=== PATIENT | male | born 1930 | race American Indian/Alaskan Native ===

== ENCOUNTER 2017-03-18 14:52 | Inpatient (IN) | payer MEDICARE ==
[2017-03-18 14:53] VITALS: BMI 23.6
--- NOTE | 2017-03-18 16:05 | ED PDOC ---
Arrival/HPI - General Chief Complaint: Lower Extremity Problem/Injury Time Seen by Provider: 03/18/17 16:05 Historian: Patient - History of Present Illness Narrative History of Present Illness (Text): 03/18/17 16:05 This 86 yo male with a pmh DM, HTN, presents to this ED c/o right foot infection , swelling, and pain x 3 days. Patient admits right foot redness started x 7 days ago, but it has progressively worsen. Patient denies sob, cp, abdominal pain, urinary symptoms, SANTILLAN, or dizziness. Time/Duration: Other (see hpi) Context: Home Past Medical History - Provider Review Nursing Documentation Reviewed: Yes - Tetanus Immunization Tetanus Immunization: Unknown - Cardiac Hx Cardiac Disorders: Yes Hx Hypertension: Yes - Pulmonary Hx Respiratory Disorders: No - Neurological Hx Neurological Disorder: No - HEENT Hx HEENT Disorder: No - Renal Hx Renal Disorder: No - Endocrine/Metabolic Hx Endocrine Disorders: Yes Hx Diabetes Mellitus Type 2: Yes - Hematological/Oncological Hx Blood Disorders: No - Integumentary Hx Dermatological Disorder: Yes - Musculoskeletal/Rheumatological Hx Musculoskeletal Disorders: No - Gastrointestinal Hx Gastrointestinal Disorders: No - Genitourinary/Gynecological Hx Genitourinary Disorders: No - Psychiatric Hx Psychophysiologic Disorder: No Hx Substance Use: No - Anesthesia Hx Anesthesia: No - Suicidal Assessment Feels Threatened In Home Enviroment: No Family/Social History - Physician Review Nursing Documentation Reviewed: Yes Family/Social History: Other (noncontributory) Smoking Status: Former Smoker Hx Alcohol Use: No Hx Substance Use: No Allergies/Home Meds Allergies/Adverse Reactions: Allergies No Known Allergies Allergy (Verified 03/18/17 15:31) Home Medications: Home Meds Medication Instructions Recorded Confirmed cloNIDine [clonidine HCl] 0.1 mg PO TID 12/11/15 03/18/17 Review of Systems - Review of Systems Constitutional: Normal. absent: Fatigue, Weight Change, Fevers Eyes: Normal ENT: Normal Respiratory: Normal Cardiovascular: Normal Gastrointestinal: Normal. absent: Abdominal Pain, Nausea, Vomiting Genitourinary Male: Normal. absent: Dysuria, Frequency, Hematuria Musculoskeletal: Normal Skin: Cellulitis (right foot) Neurological: Normal Endocrine: Normal Hemo/Lymphatic: Normal Psychiatric: Normal Physical Exam Vital Signs Temp Pulse Resp BP Pulse Ox 03/18/17 15:32 99.0 F 70 18 176/65 H 100 Temperature: Afebrile Blood Pressure: Normal Pulse: Regular Respiratory Rate: Normal Appearance: Positive for: Well-Appearing, Non-Toxic, Comfortable Pain Distress: None Mental Status: Positive for: Alert and Oriented X 3 - Systems Exam Head: Present: Atraumatic, Normocephalic Pupils: Present: PERRL Extroacular Muscles: Present: EOMI Conjunctiva: Present: Normal Mouth: Present: Moist Mucous Membranes Neck: Present: Normal Range of Motion Respiratory/Chest: Present: Clear to Auscultation, Good Air Exchange. No: Respiratory Distress, Accessory Muscle Use Cardiovascular: Present: Regular Rate and Rhythm, Normal S1, S2. No: Murmurs Abdomen: Present: Normal Bowel Sounds. No: Tenderness, Distention, Peritoneal Signs Back: Present: Normal Inspection. No: CVA Tenderness Upper Extremity: Present: Normal Inspection, Normal ROM, NORMAL PULSES, Neurovascularly Intact, Capillary Refill < 2s. No: Cyanosis, Edema Lower Extremity: Present: NORMAL PULSES, Normal ROM, Tenderness, Swelling, Erythema, Neurovascularly Intact, Capillary Refill < 2 s, Other ((+) right foot is swollen, erythematous, no abscess). No: Edema, CALF TENDERNESS Neurological: Present: GCS=15, CN II-XII Intact, Speech Normal, Motor Func Grossly Intact, Normal Sensory Function, Normal Cerebellar Funct Skin: Present: Warm, Dry, Normal Color. No: Rashes Psychiatric: Present: Alert, Oriented x 3, Normal Insight, Normal Concentration Medical Decision Making ED Course and Treatment: 03/18/17 17:[address] Grabiel Sun regarding patient right foot cellulitis. He agrees with plan for admission. 03/18/17 19:27 Patient agrees with plan for admission Re-evaluation Time: 18:27 Reassessment Condition: Re-examined, Improving,but remains with symptoms - Lab Interpretations Lab Results: 03/18/17 18:00 03/18/17 18:00 Lab Results 03/18/17 18:00: pO2 36, VBG pH 7.40, VBG pCO2 50.0, VBG HCO3 31.0 H, VBG Total CO2 32.5 H, VBG O2 Sat (Calc) 74.1 H, VBG Base Excess 5.0 H, VBG Potassium 3.2 L , Sodium 142.0, Chloride 108.0 H, Glucose 132 H, Lactate 0.9, FiO2 21.0, Venous Blood Potassium 3.2 L 03/18/17 18:00: Sodium 141, Chloride 102, Potassium 3.2 L, Carbon Dioxide 28, Anion Gap 15, BUN 21, Creatinine 2.4 H, Est GFR ( Amer) 31, Est GFR (Non- Af Amer) 26, Random Glucose 123 H, Calcium 9.3, Total Bilirubin 0.3, AST 39, ALT 28, Alkaline Phosphatase 85, Total Protein 7.5, Albumin 3.7, Globulin 3.8, Albumin/Globulin Ratio 1.0 L 03/18/17 18:00: PT 15.6 H, INR 1.36 H, APTT 33.6 03/18/17 18:00: WBC 9.1, RBC 3.20 L, Hgb 9.8 L, Hct 30.6 L, MCV 95.6, MCH 30.6, MCHC 32.0, RDW 12.9, Plt Count 270, MPV 10.4, Gran % 75.3 H, Lymph % (Auto) 13.7 L, [facility] % (Auto) 7.5 H, Eos % (Auto) 3.4, Baso % (Auto) 0.1, Gran # 6.83 H , Lymph # 1.2, [facility] # 0.7 H, Eos # 0.3, Baso # 0.01, ESR Pending I have reviewed the lab results: Yes Interpretation: Abnormal lab values (hypokalemia, anemia) - RAD Interpretation Narrative RAD Interpretations (Text): 03/18/17 19:21 Venous Doppler lower extremity: no DVT as per ultrasound Radiology Orders: 03/18/17 16:06 DUPLEX LOWER EXTRM VEIN RIGHT [US] Stat 03/18/17 16:07 FOOT RIGHT 3 VIEWS ROUTINE [RAD] Stat TIBIA FIBULA LEFT [RAD] Stat - Medication Orders Current Medication Orders: Amlodipine Besylate (Norvasc) 10 mg PO DAILY [facility] Carvedilol (Coreg) 6.25 mg PO BID [facility] Clonidine HCl (Catapres) 0.1 mg PO TID [facility] Piperacillin Sod/Tazobactam Sod (Zosyn 2.25 Gm In 0.9% 100 Ml) 2.25 gm in 100 mls @ 100 mls/hr IVPB Q8H [facility] PRN Reason: Protocol Stop: 03/19/17 03:14 Insulin Human Regular (Humulin R High) 0 units SC ACHS [facility] PRN Reason: Protocol Ketorolac Tromethamine (Toradol) 30 mg IVP Q6 [facility] Metformin HCl (Glucophage) 500 mg PO BID [facility] Silver Sulfadiazine (Silvadene 1% 25 Gm) 0 gm TP BID [facility] Valsartan (Diovan) 320 mg PO DAILY [facility] Discontinued Medications Sodium Chloride (Sodium Chloride 0.9%) 500 mls @ 999 mls/hr IV .Q31M STA Stop: 03/18/17 16:38 Last Admin: 03/18/17 17:41 Dose: 999 mls/hr eMAR Start Stop Document 03/18/17 17:41 OCS (Rec: 03/18/17 17:42 OCS [id number]) Intravenous Solution Start Date 03/18/17 Start Time 17:41 End Date 03/18/17 End time 18:11 Total Infusion Time 30 Potassium Chloride (K-Dur 20 Meq Er Tab) 40 meq PO STAT STA Stop: 03/18/17 19:22 Disposition/Present on Arrival - Present on Arrival Any Indicators Present on Arrival: No History of DVT/PE: No History of Uncontrolled Diabetes: No Urinary Catheter: No History of Decub. Ulcer: No History Surgical Site Infection Following: None - Disposition Have Diagnosis and Disposition been Completed?: Yes Diagnosis: Cellulitis in diabetic foot, Hypokalemia, Anemia Disposition: HOSPITALIZED Disposition Time: 18:30 Patient Plan: Admission Patient Problems: Current Active Problems Problem Status Onset Cellulitis in diabetic foot Acute Condition: STABLE
[2017-03-18] MEDS ORDERED: Sodium Chloride 0.9% 500 ML IV STA (16:08)
[2017-03-18] MEDS ORDERED: Piperacillin/Tazobact 2.25gm 2.25 GM/100 ML BAG IVPB SCH (18:15)
[2017-03-18 18:43] LABS: VENOUS BLOOD GAS PO2 36 mm/Hg (30-55)
[2017-03-18 18:50] LABS: BASO # 0.01 K/mm3 (0.0-2.0); BASO % 0.1 % (0.0-3.0); EOS # 0.3 (0.0-0.7); EOS % 3.4 % (1.5-5.0); GRAN # 6.83 (1.4-6.5); GRAN % 75.3 % (50.0-68.0); HEMOGLOBIN 9.8 g/dL (14.0-18.0); LYMPH # 1.2 (1.2-3.4); LYMPH % 13.7 % (22.0-35.0); MEAN CELL VOLUME 95.6 fl (80.0-105.0); MEAN CORPUSCULAR HEMOGLOBIN 30.6 pg (25.0-35.0); MEAN PLATELET VOLUME 10.4 fl (7.0-11.0); MONO # 0.7 (0.1-0.6); MONO % 7.5 % (1.0-6.0); RBC 3.2 10^6/uL (3.5-6.1); RED CELL DISTRIBUTION WIDTH 12.9 % (11.5-14.5); WHITE BLOOD COUNT 9.1 10^3/ul (4.5-11.0)
[2017-03-18 18:54] LABS: ALBUMIN 3.7 g/dL (3.0-4.8); CALCIUM 9.3 mg/dL (8.4-10.5); INR 1.36 (0.93-1.08); PARTIAL THROMBOPLASTIN TIME 33.6 Seconds (25.1-36.5); PROTHROMBIN TIME 15.6 SECONDS (9.4-12.5)
[2017-03-18] MEDS ORDERED: Potassium Chloride 20 mEq ER Tab PO STA (19:21)
[2017-03-18] MEDS: Silver Sulfadiazine 1% Cream (25 gm) TP SCH (19:49)
[2017-03-18] MEDS: Insulin Reg-HIGH-Coverage SC SCH (23:52)
[2017-03-19] MEDS ORDERED: Oxycodone/Acetaminophen 5/325 mg Tab PO STA (02:27)
--- NOTE | 2017-03-19 02:31 | HP ---
HISTORY OF PRESENT ILLNESS: He is an 86-year-old man who tells me for 3 weeks now, he has been dealing with right instep and ankle ulcer, it is red and inflamed, very large, it happened 3 weeks ago out of the blue. He has been putting some [id number] on it for 3 weeks and now it is painful, it is red, it is inflamed, it is burning and it is not getting any better, it is actually getting much worse. PAST MEDICAL HISTORY: Diabetes, hypertension. PAST SURGICAL HISTORY: None. FAMILY HISTORY: There is hypertension and diabetes in the family. MEDICATIONS: He takes multiple medications, metformin, clonidine, amlodipine, and Diovan. ALLERGIES: HE HAS NO KNOWN DRUG ALLERGIES. SOCIAL HISTORY: Does not drink, does not smoke or do drugs. REVIEW OF SYSTEMS: He is having low-grade temp at 99 or above. He has no acute vision loss. No hearing loss. No acute fatigue. No chest pain or shortness of breath. Little bit swelling of the feet. He is not dizzy. The right foot is red and inflamed with big large ulcers 8 x 3 inches and 4 x 4 inches on the right foot and ankle. No nauseousness. No cough. No problems urinating. He does have some arthritis. He has pain on the right foot. He has skin excoriation almost like 2 big ulcers on the right foot which are red and inflamed with skin excoriation. He is little bit weak, not dizzy nor anxious, not depressed. No anemia or bleeding. PHYSICAL EXAMINATION: VITAL SIGNS: He has 99 plus temp, 77 pulse, 18 respiratory rate, 176/65 blood pressure, 100% O2 sat on room air. HEENT: Head is atraumatic, normocephalic. Extraocular muscles are intact. Throat is moist. NECK: Supple. No JVD. HEART: Regular rate. LUNGS: Decreased breath sounds but clear to auscultation. ABDOMEN: Soft, nontender. Positive bowel sounds. EXTREMITIES: His right foot is hot, it is red, it is swollen, 2 large blisters, but looks like they are popping out. There are ulcers, looks cellulitic. It is more than 10 to 15 inches x 4 inches wide. It goes in like beginning of the big toe all across the instep, all across almost to the bottom of the foot and up into the ankle. NEUROLOGIC: He is alert and oriented x3. Cranial nerves II through XII grossly intact, appropriate affect. Memory is fair. LYMPHATICS: Thyroid midline. No palpable lymphadenopathy appreciated. LABORATORY DATA: He has no labs back yet. IMPRESSION AND PLAN: He is ready to be admitted for this. I put him on Zosyn, Norvasc, insulin coverage, Glucophage, , Coreg and Catapres. He has got a consult with Podiatry, Infectious Disease. It is clearly pretty severe cellulitis with 2 large blister ulcers that might need more than Silvadene cream, I am going to put on it. See what the Podiatry says. Also, he will need surgical intervention. We will keep this clean and dry as we can and will see how he progresses. The nurses will call me with the labs and he is here for cellulitis, ulcers of the right foot. He has got diabetes, ulcer and hypertension. Grabiel Sun DO MTDJimena
[2017-03-19 07:15] LABS: HEMOGLOBIN 10.2 g/dL (14.0-18.0); MEAN CELL VOLUME 96.1 fl (80.0-105.0); MEAN CORPUSCULAR HEMOGLOBIN 30.5 pg (25.0-35.0); MEAN CORPUSCULAR HGB CONC 31.8 g/dl (31.0-37.0); MEAN PLATELET VOLUME 10.1 fl (7.0-11.0); RBC 3.34 10^6/uL (3.5-6.1); RED CELL DISTRIBUTION WIDTH 12.9 % (11.5-14.5); WHITE BLOOD COUNT 6.1 10^3/ul (4.5-11.0)
[2017-03-19 07:25] LABS: ALBUMIN 3.5 g/dL (3.0-4.8); CALCIUM 9.2 mg/dL (8.4-10.5)
--- NOTE | 2017-03-19 09:58 | PN ---
DATE: SUBJECTIVE: I saw him resting comfortably in bed. He has been asking the same questions over and over again to the nurse as part of his dementia. He is on Catapres, ceftaroline, Coreg, Diovan, Glucophage, insulin, Norvasc, Silvadene and Toradol. PHYSICAL EXAMINATION: VITAL SIGNS: 99.6 temperature, 86 pulse, 170/85 blood pressure, 18 respiratory rate, 92% O2 sat on room air. HEENT: His head is atraumatic, normocephalic. HEART: Regular rate. LUNGS: Clear to auscultation. ABDOMEN: Soft. EXTREMITIES: His right foot has had a very large ulcer, reddened area underneath it, tenderness. He just started the antibiotics. He had this for many weeks. See what Podiatry, Infectious Disease have to say. LABORATORY DATA: He has a 6.1 white count, 10.2 hemoglobin, 32.1 hematocrit with 254 platelets. He has a 142 sodium, potassium 3.5, little bit better. I will give him some potassium. BUN 18, creatinine 2.1 getting better, GFR is up to 30, last blood sugar is 111, calcium is 9.2, total bilirubin is 0.4, AST is 34, ALT is 30, alkaline phosphatase is 73. Total protein is 7.1. His chest x-ray is pending, a tib-fib x-ray pending, foot x-ray pending and an ultrasound pending. PLAN: We will continue with aggressive treatment and care. Await for Podiatry. We will check his labs tomorrow, get him out of bed to chair, get physical therapy involved. He is here for diabetic right foot ulcer with cellulitis, pretty severe. Grabiel Sun DO
--- NOTE | 2017-03-19 09:58 | RAD ---
HISTORY: admission COMPARISON: 04/06/2014. FINDINGS: LUNGS: The lungs are well inflated and clear. PLEURA: No significant pleural effusion identified, no pneumothorax apparent. CARDIOVASCULAR: There is mild cardiomegaly. OSSEOUS STRUCTURES: No significant abnormalities. VISUALIZED UPPER ABDOMEN: Normal. OTHER FINDINGS: None. IMPRESSION: No active pulmonary disease.
[2017-03-19] MEDS: Insulin Reg-HIGH-Coverage SC SCH ×4 (10:24→22:12)
[2017-03-19] MEDS: Silver Sulfadiazine 1% Cream (25 gm) TP SCH ×2 (10:24→17:19)
--- NOTE | 2017-03-19 11:30 | RAD ---
PROCEDURE: Right Foot Radiographs. HISTORY: Swollen right foot and pain. COMPARISON: None. FINDINGS: BONES: Go No fracture. Small plantar calcaneal spur. JOINTS: Normal. SOFT TISSUES: Normal. OTHER FINDINGS: None. IMPRESSION: No acute findings related to/accounting for the clinical presentation. Concordant results with the preliminary interpretation rendered by the emergency department physician procedure.
--- NOTE | 2017-03-19 11:58 | RAD ---
PROCEDURE: Radiographs of the left tibia and fibula. HISTORY: Swelling right lower extremity COMPARISON: None available. TECHNIQUE: Frontal and lateral views obtained. FINDINGS: BONES: No fracture or destructive lesion. JOINT SPACES: Unremarkable. OTHER FINDINGS: There appears to be calf edema. IMPRESSION: Unremarkable radiographs of the left tibia and fibula. Soft tissue swelling without acute articular or osseous abnormality.
--- NOTE | 2017-03-19 13:01 | CON ---
DATE: HISTORY OF PRESENT ILLNESS: An 86-year-old male seen at bedside for consultation, evaluation and management of a recent superficial wound on his dorsal right foot and anterior ankle. The patient denies any recent trauma to the area and states that approximately 3 weeks ago, he started to have pain in his right foot and over the course of the following weeks, he noticed the foot becoming red hot and swollen and painful with subsequent skin breakdown approximately 1 week ago. He went to see an outside manufacturing planner, who recommended he be admitted to the hospital. The patient denies any history of gout and states he does not recall stepping on anything that caused pain in his foot to suggest foreign-body intrusion. PAST MEDICAL HISTORY: Significant for longstanding insulin-dependent diabetes and essential hypertension. SOCIAL HISTORY: The patient is , was a former heavy smoker, no longer smokes. Does not drink alcohol and denies illicit drug use. ALLERGIES: THE PATIENT HAS NO KNOWN DRUG ALLERGIES. PAST SURGICAL HISTORY: The patient states he has not had any surgery in the past. PHYSICAL EXAMINATION: VITAL SIGNS: Reveal a temperature of 98.5, pulse rate of 72, blood pressure of 178/75, respiratory rate of 20. EXTREMITIES: Weakly palpable pedal pulses noted bilaterally. Protective sensation is decreased bilaterally using 5.07 gm monofilament wire testing. Capillary filling time is delayed. The right foot presents with superficial unstageable ulceration on the dorsal aspect of the foot that extends to the anterior ankle. There is noted to be one small necrotic patch that measures approximately 0.2 x 0.1 x 0.1 cm at the lateral dorsal aspect of the foot. The wound does not probe to tendon or bone. There is no purulence to suggest underlying abscess formation. There is noted to be mild edema and erythema of the right foot; however, the patient states it is much better since he was admitted to the hospital with IV antibiotics. There is no pain upon palpation of the gastrosoleus complex and there is discomfort upon palpation of the superficial wound with no pain. There are no clinical signs of portal of entry noted on the plantar aspect of the foot to suggest foreign body intrusion. LABORATORY DATA: Laboratory findings reveal a white count of 6.1, hemoglobin of 10.2, hematocrit of 32.1, platelet count of 254. There is no microbiology report. X-rays of the foot and tib-fib are pending; however, old wet read by myself of the right foot reveals no radiographic evidence of cortical destruction to suggest osteomyelitis, no cortical erosion or punched out lesions to suggest long-term gout. There are no metallic foreign bodies noted. Venous ultrasound is pending; however, there was no pain upon palpation of the gastrosoleus complex and there was no noted unilateral lower extremity edema to suggest DVT at this point. However, conformation will be confirmed with venous Doppler results. ASSESSMENT: Unstageable superficial ulceration to the right dorsal foot and anterior ankle with resolving cellulitis. PLAN: The patient's foot was examined. Culture was taken and sent for sensitivities. Recommend infectious disease consult to evaluate culture and sensitivity results. Recommend vascular consult to evaluate arterial Dopplers which will be ordered today. We will await arterial and venous Doppler results. The patient's wound will be cleansed with normal sterile saline, we will apply Bactroban and a dry sterile dressing in the meantime. We will order MRI which is more specific. The patient will be seen in followup daily while in-house. René Saleh DPM
[2017-03-19] MEDS: Simethicone 80 mg Chewtab PO PRN (15:05)
--- NOTE | 2017-03-19 15:56 | MRI ---
PROCEDURE: MRI of the right foot without contrast HISTORY: right foot ulcer, evaluate for osteomyelitis COMPARISON: Comparison is made with the previous x-ray of the right dated 03/18/2017 TECHNIQUE: Axial coronal and sagittal MRI images of the right foot were obtained without contrast administration. FINDINGS: This study is suboptimal due to patient's motion and lack of IV contrast administration. There is no evidence of bone marrow edema or cortical erosion to suggest acute/ active osteomyelitis. There is heterogeneous abnormal hyperintense T2 and STIR and hyperintense T1 signal noted at the distal portion of the 1st metatarsal shaft. The differential consideration include foci of bone infarction, old infectious or inflammatory process or old healing fracture. No evidence of adjacent cortical destruction or adjacent fluid collection to. Moderate arthritic degenerative changes noted at the right foot associated with small subcortical cystic formation. There is moderate diffuse soft tissue edema in the right foot without evidence of discrete fluid collection. Heterogeneous increased signal noted also in the muscles of the right foot suggestive of myositis. IMPRESSION: No MRI evidence of acute or active osteomyelitis. Small foci of hyperintense T2 and STIR signal and hypointense T1 signal noted at the distal portion of the 1st metatarsal bone likely represent old process such as old bone infarction or old infection or inflammatory process. Moderate soft tissue edema.
--- NOTE | 2017-03-19 17:14 | CP.PCM.CON ---
History of Present Illness - History of Present Illness History of Present Illness: 86 year old male with PMH of DM, HTN came in to [facility] complaining of worsening right foot and heel pain for the past 3 days, which started about 2-3 weeks ago. He does not recall if he had any trauma to the foot. He denies animal bites or contacts, does not soak his feet in water, no walking barefoot on soil. He denies fever or chills, no nausea or vomiting, no chest pain, no SOB, no headache or dizziness, no abdominal pain, no diarrhea, no dysuria. Infectious Diseases consult is requested to further evaluate and manage. Review of Systems - Review of Systems All systems: reviewed and no additional remarkable complaints except (as per hPI ) Past Patient History - Tetanus Immunizations Tetanus Immunization: Unknown - Past Social History Smoking Status: Former Smoker - CARDIAC Hx Cardiac Disorders: Yes Hx Hypertension: Yes - PULMONARY Hx Respiratory Disorders: No - NEUROLOGICAL Hx Neurological Disorder: No - HEENT Hx HEENT Problems: No - RENAL Hx Chronic Kidney Disease: No - ENDOCRINE/METABOLIC Hx Endocrine Disorders: Yes Hx Diabetes Mellitus Type 2: Yes - HEMATOLOGICAL/ONCOLOGICAL Hx Blood Disorders: No - INTEGUMENTARY Hx Dermatological Problems: Yes - MUSCULOSKELETAL/RHEUMATOLOGICAL Hx Falls: No - GASTROINTESTINAL Hx Gastrointestinal Disorders: No - GENITOURINARY/GYNECOLOGICAL Hx Genitourinary Disorders: No - PSYCHIATRIC Hx Psychophysiologic Disorder: No - SURGICAL HISTORY Hx Surgeries: No - ANESTHESIA Hx Anesthesia: No Meds Allergies/Adverse Reactions: Allergies Allergy/AdvReac Type Severity Reaction Status Date / Time No Known Allergies Allergy Verified 03/18/17 15:31 - Medications Medications: Current Medications Amlodipine Besylate (Norvasc) 10 mg PO DAILY [facility] Carvedilol (Coreg) 6.25 mg PO BID [facility] Clonidine HCl (Catapres) 0.1 mg PO TID [facility] Ceftaroline Fosamil 300 mg/ (Sodium Chloride) 100 mls @ 100 mls/hr IVPB Q12 [facility] PRN Reason: Protocol Stop: 03/27/17 22:01 Last Admin: 03/18/17 23:49 Dose: 100 mls/hr Insulin Human Regular (Humulin R High) 0 units SC ACHS [facility] PRN Reason: Protocol Last Admin: 03/18/17 23:52 Dose: Not Given Ketorolac Tromethamine (Toradol) 30 mg IVP Q6 [facility] Last Admin: 03/18/17 23:52 Dose: 30 mg Metformin HCl (Glucophage) 500 mg PO BID [facility] Silver Sulfadiazine (Silvadene 1% 25 Gm) 0 gm TP BID [facility] Last Admin: 03/18/17 19:49 Dose: 25 gm Valsartan (Diovan) 320 mg PO DAILY [facility] Physical Exam - Constitutional Appears: Non-toxic, No Acute Distress - Head Exam Head Exam: NORMAL INSPECTION - ENT Exam ENT Exam: Mucous Membranes Moist - Neck Exam Neck exam: Negative for: Meningismus - Respiratory Exam Respiratory Exam: Decreased Breath Sounds - Cardiovascular Exam Cardiovascular Exam: +S1, +S2 - GI/Abdominal Exam GI & Abdominal Exam: Soft. absent: Tenderness - Extremities Exam Additional comments: right foot with dressings in place Results - Vital Signs Recent Vital Signs: Last Vital Signs Temp 99.6 F 03/19/17 00:51 Pulse 86 03/19/17 00:51 Resp 18 03/19/17 00:51 BP 170/85 H 03/19/17 00:51 Pulse Ox 100 03/18/17 19:30 - Labs Result Diagrams: 03/19/17 06:00 03/19/17 06:00 Labs: Laboratory Results - last 24 hr 03/18/17 03/18/17 22:01 23:45 POC Glucose (mg/dL) 176 H 150 H Assessment & Plan - Assessment and Plan (Free Text) Plan: Assessment right ankle, foot infected ulcer with skin and skin structure infection, R/O osteomyelitis DM HTN Plan Follow up blood and wound cx; patient has been started on Teflaro follow up MRI results and evaluation of Podiatry will monitor clinically
--- NOTE | 2017-03-19 17:33 | US ---
PROCEDURE: Lower extremity PARVEEN exam HISTORY: Peripheral vascular disease with pain and claudication. Diabetes. Previous smoking. PHYSICIAN(S): Bill Awad MD. FINDINGS: The resting ABIs are inaccurate due to calcification The brachial systolic pressures are symmetric. The right high thigh PVR waveform is mildly blunted. The left high thigh PVR waveform is moderately blunted. Distant with aortoiliac disease. The calf PVR waveforms do not augment. This is consistent with bilateral SFA disease. The ankle and metatarsal waveforms are severely blunted. This is consistent with bilateral tibial occlusive disease. IMPRESSION: 1. Multilevel occlusive disease as described above. 2. The distal waveforms are severely blunted. 3. If clinically indicated, further evaluation with CTA runoff, MRA runoff, or conventional arteriogram can be considered
--- NOTE | 2017-03-19 18:47 | US ---
PROCEDURE: Right lower extremity venous US HISTORY: Leg pain and swelling. Evaluate for DVT. PHYSICIAN(S): Bill Awad M.D. TECHNIQUE: Duplex sonography and color-flow Doppler with graded compression were used to evaluate the deep venous system of the right lower extremity. FINDINGS: The visualized deep venous system of the right lower extremity is sonographically normal and compressible. Normal waveforms and augmentation are seen. There is no sonographic evidence for deep venous thrombosis in the visualized segments of the right lower extremity. IMPRESSION: 1. No sonographic evidence for deep venous thrombosis in the visualized segments of the right lower extremity.
[2017-03-19] MEDS: Sodium Chloride 0.45% 1,000 ML IV SCH (21:24)
--- NOTE | 2017-03-20 06:21 | CON ---
DATE: 03/19/2017 CHIEF COMPLAINT/HISTORY OF PRESENT ILLNESS: This is an 86-year-old gentleman with a history of hypertension and previous smoking, admitted with a superficial ulceration, which is fairly extensive on the dorsum of the right foot and ankle. It has been present for approximately 3 weeks. The patient is not a good historian. His PARVEEN/PVR exam demonstrates multilevel disease. On the right, there is SFA and tibial disease. There is also suggestion of aortoiliac disease. The patient's creatinine is approximately 2. The patient will be hydrated and an MRA runoff performed. If proximal disease is present, it may be addressed in a limited fashion. At the current time, the wound is superficial and may heal with conservative measures. We will follow with podiatry. Bill Awad MD MTDJimena
[2017-03-20] MEDS: Insulin Reg-HIGH-Coverage SC SCH ×4 (08:10→22:39)
[2017-03-20 08:23] LABS: HEMOGLOBIN 10.9 g/dL (14.0-18.0); MEAN CELL VOLUME 95.5 fl (80.0-105.0); MEAN CORPUSCULAR HEMOGLOBIN 32.5 pg (25.0-35.0); MEAN CORPUSCULAR HGB CONC 34.1 g/dl (31.0-37.0); MEAN PLATELET VOLUME 10.4 fl (7.0-11.0); RBC 3.35 10^6/uL (3.5-6.1); RED CELL DISTRIBUTION WIDTH 12.8 % (11.5-14.5); WHITE BLOOD COUNT 6.5 10^3/ul (4.5-11.0)
[2017-03-20 08:30] LABS: ALBUMIN 3.6 g/dL (3.0-4.8); CALCIUM 9.6 mg/dL (8.4-10.5)
[2017-03-20] MEDS: Silver Sulfadiazine 1% Cream (25 gm) TP SCH ×2 (09:35→17:43)
--- NOTE | 2017-03-20 13:07 | CP.PCM.PN ---
<Maribell Dickey - Last Filed: 03/20/17 13:02> Subjective - Date & Time of Evaluation Date of Evaluation: 03/20/17 Time of Evaluation: 08:40 - Subjective Subjective: 86 year old male seen at bedside concerning right leg ulceration. Pt has no overnight complaints, and is well rested. Pt denies any overnight f/c/cp/sob/n/ v. Objective - Vital Signs/Intake and Output Vital Signs (last 24 hours): Temp Pulse Resp BP Pulse Ox 98.4 F 68 20 148/59 L 97 03/20/17 08:27 03/20/17 10:01 03/20/17 08:27 03/20/17 10:01 03/20/17 08:27 Intake and Output: 03/20/17 03/20/17 06:59 18:59 Intake Total 760 0 Output Total 250 500 Balance 510 -500 - Medications Medications: Current Medications Amlodipine Besylate (Norvasc) 10 mg PO DAILY [facility] Last Admin: 03/19/17 10:23 Dose: 10 mg Carvedilol (Coreg) 6.25 mg PO BID [facility] Last Admin: 03/19/17 17:18 Dose: 6.25 mg Clonidine HCl (Catapres) 0.1 mg PO TID [facility] Last Admin: 03/19/17 17:17 Dose: 0.1 mg Ceftaroline Fosamil 300 mg/ (Sodium Chloride) 100 mls @ 100 mls/hr IVPB Q12 [facility] PRN Reason: Protocol Stop: 03/27/17 22:01 Last Admin: 03/20/17 09:35 Dose: 100 mls/hr Sodium Chloride (Sodium Chloride 0.45%) 1,000 mls @ 60 mls/hr IV .[id number] [facility] Stop: 03/23/17 06:00 Last Admin: 03/19/17 21:24 Dose: 60 mls/hr Insulin Human Regular (Humulin R High) 0 units SC ACHS [facility] PRN Reason: Protocol Last Admin: 03/20/17 11:32 Dose: Not Given Ketorolac Tromethamine (Toradol) 30 mg IVP Q8H PRN PRN Reason: Pain, moderate (4-7) Metformin HCl (Glucophage) 500 mg PO BID [facility] Last Admin: 03/20/17 09:36 Dose: Not Given Mupirocin (Bactroban Ointment) 0 gm TOP BID [facility] Last Admin: 03/20/17 09:36 Dose: 1 applic Silver Sulfadiazine (Silvadene 1% 25 Gm) 0 gm TP BID [facility] Last Admin: 03/20/17 09:35 Dose: 1 gm Simethicone (Mylicon Chew Tab) 80 mg PO HS PRN PRN Reason: GI distress Last Admin: 03/19/17 15:05 Dose: 80 mg Valsartan (Diovan) 320 mg PO DAILY [facility] Last Admin: 03/19/17 10:23 Dose: 320 mg - Labs Labs: 03/20/17 06:55 03/20/17 06:55 PT 15.6 SECONDS (9.4-12.5) H 03/18/17 18:00 INR 1.36 (0.93-1.08) H 03/18/17 18:00 APTT 33.6 Seconds (25.1-36.5) 03/18/17 18:00 - Constitutional Appears: Well, Non-toxic, No Acute Distress - Extremities Exam Additional comments: Right lower extremity focused. DERM: Superfical ulceration with granular epithelializing noted to anterior ankle and dorsum of foot. No active drainage noted. Mild erythema. No mal-odor noted. No inter-digital macerations noted. NEURO: Protective sensation grossly intact. VASC: DP and PT pulses graded 1/4. Temperature runs warm to cool proximal to distal. Absent pedal hair growth bilaterally. - Neurological Exam Neurological Exam: Alert, Awake, Oriented x3 - Psychiatric Exam Psychiatric exam: Normal Affect, Normal Mood Assessment and Plan - Assessment and Plan (Free Text) Assessment: Right foot superficial ulceration to right foot with cellulits, likely secondary to PVD Plan: Pt seen and evaluated with attending, Dr. Gleason, who endorsed the following plan. Chart, labs, and vitals reviewed. WBC=6.1K, absent leukocytosis. Pt is afebrile Right foot wound cultures- pending, preliminary results: G(+) cocci, G(-) Rods Arterial studies reviewed: Noted multi-level occlusive disease of the SFA and tibial arteries bilaterally. Recommended CTA of arterial flow study. MRI results negative for OM and abscess. Continue IV abx per ID. Local wound care performed to ulceretive site, cleansed with sterile saline dressed with Bactroban, xeroform, DSD. Vascular evaluation reviewed and recommendations appreciated. Podiatry will continue to follow patient while inhouse. <René Saleh - Last Filed: 03/23/17 11:57> Objective - Vital Signs/Intake and Output Vital Signs (last 24 hours): Temp Pulse Resp BP Pulse Ox 97.3 F L 64 96 H 143/58 L 64 L 03/22/17 16:03 03/22/17 18:16 03/22/17 16:03 03/22/17 18:16 03/22/17 16:03 - Labs Labs: 03/22/17 06:00 03/22/17 06:00 PT 15.6 SECONDS (9.4-12.5) H 03/18/17 18:00 INR 1.36 (0.93-1.08) H 03/18/17 18:00 APTT 33.6 Seconds (25.1-36.5) 03/18/17 18:00 Attending/Attestation - Attestation I have personally seen and examined this patient.: Yes I have fully participated in the care of the patient.: Yes I have reviewed all pertinent clinical information, including history, physical exam and plan: Yes
--- NOTE | 2017-03-20 16:19 | PN ---
DATE: SUBJECTIVE: Blas was resting comfortably in bed. He is done eating his breakfast, not that hungry this morning. I encouraged him to eat some breakfast. He is alert. His right foot is all bandaged up. He has a right foot ulcer and cellulitis. He has diabetes, dementia, and acute kidney injury. MEDICATIONS: He is on IV fluids, Bactroban cream, Catapres, Coreg, Diovan, Glucophage, insulin, Mylicon, Norvasc, Silvadene cream, and Teflaro. PHYSICAL EXAMINATION: VITAL SIGNS: He has a 98.4 temperature, 68 pulse, 148/59 blood pressure, 20 respiratory rate, 97% O2 sat on 2L nasal cannula. HEENT: Atraumatic, normocephalic. HEART: Regular rate. LUNGS: Clear to auscultation. ABDOMEN: Soft. EXTREMITIES: No edema. Right leg is bandaged. LABORATORY DATA: He has a 141 sodium, potassium 3.8, BUN is 40, creatinine 1.8 better, GFR is 36, sugar is 194, calcium is 9.6, total bili is 0.6, AST is 31, ALT is 27, alk phos 81, total protein 7.2. He has a 1.36 INR. He has got white count of 6.5, hemoglobin 10.9, hematocrit 32, platelets 249. No growth in blood culture and wound culture is pending. There are consults with Dr. Bill Awad for vascular evaluation of the circulation. He has got Infectious Disease, Podiatry, and the lower extremity MRI, which did not show any ostia. He was on IV antibiotics. Will continue treatment as per ID and Podiatry. Awaiting for physical therapy to let me know if he needs to start TCU, and also we will continue to improve his right foot ulcer, cellulitis, diabetes, dementia, AKA. Grabiel Sun DO
[2017-03-20] MEDS: Sodium Chloride 0.45% 1,000 ML IV SCH (20:35)
[2017-03-20] MEDS: Simethicone 80 mg Chewtab PO PRN (20:35)
--- NOTE | 2017-03-21 02:32 | PN ---
DATE: 03/20/2017 SUBJECTIVE: The patient is in bed, in no acute distress, nontoxic. PHYSICAL EXAMINATION: VITAL SIGNS: Temperature is 97, blood pressure is 160/70, respiratory rate is 16. HEENT: Unremarkable. NECK: Supple. LUNGS: Decreased breath sounds. HEART: Normal S1 and S2. ABDOMEN: Soft. LABORATORY DATA: Reveals a white count of 6.5, hemoglobin of 10, platelets of 249, BUN of 14, and creatinine of 1.8. Microbiology is noted. Blood cultures are negative. Foot culture gram positive cocci and gram-negative roman and review of orders reveal that the patient has . ASSESSMENT AND PLAN: This is an 86-year-old male who was seen earlier this morning in room 367, bed 1 with right ankle and foot infection with gram-negative roman, gram-positive cocci, skin and soft tissue infection want to rule out osteomyelitis, diabetic, hypertensive on Teflaro. We will check on the identification sensitivity. The patient did have an MRI of the lower extremity, which shows no evidence of active osteomyelitis. Christiano Uribe MD
[2017-03-21] MEDS: Sodium Chloride 0.45% 1,000 ML IV SCH (05:50)
[2017-03-21 08:11] LABS: HEMOGLOBIN 9.1 g/dL (14.0-18.0); MEAN CELL VOLUME 92.2 fl (80.0-105.0); MEAN CORPUSCULAR HEMOGLOBIN 30.8 pg (25.0-35.0); MEAN CORPUSCULAR HGB CONC 33.5 g/dl (31.0-37.0); MEAN PLATELET VOLUME 9.9 fl (7.0-11.0); RBC 2.95 10^6/uL (3.5-6.1); RED CELL DISTRIBUTION WIDTH 12.6 % (11.5-14.5); WHITE BLOOD COUNT 6.5 10^3/ul (4.5-11.0)
[2017-03-21] MEDS: Insulin Reg-HIGH-Coverage SC SCH ×4 (09:32→23:02)
[2017-03-21] MEDS: Silver Sulfadiazine 1% Cream (25 gm) TP SCH (09:36)
[2017-03-21] MEDS ORDERED: Bismuth Subsalicylate 262 mg/15 ml Sus (240 ml) PO PRN (12:13)
--- NOTE | 2017-03-21 13:08 | PN ---
DATE: SUBJECTIVE: I saw him resting comfortably in bed. His right foot is bandaged. Podiatry he is on IV antibiotics. He is comfortable, mildly confused. PHYSICAL EXAMINATION: VITAL SIGNS: He has 98.9 temperature, 70 pulse, 159/62 blood pressure, 18 respiratory rate, and 97% O2 sat on room air. HEENT: Head is atraumatic and normocephalic. HEART: Regular rate. LUNGS: Decreased breath sounds, but clear. ABDOMEN: Soft, nontender, positive bowel sounds. EXTREMITIES: Have no edema. The right foot is bandaged because he had a large ulcer, diabetic ulcer. MEDICATIONS: He is currently on Bactroban cream, Catapres, ceftaroline, IV Coreg, Diovan, Glucophage, insulin, Mylicon, Norvasc, Silvadene, IV fluids, and Toradol. LABORATORY DATA: He has 6.5 white count, 9.1 hemoglobin, and 27.2 hematocrit with 244 platelets. He has 139 sodium, potassium is 3.8, BUN is 15, creatinine is 2.1, GFR is down to 30, sugar is 96, calcium is 9, total bilirubin is 0.5, AST is 27, ALT is 23, and alkaline phosphatase is 63. Total protein is 6.2. I am calling Renal to get their opinion as supposed to stay him down. Get him out of bed to chair. Ask physical therapy to get him walking. Continue with IV antibiotics. He has got right foot large cellulitis and ulcer. Grabiel Sun DO MTDD
--- NOTE | 2017-03-21 14:05 | CP.PCM.CON ---
History of Present Illness - History of Present Illness History of Present Illness: Initial Nephrology Consultation: Assessment: Stable Acute Kidney Injury (N17.9) likely hemodynamic due to BP changes, HTN and likely impaired renal autoregulation of blood flow Diabetic chronic Kidney Disease (E11.22) Hypertensive Chronic Kidney Disease (I12.9) Chronic Kidney Disease (N18.3) Stage 3 with ? mg proteinuria (R80.9) likely due to DM/HTN Anemia (D64.9), Hypokalemia, HTN (I12.9) Rt leg ulcer Plan No acute need for renal replacement therapy at this time. Hypertension control with meds as ordered. Patient on ARB will continue with same. check renin/carito in AM. added prn hydralazine Monitor Input/Output, daily weights and renal function with basic metabolic panel d/c metformin due to elevated creatinine. started on januvia 25 mg instead Check urine analysis, spot protein/creatinine and albumin/creatinine ratio, renal/bladder sonogram. Check for 25-OH vitamin D, iPTH, phosphorus level, iron studies, serum protein electrophoresis with immunofixation, kappa/lambda ratio Dose meds/antibiotics for reduced GFR. Avoid fleets enema/magnesium based laxatives. Avoid nephrotoxins/NSAIDs/ iodinated contrast (unless needed emergently) Glycemic control Further work up/management as per primary team Thanks for allowing me to participate in care of your patient. Will follow patient with you. Please call if any Qs Dr Víctor Echols Office: [phone] Chief Complaint;Rt leg wound HPI: Pt is a 86 M with hx of diabetes Mellitus ( many years), hypertension ( many years), CKD stage 3 (baseline cr 1.9 in 2015) presented with complaints of Rt leg wound with cellulitis and renal consult for elevated creatinine and HTN management. pt not aware about kidney disease in past. besides Rt leg wound , feels in usual health Denies OTC/herbal meds or NSAIDs No recent iodinated contrast exposure. No obvious episodes of low BP but had highs in 180-190s initially ROS: Cardiovascular: No chest pain. Pulmonary: No shortness of breath Gastrointestinal: denies abdominal pain No nausea. No vomiting. Genitourinary: No pain while urinating. Denies blood in urine. All other negative except Rt leg wound Physical Examination: General Appearance: Comfortable, in no acute respiratory distress, co-operative . Vitals reviewed and noted as below Head; Atraumatic, normocephalic ENT: no ulcers no thrush. Tongue is midline. Oropharynx: no rash or ulcers. EYES: Pupils are equal, round and reactive to light accommodation. Eye muscles and extraocular movement intact. Sclera is anicteric. Neck; supple no lymphadenopathy, no thyromegaly or bruit Lungs: Normal respiratory rate/effort. Breath sounds bilateral equal and clear Heart: Normal rate. s1s2 normal. No rub or gallop. Extremities: no edema. No varicose veins. Rt leg in dressing Neurological: Patient is alert, awake and oriented to person, place and time. No focal deficit. Strength bilateral appropriate and equal Skin: Warm and dry. Normal turgor. No rash. Palpitation: Normal elasticity for age Abdomen: Abdomen is soft. Bowel sounds +. There is no abdominal tenderness, no guarding/rigidity no organomegaly Psych: normal insight and normal affect/mood MSK: no joint tenderness or swelling. Digits and nails normal, no deformity : kidney or bladder not palpable Labs/imaging reviewed. Past medical history, past surgical history, family history, social history, allergy reviewed and noted as below Family hx: no hx of CKD. Rest non-contributory SARAH neg in 2014 Past Patient History - Tetanus Immunizations Tetanus Immunization: Unknown - Past Social History Smoking Status: Former Smoker - CARDIAC Hx Cardiac Disorders: Yes Hx Hypertension: Yes - PULMONARY Hx Respiratory Disorders: No - NEUROLOGICAL Hx Neurological Disorder: No - HEENT Hx HEENT Problems: No - RENAL Hx Chronic Kidney Disease: No - ENDOCRINE/METABOLIC Hx Endocrine Disorders: Yes Hx Diabetes Mellitus Type 2: Yes - HEMATOLOGICAL/ONCOLOGICAL Hx Blood Disorders: No - INTEGUMENTARY Hx Dermatological Problems: Yes - MUSCULOSKELETAL/RHEUMATOLOGICAL Hx Falls: No - GASTROINTESTINAL Hx Gastrointestinal Disorders: No - GENITOURINARY/GYNECOLOGICAL Hx Genitourinary Disorders: No - PSYCHIATRIC Hx Psychophysiologic Disorder: No - SURGICAL HISTORY Hx Surgeries: No - ANESTHESIA Hx Anesthesia: No Meds Allergies/Adverse Reactions: Allergies Allergy/AdvReac Type Severity Reaction Status Date / Time No Known Allergies Allergy Verified 03/18/17 15:31 - Medications Medications: Current Medications Amlodipine Besylate (Norvasc) 10 mg PO DAILY [facility] Last Admin: 03/21/17 09:35 Dose: 10 mg Bismuth Subsalicylate (Pepto-Bismol) 524 mg PO Q6 PRN PRN Reason: Diarrhea Last Admin: 03/21/17 12:58 Dose: 524 mg Carvedilol (Coreg) 6.25 mg PO BID [facility] Last Admin: 03/21/17 09:35 Dose: 6.25 mg Clonidine HCl (Catapres) 0.1 mg PO TID [facility] Last Admin: 03/21/17 13:53 Dose: 0.1 mg Ceftaroline Fosamil 300 mg/ (Sodium Chloride) 100 mls @ 100 mls/hr IVPB Q12 [facility] PRN Reason: Protocol Stop: 03/27/17 22:01 Last Admin: 03/21/17 09:41 Dose: 100 mls/hr Sodium Chloride (Sodium Chloride 0.45%) 1,000 mls @ 60 mls/hr IV .[id number] [facility] Stop: 03/23/17 06:00 Last Admin: 03/21/17 05:50 Dose: Not Given Insulin Human Regular (Humulin R High) 0 units SC ACHS [facility] PRN Reason: Protocol Last Admin: 03/21/17 11:59 Dose: Not Given Mupirocin (Bactroban Ointment) 0 gm TOP BID [facility] Last Admin: 03/21/17 09:32 Dose: 1 applic Silver Sulfadiazine (Silvadene 1% 25 Gm) 0 gm TP BID [facility] Last Admin: 03/21/17 09:36 Dose: 1 gm Simethicone (Mylicon Chew Tab) 80 mg PO [facility] PRN PRN Reason: GI distress Last Admin: 03/20/17 20:35 Dose: 80 mg Sitagliptin Phosphate (Januvia) 25 mg PO DAILY [facility] Valsartan (Diovan) 320 mg PO DAILY [facility] Last Admin: 03/21/17 09:35 Dose: 320 mg Results - Vital Signs Recent Vital Signs: Last Vital Signs Temp 98.9 F 03/21/17 08:03 Pulse 62 03/21/17 13:53 Resp 18 03/21/17 08:03 BP 141/60 03/21/17 13:53 Pulse Ox 97 03/21/17 08:03 - Labs Result Diagrams: 03/21/17 07:30 03/21/17 07:30 Labs: Laboratory Results - last 24 hr 03/20/17 03/20/17 03/21/17 16:22 21:21 07:30 WBC 6.5 RBC 2.95 L Hgb 9.1 L Hct 27.2 L MCV 92.2 D MCH 30.8 MCHC 33.5 RDW 12.6 Plt Count 244 MPV 9.9 Sodium Potassium Chloride Carbon Dioxide Anion Gap BUN Creatinine Est GFR ( Amer) Est GFR (Non-Af Amer) POC Glucose (mg/dL) 267 H 82 Random Glucose Calcium Total Bilirubin AST ALT Alkaline Phosphatase Total Protein Albumin Globulin Albumin/Globulin Ratio 03/21/17 03/21/17 03/21/17 07:30 07:38 11:35 WBC RBC Hgb Hct MCV MCH MCHC RDW Plt Count MPV Sodium 139 Potassium 3.8 Chloride 107 Carbon Dioxide 22 Anion Gap 13 BUN 15 Creatinine 2.1 H Est GFR ( Amer) 36 Est GFR (Non-Af Amer) 30 POC Glucose (mg/dL) 96 129 H Random Glucose 96 Calcium 9.0 Total Bilirubin 0.5 AST 27 ALT 23 Alkaline Phosphatase 63 Total Protein 6.2 Albumin 3.0 Globulin 3.1 Albumin/Globulin Ratio 1.0 L
[2017-03-21 14:09] LABS: IRON 45 ug/dL (45-180)
[2017-03-21 14:19] LABS: % IRON SATURATION 22 % (20-55); TOTAL IRON BINDING CAPACITY 208 ug/dL (261-462)
--- NOTE | 2017-03-21 14:39 | PN ---
DATE: 03/21/2017 SUBJECTIVE: The patient is in bed, in no acute distress. PHYSICAL EXAMINATION: VITAL SIGNS: Temperature is 98, blood pressure is 150/60, and respiratory rate of 18. HEENT: Unremarkable. NECK: Supple. LUNGS: Decreased breath sounds. HEART: Normal S1 and S2. ABDOMEN: Soft and nontender. LABORATORY DATA: Reveals white count of 6.5 and hemoglobin of 9. Chemistry reveals BUN of 15 and creatinine of 2.1. Microbiology reveals Enterobacter cloacae from the right foot culture and Enterococcus avium. Enterobacter cloacae is relatively sensitive, it is sensitive to Bactrim and ertapenem and sensitive to Cipro, cefepime, and meropenem, resistant of cefazolin. Enterococcus avium is resistant to , and it is sensitive to vancomycin, resistant to penicillin. Review of orders reveals the patient to be on ceftaroline. The patient has an MRA pending. ASSESSMENT AND PLAN: An 86-year-old male who is seen earlier today in [facility], bed 1 with Enterobacter cloacae and Enterococcus right ankle and foot soft tissue and soft tissue skin and soft tissue infection on Teflaro with negative osteo on MRI. The patient states vascular workup in progress. We will follow closely with you. Christiano Uribe MD
[2017-03-21 16:07] LABS: TOTAL PROTEIN,RANDOM URINE 255 mg/L
--- NOTE | 2017-03-21 18:06 | CP.PCM.PN ---
Subjective - Date & Time of Evaluation Date of Evaluation: 03/21/17 Time of Evaluation: 12:50 - Subjective Subjective: Podiatry Consult Note- Dr. Renteria 86 year old male seen at bedside concerning right leg ulceration. Pt reports continue ascending right leg pain, graded 5/10, moderately controlled by pain medications. Pt has no overnight complaints, and is well rested. Pt denies any overnight f/c/cp/sob/n/v. Objective - Vital Signs/Intake and Output Vital Signs (last 24 hours): Temp Pulse Resp BP Pulse Ox 98.9 F 62 18 141/60 97 03/21/17 08:03 03/21/17 13:53 03/21/17 08:03 03/21/17 13:53 03/21/17 08:03 - Medications Medications: Current Medications Amlodipine Besylate (Norvasc) 10 mg PO DAILY [facility] Last Admin: 03/21/17 09:35 Dose: 10 mg Bismuth Subsalicylate (Pepto-Bismol) 524 mg PO Q6 PRN PRN Reason: Diarrhea Last Admin: 03/21/17 12:58 Dose: 524 mg Carvedilol (Coreg) 6.25 mg PO BID [facility] Last Admin: 03/21/17 09:35 Dose: 6.25 mg Clonidine HCl (Catapres) 0.1 mg PO TID [facility] Last Admin: 03/21/17 13:53 Dose: 0.1 mg Hydralazine HCl (Apresoline) 25 mg PO Q6 PRN PRN Reason: Other Ceftaroline Fosamil 300 mg/ (Sodium Chloride) 100 mls @ 100 mls/hr IVPB Q12 [facility] PRN Reason: Protocol Stop: 03/27/17 22:01 Last Admin: 03/21/17 09:41 Dose: 100 mls/hr Sodium Chloride (Sodium Chloride 0.45%) 1,000 mls @ 60 mls/hr IV .[id number] [facility] Stop: 03/23/17 06:00 Last Admin: 03/21/17 05:50 Dose: Not Given Insulin Human Regular (Humulin R High) 0 units SC ACHS [facility] PRN Reason: Protocol Last Admin: 03/21/17 17:38 Dose: Not Given Mupirocin (Bactroban Ointment) 0 gm TOP BID [facility] Last Admin: 03/21/17 09:32 Dose: 1 applic Simethicone (Mylicon Chew Tab) 80 mg PO HS PRN PRN Reason: GI distress Last Admin: 03/20/17 20:35 Dose: 80 mg Sitagliptin Phosphate (Januvia) 25 mg PO DAILY [facility] Valsartan (Diovan) 320 mg PO DAILY [facility] Last Admin: 03/21/17 09:35 Dose: 320 mg - Labs Labs: 03/21/17 07:30 03/21/17 07:30 PT 15.6 SECONDS (9.4-12.5) H 03/18/17 18:00 INR 1.36 (0.93-1.08) H 03/18/17 18:00 APTT 33.6 Seconds (25.1-36.5) 03/18/17 18:00 - Constitutional Appears: Well, Non-toxic, No Acute Distress - Extremities Exam Additional comments: Right lower extremity focused. DERM: Superficial ulceration with epithelializing base noted to anterior ankle and dorsum of foot. No active drainage noted. Resolving erythema. No mal-odor noted. No inter-digital macerations noted. NEURO: Protective sensation grossly intact. VASC: DP and PT pulses graded 1/4. Temperature runs warm to cool proximal to distal. Absent pedal hair growth bilaterally. - Neurological Exam Neurological Exam: Alert, Awake, Oriented x3 - Psychiatric Exam Psychiatric exam: Normal Affect, Normal Mood Assessment and Plan - Assessment and Plan (Free Text) Assessment: Right foot superficial ulceration to right foot with cellulits, likely secondary to PVD Plan: Pt seen and evaluated. Discussed with attending, Dr. Renteria, who endorsed the following plan. Chart, labs, and vitals reviewed. WBC=6.5K, absent leukocytosis. Pt is afebrile Right foot wound cultures- Enterobacter cloacae ; Enterococcus avium Arterial studies reviewed: Noted multi-level occlusive disease of the SFA and tibial arteries bilaterally. per Vascular specialist- MRA imaging ordered MRI results negative for OM and abscess. Continue IV abx per ID. Local wound care performed to ulcerative site, cleansed with sterile saline dressed with Bactroban, xeroform, DSD. Podiatry will continue to follow patient while inhouse.
[2017-03-21 19:37] LABS: URINE BILIRUBIN NEGATIVE (NEGATIVE); URINE BLOOD NEGATIVE (NEGATIVE); URINE GLUCOSE (UA) NEGATIVE (NEGATIVE); URINE LEUKOCYTE ESTERASE NEGATIVE Leu/uL (NEGATIVE); URINE NITRATE NEGATIVE (NEGATIVE); URINE PROTEIN 100 mg/dL (<30 mg/dL); URINE UROBILINOGEN 0.2 E.U./dL (<1 E.U./dL)
[2017-03-21 19:39] LABS: URINE APPEARANCE CLEAR (CLEAR); URINE COLOR YELLOW (YELLOW)
[2017-03-21 20:39] LABS: URINE RBC 0 - 2 /hpf (0-2); URINE WBC 0 - 2 /hpf (0-6)
[2017-03-21 20:40] LABS: URINE BACTERIA MOD (NEG)
[2017-03-22 06:28] LABS: HEMOGLOBIN 9.2 g/dL (14.0-18.0); MEAN CELL VOLUME 89.5 fl (80.0-105.0); MEAN CORPUSCULAR HEMOGLOBIN 29.2 pg (25.0-35.0); MEAN CORPUSCULAR HGB CONC 32.6 g/dl (31.0-37.0); MEAN PLATELET VOLUME 9.9 fl (7.0-11.0); RBC 3.15 10^6/uL (3.5-6.1); RED CELL DISTRIBUTION WIDTH 12.5 % (11.5-14.5); WHITE BLOOD COUNT 7.2 10^3/ul (4.5-11.0)
[2017-03-22 07:38] LABS: CALCIUM 8.9 mg/dL (8.4-10.5)
[2017-03-22] MEDS: Insulin Reg-HIGH-Coverage SC SCH ×3 (09:25→17:01)
--- NOTE | 2017-03-22 09:55 | PN ---
DATE: SUBJECTIVE: I saw Mr. Odonnell resting in bed, slept fairly well. His right foot is covered in bandages. He tells me he is not eating that well. Did not get up to walk yet. MEDICATIONS: He is on Apresoline, Bactroban cream, Catapres, ceftaroline, Coreg, Diovan, insulin, Januvia, Mylicon, Norvasc, Pepto-Bismol, and IV fluids. PHYSICAL EXAMINATION: GENERAL: He is alert, mildly confused. VITAL SIGNS: He has a 98 temperature, 65 pulse, 138/64 blood pressure, 19 respiratory rate, 98% O2 sat. HEENT: Head is atraumatic, normocephalic. HEART: Regular rate. LUNGS: Decreased breath sounds, but clear. ABDOMEN: Soft. EXTREMITIES: No edema. The right foot is bandaged because of the ulcer. LABORATORY DATA: He has a 7.2 white count, 9.2 hemoglobin, 28.2 hematocrit with 251 platelets. Sodium 137, potassium 4.2, BUN 15, creatinine 1.9. GFR is 34, sugar is 117, calcium is 8.9, phosphorus is 2.9, AST is 39, ALT is 28, and alkaline phosphatase is 62. Total protein is 6.2. ASSESSMENT AND PLAN: We will continue with aggressive treatment and care as per Renal, Infectious Disease, Podiatry. IV antibiotics for right foot ulcer. Diabetes, dementia, and acute kidney injury. We will continue with Grabiel Sun DO MTDJimena
[2017-03-22] MEDS ORDERED: Gadodiamide 287 MG/ML VIAL (20ML) IV ONE (10:27)
--- NOTE | 2017-03-22 13:58 | CARD ---
APPROVED REPORT EKG Measurement Heart [id number] CO [id number] [id number] <Conclusion> Normal sinus rhythm Left anterior fascicular block Minimal voltage criteria for LVH, may be normal variant T wave abnormality, consider lateral ischemia Abnormal ECG
--- NOTE | 2017-03-22 14:33 | CP.PCM.PN ---
Subjective - Date & Time of Evaluation Date of Evaluation: 03/22/17 Time of Evaluation: 14:31 - Subjective Subjective: 86 y/o male seen at bedside this afternoon with attending Dr. Renteria for right foot cellulitis with superficial ulceration. Pt resting comfortably in bed at time of visit. Dressing clean dry and intact to R foot with antibiotics infusing well. Pt admits to having pain in the top of his right foot that comes and goes, worsened with touch. Denies F/C/N/V/CP/SOB at this time Objective - Vital Signs/Intake and Output Vital Signs (last 24 hours): Temp Pulse Resp BP Pulse Ox 98 F 65 20 161/71 H 97 03/22/17 08:45 03/22/17 08:45 03/22/17 08:45 03/22/17 12:04 03/22/17 08:45 Intake and Output: 03/22/17 03/22/17 06:59 18:59 Intake Total 1740 480 Output Total 1075 475 Balance 665 5 - Medications Medications: Current Medications Amlodipine Besylate (Norvasc) 10 mg PO DAILY [facility] Last Admin: 03/22/17 09:25 Dose: 10 mg Bismuth Subsalicylate (Pepto-Bismol) 524 mg PO Q6 PRN PRN Reason: Diarrhea Last Admin: 03/21/17 12:58 Dose: 524 mg Carvedilol (Coreg) 12.5 mg PO BID [facility] Clonidine HCl (Catapres) 0.1 mg PO TID [facility] Last Admin: 03/22/17 09:25 Dose: 0.1 mg Ferrous Gluconate (Fergon) 324 mg PO TID [facility] Hydralazine HCl (Apresoline) 25 mg PO Q6 PRN PRN Reason: Other Last Admin: 03/22/17 06:50 Dose: 25 mg Ceftaroline Fosamil 300 mg/ (Sodium Chloride) 100 mls @ 100 mls/hr IVPB Q12 [facility] PRN Reason: Protocol Stop: 03/27/17 22:01 Last Admin: 03/22/17 09:32 Dose: 100 mls/hr Sodium Chloride (Sodium Chloride 0.45%) 1,000 mls @ 60 mls/hr IV .[id number] [facility] Stop: 03/23/17 06:00 Last Admin: 03/21/17 05:50 Dose: Not Given Insulin Human Regular (Humulin R High) 0 units SC ACHS [facility] PRN Reason: Protocol Last Admin: 03/22/17 11:56 Dose: Not Given Mupirocin (Bactroban Ointment) 0 gm TOP BID [facility] Last Admin: 03/22/17 09:25 Dose: 1 applic Simethicone (Mylicon Chew Tab) 80 mg PO HS PRN PRN Reason: GI distress Last Admin: 03/20/17 20:35 Dose: 80 mg Sitagliptin Phosphate (Januvia) 25 mg PO DAILY [facility] Last Admin: 03/22/17 09:25 Dose: 25 mg Tramadol HCl (Ultram) 50 mg PO Q8 PRN PRN Reason: Pain, moderate (4-7) Valsartan (Diovan) 320 mg PO DAILY [facility] Last Admin: 03/22/17 09:25 Dose: 320 mg Vitamin B Complex/Vit C/Folic Acid (Nephro-J Luis) 1 tab PO 0800 [facility] - Labs Labs: 03/22/17 06:00 03/22/17 06:00 PT 15.6 SECONDS (9.4-12.5) H 03/18/17 18:00 INR 1.36 (0.93-1.08) H 03/18/17 18:00 APTT 33.6 Seconds (25.1-36.5) 03/18/17 18:00 - Constitutional Appears: Well, Non-toxic - Extremities Exam Additional comments: Right lower extremity focused examination: DERM: Superficial ulceration with epithelializing base noted to anterior ankle and dorsum of foot. No active drainage noted. Mild cellulitic skin changes are noted extending to mid level of leg. No malodor noted. No inter-digital macerations noted. NEURO: Protective sensation grossly intact. VASC: DP and PT pulses graded 1/4. Temperature runs warm to cool proximal to distal. Absent pedal hair growth - Neurological Exam Neurological Exam: Alert, Awake - Psychiatric Exam Psychiatric exam: Normal Affect, Normal Mood Assessment and Plan - Assessment and Plan (Free Text) Assessment: Right foot superficial ulceration to right foot with cellulits, likely secondary to PVD Plan: Pt seen and evaluated with attending, Dr. Renteria Chart, labs, and vitals reviewed - afebrile, WBC 7.2 Right foot wound cultures- Enterobacter cloacae; Enterococcus avium Arterial studies reviewed: Noted multi-level occlusive disease of the SFA and tibial arteries B/L MRA imaging ordered, awaiting read MRI results negative for OM and abscess Continue IV abx per ID. Local wound care performed to ulcerative site, cleansed with sterile saline dressed with Bactroban, Optifoam, DSD Podiatry will continue to follow patient while in house
[2017-03-22] MEDS ORDERED: Ergocalciferol 50,000 Intl Units Cap PO SCH (15:30)
--- NOTE | 2017-03-22 15:30 | CP.PCM.PN ---
Subjective - Date & Time of Evaluation Date of Evaluation: 03/22/17 Time of Evaluation: 15:28 - Subjective Subjective: Follow up Nephrology Consultation: Assessment: Stable Acute Kidney Injury (N17.9) likely hemodynamic due to BP changes, HTN and likely impaired renal autoregulation of blood flow Diabetic chronic Kidney Disease (E11.22) Hypertensive Chronic Kidney Disease (I12.9) Chronic Kidney Disease (N18.3) Stage 3 with 1 gm albuminuria (R80.9) likely due to DM/HTN Anemia (D64.9), Hypokalemia, HTN (I12.9) Rt leg ulcer vit d def Plan No acute need for renal replacement therapy at this time. Hypertension control with meds as ordered. Patient on ARB will continue with same. checking renin/craito. added prn hydralazine. increased coreg Monitor Input/Output, daily weights and renal function with basic metabolic panel d/c metformin due to elevated creatinine. started on januvia 25 mg instead added MVI, iron and weekly vit D Check urine analysis, spot protein/creatinine and albumin/creatinine ratio, renal/bladder sonogram. Check for iPTH, phosphorus level, iron studies, serum protein electrophoresis with immunofixation, kappa/lambda ratio Dose meds/antibiotics for reduced GFR. Avoid fleets enema/magnesium based laxatives. Avoid nephrotoxins/NSAIDs/ iodinated contrast (unless needed emergently) Glycemic control Further work up/management as per primary team Thanks for allowing me to participate in care of your patient. Will follow patient with you. Please call if any Qs Dr Víctor Echols Office: [phone] Chief Complaint;Rt leg wound HPI: Pt is a 86 M with hx of diabetes Mellitus ( many years), hypertension ( many years), CKD stage 3 (baseline cr 1.9 in 2015) presented with complaints of Rt leg wound with cellulitis and renal consult for elevated creatinine and HTN management. pt not aware about kidney disease in past. besides Rt leg wound , feels in usual health Denies OTC/herbal meds or NSAIDs No recent iodinated contrast exposure. No obvious episodes of low BP but had highs in 180-190s initially ROS: Cardiovascular: No chest pain. Pulmonary: No shortness of breath Gastrointestinal: denies abdominal pain No nausea. No vomiting. Genitourinary: No pain while urinating. Denies blood in urine. All other negative except Rt leg wound Physical Examination: General Appearance: Comfortable, in no acute respiratory distress, co-operative . Vitals reviewed and noted as below Head; Atraumatic, normocephalic ENT: no ulcers no thrush. Tongue is midline. Oropharynx: no rash or ulcers. EYES: Pupils are equal, round and reactive to light accommodation. Eye muscles and extraocular movement intact. Sclera is anicteric. Neck; supple no lymphadenopathy, no thyromegaly or bruit Lungs: Normal respiratory rate/effort. Breath sounds bilateral equal and clear Heart: Normal rate. s1s2 normal. No rub or gallop. Extremities: no edema. No varicose veins. Rt leg in dressing Neurological: Patient is alert, awake and oriented to person, place and time. No focal deficit. Strength bilateral appropriate and equal Skin: Warm and dry. Normal turgor. No rash. Palpitation: Normal elasticity for age Abdomen: Abdomen is soft. Bowel sounds +. There is no abdominal tenderness, no guarding/rigidity no organomegaly Psych: normal insight and normal affect/mood MSK: no joint tenderness or swelling. Digits and nails normal, no deformity : kidney or bladder not palpable Labs/imaging reviewed. Past medical history, past surgical history, family history, social history, allergy reviewed and noted as below Family hx: no hx of CKD. Rest non-contributory SARAH neg in 2014 Objective - Vital Signs/Intake and Output Vital Signs (last 24 hours): Temp Pulse Resp BP Pulse Ox 98 F 65 20 161/71 H 97 03/22/17 08:45 03/22/17 08:45 03/22/17 08:45 03/22/17 12:04 03/22/17 08:45 Intake and Output: 03/22/17 03/22/17 06:59 18:59 Intake Total 1740 480 Output Total 1075 475 Balance 665 5 - Medications Medications: Current Medications Amlodipine Besylate (Norvasc) 10 mg PO DAILY [facility] Last Admin: 03/22/17 09:25 Dose: 10 mg Bismuth Subsalicylate (Pepto-Bismol) 524 mg PO Q6 PRN PRN Reason: Diarrhea Last Admin: 03/21/17 12:58 Dose: 524 mg Carvedilol (Coreg) 12.5 mg PO BID [facility] Clonidine HCl (Catapres) 0.1 mg PO TID [facility] Last Admin: 03/22/17 09:25 Dose: 0.1 mg Ergocalciferol (Drisdol 50,000 Intl Units Cap) 1 cap PO Q7D [facility] Ferrous Gluconate (Fergon) 324 mg PO TID [facility] Hydralazine HCl (Apresoline) 25 mg PO Q6 PRN PRN Reason: Other Last Admin: 03/22/17 06:50 Dose: 25 mg Ceftaroline Fosamil 300 mg/ (Sodium Chloride) 100 mls @ 100 mls/hr IVPB Q12 [facility] PRN Reason: Protocol Stop: 03/27/17 22:01 Last Admin: 03/22/17 09:32 Dose: 100 mls/hr Sodium Chloride (Sodium Chloride 0.45%) 1,000 mls @ 60 mls/hr IV .[id number] [facility] Stop: 03/23/17 06:00 Last Admin: 03/21/17 05:50 Dose: Not Given Insulin Human Regular (Humulin R High) 0 units SC ACHS [facility] PRN Reason: Protocol Last Admin: 03/22/17 11:56 Dose: Not Given Mupirocin (Bactroban Ointment) 0 gm TOP BID [facility] Last Admin: 03/22/17 09:25 Dose: 1 applic Simethicone (Mylicon Chew Tab) 80 mg PO P[facility]S PRN PRN Reason: GI distress Last Admin: 03/20/17 20:35 Dose: 80 mg Sitagliptin Phosphate (Januvia) 25 mg PO DAILY [facility] Last Admin: 03/22/17 09:25 Dose: 25 mg Tramadol HCl (Ultram) 50 mg PO Q8 PRN PRN Reason: Pain, moderate (4-7) Last Admin: 03/22/17 14:44 Dose: 50 mg Valsartan (Diovan) 320 mg PO DAILY [facility] Last Admin: 03/22/17 09:25 Dose: 320 mg Vitamin B Complex/Vit C/Folic Acid (Nephro-J Luis) 1 tab PO 0800 [facility] - Labs Labs: 03/22/17 06:00 03/22/17 06:00 PT 15.6 SECONDS (9.4-12.5) H 03/18/17 18:00 INR 1.36 (0.93-1.08) H 03/18/17 18:00 APTT 33.6 Seconds (25.1-36.5) 03/18/17 18:00
--- NOTE | 2017-03-22 16:31 | MRI ---
PROCEDURE: MRA of the lower extremities with and without contrast HISTORY: PVD. rt ankle ulcer COMPARISON: TECHNIQUE: MR angiography of the aorta and lower extremities was performed with and without IV contrast. 20 cc of Omniscan was injected. The study is limited by motion artifact. FINDINGS: The aorta is tortuous but patent. The iliac arteries are patent. There is a mild stenosis in the left external iliac. Multiple short segment stenoses can be seen in the superficial femoral artery is right greater than left. There is diminished flow below the knees. On the left side the peroneal and posterior tibial extend to the ankle. The anterior tibial is occluded. There is a great deal of motion on this portion of the exam. The right-sided vessels are segmentally visualized. There is does not appear to be continuous flow from the popliteal artery to the ankle. The study is limited by patient motion IMPRESSION: Limited study due to patient motion. Diminished flow below the knees. Multiple short segment stenoses in the superficial femoral arteries right greater than left
[2017-03-22 17:52] VITALS: BP 143/58; RESP 96; TEMP 97.3; O2SAT 64
--- NOTE | 2017-03-22 17:58 | US ---
PROCEDURE: Ultrasound of the Kidneys HISTORY: [facility] COMPARISON: None available. TECHNIQUE: Sonogram of the kidneys. FINDINGS: RIGHT KIDNEY: Measures: 4.2 x 8.6 cm. Normal in size, contour and echogenicity. No stone, solid mass lesion or hydronephrosis visualized. LEFT KIDNEY: Measures: 4.9 x 9.5 cm. Normal in size, contour and echogenicity. No stone, solid mass lesion or hydronephrosis visualized. OTHER FINDINGS: None. IMPRESSION: Unremarkable renal sonogram.
--- NOTE | 2017-03-22 18:10 | US ---
PROCEDURE: Ultrasound urinary bladder HISTORY: [facility] COMPARISON: None TECHNIQUE: Standard protocol for this study/examination. FINDINGS: Urinary bladder assessment: Prevoid volume: 26.5 ml Postvoid residual: 3.4 ml Intrinsic, mural, perivesical abnormalities: None Ureteral jets: Documented bilaterallyCalculated prostate Valium 19.0 mL. Calculated P PSA 2.28 IMPRESSION: No significant or acute findings to account for/ related to the clinical presentation.
[2017-03-22 18:20] VITALS: PULSE 64
--- NOTE | 2017-03-22 18:24 | CP.PCM.PN ---
Subjective - Date & Time of Evaluation Date of Evaluation: 03/22/17 Time of Evaluation: 11:00 - Subjective Subjective: Comfortable, no fevers, not in distress. Objective - Vital Signs/Intake and Output Vital Signs (last 24 hours): Temp Pulse Resp BP Pulse Ox 98 F 65 20 165/66 H 97 03/22/17 08:45 03/22/17 08:45 03/22/17 08:45 03/22/17 09:25 03/22/17 08:45 Intake and Output: 03/22/17 03/22/17 06:59 18:59 Intake Total 1740 120 Output Total 1075 325 Balance 665 -205 - Medications Medications: Current Medications Amlodipine Besylate (Norvasc) 10 mg PO DAILY [facility] Last Admin: 03/22/17 09:25 Dose: 10 mg Bismuth Subsalicylate (Pepto-Bismol) 524 mg PO Q6 PRN PRN Reason: Diarrhea Last Admin: 03/21/17 12:58 Dose: 524 mg Carvedilol (Coreg) 6.25 mg PO BID [facility] Last Admin: 03/22/17 09:25 Dose: 6.25 mg Clonidine HCl (Catapres) 0.1 mg PO TID [facility] Last Admin: 03/22/17 09:25 Dose: 0.1 mg Hydralazine HCl (Apresoline) 25 mg PO Q6 PRN PRN Reason: Other Last Admin: 03/22/17 06:50 Dose: 25 mg Ceftaroline Fosamil 300 mg/ (Sodium Chloride) 100 mls @ 100 mls/hr IVPB Q12 [facility] PRN Reason: Protocol Stop: 03/27/17 22:01 Last Admin: 03/22/17 09:32 Dose: 100 mls/hr Sodium Chloride (Sodium Chloride 0.45%) 1,000 mls @ 60 mls/hr IV .[id number] [facility] Stop: 03/23/17 06:00 Last Admin: 03/21/17 05:50 Dose: Not Given Insulin Human Regular (Humulin R High) 0 units SC ACHS [facility] PRN Reason: Protocol Last Admin: 03/22/17 09:25 Dose: Not Given Mupirocin (Bactroban Ointment) 0 gm TOP BID [facility] Last Admin: 03/22/17 09:25 Dose: 1 applic Simethicone (Mylicon Chew Tab) 80 mg PO [facility] PRN PRN Reason: GI distress Last Admin: 03/20/17 20:35 Dose: 80 mg Sitagliptin Phosphate (Januvia) 25 mg PO DAILY [facility] Last Admin: 03/22/17 09:25 Dose: 25 mg Valsartan (Diovan) 320 mg PO DAILY [facility] Last Admin: 03/22/17 09:25 Dose: 320 mg - Labs Labs: 03/22/17 06:00 03/22/17 06:00 PT 15.6 SECONDS (9.4-12.5) H 03/18/17 18:00 INR 1.36 (0.93-1.08) H 03/18/17 18:00 APTT 33.6 Seconds (25.1-36.5) 03/18/17 18:00 - Constitutional Appears: Non-toxic - Head Exam Head Exam: NORMAL INSPECTION - Respiratory Exam Respiratory Exam: Decreased Breath Sounds - Cardiovascular Exam Cardiovascular Exam: +S1, +S2 - GI/Abdominal Exam GI & Abdominal Exam: Soft. absent: Tenderness Assessment and Plan - Assessment and Plan (Free Text) Plan: Assessment right ankle, foot infected ulcer with skin and skin structure infection, growing Enterobacter and Enterococcus with no osteomyelitis on MRI DM HTN Plan will switch Teflaro to Zosyn and will monitor clinically
[2017-03-23] MEDS ORDERED: Piperacillin/Tazobact 2.25gm 2.25 GM/100 ML BAG IVPB SCH
[2017-03-23] MEDS ORDERED: Multivitamin Vitamin B Complex (Nephro-Vite) Tab PO SCH (08:00)
[2017-03-23 11:47] LABS: ALBUMIN (PEP) 2.9 g/dL (3.8-4.8); ALPHA-1-GLOBULIN (PEP) 0.4 g/dL (0.2-0.3)
== END 2017-03-22 20:06 | DRG 638 ==
LOC: ED 14:52 → ERH 18:27 → 3RNO 20:13
PROVIDERS: ADMIT Family Medicine; ATTEND Family Medicine
DX: E11.621 Type 2 diabetes mellitus with foot ulcer (principal); L03.115 Cellulitis of right lower limb; L97.519 Non-pressure chronic ulcer of other part of right foot with unspecified severity; L97.319 Non-pressure chronic ulcer of right ankle with unspecified severity; N17.9 Acute kidney failure, unspecified; E11.22 Type 2 diabetes mellitus with diabetic chronic kidney disease; E11.51 Type 2 diabetes mellitus with diabetic peripheral angiopathy without gangrene; D64.9 Anemia, unspecified; E55.9 Vitamin D deficiency, unspecified; E87.6 Hypokalemia; F03.90 Unspecified dementia, unspecified severity, without behavioral disturbance, psychotic disturbance, mood disturbance, and anxiety; I12.9 Hypertensive chronic kidney disease with stage 1 through stage 4 chronic kidney disease, or unspecified chronic kidney disease; N18.3 Chronic kidney disease, stage 3 (moderate); Z79.4 Long term (current) use of insulin; Z82.49 Family history of ischemic heart disease and other diseases of the circulatory system; Z83.3 Family history of diabetes mellitus; Z87.891 Personal history of nicotine dependence; R40.2412 Glasgow coma scale score 13-15, at arrival to emergency department; B95.2 Enterococcus as the cause of diseases classified elsewhere; B96.89 Other specified bacterial agents as the cause of diseases classified elsewhere

== ENCOUNTER 2017-03-22 20:06 | Inpatient (IN) | payer OTHER, MEDICARE ==
[2017-03-22 20:45] VITALS: BMI 22.1
[2017-03-22] MEDS ORDERED: Simethicone 80 mg Chewtab PO PRN (20:47)
[2017-03-22] MEDS ORDERED: Sodium Chloride 0.45% 1,000 ML IV SCH (21:00)
[2017-03-22] MEDS: Insulin Reg-HIGH-Coverage SC SCH (22:00)
[2017-03-23] MEDS ORDERED: Pneumococcal 23-Valent Vaccine IM ONE (00:40)
[2017-03-23] MEDS ORDERED: Influenza Vaccine 60 mcg/0.5 mL SYR (4YR UP) IM ONE (00:40)
[2017-03-23] MEDS: Piperacillin/Tazobact 2.25gm 2.25 GM/100 ML BAG IVPB SCH ×5 (01:35→23:16)
[2017-03-23] MEDS: Insulin Reg-HIGH-Coverage SC SCH ×4 (06:40→23:36)
[2017-03-23 08:29] LABS: BASO # 0.02 K/mm3 (0.0-2.0); BASO % 0.2 % (0.0-3.0); EOS # 0.4 (0.0-0.7); EOS % 3.9 % (1.5-5.0); GRAN # 6.99 (1.4-6.5); GRAN % 77.6 % (50.0-68.0); HEMOGLOBIN 9.3 g/dL (14.0-18.0); LYMPH # 1.1 (1.2-3.4); MEAN CORPUSCULAR HEMOGLOBIN 30.1 pg (25.0-35.0); MEAN CORPUSCULAR HGB CONC 33.5 g/dl (31.0-37.0); MEAN PLATELET VOLUME 9.9 fl (7.0-11.0); MONO # 0.6 (0.1-0.6); MONO % 6.3 % (1.0-6.0); RBC 3.09 10^6/uL (3.5-6.1); RED CELL DISTRIBUTION WIDTH 12.4 % (11.5-14.5)
[2017-03-23 08:32] LABS: CALCIUM 8.8 mg/dL (8.4-10.5)
[2017-03-23] MEDS: Bismuth Subsalicylate 262 mg/15 ml Sus (240 ml) PO PRN (09:35)
[2017-03-23] MEDS: Multivitamin Vitamin B Complex (Nephro-Vite) Tab PO SCH (09:36)
[2017-03-23] MEDS: Morphine 5 MG/ML SYRINGE IVP PRN (10:37)
--- NOTE | 2017-03-23 14:41 | HP ---
HISTORY OF PRESENT ILLNESS: Blas was admitted to the hospital with an ulcer to his right foot with cellulitis. He is a diabetic. He has dementia and acute kidney injury. He has been in the hospital side, now he is transferred to TCU to finish up the IV antibiotics and get more physical therapy. He is an 86-year-old man with persistent right foot ulcer. PAST MEDICAL HISTORY: He also has past medical history of diabetes, hypertension, pain, and dementia. FAMILY HISTORY: He has hypertension and diabetes in the family. PAST SURGICAL HISTORY: He has no surgeries in the past. MEDICATIONS: He takes metformin, clonidine, amlodipine, Apresoline, Bactroban cream, Catapres, Coreg, Diovan, Drisdol, Brovana, insulin, Januvia, Mylicon, Nephro-J Luis, Norvasc, Pepto-Bismol, IV fluids, and Ultram. He is on Zosyn. ALLERGIES: HE HAS NO KNOWN DRUG ALLERGIES. SOCIAL HISTORY: He is alert, mildly confused. No drinking. No drugs. No alcohol. No smoking. REVIEW OF SYSTEMS: No acute vision loss or hearing loss. No acute tiredness. No chest pain. No shortness of breath. No palpitation. No cough. The right foot is bandaged with an ulcer and is red. He is not dizzy. No nauseousness. No problems urinating. Occasional arthritis pain with some pain on the foot. He has got skin excoriation. A bit weak, but getting stronger, not dizzy, not anxious, not depressed. No apparent bleeding or urinary problems. PHYSICAL EXAMINATION: VITAL SIGNS: He has 98.2 temperature, 63 pulse, 146/72 blood pressure, 20 respiratory rate, and 97% O2 sat. HEENT: His head is atraumatic, normocephalic. Extraocular muscles are intact. Throat is moist. NECK: Supple. HEART: Regular rate. LUNGS: Decreased breath sounds, but clear to auscultation. ABDOMEN: Soft and nontender. Positive bowel sounds. No guarding. No rebound. No CVA tenderness. EXTREMITIES: His right foot is bandaged. He did have an ulcer there that is red and inflamed. No apparent edema. NEUROLOGIC: Alert and oriented, little bit confused, have to organize him. Cranial nerves II through XII grossly intact. Pleasant. Memory is fair. LYMPHATICS: Thyroid midline. No palpable lymphadenopathy appreciated. LABORATORY DATA: He had blood test done. He has 137 sodium, potassium 4, BUN 15, creatinine 1.9, GFR is 34, sugar is 104, and calcium is 8.8. White count is 9, hemoglobin is 9.3, hematocrit is 27.8, and platelets are 244. PLAN: He is going to have consults with Podiatry, Infectious Disease, Renal, and Interventional Radiology for possible hopeful placement of stents if needed in the arteries of lower extremity to help it heal. We will continue with aggressive treatment and care. We will check his labs tomorrow. Physical therapy, get him out of bed to chair. Grabiel Sun DO MTDD
--- NOTE | 2017-03-23 16:12 | CP.PCM.CON ---
<ValdezSusi - Last Filed: 03/23/17 16:13> History of Present Illness - History of Present Illness History of Present Illness: 86 y/o male seen at bedside with attending Dr. Saleh regarding right foot dorsal superficial ulceration with cellulitis. Pt resting comfortably at time of visit. States his pain has decreased to the right foot but still mild and increases with touch. Dressing has remained clean dry and intact. Denies F/C/N/V /CP/SOB Review of Systems - Review of Systems All systems: reviewed and no additional remarkable complaints except (per HPI) Past Patient History - Tetanus Immunizations Tetanus Immunization: Unknown - Past Social History Smoking Status: Former Smoker - CARDIAC Hx Cardiac Disorders: Yes Hx Hypertension: Yes - PULMONARY Hx Respiratory Disorders: No - NEUROLOGICAL Hx Neurological Disorder: No - HEENT Hx HEENT Problems: No - RENAL Hx Chronic Kidney Disease: No - ENDOCRINE/METABOLIC Hx Diabetes Mellitus Type 2: Yes - HEMATOLOGICAL/ONCOLOGICAL Hx Blood Disorders: No - INTEGUMENTARY Hx Dermatological Problems: Yes - MUSCULOSKELETAL/RHEUMATOLOGICAL Hx Falls: Yes - GASTROINTESTINAL Hx Gastrointestinal Disorders: No - GENITOURINARY/GYNECOLOGICAL Hx Genitourinary Disorders: No Hx Reproductive Disorders: No - PSYCHIATRIC Hx Psychophysiologic Disorder: No - SURGICAL HISTORY Hx Surgeries: No - ANESTHESIA Hx Anesthesia: No Meds Allergies/Adverse Reactions: Allergies Allergy/AdvReac Type Severity Reaction Status Date / Time No Known Allergies Allergy Verified 03/22/17 20:45 - Medications Medications: Current Medications Amlodipine Besylate (Norvasc) 10 mg PO DAILY [facility] PRN Reason: Protocol Last Admin: 03/23/17 09:37 Dose: 10 mg Bismuth Subsalicylate (Pepto-Bismol) 524 mg PO Q6H PRN; Protocol PRN Reason: Diarrhea Last Admin: 03/23/17 09:35 Dose: 524 mg Carvedilol (Coreg) 12.5 mg PO BID [facility] PRN Reason: Protocol Last Admin: 03/23/17 09:38 Dose: 12.5 mg Clonidine HCl (Catapres) 0.1 mg PO TID [facility] PRN Reason: Protocol Last Admin: 03/23/17 14:14 Dose: 0.1 mg Ergocalciferol (Drisdol 50,000 Intl Units Cap) 1 cap PO MON@1530 [facility] PRN Reason: Protocol Ferrous Gluconate (Fergon) 324 mg PO TID [facility] PRN Reason: Protocol Last Admin: 03/23/17 14:14 Dose: 324 mg Hydralazine HCl (Apresoline) 25 mg PO Q6 PRN; Protocol PRN Reason: Other Piperacillin Sod/Tazobactam Sod (Zosyn 2.25 Gm In 0.9% 100 Ml) 2.25 gm in 100 mls @ 100 mls/hr IVPB Q6 [facility] PRN Reason: Protocol Stop: 03/30/17 00:01 Last Admin: 03/23/17 12:24 Dose: 100 mls/hr Insulin Human Regular (Humulin R High) 0 units SC ACHS [facility] PRN Reason: Protocol Last Admin: 03/23/17 11:42 Dose: Not Given Morphine Sulfate (Morphine) 1 mg IVP Q4H PRN PRN Reason: Pain, moderate (4-7) Last Admin: 03/23/17 10:37 Dose: 1 mg Mupirocin (Bactroban Ointment) 0 gm TOP BID [facility] PRN Reason: Protocol Last Admin: 03/23/17 10:23 Dose: 1 appl Simethicone (Mylicon Chew Tab) 80 mg PO PCHS PRN; Protocol PRN Reason: GI distress Sitagliptin Phosphate (Januvia) 25 mg PO DAILY [facility] PRN Reason: Protocol Last Admin: 03/23/17 09:37 Dose: 25 mg Tramadol HCl (Ultram) 50 mg PO Q8 PRN; Protocol PRN Reason: Pain, Mild (1-3) Valsartan (Diovan) 320 mg PO DAILY [facility] PRN Reason: Protocol Last Admin: 03/23/17 09:37 Dose: 320 mg Vitamin B Complex/Vit C/Folic Acid (Nephro-J Luis) 1 tab PO 0800 [facility] PRN Reason: Protocol Last Admin: 03/23/17 09:36 Dose: 1 tab Physical Exam - Constitutional Appears: Well, Non-toxic, No Acute Distress - Extremities Exam Additional comments: Right lower extremity focused examination: DERM: Superficial ulceration with epithelializing base noted to anterior ankle and dorsum of foot. No active drainage noted. Mild cellulitic skin changes are noted extending to mid level of leg. No malodor noted. No inter-digital macerations noted. NEURO: Protective sensation grossly intact. VASC: DP and PT pulses graded 1/4. Temperature runs warm to cool proximal to distal. Absent pedal hair growth Results - Vital Signs Recent Vital Signs: Last Vital Signs Temp 98.8 F 03/23/17 11:17 Pulse 67 03/23/17 14:14 Resp 18 03/23/17 11:17 BP 148/71 03/23/17 14:14 Pulse Ox 95 03/23/17 11:17 - Labs Result Diagrams: 03/23/17 08:00 03/23/17 08:00 Labs: Laboratory Results - last 24 hr 03/23/17 03/23/17 03/23/17 08:00 08:00 11:36 WBC 9.0 D RBC 3.09 L Hgb 9.3 L Hct 27.8 L MCV 90.0 MCH 30.1 MCHC 33.5 RDW 12.4 Plt Count 244 MPV 9.9 Gran % 77.6 H Lymph % (Auto) 12.0 L [place] % (Auto) 6.3 H Eos % (Auto) 3.9 Baso % (Auto) 0.2 Gran # 6.99 H Lymph # 1.1 L [place] # 0.6 Eos # 0.4 Baso # 0.02 Sodium 137 Potassium 4.0 Chloride 106 Carbon Dioxide 21 Anion Gap 14 BUN 15 Creatinine 1.9 H Est GFR ( Amer) 41 Est GFR (Non-Af Amer) 34 POC Glucose (mg/dL) 101 Random Glucose 104 Calcium 8.8 Assessment & Plan - Assessment and Plan (Free Text) Assessment: 86 y/o male with right foot superficial ulceration with cellulitis, likely secondary to PVD Plan: Pt seen and evaluated with attending Dr. Saleh Chart, labs, and vitals reviewed - afebrile, WBC 9.0 Right foot wound cultures- Enterobacter cloacae; Enterococcus avium Arterial studies reviewed: Noted multi-level occlusive disease of the SFA and tibial arteries B/L MRA of LLE reveals diminished flow below knees, multiple short segment stenoses in SFA, R>L MRI results negative for OM and abscess Continue IV abx per ID Local wound care performed to ulcerative site, cleansed with sterile saline dressed with Optifoam, DSD Podiatry will continue to follow patient while in house Pt stable for discharge from podiatry standpoint Pt to follow up in the wound care center with Dr. Renteria/Therese upon discharge <René Saleh - Last Filed: 03/23/17 16:54> Meds - Medications Medications: Current Medications Amlodipine Besylate (Norvasc) 10 mg PO DAILY [facility] PRN Reason: Protocol Last Admin: 03/23/17 09:37 Dose: 10 mg Bismuth Subsalicylate (Pepto-Bismol) 524 mg PO Q6H PRN; Protocol PRN Reason: Diarrhea Last Admin: 03/23/17 09:35 Dose: 524 mg Carvedilol (Coreg) 12.5 mg PO BID [facility] PRN Reason: Protocol Last Admin: 03/23/17 09:38 Dose: 12.5 mg Clonidine HCl (Catapres) 0.1 mg PO TID [facility] PRN Reason: Protocol Last Admin: 03/23/17 14:14 Dose: 0.1 mg Ergocalciferol (Drisdol 50,000 Intl Units Cap) 1 cap PO MON@1530 [facility] PRN Reason: Protocol Ferrous Gluconate (Fergon) 324 mg PO TID [facility] PRN Reason: Protocol Last Admin: 03/23/17 14:14 Dose: 324 mg Hydralazine HCl (Apresoline) 25 mg PO Q6 PRN; Protocol PRN Reason: Other Piperacillin Sod/Tazobactam Sod (Zosyn 2.25 Gm In 0.9% 100 Ml) 2.25 gm in 100 mls @ 100 mls/hr IVPB Q6 [facility] PRN Reason: Protocol Stop: 03/30/17 00:01 Last Admin: 03/23/17 12:24 Dose: 100 mls/hr Insulin Human Regular (Humulin R High) 0 units SC ACHS [facility] PRN Reason: Protocol Last Admin: 03/23/17 11:42 Dose: Not Given Morphine Sulfate (Morphine) 1 mg IVP Q4H PRN PRN Reason: Pain, moderate (4-7) Last Admin: 03/23/17 10:37 Dose: 1 mg Mupirocin (Bactroban Ointment) 0 gm TOP BID [facility] PRN Reason: Protocol Last Admin: 03/23/17 10:23 Dose: 1 appl Simethicone (Mylicon Chew Tab) 80 mg PO PCHS PRN; Protocol PRN Reason: GI distress Sitagliptin Phosphate (Januvia) 25 mg PO DAILY [facility] PRN Reason: Protocol Last Admin: 03/23/17 09:37 Dose: 25 mg Tramadol HCl (Ultram) 50 mg PO Q8 PRN; Protocol PRN Reason: Pain, Mild (1-3) Valsartan (Diovan) 320 mg PO DAILY [facility] PRN Reason: Protocol Last Admin: 03/23/17 09:37 Dose: 320 mg Vitamin B Complex/Vit C/Folic Acid (Nephro-J Luis) 1 tab PO 0800 [facility] PRN Reason: Protocol Last Admin: 03/23/17 09:36 Dose: 1 tab Results - Vital Signs Recent Vital Signs: Last Vital Signs Temp 97.4 F L 03/23/17 16:31 Pulse 65 03/23/17 16:31 Resp 18 03/23/17 16:31 BP 149/73 03/23/17 16:31 Pulse Ox 95 03/23/17 16:31 - Labs Result Diagrams: 03/23/17 08:00 03/23/17 08:00 Labs: Laboratory Results - last 24 hr 03/23/17 03/23/17 03/23/17 08:00 08:00 11:36 WBC 9.0 D RBC 3.09 L Hgb 9.3 L Hct 27.8 L MCV 90.0 MCH 30.1 MCHC 33.5 RDW 12.4 Plt Count 244 MPV 9.9 Gran % 77.6 H Lymph % (Auto) 12.0 L [place] % (Auto) 6.3 H Eos % (Auto) 3.9 Baso % (Auto) 0.2 Gran # 6.99 H Lymph # 1.1 L [place] # 0.6 Eos # 0.4 Baso # 0.02 Sodium 137 Potassium 4.0 Chloride 106 Carbon Dioxide 21 Anion Gap 14 BUN 15 Creatinine 1.9 H Est GFR ( Amer) 41 Est GFR (Non-Af Amer) 34 POC Glucose (mg/dL) 101 Random Glucose 104 Calcium 8.8 Attending/Attestation - Attestation I have personally seen and examined this patient.: Yes I have fully participated in the care of the patient.: Yes I have reviewed all pertinent clinical information: Yes
--- NOTE | 2017-03-23 16:57 | CP.PCM.CON ---
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 Plan No acute need for renal replacement therapy at this time. Hypertension control with meds as ordered. Patient on ARB will continue with same. pending renin/carito. added prn hydralazine. Monitor Input/Output, daily weights and renal function with basic metabolic panel agree to d/c metformin due to elevated creatinine. continue with januvia 25 mg continue with MVI, iron and weekly vit D d/c IVF as renal function at baseline now pending serum protein electrophoresis with immunofixation, kappa/lambda ratio Dose meds/antibiotics for reduced GFR. Avoid fleets enema/magnesium based laxatives. Avoid nephrotoxins/NSAIDs/ iodinated contrast (unless needed emergently) Glycemic control Further work up/management as per primary team Thanks for allowing me to participate in care of your patient. Will follow patient with you. Please call if any Qs Dr Víctor Echols Office: [phone] Chief Complaint;Rt leg wound HPI: Pt is a 86 M with hx of diabetes Mellitus ( many years), hypertension ( many years), CKD stage 3 (baseline cr 1.9 in 2015) initially presented with complaints of Rt leg wound with cellulitis and renal consult for elevated creatinine and HTN management. pt not aware about kidney disease in past. besides Rt leg wound, feels in usual health Denies OTC/herbal meds or NSAIDs No recent iodinated contrast exposure. No obvious episodes of low BP ROS: Cardiovascular: No chest pain. Pulmonary: No shortness of breath Gastrointestinal: denies abdominal pain No nausea. No vomiting. Genitourinary: No pain while urinating. Denies blood in urine. All other negative except Rt leg wound Physical Examination: General Appearance: Comfortable, in no acute respiratory distress, co-operative . Vitals reviewed and noted as below Head; Atraumatic, normocephalic ENT: no ulcers no thrush. Tongue is midline. Oropharynx: no rash or ulcers. EYES: Pupils are equal, round and reactive to light accommodation. Eye muscles and extraocular movement intact. Sclera is anicteric. Neck; supple no lymphadenopathy, no thyromegaly or bruit Lungs: Normal respiratory rate/effort. Breath sounds bilateral equal and clear Heart: Normal rate. s1s2 normal. No rub or gallop. Extremities: no edema. No varicose veins. Rt leg in dressing Neurological: Patient is alert, awake and oriented to person, place and time. No focal deficit. Strength bilateral appropriate and equal Skin: Warm and dry. Normal turgor. No rash. Palpitation: Normal elasticity for age Abdomen: Abdomen is soft. Bowel sounds +. There is no abdominal tenderness, no guarding/rigidity no organomegaly Psych: normal insight and normal affect/mood MSK: no joint tenderness or swelling. Digits and nails normal, no deformity : kidney or bladder not palpable Labs/imaging reviewed. Past medical history, past surgical history, family history, social history, allergy reviewed and noted as below Family hx: no hx of CKD. Rest non-contributory SARAH neg in 2014 Past Patient History - Tetanus Immunizations Tetanus Immunization: Unknown - Past Social History Smoking Status: Former Smoker - CARDIAC Hx Cardiac Disorders: Yes Hx Hypertension: Yes - PULMONARY Hx Respiratory Disorders: No - NEUROLOGICAL Hx Neurological Disorder: No - HEENT Hx HEENT Problems: No - RENAL Hx Chronic Kidney Disease: No - ENDOCRINE/METABOLIC Hx Diabetes Mellitus Type 2: Yes - HEMATOLOGICAL/ONCOLOGICAL Hx Blood Disorders: No - INTEGUMENTARY Hx Dermatological Problems: Yes - MUSCULOSKELETAL/RHEUMATOLOGICAL Hx Falls: Yes - GASTROINTESTINAL Hx Gastrointestinal Disorders: No - GENITOURINARY/GYNECOLOGICAL Hx Genitourinary Disorders: No Hx Reproductive Disorders: No - PSYCHIATRIC Hx Psychophysiologic Disorder: No - SURGICAL HISTORY Hx Surgeries: No - ANESTHESIA Hx Anesthesia: No Meds Allergies/Adverse Reactions: Allergies Allergy/AdvReac Type Severity Reaction Status Date / Time No Known Allergies Allergy Verified 03/22/17 20:45 - Medications Medications: Current Medications Amlodipine Besylate (Norvasc) 10 mg PO DAILY [facility] PRN Reason: Protocol Last Admin: 03/23/17 09:37 Dose: 10 mg Bismuth Subsalicylate (Pepto-Bismol) 524 mg PO Q6H PRN; Protocol PRN Reason: Diarrhea Last Admin: 03/23/17 09:35 Dose: 524 mg Carvedilol (Coreg) 12.5 mg PO BID [facility] PRN Reason: Protocol Last Admin: 03/23/17 09:38 Dose: 12.5 mg Clonidine HCl (Catapres) 0.1 mg PO TID [facility] PRN Reason: Protocol Last Admin: 03/23/17 14:14 Dose: 0.1 mg Ergocalciferol (Drisdol 50,000 Intl Units Cap) 1 cap PO MON@1530 [facility] PRN Reason: Protocol Ferrous Gluconate (Fergon) 324 mg PO TID [facility] PRN Reason: Protocol Last Admin: 03/23/17 14:14 Dose: 324 mg Hydralazine HCl (Apresoline) 25 mg PO Q6 PRN; Protocol PRN Reason: Other Piperacillin Sod/Tazobactam Sod (Zosyn 2.25 Gm In 0.9% 100 Ml) 2.25 gm in 100 mls @ 100 mls/hr IVPB Q6 [facility] PRN Reason: Protocol Stop: 03/30/17 00:01 Last Admin: 03/23/17 12:24 Dose: 100 mls/hr Insulin Human Regular (Humulin R High) 0 units SC ACHS [facility] PRN Reason: Protocol Last Admin: 03/23/17 11:42 Dose: Not Given Morphine Sulfate (Morphine) 1 mg IVP Q4H PRN PRN Reason: Pain, moderate (4-7) Last Admin: 03/23/17 10:37 Dose: 1 mg Mupirocin (Bactroban Ointment) 0 gm TOP BID [facility] PRN Reason: Protocol Last Admin: 03/23/17 10:23 Dose: 1 appl Simethicone (Mylicon Chew Tab) 80 mg PO PCHS PRN; Protocol PRN Reason: GI distress Sitagliptin Phosphate (Januvia) 25 mg PO DAILY [facility] PRN Reason: Protocol Last Admin: 03/23/17 09:37 Dose: 25 mg Tramadol HCl (Ultram) 50 mg PO Q8 PRN; Protocol PRN Reason: Pain, Mild (1-3) Valsartan (Diovan) 320 mg PO DAILY [facility] PRN Reason: Protocol Last Admin: 03/23/17 09:37 Dose: 320 mg Vitamin B Complex/Vit C/Folic Acid (Nephro-J Luis) 1 tab PO 0800 [facility] PRN Reason: Protocol Last Admin: 03/23/17 09:36 Dose: 1 tab Results - Vital Signs Recent Vital Signs: Last Vital Signs Temp 97.4 F L 03/23/17 16:31 Pulse 65 03/23/17 16:31 Resp 18 03/23/17 16:31 BP 149/73 03/23/17 16:31 Pulse Ox 95 03/23/17 16:31 - Labs Result Diagrams: 03/23/17 08:00 03/23/17 08:00 Labs: Laboratory Results - last 24 hr 03/23/17 03/23/17 03/23/17 08:00 08:00 11:36 WBC 9.0 D RBC 3.09 L Hgb 9.3 L Hct 27.8 L MCV 90.0 MCH 30.1 MCHC 33.5 RDW 12.4 Plt Count 244 MPV 9.9 Gran % 77.6 H Lymph % (Auto) 12.0 L [place] % (Auto) 6.3 H Eos % (Auto) 3.9 Baso % (Auto) 0.2 Gran # 6.99 H Lymph # 1.1 L [place] # 0.6 Eos # 0.4 Baso # 0.02 Sodium 137 Potassium 4.0 Chloride 106 Carbon Dioxide 21 Anion Gap 14 BUN 15 Creatinine 1.9 H Est GFR ( Amer) 41 Est GFR (Non-Af Amer) 34 POC Glucose (mg/dL) 101 Random Glucose 104 Calcium 8.8
--- NOTE | 2017-03-24 03:48 | CON ---
DATE: 03/23/2017 CHIEF COMPLAINT: Weakness times several days. HISTORY OF PRESENT ILLNESS: This is an 86-year-old male with diabetes mellitus, hypertension who was admitted to the acute care with a right ankle foot ulcer soft tissue infection, which started on Teflaro . The patient has been given antibiotics. No fevers. Found to have Enterobacter cloacae and Enterococcus right ankle soft tissue infection, was treated with Teflaro, vascular workup and was transferred to transitional care for clinical therapy. The MRI was negative for osteomyelitis. Currently now on Zosyn. PAST MEDICAL HISTORY: Significant for diabetes mellitus and hypertension. PAST SURGICAL HISTORY: Noncontributory. ALLERGIES: THE PATIENT HAS NO KNOWN ALLERGIES. MEDICATIONS: Medications at home are reviewed. PHYSICAL EXAMINATION: VITAL SIGNS: Temperature is 98, blood pressure is 120/70, respiratory rate is 16. HEENT: Unremarkable. NECK: Supple. LUNGS: Have decreased breath sounds. HEART: Normal S1 and S2. ABDOMEN: Soft and nontender. EXTREMITIES: Examination of foot is noted. LABORATORY DATA: Reveals a white count of 9, hemoglobin of 9, BUN of 50, creatinine is 1.9 with a GFR of 34. Microbiology is noted where the patient had Enterobacter cloacae and Enterococcus avium, sensitive to Zosyn. ASSESSMENT AND PLAN: This is an 86-year-old male with diabetes mellitus, hypertension with right ankle foot ulcer with Enterobacter cloacae and Enterococcus avium, cellulitis with a negative MRI for osteomyelitis. No MRI evidence of active osteomyelitis, and we will treat the patient with Zosyn and local wound care and follow closely with you. Christiano Uribe MD
[2017-03-24] MEDS: Morphine 5 MG/ML SYRINGE IVP PRN ×3 (03:59→15:33)
[2017-03-24] MEDS: Piperacillin/Tazobact 2.25gm 2.25 GM/100 ML BAG IVPB SCH ×3 (05:15→17:30)
[2017-03-24] MEDS: Insulin Reg-HIGH-Coverage SC SCH ×4 (06:33→21:47)
[2017-03-24 07:29] LABS: HEMOGLOBIN 9.1 g/dL (14.0-18.0); MEAN CORPUSCULAR HEMOGLOBIN 29.4 pg (25.0-35.0); MEAN CORPUSCULAR HGB CONC 33.5 g/dl (31.0-37.0); MEAN PLATELET VOLUME 10.1 fl (7.0-11.0); RBC 3.09 10^6/uL (3.5-6.1); RED CELL DISTRIBUTION WIDTH 12.5 % (11.5-14.5); WHITE BLOOD COUNT 9.6 10^3/ul (4.5-11.0)
[2017-03-24 08:04] LABS: ALBUMIN 3.1 g/dL (3.0-4.8); CALCIUM 8.9 mg/dL (8.4-10.5)
[2017-03-24] MEDS: Multivitamin Vitamin B Complex (Nephro-Vite) Tab PO SCH (08:26)
--- NOTE | 2017-03-24 09:04 | PN ---
DATE: SUBJECTIVE: I saw him resting comfortably in bed in the TCU. He is in good spirits. He is alert. He is trying to eat well. He has not walked much he tells me. The foot is bandaged, his right foot by Podiatry. Podiatry is happy with the foot. He is just on IV antibiotics as per Infectious Disease and getting physical therapy. PHYSICAL EXAMINATION: VITAL SIGNS: He has 97.4 temperature, 65 pulse, 150/70 blood pressure, 18 respiratory rate, 95% O2 sat on room air. GENERAL: He is alert, mildly confused. HEENT: Head is atraumatic, normocephalic. HEART: Regular rate. LUNGS: Decreased breath sounds but clear. ABDOMEN: Soft. EXTREMITIES: No edema. The right foot is bandaged. MEDICATIONS: He is currently on Apresoline, Bactroban cream, Catapres, Coreg, Diovan, Drisdol, Fergon, insulin coverage, Januvia, morphine for pain, Mylicon, Nephro-J Luis, Norvasc, Pepto-Bismol, Ultram and Zosyn as per Infectious Disease. He has 137 sodium, potassium 3.8, BUN 50, creatinine is 2, GFR 39. Last blood sugar was 107, calcium is 8.9, total bili is 0.6, AST is 29, ALT 31, alk phos 59, total protein 6.2. He has a 9.6 white count, 9.1 hemoglobin, 27.2 hematocrit with 264 platelets. PLAN: He is being seen by Infectious Disease, Podiatry and Renal. Podiatry is fairly happy with him. Will continue to change dressings. Infectious Disease has got him on IV antibiotics and Renal is watching his kidney functions. He needs physical therapy and IV antibiotics for right foot ulcer, cellulitis. Grabiel Sun DO
[2017-03-24] MEDS ORDERED: Darbepoetin Alfa 40 mcg/ml Inj SC ONE (09:20)
--- NOTE | 2017-03-24 11:45 | CP.PCM.PN ---
Subjective - Date & Time of Evaluation Date of Evaluation: 03/24/17 Time of Evaluation: 11:41 - Subjective Subjective: 86 y/o male seen at bedside regarding right foot superficial ulceration with cellulitis. Pt is resting comfortably in bed today. States the pain still comes and goes to his right foot. Describes it as sharp and throbbing. At present he is not having any pedal pain and offers no pedal complaints. Dressing clean dry and intact to R foot. Denies F/C/N/V/CP/SOB Objective - Vital Signs/Intake and Output Vital Signs (last 24 hours): Temp Pulse Resp BP Pulse Ox 97.4 F L 70 18 158/71 H 95 03/23/17 16:31 03/24/17 10:51 03/23/17 16:31 03/24/17 10:52 03/23/17 16:31 Intake and Output: 03/24/17 03/24/17 06:59 18:59 Output Total 120 Balance -120 - Medications Medications: Current Medications Amlodipine Besylate (Norvasc) 10 mg PO DAILY [facility] PRN Reason: Protocol Last Admin: 03/24/17 10:52 Dose: 10 mg Bismuth Subsalicylate (Pepto-Bismol) 524 mg PO Q6H PRN; Protocol PRN Reason: Diarrhea Last Admin: 03/23/17 09:35 Dose: 524 mg Carvedilol (Coreg) 12.5 mg PO BID [facility] PRN Reason: Protocol Last Admin: 03/24/17 10:51 Dose: 12.5 mg Clonidine HCl (Catapres) 0.1 mg PO TID [facility] PRN Reason: Protocol Last Admin: 03/24/17 10:50 Dose: 0.1 mg Ergocalciferol (Drisdol 50,000 Intl Units Cap) 1 cap PO MON@1530 [facility] PRN Reason: Protocol Ferrous Gluconate (Fergon) 324 mg PO TID [facility] PRN Reason: Protocol Last Admin: 03/24/17 10:49 Dose: 324 mg Hydralazine HCl (Apresoline) 25 mg PO Q6 PRN; Protocol PRN Reason: Other Piperacillin Sod/Tazobactam Sod (Zosyn 2.25 Gm In 0.9% 100 Ml) 2.25 gm in 100 mls @ 100 mls/hr IVPB Q6 [facility] PRN Reason: Protocol Stop: 03/30/17 00:01 Last Admin: 03/24/17 05:15 Dose: 100 mls/hr Insulin Human Regular (Humulin R High) 0 units SC ACHS [facility] PRN Reason: Protocol Last Admin: 03/24/17 06:33 Dose: Not Given Morphine Sulfate (Morphine) 1 mg IVP Q4H PRN PRN Reason: Pain, moderate (4-7) Last Admin: 03/24/17 08:42 Dose: 1 mg Mupirocin (Bactroban Ointment) 0 gm TOP BID [facility] PRN Reason: Protocol Last Admin: 03/24/17 10:50 Dose: 1 appl Simethicone (Mylicon Chew Tab) 80 mg PO PCHS PRN; Protocol PRN Reason: GI distress Sitagliptin Phosphate (Januvia) 25 mg PO DAILY [facility] PRN Reason: Protocol Last Admin: 03/24/17 10:52 Dose: 25 mg Sodium Bicarbonate (Sodium Bicarbonate Tab) 650 mg PO BID [facility] Last Admin: 03/24/17 10:52 Dose: 650 mg Tramadol HCl (Ultram) 50 mg PO Q8 PRN; Protocol PRN Reason: Pain, Mild (1-3) Last Admin: 03/24/17 05:59 Dose: 50 mg Valsartan (Diovan) 320 mg PO DAILY [facility] PRN Reason: Protocol Last Admin: 03/24/17 10:51 Dose: 320 mg Vitamin B Complex/Vit C/Folic Acid (Nephro-J Luis) 1 tab PO 0800 [facility] PRN Reason: Protocol Last Admin: 03/24/17 08:26 Dose: 1 tab - Labs Labs: 03/24/17 06:50 03/24/17 06:50 - Constitutional Appears: Well, Non-toxic, No Acute Distress - Back Exam Additional comments: Right lower extremity focused examination: Derm: Superficial ulceration with epithelializing base noted to anterior ankle and dorsum of foot. Minimal hi wound erythema is noted, resolving at this time. No active drainage noted. Mild cellulitic skin changes are noted extending to mid level of leg. No malodor noted. Neuro Protective sensation grossly intact. Vasc: DP and PT pulses palpable 1/4. Temperature runs warm to cool proximal to distal. Absent pedal hair growth - Neurological Exam Neurological Exam: Alert, Awake - Psychiatric Exam Psychiatric exam: Normal Affect, Normal Mood Assessment and Plan - Assessment and Plan (Free Text) Assessment: 86 y/o male with right foot superficial ulceration with cellulitis, likely secondary to PVD Plan: Pt seen and evaluated with attending Dr. Saleh Chart, labs, and vitals reviewed - afebrile, WBC 9.6 Right foot wound cultures- Enterobacter cloacae; Enterococcus avium Arterial studies reviewed: Noted multi-level occlusive disease of the SFA and tibial arteries B/L MRA of LLE reveals diminished flow below knees, multiple short segment stenoses in SFA, R>L MRI results negative for OM and abscess Continue IV abx per ID Local wound care performed to ulcerative site, cleansed with sterile saline dressed with Optifoam, DSD Podiatry will continue to follow patient while in house Pt stable for discharge from podiatry standpoint Pt to follow up in the wound care center with Dr. Renteria/Therese upon discharge
[2017-03-24] MEDS: Bismuth Subsalicylate 262 mg/15 ml Sus (240 ml) PO PRN (16:23)
--- NOTE | 2017-03-24 16:32 | CP.PCM.PN ---
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 Plan No acute need for renal replacement therapy at this time. Hypertension control with meds as ordered. Patient on ARB will continue with same. pending renin/carito. added prn hydralazine. Monitor Input/Output, daily weights and renal function with basic metabolic panel agree to d/c metformin due to elevated creatinine. continue with januvia 25 mg continue with MVI, iron and weekly vit D pending serum protein electrophoresis with immunofixation, kappa/lambda ratio Dose meds/antibiotics for reduced GFR. Avoid fleets enema/magnesium based laxatives. Avoid nephrotoxins/NSAIDs/ iodinated contrast (unless needed emergently) Glycemic control Further work up/management as per primary team Thanks for allowing me to participate in care of your patient. Will follow patient with you. Please call if any Qs Dr Víctor Echols Office: [phone] Chief Complaint;Rt leg wound HPI: Pt is a 86 M with hx of diabetes Mellitus ( many years), hypertension ( many years), CKD stage 3 (baseline cr 1.9 in 2015) initially presented with complaints of Rt leg wound with cellulitis and renal consult for elevated creatinine and HTN management. pt not aware about kidney disease in past. besides Rt leg wound, feels in usual health Denies OTC/herbal meds or NSAIDs No recent iodinated contrast exposure. No obvious episodes of low BP ROS: Cardiovascular: No chest pain. Pulmonary: No shortness of breath Gastrointestinal: denies abdominal pain No nausea. No vomiting. Genitourinary: No pain while urinating. Denies blood in urine. All other negative except Rt leg wound Physical Examination: General Appearance: Comfortable, in no acute respiratory distress, co-operative . Vitals reviewed and noted as below Head; Atraumatic, normocephalic ENT: no ulcers no thrush. Tongue is midline. Oropharynx: no rash or ulcers. EYES: Pupils are equal, round and reactive to light accommodation. Eye muscles and extraocular movement intact. Sclera is anicteric. Neck; supple no lymphadenopathy, no thyromegaly or bruit Lungs: Normal respiratory rate/effort. Breath sounds bilateral equal and clear Heart: Normal rate. s1s2 normal. No rub or gallop. Extremities: no edema. No varicose veins. Rt leg in dressing Neurological: Patient is alert, awake and oriented to person, place and time. No focal deficit. Strength bilateral appropriate and equal Skin: Warm and dry. Normal turgor. No rash. Palpitation: Normal elasticity for age Abdomen: Abdomen is soft. Bowel sounds +. There is no abdominal tenderness, no guarding/rigidity no organomegaly Psych: normal insight and normal affect/mood MSK: no joint tenderness or swelling. Digits and nails normal, no deformity : kidney or bladder not palpable Labs/imaging reviewed. Past medical history, past surgical history, family history, social history, allergy reviewed and noted as below Family hx: no hx of CKD. Rest non-contributory SARAH neg in 2014 Objective - Vital Signs/Intake and Output Vital Signs (last 24 hours): Temp Pulse Resp BP Pulse Ox 98.6 F 65 18 141/72 95 03/24/17 16:00 03/24/17 16:00 03/24/17 16:00 03/24/17 16:00 03/24/17 16:00 Intake and Output: 03/24/17 03/24/17 06:59 18:59 Output Total 120 Balance -120 - Medications Medications: Current Medications Amlodipine Besylate (Norvasc) 10 mg PO DAILY [facility] PRN Reason: Protocol Last Admin: 03/24/17 10:52 Dose: 10 mg Bismuth Subsalicylate (Pepto-Bismol) 524 mg PO Q6H PRN; Protocol PRN Reason: Diarrhea Last Admin: 03/24/17 16:23 Dose: 524 mg Carvedilol (Coreg) 12.5 mg PO 0800,1800 [facility] PRN Reason: Protocol Clonidine HCl (Catapres) 0.1 mg PO TID [facility] PRN Reason: Protocol Last Admin: 03/24/17 13:48 Dose: Not Given Ergocalciferol (Drisdol 50,000 Intl Units Cap) 1 cap PO MON@1530 [facility] PRN Reason: Protocol Ferrous Gluconate (Fergon) 324 mg PO TID [facility] PRN Reason: Protocol Last Admin: 03/24/17 15:00 Dose: 324 mg Hydralazine HCl (Apresoline) 25 mg PO Q6 PRN; Protocol PRN Reason: Other Piperacillin Sod/Tazobactam Sod (Zosyn 2.25 Gm In 0.9% 100 Ml) 2.25 gm in 100 mls @ 100 mls/hr IVPB Q6 [facility] PRN Reason: Protocol Stop: 03/30/17 00:01 Last Admin: 03/24/17 11:49 Dose: 100 mls/hr Insulin Human Regular (Humulin R High) 0 units SC ACHS [facility] PRN Reason: Protocol Last Admin: 03/24/17 11:48 Dose: Not Given Morphine Sulfate (Morphine) 1 mg IVP Q4H PRN PRN Reason: Pain, moderate (4-7) Last Admin: 03/24/17 15:33 Dose: 1 mg Mupirocin (Bactroban Ointment) 0 gm TOP BID [facility] PRN Reason: Protocol Last Admin: 03/24/17 10:50 Dose: 1 appl Simethicone (Mylicon Chew Tab) 80 mg PO PCHS PRN; Protocol PRN Reason: GI distress Sitagliptin Phosphate (Januvia) 25 mg PO DAILY [facility] PRN Reason: Protocol Last Admin: 03/24/17 10:52 Dose: 25 mg Sodium Bicarbonate (Sodium Bicarbonate Tab) 650 mg PO BID [facility] Last Admin: 03/24/17 10:52 Dose: 650 mg Tramadol HCl (Ultram) 50 mg PO Q8 PRN; Protocol PRN Reason: Pain, Mild (1-3) Last Admin: 03/24/17 05:59 Dose: 50 mg Valsartan (Diovan) 320 mg PO DAILY [facility] PRN Reason: Protocol Last Admin: 03/24/17 10:51 Dose: 320 mg Vitamin B Complex/Vit C/Folic Acid (Nephro-J Luis) 1 tab PO 0800 [facility] PRN Reason: Protocol Last Admin: 03/24/17 08:26 Dose: 1 tab - Labs Labs: 03/24/17 06:50 03/24/17 06:50
[2017-03-25] MEDS: Piperacillin/Tazobact 2.25gm 2.25 GM/100 ML BAG IVPB SCH ×5 (00:52→23:12)
[2017-03-25] MEDS: Insulin Reg-HIGH-Coverage SC SCH ×4 (06:50→22:36)
[2017-03-25] MEDS: Multivitamin Vitamin B Complex (Nephro-Vite) Tab PO SCH (08:27)
--- NOTE | 2017-03-25 09:54 | PN ---
DATE: 03/24/2017 SUBJECTIVE: The patient is in bed, in no acute distress, was seen earlier in room 314. PHYSICAL EXAMINATION: VITAL SIGNS: Temperature is 98, blood pressure is 141/70, respiratory rate of 18. HEENT: Unremarkable. NECK: Supple. LUNGS: Decreased breath sounds. HEART: Normal S1, S2. ABDOMEN: Soft. LABORATORY DATA: Reveals a white count of 9.6, hemoglobin of 9, and platelets of 264. BUN of 15, creatinine of 2.0, and microbiology was noted. ASSESSMENT AND PLAN: Christiano Uribe MD
--- NOTE | 2017-03-25 14:19 | PN ---
DATE: SUBJECTIVE: I saw him in the TCU. He slept well. He is having some right foot discomfort. He is getting pain meds for that and it is helping. The right foot looks fantastic. The redness has gone and the ulcers are filling in nicely. He is getting physical therapy and then go home. He is on Apresoline, Bactroban cream, Catapres, Coreg, Diovan, Drisdol, Fergon, insulin, Januvia, morphine, Mylicon, Nephro-J Luis, Norvasc, Pepto-Bismol, sodium bicarb, Tylenol, Ultram, and Zosyn IV. PHYSICAL EXAMINATION: GENERAL: He is alert, mildly confused, but okay at his baseline. VITAL SIGNS: He has a 98.6 temperature, 65 pulse, 141/72 blood pressure, 18 respiratory rate, 95% O2 sat on room air. HEENT: His head is atraumatic, normocephalic. HEART: Regular rate. LUNGS: Clear to auscultation. ABDOMEN: Soft. EXTREMITIES: The right foot looks so much better than when he came in. LABORATORY DATA: He has a 9.6 white count, 9.1 hemoglobin, 27.2 hematocrit with 264 platelets. He has a last blood sugar that was 120. Sodium 137, potassium 3.8, BUN 15, creatinine 2. AST is 29, ALT is 31, alkaline phosphatase 59. We will check his labs tomorrow. Encourage him to do well with physical therapy. We will get him out of bed to chair. Make sure he is eating and then in a few more days, get him home. He is here for right leg cellulitis and ulcer, which has greatly improved. Grabiel Sun DO
--- NOTE | 2017-03-25 14:21 | CP.PCM.PN ---
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 Plan No acute need for renal replacement therapy at this time. Hypertension control with meds as ordered. Patient on ARB will continue with same. pending renin/carito. added prn hydralazine. Monitor Input/Output, daily weights and renal function with basic metabolic panel agree to d/c metformin due to elevated creatinine. continue with januvia 25 mg continue with MVI, iron and weekly vit D dose of darbopoeitin 40 mcg given 03/24/16 Dose meds/antibiotics for reduced GFR. Avoid fleets enema/magnesium based laxatives. Avoid nephrotoxins/NSAIDs/ iodinated contrast (unless needed emergently) Glycemic control Further work up/management as per primary team Thanks for allowing me to participate in care of your patient. Will follow patient with you. Please call if any Qs Dr Víctor Echols Office: [phone] Chief Complaint;Rt leg wound HPI: Pt is a 86 M with hx of diabetes Mellitus ( many years), hypertension ( many years), CKD stage 3 (baseline cr 1.9 in 2015) initially presented with complaints of Rt leg wound with cellulitis and renal consult for elevated creatinine and HTN management. pt not aware about kidney disease in past. besides Rt leg wound, feels in usual health Denies OTC/herbal meds or NSAIDs No recent iodinated contrast exposure. No obvious episodes of low BP ROS: Cardiovascular: No chest pain. Pulmonary: No shortness of breath Gastrointestinal: denies abdominal pain No nausea. No vomiting. Genitourinary: No pain while urinating. Denies blood in urine. All other negative except Rt leg wound Physical Examination: General Appearance: Comfortable, in no acute respiratory distress, co-operative . Vitals reviewed and noted as below Head; Atraumatic, normocephalic ENT: no ulcers no thrush. Tongue is midline. Oropharynx: no rash or ulcers. EYES: Pupils are equal, round and reactive to light accommodation. Eye muscles and extraocular movement intact. Sclera is anicteric. Neck; supple no lymphadenopathy, no thyromegaly or bruit Lungs: Normal respiratory rate/effort. Breath sounds bilateral equal and clear Heart: Normal rate. s1s2 normal. No rub or gallop. Extremities: no edema. No varicose veins. Rt leg in dressing Neurological: Patient is alert, awake and oriented to person, place and time. No focal deficit. Strength bilateral appropriate and equal Skin: Warm and dry. Normal turgor. No rash. Palpitation: Normal elasticity for age Abdomen: Abdomen is soft. Bowel sounds +. There is no abdominal tenderness, no guarding/rigidity no organomegaly Psych: normal insight and normal affect/mood MSK: no joint tenderness or swelling. Digits and nails normal, no deformity : kidney or bladder not palpable Labs/imaging reviewed. Past medical history, past surgical history, family history, social history, allergy reviewed and noted as below Family hx: no hx of CKD. Rest non-contributory SARAH neg in 2014 Objective - Vital Signs/Intake and Output Vital Signs (last 24 hours): Temp Pulse Resp BP Pulse Ox 97.4 F L 82 20 130/77 96 03/25/17 10:00 03/25/17 10:36 03/25/17 10:00 03/25/17 10:37 03/25/17 10:00 Intake and Output: 03/25/17 03/25/17 06:59 18:59 Intake Total 240 Output Total 550 Balance -310 - Medications Medications: Current Medications Acetaminophen (Tylenol 325mg Tab) 650 mg PO Q4H PRN PRN Reason: relief of pain or fever Last Admin: 03/25/17 08:49 Dose: 650 mg Amlodipine Besylate (Norvasc) 10 mg PO DAILY [facility] PRN Reason: Protocol Last Admin: 03/25/17 10:37 Dose: 10 mg Bismuth Subsalicylate (Pepto-Bismol) 524 mg PO Q6H PRN; Protocol PRN Reason: Diarrhea Last Admin: 03/24/17 16:23 Dose: 524 mg Carvedilol (Coreg) 12.5 mg PO 0800,1800 [facility] PRN Reason: Protocol Last Admin: 03/25/17 08:27 Dose: 12.5 mg Clonidine HCl (Catapres) 0.1 mg PO TID [facility] PRN Reason: Protocol Last Admin: 03/25/17 10:36 Dose: 0.1 mg Ergocalciferol (Drisdol 50,000 Intl Units Cap) 1 cap PO MON@1530 [facility] PRN Reason: Protocol Ferrous Gluconate (Fergon) 324 mg PO TID [facility] PRN Reason: Protocol Last Admin: 03/25/17 10:35 Dose: 324 mg Hydralazine HCl (Apresoline) 25 mg PO Q6 PRN; Protocol PRN Reason: Other Piperacillin Sod/Tazobactam Sod (Zosyn 2.25 Gm In 0.9% 100 Ml) 2.25 gm in 100 mls @ 100 mls/hr IVPB Q6 [facility] PRN Reason: Protocol Stop: 03/30/17 00:01 Last Admin: 03/25/17 12:03 Dose: 100 mls/hr Insulin Human Regular (Humulin R High) 0 units SC ACHS [facility] PRN Reason: Protocol Last Admin: 03/25/17 12:02 Dose: Not Given Morphine Sulfate (Morphine) 1 mg IVP Q4H PRN PRN Reason: Pain, moderate (4-7) Last Admin: 03/24/17 15:33 Dose: 1 mg Mupirocin (Bactroban Ointment) 0 gm TOP BID [facility] PRN Reason: Protocol Last Admin: 03/25/17 10:36 Dose: 1 appl Simethicone (Mylicon Chew Tab) 80 mg PO PCHS PRN; Protocol PRN Reason: GI distress Last Admin: 03/25/17 05:54 Dose: 80 mg Sitagliptin Phosphate (Januvia) 25 mg PO DAILY [facility] PRN Reason: Protocol Last Admin: 03/25/17 10:37 Dose: 25 mg Sodium Bicarbonate (Sodium Bicarbonate Tab) 650 mg PO BID [facility] Last Admin: 03/25/17 10:38 Dose: 650 mg Tramadol HCl (Ultram) 50 mg PO Q8 PRN; Protocol PRN Reason: Pain, Mild (1-3) Last Admin: 03/25/17 05:51 Dose: 50 mg Valsartan (Diovan) 320 mg PO DAILY [facility] PRN Reason: Protocol Last Admin: 03/25/17 10:37 Dose: 320 mg Vitamin B Complex/Vit C/Folic Acid (Nephro-J Luis) 1 tab PO 0800 [facility] PRN Reason: Protocol Last Admin: 03/25/17 08:27 Dose: 1 tab - Labs Labs: 03/24/17 06:50 03/24/17 06:50
[2017-03-26] MEDS: Piperacillin/Tazobact 2.25gm 2.25 GM/100 ML BAG IVPB SCH ×3 (05:18→17:32)
[2017-03-26] MEDS: Insulin Reg-HIGH-Coverage SC SCH ×4 (06:53→23:42)
[2017-03-26 07:17] LABS: HEMOGLOBIN 9.1 g/dL (14.0-18.0); MEAN CELL VOLUME 89.2 fl (80.0-105.0); MEAN CORPUSCULAR HEMOGLOBIN 28.9 pg (25.0-35.0); MEAN CORPUSCULAR HGB CONC 32.4 g/dl (31.0-37.0); MEAN PLATELET VOLUME 10.2 fl (7.0-11.0); RBC 3.15 10^6/uL (3.5-6.1); RED CELL DISTRIBUTION WIDTH 12.8 % (11.5-14.5); WHITE BLOOD COUNT 10.3 10^3/ul (4.5-11.0)
[2017-03-26 07:58] LABS: ALBUMIN 3.3 g/dL (3.0-4.8); CALCIUM 9.4 mg/dL (8.4-10.5)
[2017-03-26] MEDS: Multivitamin Vitamin B Complex (Nephro-Vite) Tab PO SCH (08:30)
--- NOTE | 2017-03-26 10:02 | CP.PCM.PN ---
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 acidosis Plan No acute need for renal replacement therapy at this time. Cr slightly up today, will reduce valsartan to 160 pending renin/carito. added prn hydralazine. continue with MVI, iron and weekly vit D dose of darbopoeitin 40 mcg given 03/24/16 on bicarb S: seen and eamined has no complaints Physical Examination: General Appearance: Comfortable, in no acute respiratory distress, co-operative . Vitals reviewed and noted as below Head; Atraumatic, normocephalic ENT: no ulcers no thrush. Tongue is midline. Oropharynx: no rash or ulcers. EYES: Pupils are equal, round and reactive to light accommodation. Eye muscles and extraocular movement intact. Sclera is anicteric. Neck; supple no lymphadenopathy, no thyromegaly or bruit Lungs: Normal respiratory rate/effort. Breath sounds bilateral equal and clear Heart: Normal rate. s1s2 normal. No rub or gallop. Extremities: no edema. No varicose veins. Rt leg in dressing Neurological: Patient is alert, awake and oriented to person, place and time. No focal deficit. Strength bilateral appropriate and equal Skin: dressing on foot Abdomen: Abdomen is soft. Bowel sounds +. There is no abdominal tenderness, no guarding/rigidity no organomegaly Psych: normal insight and normal affect/mood MSK: no joint tenderness or swelling. Digits and nails normal, no deformity : kidney or bladder not palpable Labs/imaging reviewed. Objective - Vital Signs/Intake and Output Vital Signs (last 24 hours): Temp Pulse Resp BP Pulse Ox 98.1 F 75 18 165/68 H 94 L 03/25/17 16:17 03/26/17 08:29 03/25/17 16:17 03/26/17 08:29 03/25/17 16:17 Intake and Output: 03/26/17 03/26/17 06:59 18:59 Intake Total 180 Output Total 450 Balance -270 - Medications Medications: Current Medications Acetaminophen (Tylenol 325mg Tab) 650 mg PO Q4H PRN PRN Reason: relief of pain or fever Last Admin: 03/25/17 08:49 Dose: 650 mg Amlodipine Besylate (Norvasc) 10 mg PO DAILY [facility] PRN Reason: Protocol Last Admin: 03/25/17 10:37 Dose: 10 mg Bismuth Subsalicylate (Pepto-Bismol) 524 mg PO Q6H PRN; Protocol PRN Reason: Diarrhea Last Admin: 03/24/17 16:23 Dose: 524 mg Carvedilol (Coreg) 12.5 mg PO 0800,1800 [facility] PRN Reason: Protocol Last Admin: 03/26/17 08:29 Dose: 12.5 mg Clonidine HCl (Catapres) 0.1 mg PO TID [facility] PRN Reason: Protocol Last Admin: 03/25/17 18:30 Dose: Not Given Ergocalciferol (Drisdol 50,000 Intl Units Cap) 1 cap PO MON@1530 [facility] PRN Reason: Protocol Ferrous Gluconate (Fergon) 324 mg PO TID [facility] PRN Reason: Protocol Last Admin: 03/25/17 18:31 Dose: 324 mg Hydralazine HCl (Apresoline) 25 mg PO Q6 PRN; Protocol PRN Reason: Other Last Admin: 03/26/17 06:53 Dose: 25 mg Piperacillin Sod/Tazobactam Sod (Zosyn 2.25 Gm In 0.9% 100 Ml) 2.25 gm in 100 mls @ 100 mls/hr IVPB Q6 [facility] PRN Reason: Protocol Stop: 03/30/17 00:01 Last Admin: 03/26/17 05:18 Dose: 100 mls/hr Insulin Human Regular (Humulin R High) 0 units SC ACHS [facility] PRN Reason: Protocol Last Admin: 03/26/17 06:53 Dose: Not Given Mupirocin (Bactroban Ointment) 0 gm TOP BID [facility] PRN Reason: Protocol Last Admin: 03/25/17 10:36 Dose: 1 appl Simethicone (Mylicon Chew Tab) 80 mg PO PCHS PRN; Protocol PRN Reason: GI distress Last Admin: 03/25/17 05:54 Dose: 80 mg Sitagliptin Phosphate (Januvia) 25 mg PO DAILY [facility] PRN Reason: Protocol Last Admin: 03/25/17 10:37 Dose: 25 mg Sodium Bicarbonate (Sodium Bicarbonate Tab) 650 mg PO BID [facility] Last Admin: 03/25/17 18:32 Dose: 650 mg Tramadol HCl (Ultram) 50 mg PO Q8 PRN; Protocol PRN Reason: Pain, Mild (1-3) Last Admin: 03/26/17 08:33 Dose: 50 mg Valsartan (Diovan) 320 mg PO DAILY [facility] PRN Reason: Protocol Last Admin: 03/25/17 10:37 Dose: 320 mg Vitamin B Complex/Vit C/Folic Acid (Nephro- Jluis) 1 tab PO 0800 [facility] PRN Reason: Protocol Last Admin: 03/26/17 08:30 Dose: 1 tab - Labs Labs: 03/26/17 06:45 03/26/17 06:45
--- NOTE | 2017-03-26 13:12 | RAD ---
PROCEDURE: Right Ankle Radiographs. HISTORY: pain COMPARISON: None FINDINGS: BONES: Normal. No fracture. JOINTS: Normal. No osteoarthritis. Ankle mortise maintained. Talar dome intact SOFT TISSUES: Normal. OTHER FINDINGS: None. IMPRESSION: Normal right ankle radiographs.
--- NOTE | 2017-03-26 13:34 | RAD ---
PROCEDURE: Right Foot Radiographs. HISTORY: pain COMPARISON: None. FINDINGS: BONES: Normal. No fracture. JOINTS: Normal. SOFT TISSUES: Normal. OTHER FINDINGS: None. IMPRESSION: Normal right foot radiographs.
--- NOTE | 2017-03-26 13:35 | PN ---
DATE: SUBJECTIVE: I saw him in the TCU. He has not been doing much in therapy. His right foot still hurts him. Podiatry has not been here for 2 days, I will let them back on the case; an x-ray of the right ankle and right foot and will do uric acid. He is on Zosyn, tramadol, sodium bicarbonate, Norvasc, vitamins, Januvia, iron, Drisdol, valsartan, Coreg, Catapres, Bactroban cream, and Apresoline. PHYSICAL EXAMINATION VITAL SIGNS: He has a 98.1 temperature, 64 pulse, 165/68 blood pressure, 94% O2 sat on room air. HEENT: His head is atraumatic, normocephalic, alert and talking. HEART: Regular rate. LUNGS: Clear to auscultation. ABDOMEN: Soft. EXTREMITIES: his right foot hurts him a lot. He can move them. SKIN: The skin is much better. It feels very nicely with the antibiotics. LABORATORY DATA: He has a 10.3 white count, 9.1 hemoglobin, 28.1 hematocrit, with 280,000 platelets. He has a 144 sodium, potassium 3.9, BUN is 18, creatinine 2.2. He is being seen by Renal. GFR is 35, sugar is 149, calcium is 9.4, total bilirubin is 0.5, AST is 38, ALT is 23, alkaline phosphatase 52. We will continue with Renal and Infectious Disease care, antibiotics. Await for Podiatry to reevaluate him. X-ray, uric acid. Try to get him out of bed to chair and do physical therapy. He is here for cellulitis and ulcer and a little bit debilitated. We will check his labs tomorrow. Grabiel Sun DO MTDD
--- NOTE | 2017-03-26 15:31 | CP.PCM.PN ---
Subjective - Date & Time of Evaluation Date of Evaluation: 03/25/17 Time of Evaluation: 12:25 - Subjective Subjective: Comfortable, no fevers, no left foot pain. Objective - Vital Signs/Intake and Output Vital Signs (last 24 hours): Temp Pulse Resp BP Pulse Ox 99.3 F 71 20 175/72 H 96 03/25/17 06:00 03/25/17 08:27 03/25/17 06:00 03/25/17 08:27 03/25/17 06:00 Intake and Output: 03/25/17 03/25/17 06:59 18:59 Intake Total 240 Output Total 550 Balance -310 - Medications Medications: Current Medications Acetaminophen (Tylenol 325mg Tab) 650 mg PO Q4H PRN PRN Reason: relief of pain or fever Last Admin: 03/25/17 08:49 Dose: 650 mg Amlodipine Besylate (Norvasc) 10 mg PO DAILY [facility] PRN Reason: Protocol Last Admin: 03/24/17 10:52 Dose: 10 mg Bismuth Subsalicylate (Pepto-Bismol) 524 mg PO Q6H PRN; Protocol PRN Reason: Diarrhea Last Admin: 03/24/17 16:23 Dose: 524 mg Carvedilol (Coreg) 12.5 mg PO 0800,1800 [facility] PRN Reason: Protocol Last Admin: 03/25/17 08:27 Dose: 12.5 mg Clonidine HCl (Catapres) 0.1 mg PO TID [facility] PRN Reason: Protocol Last Admin: 03/24/17 17:28 Dose: 0.1 mg Ergocalciferol (Drisdol 50,000 Intl Units Cap) 1 cap PO MON@1530 [facility] PRN Reason: Protocol Ferrous Gluconate (Fergon) 324 mg PO TID [facility] PRN Reason: Protocol Last Admin: 03/24/17 17:27 Dose: 324 mg Hydralazine HCl (Apresoline) 25 mg PO Q6 PRN; Protocol PRN Reason: Other Piperacillin Sod/Tazobactam Sod (Zosyn 2.25 Gm In 0.9% 100 Ml) 2.25 gm in 100 mls @ 100 mls/hr IVPB Q6 [facility] PRN Reason: Protocol Stop: 03/30/17 00:01 Last Admin: 03/25/17 05:51 Dose: 100 mls/hr Insulin Human Regular (Humulin R High) 0 units SC ACHS [facility] PRN Reason: Protocol Last Admin: 03/25/17 06:50 Dose: Not Given Morphine Sulfate (Morphine) 1 mg IVP Q4H PRN PRN Reason: Pain, moderate (4-7) Last Admin: 03/24/17 15:33 Dose: 1 mg Mupirocin (Bactroban Ointment) 0 gm TOP BID [facility] PRN Reason: Protocol Last Admin: 03/24/17 17:28 Dose: 1 appl Simethicone (Mylicon Chew Tab) 80 mg PO [facility] PRN; Protocol PRN Reason: GI distress Last Admin: 03/25/17 05:54 Dose: 80 mg Sitagliptin Phosphate (Januvia) 25 mg PO DAILY [facility] PRN Reason: Protocol Last Admin: 03/24/17 10:52 Dose: 25 mg Sodium Bicarbonate (Sodium Bicarbonate Tab) 650 mg PO BID [facility] Last Admin: 03/24/17 17:30 Dose: 650 mg Tramadol HCl (Ultram) 50 mg PO Q8 PRN; Protocol PRN Reason: Pain, Mild (1-3) Last Admin: 03/25/17 05:51 Dose: 50 mg Valsartan (Diovan) 320 mg PO DAILY [facility] PRN Reason: Protocol Last Admin: 03/24/17 10:51 Dose: 320 mg Vitamin B Complex/Vit C/Folic Acid (Nephro-J Luis) 1 tab PO 0800 [facility] PRN Reason: Protocol Last Admin: 03/25/17 08:27 Dose: 1 tab - Labs Labs: 03/24/17 06:50 03/24/17 06:50 - Constitutional Appears: Chronically Ill - Head Exam Head Exam: NORMAL INSPECTION - ENT Exam ENT Exam: Mucous Membranes Moist - Neck Exam Neck Exam: absent: Meningismus - Respiratory Exam Respiratory Exam: Decreased Breath Sounds - Cardiovascular Exam Cardiovascular Exam: +S1, +S2 - GI/Abdominal Exam GI & Abdominal Exam: Soft. absent: Tenderness Assessment and Plan - Assessment and Plan (Free Text) Plan: Assessment right ankle, foot infected ulcer with skin and skin structure infection, growing Enterobacter and Enterococcus with no osteomyelitis on MRI DM HTN Plan continue Zosyn to complete 7-10 days (day 5 today)
--- NOTE | 2017-03-26 17:22 | CP.PCM.PN ---
<ElkinMellbisiezekiel - Last Filed: 03/26/17 17:19> Subjective - Date & Time of Evaluation Date of Evaluation: 03/26/17 Time of Evaluation: 17:19 - Subjective Subjective: 86 year old male patient seen at bedside regarding right foot superficial ulceration with cellulitis. Pt is resting comfortably in bed today. Reports that he is managing the pain well. At present he is not having any pedal pain and offers no pedal complaints. Dressing clean dry and intact to R foot. Denies F/C/N/V/CP/SOB Objective - Vital Signs/Intake and Output Vital Signs (last 24 hours): Temp Pulse Resp BP Pulse Ox 98.1 F 70 18 140/60 93 L 03/25/17 16:17 03/26/17 17:00 03/25/17 16:17 03/26/17 13:27 03/26/17 17:00 Intake and Output: 03/26/17 03/26/17 06:59 18:59 Intake Total 180 Output Total 450 Balance -270 - Medications Medications: Current Medications Acetaminophen (Tylenol 325mg Tab) 650 mg PO Q4H PRN PRN Reason: relief of pain or fever Last Admin: 03/25/17 08:49 Dose: 650 mg Amlodipine Besylate (Norvasc) 10 mg PO DAILY [facility] PRN Reason: Protocol Last Admin: 03/26/17 11:02 Dose: 10 mg Bismuth Subsalicylate (Pepto-Bismol) 524 mg PO Q6H PRN; Protocol PRN Reason: Diarrhea Last Admin: 03/24/17 16:23 Dose: 524 mg Carvedilol (Coreg) 12.5 mg PO 0800,1800 [facility] PRN Reason: Protocol Last Admin: 03/26/17 08:29 Dose: 12.5 mg Clonidine HCl (Catapres) 0.1 mg PO TID [facility] PRN Reason: Protocol Last Admin: 03/26/17 13:27 Dose: 0.1 mg Ergocalciferol (Drisdol 50,000 Intl Units Cap) 1 cap PO MON@1530 [facility] PRN Reason: Protocol Ferrous Gluconate (Fergon) 324 mg PO TID [facility] PRN Reason: Protocol Last Admin: 03/26/17 13:27 Dose: 324 mg Hydralazine HCl (Apresoline) 25 mg PO Q6 PRN; Protocol PRN Reason: Other Last Admin: 03/26/17 11:04 Dose: 25 mg Piperacillin Sod/Tazobactam Sod (Zosyn 2.25 Gm In 0.9% 100 Ml) 2.25 gm in 100 mls @ 100 mls/hr IVPB Q6 [facility] PRN Reason: Protocol Stop: 03/30/17 00:01 Last Admin: 03/26/17 11:52 Dose: 100 mls/hr Insulin Human Regular (Humulin R High) 0 units SC ACHS [facility] PRN Reason: Protocol Last Admin: 03/26/17 13:25 Dose: Not Given Losartan Potassium (Cozaar) 100 mg PO DAILY [facility] PRN Reason: Protocol Last Admin: 03/26/17 11:41 Dose: 100 mg Mupirocin (Bactroban Ointment) 0 gm TOP BID [facility] PRN Reason: Protocol Last Admin: 03/26/17 11:00 Dose: 1 appl Simethicone (Mylicon Chew Tab) 80 mg PO [facility] PRN; Protocol PRN Reason: GI distress Last Admin: 03/25/17 05:54 Dose: 80 mg Sitagliptin Phosphate (Januvia) 25 mg PO DAILY [facility] PRN Reason: Protocol Last Admin: 03/26/17 11:03 Dose: 25 mg Sodium Bicarbonate (Sodium Bicarbonate Tab) 650 mg PO BID [facility] Last Admin: 03/26/17 11:03 Dose: 650 mg Tramadol HCl (Ultram) 50 mg PO Q8 PRN; Protocol PRN Reason: Pain, Mild (1-3) Last Admin: 03/26/17 08:33 Dose: 50 mg Vitamin B Complex/Vit C/Folic Acid (Nephro-J Luis) 1 tab PO 0800 [facility] PRN Reason: Protocol Last Admin: 03/26/17 08:30 Dose: 1 tab - Labs Labs: 03/26/17 06:45 03/26/17 06:45 - Constitutional Appears: Well, Non-toxic, No Acute Distress - Extremities Exam Additional comments: Right lower extremity focused examination: Vasc: DP and PT pulses palpable 1/4. Temperature runs warm to cool proximal to distal. Absent pedal hair growth Derm: Superficial ulceration with epithelializing base noted to anterior ankle and dorsum of foot. Minimal hi wound erythema is noted, resolving at this time. No active drainage noted. Mild cellulitic skin changes are noted extending to mid level of leg. No malodor noted. Neuro Protective sensation grossly intact. 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 Renteria/Therese upon discharge <René Saleh - Last Filed: 03/27/17 07:05> Objective - Vital Signs/Intake and Output Vital Signs (last 24 hours): Temp Pulse Resp BP Pulse Ox 97.8 F 70 18 163/70 H 93 L 03/26/17 10:00 03/26/17 17:30 03/26/17 10:00 03/26/17 17:30 03/26/17 17:00 - Medications Medications: Current Medications Acetaminophen (Tylenol 325mg Tab) 650 mg PO Q4H PRN PRN Reason: relief of pain or fever Last Admin: 03/25/17 08:49 Dose: 650 mg Amlodipine Besylate (Norvasc) 10 mg PO DAILY [facility] PRN Reason: Protocol Last Admin: 03/26/17 11:02 Dose: 10 mg Bismuth Subsalicylate (Pepto-Bismol) 524 mg PO Q6H PRN; Protocol PRN Reason: Diarrhea Last Admin: 03/24/17 16:23 Dose: 524 mg Carvedilol (Coreg) 12.5 mg PO 0800,1800 [facility] PRN Reason: Protocol Last Admin: 03/26/17 17:30 Dose: 12.5 mg Clonidine HCl (Catapres) 0.1 mg PO TID [facility] PRN Reason: Protocol Last Admin: 03/26/17 17:30 Dose: 0.1 mg Ergocalciferol (Drisdol 50,000 Intl Units Cap) 1 cap PO MON@1530 [facility] PRN Reason: Protocol Ferrous Gluconate (Fergon) 324 mg PO TID [facility] PRN Reason: Protocol Last Admin: 03/26/17 17:30 Dose: 324 mg Hydralazine HCl (Apresoline) 25 mg PO Q6 PRN; Protocol PRN Reason: Other Last Admin: 03/26/17 11:04 Dose: 25 mg Piperacillin Sod/Tazobactam Sod (Zosyn 2.25 Gm In 0.9% 100 Ml) 2.25 gm in 100 mls @ 100 mls/hr IVPB Q6 [facility] PRN Reason: Protocol Stop: 03/30/17 00:01 Last Admin: 03/27/17 06:02 Dose: 100 mls/hr Insulin Human Regular (Humulin R High) 0 units SC ACHS [facility] PRN Reason: Protocol Last Admin: 03/27/17 06:51 Dose: Not Given Losartan Potassium (Cozaar) 100 mg PO DAILY [facility] PRN Reason: Protocol Last Admin: 03/26/17 11:41 Dose: 100 mg Mupirocin (Bactroban Ointment) 0 gm TOP BID [facility] PRN Reason: Protocol Last Admin: 03/26/17 17:28 Dose: 1 appl Simethicone (Mylicon Chew Tab) 80 mg PO [facility] PRN; Protocol PRN Reason: GI distress Last Admin: 03/25/17 05:54 Dose: 80 mg Sitagliptin Phosphate (Januvia) 25 mg PO DAILY [facility] PRN Reason: Protocol Last Admin: 03/26/17 11:03 Dose: 25 mg Sodium Bicarbonate (Sodium Bicarbonate Tab) 650 mg PO BID [facility] Last Admin: 03/26/17 17:31 Dose: 650 mg Tramadol HCl (Ultram) 50 mg PO Q8 PRN; Protocol PRN Reason: Pain, Mild (1-3) Last Admin: 03/27/17 06:01 Dose: 50 mg Vitamin B Complex/Vit C/Folic Acid (Nephro-J Luis) 1 tab PO 0800 [facility] PRN Reason: Protocol Last Admin: 03/26/17 08:30 Dose: 1 tab - Labs Labs: 03/26/17 06:45 03/26/17 06:45 Attending/Attestation - Attestation I have personally seen and examined this patient.: Yes I have fully participated in the care of the patient.: Yes I have reviewed all pertinent clinical information, including history, physical exam and plan: Yes
[2017-03-27] MEDS: Piperacillin/Tazobact 2.25gm 2.25 GM/100 ML BAG IVPB SCH ×5 (00:25→23:04)
[2017-03-27] MEDS: Insulin Reg-HIGH-Coverage SC SCH ×4 (06:51→22:21)
[2017-03-27 07:25] LABS: MEAN CELL VOLUME 92.3 fl (80.0-105.0); MEAN CORPUSCULAR HEMOGLOBIN 30.2 pg (25.0-35.0); MEAN CORPUSCULAR HGB CONC 32.7 g/dl (31.0-37.0); MEAN PLATELET VOLUME 10.4 fl (7.0-11.0); RBC 2.98 10^6/uL (3.5-6.1); RED CELL DISTRIBUTION WIDTH 13.1 % (11.5-14.5); WHITE BLOOD COUNT 9.5 10^3/ul (4.5-11.0)
[2017-03-27 07:27] LABS: ALBUMIN 3.2 g/dL (3.0-4.8); CALCIUM 9.4 mg/dL (8.4-10.5)
[2017-03-27] MEDS: Multivitamin Vitamin B Complex (Nephro-Vite) Tab PO SCH (08:14)
[2017-03-27] MEDS ORDERED: Loperamide Hydrochloride 1 mg/5 ml Cup PO PRN (08:47)
--- NOTE | 2017-03-27 08:48 | CP.PCM.PN ---
<Susi Valdez - Last Filed: 03/27/17 08:48> Subjective - Date & Time of Evaluation Date of Evaluation: 03/27/17 Time of Evaluation: 08:48 - Subjective Subjective: 86 year old male patient seen at bedside with attending Dr. Saleh regarding right foot superficial ulceration with cellulitis. Pt is resting comfortably in bed today. Reports that he is managing the pain well. At present he is not having any pedal pain and offers no pedal complaints. Dressing clean dry and intact to R foot. Denies F/C/N/V/CP/SOB Objective - Vital Signs/Intake and Output Vital Signs (last 24 hours): Temp Pulse Resp BP Pulse Ox 97.8 F 68 18 168/75 H 93 L 03/26/17 10:00 03/27/17 08:14 03/26/17 10:00 03/27/17 08:14 03/26/17 17:00 - Medications Medications: Current Medications Acetaminophen (Tylenol 325mg Tab) 650 mg PO Q4H PRN PRN Reason: relief of pain or fever Last Admin: 03/25/17 08:49 Dose: 650 mg Amlodipine Besylate (Norvasc) 10 mg PO DAILY [facility] PRN Reason: Protocol Last Admin: 03/26/17 11:02 Dose: 10 mg Bismuth Subsalicylate (Pepto-Bismol) 524 mg PO Q6H PRN; Protocol PRN Reason: Diarrhea Last Admin: 03/24/17 16:23 Dose: 524 mg Carvedilol (Coreg) 12.5 mg PO 0800,1800 [facility] PRN Reason: Protocol Last Admin: 03/27/17 08:14 Dose: 12.5 mg Clonidine HCl (Catapres) 0.1 mg PO TID [facility] PRN Reason: Protocol Last Admin: 03/26/17 17:30 Dose: 0.1 mg Ergocalciferol (Drisdol 50,000 Intl Units Cap) 1 cap PO MON@1530 [facility] PRN Reason: Protocol Ferrous Gluconate (Fergon) 324 mg PO TID [facility] PRN Reason: Protocol Last Admin: 03/26/17 17:30 Dose: 324 mg Hydralazine HCl (Apresoline) 25 mg PO Q6 PRN; Protocol PRN Reason: Other Last Admin: 03/26/17 11:04 Dose: 25 mg Piperacillin Sod/Tazobactam Sod (Zosyn 2.25 Gm In 0.9% 100 Ml) 2.25 gm in 100 mls @ 100 mls/hr IVPB Q6 [facility] PRN Reason: Protocol Stop: 03/30/17 00:01 Last Admin: 03/27/17 06:02 Dose: 100 mls/hr Insulin Human Regular (Humulin R High) 0 units SC ACHS [facility] PRN Reason: Protocol Last Admin: 03/27/17 06:51 Dose: Not Given Losartan Potassium (Cozaar) 100 mg PO DAILY [facility] PRN Reason: Protocol Last Admin: 03/26/17 11:41 Dose: 100 mg Mupirocin (Bactroban Ointment) 0 gm TOP BID [facility] PRN Reason: Protocol Last Admin: 03/26/17 17:28 Dose: 1 appl Simethicone (Mylicon Chew Tab) 80 mg PO [facility] PRN; Protocol PRN Reason: GI distress Last Admin: 03/25/17 05:54 Dose: 80 mg Sitagliptin Phosphate (Januvia) 25 mg PO DAILY [facility] PRN Reason: Protocol Last Admin: 03/26/17 11:03 Dose: 25 mg Sodium Bicarbonate (Sodium Bicarbonate Tab) 650 mg PO BID [facility] Last Admin: 03/26/17 17:31 Dose: 650 mg Tramadol HCl (Ultram) 50 mg PO Q8 PRN; Protocol PRN Reason: Pain, Mild (1-3) Last Admin: 03/27/17 06:01 Dose: 50 mg Vitamin B Complex/Vit C/Folic Acid (Nephro-J Luis) 1 tab PO 0800 [facility] PRN Reason: Protocol Last Admin: 03/27/17 08:14 Dose: 1 tab - Labs Labs: 03/27/17 06:00 03/27/17 06:00 - Constitutional Appears: Well, Non-toxic, No Acute Distress - Extremities Exam Additional comments: Right lower extremity focused examination: Vasc: DP and PT pulses palpable 1/4. Temperature runs warm to cool proximal to distal. Absent pedal hair growth Derm: Superficial ulceration with epithelializing base noted to anterior ankle and dorsum of foot, noted to be healing. [place] wound erythema resolved. [place] wound skin is hypopigmented. No active drainage noted to wound bed. Mild cellulitic skin changes are noted extending to mid level of leg. No malodor noted. Neuro Protective sensation grossly intact. Ortho: mild tenderness diffusely on palpation of the right foot - Neurological Exam Neurological Exam: Alert, Awake, Oriented x3 - Psychiatric Exam Psychiatric exam: Normal Affect, Normal Mood Assessment and Plan - Assessment and Plan (Free Text) Assessment: 86 year old male patient with right foot superficial ulceration with cellulitis , likely secondary to PVD Plan: Pt seen and evaluated with attending Dr. 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 Renteria/Therese upon discharge <René Saleh - Last Filed: 03/27/17 15:35> Objective - Vital Signs/Intake and Output Vital Signs (last 24 hours): Temp Pulse Resp BP Pulse Ox 97.2 F L 72 18 118/74 95 03/27/17 10:17 03/27/17 14:09 03/27/17 10:17 03/27/17 14:09 03/27/17 10:17 - Medications Medications: Current Medications Acetaminophen (Tylenol 325mg Tab) 650 mg PO Q4H PRN PRN Reason: relief of pain or fever Last Admin: 03/27/17 10:34 Dose: 650 mg Amlodipine Besylate (Norvasc) 10 mg PO DAILY [facility] PRN Reason: Protocol Last Admin: 03/27/17 10:37 Dose: 10 mg Bismuth Subsalicylate (Pepto-Bismol) 524 mg PO Q6H PRN; Protocol PRN Reason: Diarrhea Last Admin: 03/24/17 16:23 Dose: 524 mg Carvedilol (Coreg) 12.5 mg PO 0800,1800 [facility] PRN Reason: Protocol Last Admin: 03/27/17 08:14 Dose: 12.5 mg Clonidine HCl (Catapres) 0.1 mg PO TID [facility] PRN Reason: Protocol Last Admin: 03/27/17 14:09 Dose: 0.1 mg Ergocalciferol (Drisdol 50,000 Intl Units Cap) 1 cap PO MON@1530 [facility] PRN Reason: Protocol Ferrous Gluconate (Fergon) 324 mg PO TID [facility] PRN Reason: Protocol Last Admin: 03/27/17 14:09 Dose: 324 mg Hydralazine HCl (Apresoline) 25 mg PO Q6 PRN; Protocol PRN Reason: Other Last Admin: 03/26/17 11:04 Dose: 25 mg Piperacillin Sod/Tazobactam Sod (Zosyn 2.25 Gm In 0.9% 100 Ml) 2.25 gm in 100 mls @ 100 mls/hr IVPB Q6 [facility] PRN Reason: Protocol Stop: 03/30/17 00:01 Last Admin: 03/27/17 12:30 Dose: 100 mls/hr Insulin Human Regular (Humulin R High) 0 units SC ACHS [facility] PRN Reason: Protocol Last Admin: 03/27/17 12:29 Dose: Not Given Loperamide HCl (Imodium) 2 mg PO Q4H PRN; Protocol PRN Reason: Diarrhea Losartan Potassium (Cozaar) 100 mg PO DAILY [facility] PRN Reason: Protocol Last Admin: 03/27/17 10:36 Dose: 100 mg Mupirocin (Bactroban Ointment) 0 gm TOP BID [facility] PRN Reason: Protocol Last Admin: 03/27/17 10:36 Dose: 1 appl Simethicone (Mylicon Chew Tab) 80 mg PO [facility] PRN; Protocol PRN Reason: GI distress Last Admin: 03/25/17 05:54 Dose: 80 mg Sitagliptin Phosphate (Januvia) 25 mg PO DAILY [facility] PRN Reason: Protocol Last Admin: 03/27/17 10:37 Dose: 25 mg Sodium Bicarbonate (Sodium Bicarbonate Tab) 650 mg PO BID [facility] Last Admin: 03/27/17 10:37 Dose: 650 mg Tramadol HCl (Ultram) 50 mg PO Q8 PRN; Protocol PRN Reason: Pain, Mild (1-3) Last Admin: 03/27/17 14:13 Dose: 50 mg Vitamin B Complex/Vit C/Folic Acid (Nephro-J Luis) 1 tab PO 0800 [facility] PRN Reason: Protocol Last Admin: 03/27/17 08:14 Dose: 1 tab - Labs Labs: 03/27/17 06:00 03/27/17 06:00 Attending/Attestation - Attestation I have personally seen and examined this patient.: Yes I have fully participated in the care of the patient.: Yes I have reviewed all pertinent clinical information, including history, physical exam and plan: Yes
--- NOTE | 2017-03-27 10:42 | CP.PCM.CON ---
<Mary Ann Granger - Last Filed: 03/27/17 10:43> History of Present Illness - History of Present Illness History of Present Illness: Initial PGY4 GI Consult Note Blas Gandhi is a 86M w/ hx of HTN, HL, DM, CKD who presented to the hospital for right foot cellulitis. GI was consulted for diarrhea. As per pt, the diarrhea started 3-4 days ago, while he was hospitalized. He states that his Bm were normal at home. He reports bowel incontinence. He canit tell how many BM he has daily. Denies any associated abd pain. Denies any rectal bleeding , BRBPR, melena, nausea, vomiting, or constipation. He has been on Zosyn for his cellulitis. He denies any fever, chills or diaphoresis. Other than this hospitalization, he denies any previous abx use and hospitalizations. He states that he has been sick recently, denies travel. PMHx:HTN, HL, DM, CKD PShx: denies Social hx: distant smoking and etoh use 40 + years ago, used 1 pack per week and 1 pint of vodka weeklu for 2 years, denies any illicit drug use Endo Hx: denies Family Hx: denies ROS: 12 point ROS conducted neg other than above Past Patient History - Tetanus Immunizations Tetanus Immunization: Unknown - Past Social History Smoking Status: Former Smoker - CARDIAC Hx Cardiac Disorders: Yes Hx Hypertension: Yes - PULMONARY Hx Respiratory Disorders: No - NEUROLOGICAL Hx Neurological Disorder: No - HEENT Hx HEENT Problems: No - RENAL Hx Chronic Kidney Disease: No - ENDOCRINE/METABOLIC Hx Diabetes Mellitus Type 2: Yes - HEMATOLOGICAL/ONCOLOGICAL Hx Blood Disorders: No - INTEGUMENTARY Hx Dermatological Problems: Yes - MUSCULOSKELETAL/RHEUMATOLOGICAL Hx Falls: Yes - GASTROINTESTINAL Hx Gastrointestinal Disorders: No - GENITOURINARY/GYNECOLOGICAL Hx Genitourinary Disorders: No Hx Reproductive Disorders: No - PSYCHIATRIC Hx Psychophysiologic Disorder: No - SURGICAL HISTORY Hx Surgeries: No - ANESTHESIA Hx Anesthesia: No Meds Allergies/Adverse Reactions: Allergies Allergy/AdvReac Type Severity Reaction Status Date / Time No Known Allergies Allergy Verified 03/22/17 20:45 - Medications Medications: Current Medications Acetaminophen (Tylenol 325mg Tab) 650 mg PO Q4H PRN PRN Reason: relief of pain or fever Last Admin: 03/25/17 08:49 Dose: 650 mg Amlodipine Besylate (Norvasc) 10 mg PO DAILY [facility] PRN Reason: Protocol Last Admin: 03/26/17 11:02 Dose: 10 mg Bismuth Subsalicylate (Pepto-Bismol) 524 mg PO Q6H PRN; Protocol PRN Reason: Diarrhea Last Admin: 03/24/17 16:23 Dose: 524 mg Carvedilol (Coreg) 12.5 mg PO 0800,1800 [facility] PRN Reason: Protocol Last Admin: 03/27/17 08:14 Dose: 12.5 mg Clonidine HCl (Catapres) 0.1 mg PO TID NEVIN PRN Reason: Protocol Last Admin: 03/26/17 17:30 Dose: 0.1 mg Ergocalciferol (Drisdol 50,000 Intl Units Cap) 1 cap PO MON@1530 [facility] PRN Reason: Protocol Ferrous Gluconate (Fergon) 324 mg PO TID NEVIN PRN Reason: Protocol Last Admin: 03/26/17 17:30 Dose: 324 mg Hydralazine HCl (Apresoline) 25 mg PO Q6 PRN; Protocol PRN Reason: Other Last Admin: 03/26/17 11:04 Dose: 25 mg Piperacillin Sod/Tazobactam Sod (Zosyn 2.25 Gm In 0.9% 100 Ml) 2.25 gm in 100 mls @ 100 mls/hr IVPB Q6 [facility] PRN Reason: Protocol Stop: 03/30/17 00:01 Last Admin: 03/27/17 06:02 Dose: 100 mls/hr Insulin Human Regular (Humulin R High) 0 units SC ACHS [facility] PRN Reason: Protocol Last Admin: 03/27/17 06:51 Dose: Not Given Loperamide HCl (Imodium) 2 mg PO Q4H PRN; Protocol PRN Reason: Diarrhea Losartan Potassium (Cozaar) 100 mg PO DAILY [facility] PRN Reason: Protocol Last Admin: 03/26/17 11:41 Dose: 100 mg Mupirocin (Bactroban Ointment) 0 gm TOP BID [facility] PRN Reason: Protocol Last Admin: 03/26/17 17:28 Dose: 1 appl Simethicone (Mylicon Chew Tab) 80 mg PO PCHS PRN; Protocol PRN Reason: GI distress Last Admin: 03/25/17 05:54 Dose: 80 mg Sitagliptin Phosphate (Januvia) 25 mg PO DAILY [facility] PRN Reason: Protocol Last Admin: 03/26/17 11:03 Dose: 25 mg Sodium Bicarbonate (Sodium Bicarbonate Tab) 650 mg PO BID [facility] Last Admin: 03/26/17 17:31 Dose: 650 mg Tramadol HCl (Ultram) 50 mg PO Q8 PRN; Protocol PRN Reason: Pain, Mild (1-3) Last Admin: 03/27/17 06:01 Dose: 50 mg Vitamin B Complex/Vit C/Folic Acid (Nephro-J Luis) 1 tab PO 0800 [facility] PRN Reason: Protocol Last Admin: 03/27/17 08:14 Dose: 1 tab Physical Exam - Constitutional Appears: Well, Non-toxic, No Acute Distress - Head Exam Head Exam: ATRAUMATIC, NORMOCEPHALIC - Eye Exam Eye Exam: EOMI, Normal appearance - ENT Exam ENT Exam: Mucous Membranes Moist, Normal Exam - Neck Exam Neck exam: Positive for: Normal Inspection - Respiratory Exam Respiratory Exam: Clear to Auscultation Bilateral, NORMAL BREATHING PATTERN. absent: Rales, Rhonchi, Wheezes, Respiratory Distress - Cardiovascular Exam Cardiovascular Exam: REGULAR RHYTHM, +S1, +S2 - GI/Abdominal Exam GI & Abdominal Exam: Normal Bowel Sounds, Soft. absent: Guarding, Rebound, Rigid - Extremities Exam Additional comments: bandaged doral aspect (ulceration) - Neurological Exam Neurological exam: Alert, Oriented x3 - Psychiatric Exam Psychiatric exam: Normal Affect, Normal Mood - Skin Skin Exam: Dry, Intact, Normal Color, Warm Results - Vital Signs Recent Vital Signs: Last Vital Signs Temp 97.2 F L 03/27/17 10:17 Pulse 84 03/27/17 10:17 Resp 18 03/27/17 10:17 BP 136/81 03/27/17 10:17 Pulse Ox 95 03/27/17 10:17 - Labs Result Diagrams: 03/27/17 06:00 03/27/17 06:00 Labs: Laboratory Results - last 24 hr 03/26/17 03/26/17 03/26/17 11:24 16:37 21:12 WBC RBC Hgb Hct MCV MCH MCHC RDW Plt Count MPV Sodium Potassium Chloride Carbon Dioxide Anion Gap BUN Creatinine Est GFR ( Amer) Est GFR (Non-Af Amer) POC Glucose (mg/dL) 149 H 149 H 142 H Random Glucose Calcium Total Bilirubin AST ALT Alkaline Phosphatase Total Protein Albumin Globulin Albumin/Globulin Ratio 03/27/17 03/27/17 03/27/17 05:12 06:00 06:00 WBC 9.5 RBC 2.98 L Hgb 9.0 L Hct 27.5 L MCV 92.3 D MCH 30.2 MCHC 32.7 RDW 13.1 Plt Count 279 MPV 10.4 Sodium 148 Potassium 3.8 Chloride 110 H Carbon Dioxide 27 Anion Gap 14 BUN 17 Creatinine 2.1 H Est GFR ( Amer) 36 Est GFR (Non-Af Amer) 30 POC Glucose (mg/dL) 124 H Random Glucose 135 H Calcium 9.4 Total Bilirubin 0.5 AST 31 ALT 33 Alkaline Phosphatase 59 Total Protein 6.5 Albumin 3.2 Globulin 3.2 Albumin/Globulin Ratio 1.0 L Assessment & Plan - Assessment and Plan (Free Text) Assessment: Blas Gandhi is a 56M w/ hx of HTN, HL, DM, CKD who presents is currently being treated for cellulitis of the lower ext. GI consulted for dirrahea Diarrhea, etiology unknown; DDx: infectious, c. diff, medication induced Bowel incontinence CKD DM Plan: -stool cultures -r/o c.diff -cannot identify any particular medication that may cause his diarrhea -encourage PO intake -conservative management -recommend loperimide use after infectous etiology is ruled out D/W Dr. Howard <Edy Howard - Last Filed: 03/27/17 12:32> Meds - Medications Medications: Current Medications Acetaminophen (Tylenol 325mg Tab) 650 mg PO Q4H PRN PRN Reason: relief of pain or fever Last Admin: 03/27/17 10:34 Dose: 650 mg Amlodipine Besylate (Norvasc) 10 mg PO DAILY [facility] PRN Reason: Protocol Last Admin: 03/27/17 10:37 Dose: 10 mg Bismuth Subsalicylate (Pepto-Bismol) 524 mg PO Q6H PRN; Protocol PRN Reason: Diarrhea Last Admin: 03/24/17 16:23 Dose: 524 mg Carvedilol (Coreg) 12.5 mg PO 0800,1800 [facility] PRN Reason: Protocol Last Admin: 03/27/17 08:14 Dose: 12.5 mg Clonidine HCl (Catapres) 0.1 mg PO TID [facility] PRN Reason: Protocol Last Admin: 03/27/17 10:36 Dose: 0.1 mg Ergocalciferol (Drisdol 50,000 Intl Units Cap) 1 cap PO MON@1530 [facility] PRN Reason: Protocol Ferrous Gluconate (Fergon) 324 mg PO TID [facility] PRN Reason: Protocol Last Admin: 03/27/17 10:36 Dose: 324 mg Hydralazine HCl (Apresoline) 25 mg PO Q6 PRN; Protocol PRN Reason: Other Last Admin: 03/26/17 11:04 Dose: 25 mg Piperacillin Sod/Tazobactam Sod (Zosyn 2.25 Gm In 0.9% 100 Ml) 2.25 gm in 100 mls @ 100 mls/hr IVPB Q6 [facility] PRN Reason: Protocol Stop: 03/30/17 00:01 Last Admin: 03/27/17 06:02 Dose: 100 mls/hr Insulin Human Regular (Humulin R High) 0 units SC ACHS [facility] PRN Reason: Protocol Last Admin: 03/27/17 06:51 Dose: Not Given Loperamide HCl (Imodium) 2 mg PO Q4H PRN; Protocol PRN Reason: Diarrhea Losartan Potassium (Cozaar) 100 mg PO DAILY [facility] PRN Reason: Protocol Last Admin: 03/27/17 10:36 Dose: 100 mg Mupirocin (Bactroban Ointment) 0 gm TOP BID [facility] PRN Reason: Protocol Last Admin: 03/27/17 10:36 Dose: 1 appl Simethicone (Mylicon Chew Tab) 80 mg PO PCHS PRN; Protocol PRN Reason: GI distress Last Admin: 03/25/17 05:54 Dose: 80 mg Sitagliptin Phosphate (Januvia) 25 mg PO DAILY [facility] PRN Reason: Protocol Last Admin: 03/27/17 10:37 Dose: 25 mg Sodium Bicarbonate (Sodium Bicarbonate Tab) 650 mg PO BID [facility] Last Admin: 03/27/17 10:37 Dose: 650 mg Tramadol HCl (Ultram) 50 mg PO Q8 PRN; Protocol PRN Reason: Pain, Mild (1-3) Last Admin: 03/27/17 06:01 Dose: 50 mg Vitamin B Complex/Vit C/Folic Acid (Nephro-J Luis) 1 tab PO 0800 [facility] PRN Reason: Protocol Last Admin: 03/27/17 08:14 Dose: 1 tab Results - Vital Signs Recent Vital Signs: Last Vital Signs Temp 97.2 F L 03/27/17 10:17 Pulse 84 03/27/17 10:36 Resp 18 03/27/17 10:17 BP 136/81 03/27/17 10:37 Pulse Ox 95 03/27/17 10:17 - Labs Result Diagrams: 03/27/17 06:00 03/27/17 06:00 Labs: Laboratory Results - last 24 hr 03/26/17 03/26/17 03/27/17 16:37 21:12 05:12 WBC RBC Hgb Hct MCV MCH MCHC RDW Plt Count MPV Sodium Potassium Chloride Carbon Dioxide Anion Gap BUN Creatinine Est GFR ( Amer) Est GFR (Non-Af Amer) POC Glucose (mg/dL) 149 H 142 H 124 H Random Glucose Calcium Total Bilirubin AST ALT Alkaline Phosphatase Total Protein Albumin Globulin Albumin/Globulin Ratio 03/27/17 03/27/17 06:00 06:00 WBC 9.5 RBC 2.98 L Hgb 9.0 L Hct 27.5 L MCV 92.3 D MCH 30.2 MCHC 32.7 RDW 13.1 Plt Count 279 MPV 10.4 Sodium 148 Potassium 3.8 Chloride 110 H Carbon Dioxide 27 Anion Gap 14 BUN 17 Creatinine 2.1 H Est GFR ( Amer) 36 Est GFR (Non-Af Amer) 30 POC Glucose (mg/dL) Random Glucose 135 H Calcium 9.4 Total Bilirubin 0.5 AST 31 ALT 33 Alkaline Phosphatase 59 Total Protein 6.5 Albumin 3.2 Globulin 3.2 Albumin/Globulin Ratio 1.0 L Attending/Attestation - Attestation I have personally seen and examined this patient.: Yes I have fully participated in the care of the patient.: Yes I have reviewed all pertinent clinical information: Yes Notes (Text): 03/27/17 12:26 I have seen and examined patient with GI fellow. Agree with above documentation with the following additions. In brief, this is an 86 year old male with history of HTN, DM, CKD who initially presented to hospital for complaint of right foot pain and is currently being treated for cellulitis. GI called for evaluation of diarrhea which began 3-4 days prior. As per patient's granddaughter at bedside, he typically has loose stool at home, though while in hospital it has become more frequent. He describes 2-3 episodes of loose non- bloody diarrhea daily at times with incontinence and urge. He denies abdominal pain, nausea, vomiting, fever/chills, weight loss, or rectal bleeding. He does report that his has recently been hospitalized and has had contact with her. He is tolerating PO diet without difficulty. No prior endoscopic evaluation. Review of vitals from today are normal. Family history: reviewed, patient denies history of GI malignancies Additional physical examination: Abdomen: no palpable hepato/splenomegaly DM / HTN CKD RLE cellulitis Diarrhea, unclear etiology - infectious vs antibiotic associated - Diet as tolerated - Continue with antibiotic therapy - Obtain stool studies (culture, c-difficile) - Patient currently on loperamide, would hold until infectious etiology is ruled out - Patient would benefit from consideration of outpatient elective colonoscopy following resolution of acute symptoms, though will have to have a careful discussion with patient given advanced age and medical comorbidities - Will continue to monitor patient clinical course
--- NOTE | 2017-03-27 18:26 | PN ---
DATE: SUBJECTIVE: I saw him resting comfortably in bed. He is more talkative this morning and animated. He is improving slowly. I had a long discussion with the this morning, but he is still having the diarrhea. Waiting for stool culture to come back for C. diff. He is currently on hydralazine, Bactroban cream, Catapres, Coreg, Cozaar, Drisdol, Fergon, insulin, Imodium, Januvia, Mylicon, Norvasc, Pepto-Bismol, sodium bicarb, Tylenol, Ultram and Zosyn. He has some diarrhea, but he also has some right foot ulcer and acute kidney injury. PHYSICAL EXAMINATION: VITAL SIGNS: Temperature 97.2, 84 pulse, 136/81 blood pressure, 18 respiratory rate, 95% O2 sat on room air. HEENT: Head is atraumatic, normocephalic. Throat is moist. NECK: Supple. HEART: Regular rate. LUNGS: Clear to auscultation. ABDOMEN: Soft. EXTREMITIES: Right foot is bandaged, but improving. LABORATORY DATA: He has a 9.5 white count, 9 hemoglobin, 27.5 hematocrit, with 279 platelets. Sodium 148, potassium 3.8, BUN 17, creatinine is 2.1, which is about his baseline. His random sugar is 135. His uric acid was 6.8, calcium 9.4, total bili is 0.5, AST is 31, ALT 33, alkaline phosphatase 59. ASSESSMENT AND PLAN: Waiting for a C. diff to come back from the stool. He is being seen by GI, Podiatry, Infectious Disease, Renal. He needs physical therapy, out of bed to chair. He is doing better. Continue with IV antibiotics, diabetes control, hypertension control. Waiting for stool to come back for his diarrhea. He is on Imodium. I had a long discussion with his Grabiel Sun DO MTDJimena
--- NOTE | 2017-03-28 00:37 | PN ---
DATE: 03/27/2017 SUBJECTIVE: Patient in bed in no acute distress. PHYSICAL EXAMINATION VITAL SIGNS: Temperature is 98.0, blood pressure is 140/60, respiratory rate of 18. HEENT: Unremarkable. NECK: Supple. LUNGS: Have decreased breath sounds. HEART: Normal S1 and S2. ABDOMEN: Soft and nontender. LABORATORY DATA: Reveals a white count of 9.5, hemoglobin of 9, and platelets of 279. BUN of 17 and creatinine of 2.1. ASSESSMENT AND PLAN: This is an 86-year-old male with right ankle and foot infected ulcer, skin and skini soft tissue infection, growing Enterobacter and Enterococcus. No osteo on MRI. On Zosyn, today is day #6, will complete the 7-10 days. Review of orders reveals that Zosyn will need renewal. Christiano Uribe MD
[2017-03-28] MEDS: Piperacillin/Tazobact 2.25gm 2.25 GM/100 ML BAG IVPB SCH ×2 (05:22→12:18)
[2017-03-28] MEDS: Insulin Reg-HIGH-Coverage SC SCH ×4 (07:00→22:36)
[2017-03-28 07:13] LABS: MEAN CELL VOLUME 92.5 fl (80.0-105.0); MEAN CORPUSCULAR HEMOGLOBIN 29.3 pg (25.0-35.0); MEAN CORPUSCULAR HGB CONC 31.7 g/dl (31.0-37.0); MEAN PLATELET VOLUME 10.2 fl (7.0-11.0); RBC 3.07 10^6/uL (3.5-6.1); RED CELL DISTRIBUTION WIDTH 13.1 % (11.5-14.5); WHITE BLOOD COUNT 10.5 10^3/ul (4.5-11.0)
[2017-03-28 07:35] LABS: ALB/GLOB RATIO 0.9 (1.1-1.8); ALBUMIN 3.1 g/dL (3.0-4.8)
[2017-03-28] MEDS: Multivitamin Vitamin B Complex (Nephro-Vite) Tab PO SCH (07:52)
--- NOTE | 2017-03-28 11:03 | PN ---
DATE: SUBJECTIVE: I saw him resting comfortably in bed. He tell me that he cannot put any pressure on the right foot. It hurts too much. He is in a lot of pain. He has not been out of bed. He is not doing physical therapy. He is refusing. This is a big problem. He has 3 more days and he cannot walk. He is on Apresoline; Bactroban cream; Catapres; Coreg; Cozaar; Drisdol; Fergon; insulin; Imodium; Januvia; Lyrica, which I just added today; Mylicon; Nephro-J Luis; Norvasc; Pepto-Bismol; sodium bicarbonate; Tylenol; Tramadol for the pain and Zosyn for his infection and cellulitis. He is eating fairly well. He is mildly confused with dementia. PHYSICAL EXAMINATION: VITAL SIGNS: He has a 98.1 temp, 78 pulse, 167/76 blood pressure, 20 respiratory rate, 95% O2 sat on room air. HEENT: Head is atraumatic, normocephalic. HEART: Regular rate. LUNGS: Decreased breath sounds, but clear. ABDOMEN: Soft. EXTREMITIES: Right foot is bandaged. He has a superficial ulcer, much better and healing. LABORATORY DATA: He had negative x-rays of the ankle and the right foot. He will not put pressure on it. He will not get out of bed. We are going to get physical therapy to get more aggressive. We are going to get him out of bed to chair. I added some Lyrica. He had a 10.5 white count, 9 hemoglobin, 28.4 hematocrit with a 292 platelets. 149 sodium, potassium 3.9, BUN is 18, creatinine 2.1, this is baseline. GFR is 30, sugar is 130, calcium 9, total bili is 0.5, AST is 47, ALT is 28, alk phos 63, total protein 6.5. ASSESSMENT AND PLAN: He has been seen by Infectious and Podiatry and Renal. I need to get this anel moving, walking, out of bed to chair. Otherwise, he is going to be bed bound and will be another issue. He has got a right foot cellulitis ulcer, now he has got severe right foot pain, he has got some diarrhea, which is slowly improving with acute kidney injury and he has dementia. Grabiel Sun DO [facility] # [id number]
--- NOTE | 2017-03-28 13:46 | CP.PCM.PN ---
Subjective - Date & Time of Evaluation Date of Evaluation: 03/28/17 Time of Evaluation: 13:45 - Subjective Subjective: 86 year old male patient seen at bedside this afternoon regarding right foot superficial ulceration with cellulitis. Pt is resting comfortably in bed today. Reports that he is managing the pain well and today it has decreased significantly. At present he is not having any pedal pain and offers no pedal complaints. Dressing clean dry and intact to R foot. Denies F/C/N/V/CP/SOB Objective - Vital Signs/Intake and Output Vital Signs (last 24 hours): Temp Pulse Resp BP Pulse Ox 98.1 F 70 20 157/76 H 95 03/28/17 10:26 03/28/17 10:26 03/28/17 10:26 03/28/17 10:26 03/28/17 10:26 Intake and Output: 03/28/17 03/28/17 06:59 18:59 Intake Total 180 Output Total 350 Balance -170 - Medications Medications: Current Medications Acetaminophen (Tylenol 325mg Tab) 650 mg PO Q4H PRN PRN Reason: relief of pain or fever Last Admin: 03/28/17 07:53 Dose: 650 mg Amlodipine Besylate (Norvasc) 10 mg PO DAILY [facility] PRN Reason: Protocol Last Admin: 03/28/17 10:15 Dose: 10 mg Bismuth Subsalicylate (Pepto-Bismol) 524 mg PO Q6H PRN; Protocol PRN Reason: Diarrhea Last Admin: 03/24/17 16:23 Dose: 524 mg Carvedilol (Coreg) 12.5 mg PO 0800,1800 [facility] PRN Reason: Protocol Last Admin: 03/28/17 07:47 Dose: 12.5 mg Clonidine HCl (Catapres) 0.1 mg PO TID [facility] PRN Reason: Protocol Last Admin: 03/28/17 10:14 Dose: 0.1 mg Ergocalciferol (Drisdol 50,000 Intl Units Cap) 1 cap PO MON@1530 [facility] PRN Reason: Protocol Ferrous Gluconate (Fergon) 324 mg PO TID [facility] PRN Reason: Protocol Last Admin: 03/28/17 10:13 Dose: 324 mg Hydralazine HCl (Apresoline) 25 mg PO Q6 PRN; Protocol PRN Reason: Other Last Admin: 03/26/17 11:04 Dose: 25 mg Piperacillin Sod/Tazobactam Sod (Zosyn 2.25 Gm In 0.9% 100 Ml) 2.25 gm in 100 mls @ 100 mls/hr IVPB Q6 [facility] PRN Reason: Protocol Stop: 03/30/17 00:01 Last Admin: 03/28/17 12:18 Dose: 100 mls/hr Insulin Human Regular (Humulin R High) 0 units SC ACHS [facility] PRN Reason: Protocol Last Admin: 03/28/17 12:19 Dose: 4 units Loperamide HCl (Imodium) 2 mg PO Q4H PRN; Protocol PRN Reason: Diarrhea Losartan Potassium (Cozaar) 100 mg PO DAILY [facility] PRN Reason: Protocol Last Admin: 03/28/17 10:14 Dose: 100 mg Mupirocin (Bactroban Ointment) 0 gm TOP BID [facility] PRN Reason: Protocol Last Admin: 03/28/17 10:13 Dose: 1 appl Pregabalin (Lyrica) 75 mg PO BID [facility] Last Admin: 03/28/17 12:18 Dose: 75 mg Simethicone (Mylicon Chew Tab) 80 mg PO PCHS PRN; Protocol PRN Reason: GI distress Last Admin: 03/25/17 05:54 Dose: 80 mg Sitagliptin Phosphate (Januvia) 25 mg PO DAILY [facility] PRN Reason: Protocol Last Admin: 03/28/17 10:15 Dose: 25 mg Sodium Bicarbonate (Sodium Bicarbonate Tab) 650 mg PO BID [facility] Last Admin: 03/28/17 10:15 Dose: 650 mg Tramadol HCl (Ultram) 50 mg PO Q8 PRN; Protocol PRN Reason: Pain, Mild (1-3) Last Admin: 03/28/17 10:13 Dose: 50 mg Vitamin B Complex/Vit C/Folic Acid (Nephro-J Luis) 1 tab PO 0800 [facility] PRN Reason: Protocol Last Admin: 03/28/17 07:52 Dose: 1 tab - Labs Labs: 03/28/17 06:30 03/28/17 06:30 - Constitutional Appears: Well, Non-toxic, No Acute Distress - Extremities Exam Additional comments: Right lower extremity focused examination: Vasc: DP and PT pulses palpable 1/4. Temperature runs warm to cool proximal to distal. Absent pedal hair growth Derm: Superficial ulceration with epithelializing base noted to anterior ankle and dorsum of foot, noted to be healing. Hamida wound erythema resolved. Ham[place] wound skin is hypopigmented. No active drainage noted to wound bed. Mild cellulitic skin changes are noted extending to mid level of leg. No malodor noted. Neuro Protective sensation grossly intact. Ortho: mild tenderness diffusely on palpation of the right foot - Neurological Exam Neurological Exam: Alert, Awake, Oriented x3 - Psychiatric Exam Psychiatric exam: Normal Affect, Normal Mood Assessment and Plan - Assessment and Plan (Free Text) Assessment: 86 year old male patient with right foot superficial ulceration with cellulitis , likely secondary to PVD Plan: Pt seen and evaluated Discussed plan with attending Dr. 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 Renteria/Therese upon discharge
--- NOTE | 2017-03-28 14:27 | CP.PCM.PN ---
<Mary Ann Granger - Last Filed: 03/28/17 14:33> Subjective - Date & Time of Evaluation Date of Evaluation: 03/28/17 Time of Evaluation: 10:00 - Subjective Subjective: PGY4 GI Follow-up Pt seen and examined bedside RN notes that he has less diarrhea since yesterday unable to get tool sample due to lack of BM Tolerating diet Denies any abd pain ROS: 10 point ROS performed, neg other than above Objective - Vital Signs/Intake and Output Vital Signs (last 24 hours): Temp Pulse Resp BP Pulse Ox 98.1 F 70 20 157/76 H 95 03/28/17 10:26 03/28/17 10:26 03/28/17 10:26 03/28/17 10:26 03/28/17 10:26 Intake and Output: 03/28/17 03/28/17 06:59 18:59 Intake Total 180 Output Total 350 Balance -170 - Medications Medications: Current Medications Acetaminophen (Tylenol 325mg Tab) 650 mg PO Q4H PRN PRN Reason: relief of pain or fever Last Admin: 03/28/17 07:53 Dose: 650 mg Amlodipine Besylate (Norvasc) 10 mg PO DAILY [facility] PRN Reason: Protocol Last Admin: 03/28/17 10:15 Dose: 10 mg Bismuth Subsalicylate (Pepto-Bismol) 524 mg PO Q6H PRN; Protocol PRN Reason: Diarrhea Last Admin: 03/24/17 16:23 Dose: 524 mg Carvedilol (Coreg) 12.5 mg PO 0800,1800 [facility] PRN Reason: Protocol Last Admin: 03/28/17 07:47 Dose: 12.5 mg Clonidine HCl (Catapres) 0.1 mg PO TID [facility] PRN Reason: Protocol Last Admin: 03/28/17 10:14 Dose: 0.1 mg Ergocalciferol (Drisdol 50,000 Intl Units Cap) 1 cap PO MON@1530 [facility] PRN Reason: Protocol Ferrous Gluconate (Fergon) 324 mg PO TID [facility] PRN Reason: Protocol Last Admin: 03/28/17 10:13 Dose: 324 mg Hydralazine HCl (Apresoline) 25 mg PO Q6 PRN; Protocol PRN Reason: Other Last Admin: 03/26/17 11:04 Dose: 25 mg Piperacillin Sod/Tazobactam Sod (Zosyn 2.25 Gm In 0.9% 100 Ml) 2.25 gm in 100 mls @ 100 mls/hr IVPB Q6 [facility] PRN Reason: Protocol Stop: 03/30/17 00:01 Last Admin: 03/28/17 12:18 Dose: 100 mls/hr Insulin Human Regular (Humulin R High) 0 units SC ACHS [facility] PRN Reason: Protocol Last Admin: 03/28/17 12:19 Dose: 4 units Loperamide HCl (Imodium) 2 mg PO Q4H PRN; Protocol PRN Reason: Diarrhea Losartan Potassium (Cozaar) 100 mg PO DAILY [facility] PRN Reason: Protocol Last Admin: 03/28/17 10:14 Dose: 100 mg Mupirocin (Bactroban Ointment) 0 gm TOP BID [facility] PRN Reason: Protocol Last Admin: 03/28/17 10:13 Dose: 1 appl Pregabalin (Lyrica) 75 mg PO BID [facility] Last Admin: 03/28/17 12:18 Dose: 75 mg Simethicone (Mylicon Chew Tab) 80 mg PO [facility] PRN; Protocol PRN Reason: GI distress Last Admin: 03/25/17 05:54 Dose: 80 mg Sitagliptin Phosphate (Januvia) 25 mg PO DAILY [facility] PRN Reason: Protocol Last Admin: 03/28/17 10:15 Dose: 25 mg Sodium Bicarbonate (Sodium Bicarbonate Tab) 650 mg PO BID [facility] Last Admin: 03/28/17 10:15 Dose: 650 mg Tramadol HCl (Ultram) 50 mg PO Q8 PRN; Protocol PRN Reason: Pain, Mild (1-3) Last Admin: 03/28/17 10:13 Dose: 50 mg Vitamin B Complex/Vit C/Folic Acid (Nephro-J Luis) 1 tab PO 0800 [facility] PRN Reason: Protocol Last Admin: 03/28/17 07:52 Dose: 1 tab - Labs Labs: 03/28/17 06:30 03/28/17 06:30 - Constitutional Appears: Well, No Acute Distress - Head Exam Head Exam: ATRAUMATIC, NORMOCEPHALIC - Eye Exam Eye Exam: Normal appearance - ENT Exam ENT Exam: Mucous Membranes Moist, Normal Exam - Neck Exam Neck Exam: Normal Inspection - Respiratory Exam Respiratory Exam: Clear to Ausculation Bilateral, NORMAL BREATHING PATTERN. absent: Rales, Rhonchi, Wheezes, Respiratory Distress - Cardiovascular Exam Cardiovascular Exam: REGULAR RHYTHM, +S1, +S2 - GI/Abdominal Exam GI & Abdominal Exam: Soft, Normal Bowel Sounds. absent: Guarding, Rigid, Tenderness - Extremities Exam Extremities Exam: absent: Joint Swelling, Pedal Edema - Neurological Exam Neurological Exam: Alert, Awake, Oriented x3 - Psychiatric Exam Psychiatric exam: Normal Affect, Normal Mood - Skin Skin Exam: Dry, Intact, Normal Color, Warm Assessment and Plan - Assessment and Plan (Free Text) Assessment: Blas Gandhi is a 56M w/ hx of HTN, HL, DM, CKD who presents is currently being treated for cellulitis of the lower ext. GI consulted for dirrahea Diarrhea, improving Bowel incontinence CKD DM Plan: -stool cultures -r/o c.diff -cannot identify any particular medication that may cause his diarrhea -encourage PO intake -conservative management -diarrhea resolved -stool w/u pending -will sign off, diarrhea has resolved D/W Dr. Lopez <Sade Lopez MD - Last Filed: 03/28/17 16:35> Objective - Vital Signs/Intake and Output Vital Signs (last 24 hours): Temp Pulse Resp BP Pulse Ox 98.2 F 64 18 114/57 L 97 03/28/17 16:20 03/28/17 16:20 03/28/17 16:20 03/28/17 16:20 03/28/17 16:20 Intake and Output: 03/28/17 03/28/17 06:59 18:59 Intake Total 180 Output Total 350 Balance -170 - Medications Medications: Current Medications Acetaminophen (Tylenol 325mg Tab) 650 mg PO Q4H PRN PRN Reason: relief of pain or fever Last Admin: 03/28/17 07:53 Dose: 650 mg Amlodipine Besylate (Norvasc) 10 mg PO DAILY [facility] PRN Reason: Protocol Last Admin: 03/28/17 10:15 Dose: 10 mg Amoxicillin/Clavulanate Potassium (Augmentin 875 Mg-125 Mg Tab) 1 tab PO 0600, 1800 [facility] PRN Reason: Protocol Stop: 03/31/17 18:01 Bismuth Subsalicylate (Pepto-Bismol) 524 mg PO Q6H PRN; Protocol PRN Reason: Diarrhea Last Admin: 03/24/17 16:23 Dose: 524 mg Carvedilol (Coreg) 12.5 mg PO 0800,1800 [facility] PRN Reason: Protocol Last Admin: 03/28/17 07:47 Dose: 12.5 mg Clonidine HCl (Catapres) 0.1 mg PO TID [facility] PRN Reason: Protocol Last Admin: 03/28/17 14:27 Dose: 0.1 mg Ergocalciferol (Drisdol 50,000 Intl Units Cap) 1 cap PO MON@1530 [facility] PRN Reason: Protocol Ferrous Gluconate (Fergon) 324 mg PO TID [facility] PRN Reason: Protocol Last Admin: 03/28/17 14:27 Dose: 324 mg Hydralazine HCl (Apresoline) 25 mg PO Q6 PRN; Protocol PRN Reason: Other Last Admin: 03/26/17 11:04 Dose: 25 mg Insulin Human Regular (Humulin R High) 0 units SC ACHS [facility] PRN Reason: Protocol Last Admin: 03/28/17 12:19 Dose: 4 units Loperamide HCl (Imodium) 2 mg PO Q4H PRN; Protocol PRN Reason: Diarrhea Losartan Potassium (Cozaar) 100 mg PO DAILY [facility] PRN Reason: Protocol Last Admin: 03/28/17 10:14 Dose: 100 mg Mupirocin (Bactroban Ointment) 0 gm TOP BID [facility] PRN Reason: Protocol Last Admin: 03/28/17 10:13 Dose: 1 appl Pregabalin (Lyrica) 75 mg PO BID [facility] Last Admin: 03/28/17 12:18 Dose: 75 mg Simethicone (Mylicon Chew Tab) 80 mg PO HS PRN; Protocol PRN Reason: GI distress Last Admin: 03/25/17 05:54 Dose: 80 mg Sitagliptin Phosphate (Januvia) 25 mg PO DAILY [facility] PRN Reason: Protocol Last Admin: 03/28/17 10:15 Dose: 25 mg Sodium Bicarbonate (Sodium Bicarbonate Tab) 650 mg PO BID [facility] Last Admin: 03/28/17 10:15 Dose: 650 mg Tramadol HCl (Ultram) 50 mg PO Q8 PRN; Protocol PRN Reason: Pain, Mild (1-3) Last Admin: 03/28/17 10:13 Dose: 50 mg Vitamin B Complex/Vit C/Folic Acid (Nephro-J Luis) 1 tab PO 0800 [facility] PRN Reason: Protocol Last Admin: 03/28/17 07:52 Dose: 1 tab - Labs Labs: 03/28/17 06:30 03/28/17 06:30 Attending/Attestation - Attestation I have personally seen and examined this patient.: Yes I have fully participated in the care of the patient.: Yes I have reviewed all pertinent clinical information, including history, physical exam and plan: Yes Notes (Text): 03/28/17 16:30 I have seen and examined patient with GI fellow. In brief, this is an 86 year old male with history of HTN, DM, CKD who initially presented to hospital for complaint of right foot pain and is currently being treated for cellulitis. GI called for evaluation of diarrhea which began 3-4 days prior and is resolving now with one small bowel movement. He has not been able to give stool sample. He denies abdominal pain, nausea, vomiting, fever/chills, weight loss, or rectal bleeding. Tolerating regular diet. No prior endoscopic evaluation. Hemodynamically stable. Continue with antibiotic therapy. Will consider outpatient colonoscopy.
[2017-03-28] MEDS: Amoxicillin-Clav 875-125 mg Tab PO SCH (17:36)
--- NOTE | 2017-03-28 20:18 | PN ---
DATE: 03/28/2017 SUBJECTIVE: The patient is seen early this morning, in no acute distress in room 314. The patient is doing well. No fevers and chills. PHYSICAL EXAMINATION: VITAL SIGNS: Temperature is 98, blood pressure is 150/70, respiratory rate of 18. HEENT: Examination of HEENT is unremarkable. NECK: Supple. LUNGS: Have decreased breath sounds. HEART: Normal S1 AND S2. ABDOMEN: Soft. LABORATORY DATA: Laboratory examination reveals a white count of 10,000, hemoglobin of 9, BUN of 18, creatinine of 2.1. LFTs are normal. Microbiology reveals the cultures from the right foot with Enterobacter cloacae and Enterococcus avium and review of orders reveals the patient to be on Zosyn. ASSESSMENT AND PLAN: An 86-year-old male with a right ankle ulcer and foot ulcer, infected ulcer and skin and skin soft tissue infection, grown Enterobacter and Enterococcus. No osteomyelitis on MRI. On day #7 of Zosyn. We will discontinue the Zosyn and complete with p.o. Augmentin 875 p.o. b.i.d. x3 days with complete 10 days of therapy. Christiano Uribe MD
[2017-03-28] MEDS ORDERED: Amoxicillin-Clav 875-125 mg Tab PO SCH (22:00)
[2017-03-29] MEDS: Amoxicillin-Clav 875-125 mg Tab PO SCH (06:23)
[2017-03-29] MEDS: Insulin Reg-HIGH-Coverage SC SCH ×4 (06:50→22:06)
[2017-03-29 07:01] LABS: HEMOGLOBIN 9.3 g/dL (14.0-18.0); MEAN CELL VOLUME 92.6 fl (80.0-105.0); MEAN CORPUSCULAR HEMOGLOBIN 28.8 pg (25.0-35.0); MEAN CORPUSCULAR HGB CONC 31.1 g/dl (31.0-37.0); MEAN PLATELET VOLUME 9.9 fl (7.0-11.0); RBC 3.23 10^6/uL (3.5-6.1); WHITE BLOOD COUNT 10.1 10^3/ul (4.5-11.0)
[2017-03-29 07:30] LABS: ALB/GLOB RATIO 0.9 (1.1-1.8); ALBUMIN 3.3 g/dL (3.0-4.8)
[2017-03-29] MEDS: Multivitamin Vitamin B Complex (Nephro-Vite) Tab PO SCH (08:51)
--- NOTE | 2017-03-29 08:58 | CP.PCM.PN ---
<Mary Ann Granger - Last Filed: 03/29/17 08:58> Subjective - Date & Time of Evaluation Date of Evaluation: 03/29/17 Time of Evaluation: 08:00 - Subjective Subjective: PGY4 GI Follow-up Pt seen and examined bedside scant BM for the past two days complaining of right foot pain decreased appetite due to pain ROS: 10 point ROs conducted, neg other than above Objective - Vital Signs/Intake and Output Vital Signs (last 24 hours): Temp Pulse Resp BP Pulse Ox 98.2 F 74 18 142/72 97 03/28/17 16:20 03/29/17 08:51 03/28/17 16:20 03/29/17 08:51 03/28/17 16:20 Intake and Output: 03/29/17 03/29/17 06:59 18:59 Intake Total 120 Output Total 300 Balance -180 - Medications Medications: Current Medications Acetaminophen (Tylenol 325mg Tab) 650 mg PO Q4H PRN PRN Reason: relief of pain or fever Last Admin: 03/28/17 07:53 Dose: 650 mg Amlodipine Besylate (Norvasc) 10 mg PO DAILY [facility] PRN Reason: Protocol Last Admin: 03/28/17 10:15 Dose: 10 mg Amoxicillin/Clavulanate Potassium (Augmentin 875 Mg-125 Mg Tab) 1 tab PO 0600, 1800 [facility] PRN Reason: Protocol Stop: 03/31/17 18:01 Last Admin: 03/29/17 06:23 Dose: 1 tab Bismuth Subsalicylate (Pepto-Bismol) 524 mg PO Q6H PRN; Protocol PRN Reason: Diarrhea Last Admin: 03/24/17 16:23 Dose: 524 mg Carvedilol (Coreg) 12.5 mg PO 0800,1800 [facility] PRN Reason: Protocol Last Admin: 03/29/17 08:51 Dose: 12.5 mg Clonidine HCl (Catapres) 0.1 mg PO TID [facility] PRN Reason: Protocol Last Admin: 03/28/17 17:37 Dose: Not Given Ergocalciferol (Drisdol 50,000 Intl Units Cap) 1 cap PO MON@1530 [facility] PRN Reason: Protocol Ferrous Gluconate (Fergon) 324 mg PO TID [facility] PRN Reason: Protocol Last Admin: 03/28/17 17:36 Dose: 324 mg Hydralazine HCl (Apresoline) 25 mg PO Q6 PRN; Protocol PRN Reason: Other Last Admin: 03/26/17 11:04 Dose: 25 mg Insulin Human Regular (Humulin R High) 0 units SC ACHS [facility] PRN Reason: Protocol Last Admin: 03/29/17 06:50 Dose: Not Given Losartan Potassium (Cozaar) 100 mg PO DAILY [facility] PRN Reason: Protocol Last Admin: 03/28/17 10:14 Dose: 100 mg Mupirocin (Bactroban Ointment) 0 gm TOP BID [facility] PRN Reason: Protocol Last Admin: 03/28/17 17:36 Dose: 1 appl Pregabalin (Lyrica) 75 mg PO BID [facility] Last Admin: 03/28/17 17:39 Dose: 75 mg Simethicone (Mylicon Chew Tab) 80 mg PO [facility] PRN; Protocol PRN Reason: GI distress Last Admin: 03/25/17 05:54 Dose: 80 mg Sitagliptin Phosphate (Januvia) 25 mg PO DAILY [facility] PRN Reason: Protocol Last Admin: 03/28/17 10:15 Dose: 25 mg Sodium Bicarbonate (Sodium Bicarbonate Tab) 650 mg PO BID [facility] Last Admin: 03/28/17 17:37 Dose: 650 mg Tramadol HCl (Ultram) 50 mg PO Q8 PRN; Protocol PRN Reason: Pain, Mild (1-3) Last Admin: 03/29/17 06:26 Dose: 50 mg Vitamin B Complex/Vit C/Folic Acid (Nephro-J Luis) 1 tab PO 0800 [facility] PRN Reason: Protocol Last Admin: 03/29/17 08:51 Dose: 1 tab - Labs Labs: 03/29/17 06:30 03/29/17 06:30 - Constitutional Appears: Well, No Acute Distress - Head Exam Head Exam: ATRAUMATIC, NORMOCEPHALIC - Eye Exam Eye Exam: Normal appearance - ENT Exam ENT Exam: Mucous Membranes Moist - Respiratory Exam Respiratory Exam: Clear to Ausculation Bilateral, NORMAL BREATHING PATTERN. absent: Rales, Rhonchi, Wheezes, Respiratory Distress - Cardiovascular Exam Cardiovascular Exam: REGULAR RHYTHM, +S1, +S2 - GI/Abdominal Exam GI & Abdominal Exam: Soft, Normal Bowel Sounds. absent: Guarding, Rigid, Tenderness, Organomegaly - Back Exam Additional comments: tender right foot, bandage over the dorsum - Neurological Exam Neurological Exam: Alert, Awake, Oriented x3 - Psychiatric Exam Psychiatric exam: Normal Affect, Normal Mood - Skin Skin Exam: Dry, Intact, Normal Color, Warm Assessment and Plan - Assessment and Plan (Free Text) Assessment: Blas Gandhi is a 56M w/ hx of HTN, HL, DM, CKD who presents is currently being treated for cellulitis of the lower ext. GI consulted for dirrahea Diarrhea, resolved Bowel incontinence CKD DM Plan: -stool cultures and c.diff discontinued -cannot identify any particular medication that may cause his diarrhea -encourage PO intake -conservative management -diarrhea resolved -will sign off, diarrhea has resolved D/W Dr. Howard <Edy Howard - Last Filed: 03/29/17 09:11> Objective - Vital Signs/Intake and Output Vital Signs (last 24 hours): Temp Pulse Resp BP Pulse Ox 98.2 F 74 18 142/72 97 03/28/17 16:20 03/29/17 08:51 03/28/17 16:20 03/29/17 08:51 03/28/17 16:20 Intake and Output: 03/29/17 03/29/17 06:59 18:59 Intake Total 120 Output Total 300 Balance -180 - Medications Medications: Current Medications Acetaminophen (Tylenol 325mg Tab) 650 mg PO Q4H PRN PRN Reason: relief of pain or fever Last Admin: 03/28/17 07:53 Dose: 650 mg Amlodipine Besylate (Norvasc) 10 mg PO DAILY [facility] PRN Reason: Protocol Last Admin: 03/28/17 10:15 Dose: 10 mg Amoxicillin/Clavulanate Potassium (Augmentin 875 Mg-125 Mg Tab) 1 tab PO 0600, 1800 [facility] PRN Reason: Protocol Stop: 03/31/17 18:01 Last Admin: 03/29/17 06:23 Dose: 1 tab Bismuth Subsalicylate (Pepto-Bismol) 524 mg PO Q6H PRN; Protocol PRN Reason: Diarrhea Last Admin: 03/24/17 16:23 Dose: 524 mg Carvedilol (Coreg) 12.5 mg PO 0800,1800 [facility] PRN Reason: Protocol Last Admin: 03/29/17 08:51 Dose: 12.5 mg Clonidine HCl (Catapres) 0.1 mg PO TID [facility] PRN Reason: Protocol Last Admin: 03/28/17 17:37 Dose: Not Given Ergocalciferol (Drisdol 50,000 Intl Units Cap) 1 cap PO MON@1530 [facility] PRN Reason: Protocol Ferrous Gluconate (Fergon) 324 mg PO TID [facility] PRN Reason: Protocol Last Admin: 03/28/17 17:36 Dose: 324 mg Hydralazine HCl (Apresoline) 25 mg PO Q6 PRN; Protocol PRN Reason: Other Last Admin: 03/26/17 11:04 Dose: 25 mg Insulin Human Regular (Humulin R High) 0 units SC ACHS [facility] PRN Reason: Protocol Last Admin: 03/29/17 06:50 Dose: Not Given Losartan Potassium (Cozaar) 100 mg PO DAILY [facility] PRN Reason: Protocol Last Admin: 03/28/17 10:14 Dose: 100 mg Mupirocin (Bactroban Ointment) 0 gm TOP BID [facility] PRN Reason: Protocol Last Admin: 03/28/17 17:36 Dose: 1 appl Pregabalin (Lyrica) 75 mg PO BID [facility] Last Admin: 03/28/17 17:39 Dose: 75 mg Simethicone (Mylicon Chew Tab) 80 mg PO [facility] PRN; Protocol PRN Reason: GI distress Last Admin: 03/25/17 05:54 Dose: 80 mg Sitagliptin Phosphate (Januvia) 25 mg PO DAILY [facility] PRN Reason: Protocol Last Admin: 03/28/17 10:15 Dose: 25 mg Sodium Bicarbonate (Sodium Bicarbonate Tab) 650 mg PO BID [facility] Last Admin: 03/28/17 17:37 Dose: 650 mg Tramadol HCl (Ultram) 50 mg PO Q8 PRN; Protocol PRN Reason: Pain, Mild (1-3) Last Admin: 03/29/17 06:26 Dose: 50 mg Vitamin B Complex/Vit C/Folic Acid (Nephro-J Luis) 1 tab PO 0800 [facility] PRN Reason: Protocol Last Admin: 03/29/17 08:51 Dose: 1 tab - Labs Labs: 03/29/17 06:30 03/29/17 06:30 Attending/Attestation - Attestation I have personally seen and examined this patient.: Yes I have fully participated in the care of the patient.: Yes I have reviewed all pertinent clinical information, including history, physical exam and plan: Yes Notes (Text): 03/29/17 09:08 I have seen and examined patient with GI fellow. No acute events overnight. He reports two scant bowel movements yesterday, diarrhea has resolved. He denies abdominal pain, nausea, vomiting, fever/chills. He continues to endorse lower extremity foot pain. Tolerating PO diet without difficulty. DM CKD Lower extremity cellulitis Diarrhea - resolved - Diet as tolerated - Continue with antibiotic therapy - If patient again has loose stool, would pursue workup with stool studies and c -difficile given ongoing antibiotic exposure - Suggest probiotic therapy - No further planned GI intervention, will sign off case. Please reconsult as necessary, thank you.
[2017-03-29] MEDS: Lactobacillus Acidophilus 500 MU Cap PO SCH ×2 (11:00→18:03)
--- NOTE | 2017-03-29 12:57 | CP.PCM.PN ---
Subjective - Date & Time of Evaluation Date of Evaluation: 03/29/17 Time of Evaluation: 12:05 - Subjective Subjective: Comfortable, no fevers. Objective - Vital Signs/Intake and Output Vital Signs (last 24 hours): Temp Pulse Resp BP Pulse Ox 98.2 F 74 18 142/72 97 03/28/17 16:20 03/29/17 08:51 03/28/17 16:20 03/29/17 08:51 03/28/17 16:20 Intake and Output: 03/29/17 03/29/17 06:59 18:59 Intake Total 120 Output Total 300 Balance -180 - Medications Medications: Current Medications Acetaminophen (Tylenol 325mg Tab) 650 mg PO Q4H PRN PRN Reason: relief of pain or fever Last Admin: 03/28/17 07:53 Dose: 650 mg Amlodipine Besylate (Norvasc) 10 mg PO DAILY [facility] PRN Reason: Protocol Last Admin: 03/28/17 10:15 Dose: 10 mg Amoxicillin/Clavulanate Potassium (Augmentin 875 Mg-125 Mg Tab) 1 tab PO 0600, 1800 [facility] PRN Reason: Protocol Stop: 03/31/17 18:01 Last Admin: 03/29/17 06:23 Dose: 1 tab Bismuth Subsalicylate (Pepto-Bismol) 524 mg PO Q6H PRN; Protocol PRN Reason: Diarrhea Last Admin: 03/24/17 16:23 Dose: 524 mg Carvedilol (Coreg) 12.5 mg PO 0800,1800 [facility] PRN Reason: Protocol Last Admin: 03/29/17 08:51 Dose: 12.5 mg Clonidine HCl (Catapres) 0.1 mg PO TID [facility] PRN Reason: Protocol Last Admin: 03/28/17 17:37 Dose: Not Given Ergocalciferol (Drisdol 50,000 Intl Units Cap) 1 cap PO MON@1530 [facility] PRN Reason: Protocol Ferrous Gluconate (Fergon) 324 mg PO TID [facility] PRN Reason: Protocol Last Admin: 03/28/17 17:36 Dose: 324 mg Hydralazine HCl (Apresoline) 25 mg PO Q6 PRN; Protocol PRN Reason: Other Last Admin: 03/26/17 11:04 Dose: 25 mg Insulin Human Regular (Humulin R High) 0 units SC ACHS [facility] PRN Reason: Protocol Last Admin: 03/29/17 06:50 Dose: Not Given Lactobacillus Acidophilus (Bacid Acidophilus) 1 cap PO BID [facility] Losartan Potassium (Cozaar) 100 mg PO DAILY [facility] PRN Reason: Protocol Last Admin: 03/28/17 10:14 Dose: 100 mg Mupirocin (Bactroban Ointment) 0 gm TOP BID [facility] PRN Reason: Protocol Last Admin: 03/28/17 17:36 Dose: 1 appl Pregabalin (Lyrica) 75 mg PO BID [facility] Last Admin: 03/28/17 17:39 Dose: 75 mg Simethicone (Mylicon Chew Tab) 80 mg PO [facility] PRN; Protocol PRN Reason: GI distress Last Admin: 03/25/17 05:54 Dose: 80 mg Sitagliptin Phosphate (Januvia) 25 mg PO DAILY [facility] PRN Reason: Protocol Last Admin: 03/28/17 10:15 Dose: 25 mg Sodium Bicarbonate (Sodium Bicarbonate Tab) 650 mg PO BID [facility] Last Admin: 03/28/17 17:37 Dose: 650 mg Tramadol HCl (Ultram) 50 mg PO Q8 PRN; Protocol PRN Reason: Pain, Mild (1-3) Last Admin: 03/29/17 06:26 Dose: 50 mg Vitamin B Complex/Vit C/Folic Acid (Nephro-J Luis) 1 tab PO 0800 [facility] PRN Reason: Protocol Last Admin: 03/29/17 08:51 Dose: 1 tab - Labs Labs: 03/29/17 06:30 03/29/17 06:30 - Constitutional Appears: Non-toxic - Head Exam Head Exam: NORMAL INSPECTION - ENT Exam ENT Exam: Mucous Membranes Moist - Neck Exam Neck Exam: absent: Meningismus - Respiratory Exam Respiratory Exam: Decreased Breath Sounds - Cardiovascular Exam Cardiovascular Exam: +S1, +S2 - GI/Abdominal Exam GI & Abdominal Exam: Soft. absent: Tenderness Assessment and Plan - Assessment and Plan (Free Text) Plan: Assessment right ankle, foot infected ulcer with skin and skin structure infection, growing Enterobacter and Enterococcus with no osteomyelitis on MRI DM HTN Plan continue Augmentin to complete total antibiotic course of 7-10 days (day 8 today )
--- NOTE | 2017-03-29 13:24 | CP.PCM.PN ---
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 acidosis Plan No acute need for renal replacement therapy at this time. Cr sgoing up i have decreased losartan to 50 hypernatremia: encoruage oral intae continue with MVI, iron and weekly vit D dose of darbopoeitin 40 mcg given 03/24/16 on bicarb S: seen and eamined has no complaints Physical Examination: General Appearance: Comfortable, in no acute respiratory distress, co-operative . Vitals reviewed and noted as below Head; Atraumatic, normocephalic ENT: no ulcers no thrush. Tongue is midline. Oropharynx: no rash or ulcers. EYES: Pupils are equal, round and reactive to light accommodation. Eye muscles and extraocular movement intact. Sclera is anicteric. Neck; supple no lymphadenopathy, no thyromegaly or bruit Lungs: Normal respiratory rate/effort. Breath sounds bilateral equal and clear Heart: Normal rate. s1s2 normal. No rub or gallop. Extremities: no edema. No varicose veins. Rt leg in dressing Neurological: Patient is alert, awake and oriented to person, place and time. No focal deficit. Strength bilateral appropriate and equal Skin: dressing on foot Abdomen: Abdomen is soft. Bowel sounds +. There is no abdominal tenderness, no guarding/rigidity no organomegaly Psych: normal insight and normal affect/mood MSK: no joint tenderness or swelling. Objective - Vital Signs/Intake and Output Vital Signs (last 24 hours): Temp Pulse Resp BP Pulse Ox 98.2 F 76 18 129/62 97 03/28/17 16:20 03/29/17 11:00 03/28/17 16:20 03/29/17 11:00 03/28/17 16:20 Intake and Output: 03/29/17 03/29/17 06:59 18:59 Intake Total 120 Output Total 300 Balance -180 - Medications Medications: Current Medications Acetaminophen (Tylenol 325mg Tab) 650 mg PO Q4H PRN PRN Reason: relief of pain or fever Last Admin: 03/28/17 07:53 Dose: 650 mg Amlodipine Besylate (Norvasc) 10 mg PO DAILY [facility] PRN Reason: Protocol Last Admin: 03/29/17 11:00 Dose: 10 mg Amoxicillin/Clavulanate Potassium (Augmentin 875 Mg-125 Mg Tab) 1 tab PO 0600, 1800 [facility] PRN Reason: Protocol Stop: 03/31/17 18:01 Last Admin: 03/29/17 06:23 Dose: 1 tab Bismuth Subsalicylate (Pepto-Bismol) 524 mg PO Q6H PRN; Protocol PRN Reason: Diarrhea Last Admin: 03/24/17 16:23 Dose: 524 mg Carvedilol (Coreg) 12.5 mg PO 0800,1800 [facility] PRN Reason: Protocol Last Admin: 03/29/17 08:51 Dose: 12.5 mg Clonidine HCl (Catapres) 0.1 mg PO TID [facility] PRN Reason: Protocol Last Admin: 03/29/17 11:00 Dose: 0.1 mg Ergocalciferol (Drisdol 50,000 Intl Units Cap) 1 cap PO MON@1530 [facility] PRN Reason: Protocol Ferrous Gluconate (Fergon) 324 mg PO TID [facility] PRN Reason: Protocol Last Admin: 03/29/17 11:00 Dose: 324 mg Hydralazine HCl (Apresoline) 25 mg PO Q6 PRN; Protocol PRN Reason: Other Last Admin: 03/26/17 11:04 Dose: 25 mg Insulin Human Regular (Humulin R High) 0 units SC ACHS [facility] PRN Reason: Protocol Last Admin: 03/29/17 06:50 Dose: Not Given Lactobacillus Acidophilus (Bacid Acidophilus) 1 cap PO BID [facility] Last Admin: 03/29/17 11:00 Dose: 1 cap Losartan Potassium (Cozaar) 100 mg PO DAILY [facility] PRN Reason: Protocol Last Admin: 03/29/17 11:00 Dose: 100 mg Mupirocin (Bactroban Ointment) 0 gm TOP BID [facility] PRN Reason: Protocol Last Admin: 03/29/17 11:00 Dose: 1 appl Pregabalin (Lyrica) 75 mg PO BID [facility] Last Admin: 03/29/17 11:00 Dose: 75 mg Simethicone (Mylicon Chew Tab) 80 mg PO [facility] PRN; Protocol PRN Reason: GI distress Last Admin: 03/25/17 05:54 Dose: 80 mg Sitagliptin Phosphate (Januvia) 25 mg PO DAILY [facility] PRN Reason: Protocol Last Admin: 03/29/17 11:00 Dose: 25 mg Sodium Bicarbonate (Sodium Bicarbonate Tab) 650 mg PO BID [facility] Last Admin: 03/29/17 11:00 Dose: 650 mg Tramadol HCl (Ultram) 50 mg PO Q8 PRN; Protocol PRN Reason: Pain, Mild (1-3) Last Admin: 03/29/17 06:26 Dose: 50 mg Vitamin B Complex/Vit C/Folic Acid (Nephro-J Luis) 1 tab PO 0800 [facility] PRN Reason: Protocol Last Admin: 03/29/17 08:51 Dose: 1 tab - Labs Labs: 03/29/17 06:30 03/29/17 06:30
--- NOTE | 2017-03-29 14:00 | PN ---
DATE: SUBJECTIVE: I saw him this morning in TCU. He has not gotten out of bed, never done physical therapy for about 5 days now, he states his foot hurts. The x-rays were negative. The skin has healed up. There is no reason for it to be hurting, he can move it. I told him that if he does not start physical therapy, he is never going to go home. It kind of woke him up a little bit. He states yes for walk, yes for doing physical therapy today, let us see how he does, let us see what happens. Our concern is that he might need subacute rehab or permanent placement or bedridden or wheelchair ridden because he wants to do therapy. He is on Apresoline, Augmentin, , Bactroban cream, Catapres, Coreg, Cozaar, Drisdol, Fergon, Humulin, Januvia, Lyrica, Mylicon, Nephro-J Luis, , Pepto-Bismol, sodium bicarbonate, Tylenol, Ultram. PHYSICAL EXAMINATION: VITAL SIGNS: He has a 98.1 temperature, 70 pulse, 114/57 blood pressure, 18 respiratory rate, 97% O2 saturation on room air. HEENT: His head is atraumatic, normocephalic. HEART: Regular rate. LUNGS: Clear to auscultation. ABDOMEN: Soft. EXTREMITIES: No edema. Right foot ulcer is much, much better. LABORATORY DATA: X-rays are normal. He has 10.1 white count, 9.3 hemoglobin, 29.9 hematocrit, 277,000 platelets. He has 147 sodium, potassium 4, BUN 23, creatinine 2.4, GFR is 26. Sugar is 109, calcium is 9.0, total bilirubin is 0.6, AST is 33, ALT is 30, alkaline phosphatase is 68. ASSESSMENT AND PLAN: He has been there for physical therapy. He is not doing his therapy. I told him he is going to stay in the shelter if he does not do his therapy, he said he will try, hopefully will be able to walk before he can go home. He is seen by GI. He is doing better on that regard. He is being seen by Infectious Disease. He is doing better there, he is doing better with his cellulitis. Grabiel Sun DO MTDJimena
[2017-03-29 14:08] VITALS: RESP 20; O2SAT 98
[2017-03-29] MEDS ORDERED: Ergocalciferol 50,000 Intl Units Cap PO SCH (15:30)
--- NOTE | 2017-03-29 17:23 | CP.PCM.PN ---
Subjective - Date & Time of Evaluation Date of Evaluation: 03/29/17 Time of Evaluation: 17:20 - Subjective Subjective: 86 year old male patient seen at bedside this afternoon regarding right foot superficial ulceration with cellulitis. Pt is resting comfortably in his chair. Reports that he is managing the pain well and today it has decreased significantly. Patient denies of any acute overnight events. Dressing clean dry and intact to R foot. Denies F/C/N/V/CP/SOB Objective - Vital Signs/Intake and Output Vital Signs (last 24 hours): Temp Pulse Resp BP Pulse Ox 98.7 F 74 20 121/67 98 03/29/17 10:00 03/29/17 14:08 03/29/17 10:00 03/29/17 14:08 03/29/17 10:00 Intake and Output: 03/29/17 03/29/17 06:59 18:59 Intake Total 120 Output Total 300 Balance -180 - Medications Medications: Current Medications Acetaminophen (Tylenol 325mg Tab) 650 mg PO Q4H PRN PRN Reason: relief of pain or fever Last Admin: 03/28/17 07:53 Dose: 650 mg Amlodipine Besylate (Norvasc) 10 mg PO DAILY [facility] PRN Reason: Protocol Last Admin: 03/29/17 11:00 Dose: 10 mg Amoxicillin/Clavulanate Potassium (Augmentin 500 Mg-125 Mg Tab) 1 tab PO 0600, 1800 [facility] PRN Reason: Protocol Stop: 03/31/17 18:01 Bismuth Subsalicylate (Pepto-Bismol) 524 mg PO Q6H PRN; Protocol PRN Reason: Diarrhea Last Admin: 03/24/17 16:23 Dose: 524 mg Carvedilol (Coreg) 12.5 mg PO 0800,1800 [facility] PRN Reason: Protocol Last Admin: 03/29/17 08:51 Dose: 12.5 mg Clonidine HCl (Catapres) 0.1 mg PO TID [facility] PRN Reason: Protocol Last Admin: 03/29/17 14:06 Dose: 0.1 mg Ergocalciferol (Drisdol 50,000 Intl Units Cap) 1 cap PO MON@1530 [facility] PRN Reason: Protocol Ferrous Gluconate (Fergon) 324 mg PO TID [facility] PRN Reason: Protocol Last Admin: 03/29/17 14:09 Dose: 324 mg Hydralazine HCl (Apresoline) 25 mg PO Q6 PRN; Protocol PRN Reason: Other Last Admin: 03/26/17 11:04 Dose: 25 mg Insulin Human Regular (Humulin R High) 0 units SC ACHS [facility] PRN Reason: Protocol Last Admin: 03/29/17 12:30 Dose: Not Given Lactobacillus Acidophilus (Bacid Acidophilus) 1 cap PO BID [facility] Last Admin: 03/29/17 11:00 Dose: 1 cap Losartan Potassium (Cozaar) 50 mg PO DAILY [facility] Last Admin: 03/29/17 14:08 Dose: Not Given Mupirocin (Bactroban Ointment) 0 gm TOP BID [facility] PRN Reason: Protocol Last Admin: 03/29/17 11:00 Dose: 1 appl Pregabalin (Lyrica) 75 mg PO BID [facility] Last Admin: 03/29/17 11:00 Dose: 75 mg Simethicone (Mylicon Chew Tab) 80 mg PO [facility] PRN; Protocol PRN Reason: GI distress Last Admin: 03/25/17 05:54 Dose: 80 mg Sitagliptin Phosphate (Januvia) 25 mg PO DAILY [facility] PRN Reason: Protocol Last Admin: 03/29/17 11:00 Dose: 25 mg Sodium Bicarbonate (Sodium Bicarbonate Tab) 650 mg PO BID [facility] Last Admin: 03/29/17 11:00 Dose: 650 mg Tramadol HCl (Ultram) 50 mg PO Q8 PRN; Protocol PRN Reason: Pain, Mild (1-3) Last Admin: 03/29/17 06:26 Dose: 50 mg Vitamin B Complex/Vit C/Folic Acid (Nephro-J Luis) 1 tab PO 0800 [facility] PRN Reason: Protocol Last Admin: 03/29/17 08:51 Dose: 1 tab - Labs Labs: 03/29/17 06:30 03/29/17 06:30 - Constitutional Appears: Well, Non-toxic, No Acute Distress - Extremities Exam Additional comments: Right lower extremity focused examination: Vasc: DP and PT pulses palpable 1/4. Temperature runs warm to cool proximal to distal. Absent pedal hair growth Derm: Superficial ulceration with epithelializing base noted to anterior ankle and dorsum of foot, noted to be healing. Hamida wound erythema resolved. Hamida wound skin is hypopigmented. No active drainage noted to wound bed. Mild cellulitic skin changes are noted extending to mid level of leg. No malodor noted. Neuro Protective sensation grossly intact. Ortho: mild tenderness diffusely on palpation of the right foot - Neurological Exam Neurological Exam: Alert, Awake, Oriented x3 - Psychiatric Exam Psychiatric exam: Normal Affect, Normal Mood Assessment and Plan - Assessment and Plan (Free Text) Assessment: 86 year old male patient with right foot superficial ulceration with cellulitis , likely secondary to PVD Plan: Pt seen and evaluated Discussed plan with attending Dr. Renteria Chart, labs, and vitals reviewed - afebrile, WBC 10.1 Right foot wound cultures- Enterobacter cloacae; Enterococcus avium Arterial studies reviewed: Noted multi-level occlusive disease of the SFA and tibial arteries B/L MRA of LLE reveals diminished flow below knees, multiple short segment stenoses in SFA, R>L MRI results negative for OM and abscess Continue IV abx (Zosyn) per ID Local wound care performed to ulcerative site, cleansed with sterile saline dressed with Optifoam, DSD Podiatry will continue to follow patient while in house Pt stable for discharge from podiatry standpoint Pt to follow up in the wound care center with Dr. Renteria/Therese upon discharge
[2017-03-29 17:35] VITALS: TEMP 98.9
[2017-03-29] MEDS: Amoxicillin-Clav 500-125 mg Tab PO SCH (18:03)
[2017-03-30] MEDS: Amoxicillin-Clav 500-125 mg Tab PO SCH (06:15)
[2017-03-30] MEDS: Insulin Reg-HIGH-Coverage SC SCH (06:34)
[2017-03-30 07:14] LABS: HEMOGLOBIN 8.8 g/dL (14.0-18.0); MEAN CELL VOLUME 92.3 fl (80.0-105.0); MEAN CORPUSCULAR HEMOGLOBIN 29.3 pg (25.0-35.0); MEAN CORPUSCULAR HGB CONC 31.8 g/dl (31.0-37.0); MEAN PLATELET VOLUME 10.1 fl (7.0-11.0); WHITE BLOOD COUNT 8.7 10^3/ul (4.5-11.0)
[2017-03-30 08:03] LABS: ALB/GLOB RATIO 0.9 (1.1-1.8); CALCIUM 8.9 mg/dL (8.4-10.5)
[2017-03-30] MEDS: Multivitamin Vitamin B Complex (Nephro-Vite) Tab PO SCH (09:00)
[2017-03-30] MEDS: Lactobacillus Acidophilus 500 MU Cap PO SCH (10:58)
[2017-03-30] MEDS ORDERED: Darbepoetin Alfa 60 mcg/ml Inj SC ONE (11:03)
[2017-03-30 11:04] VITALS: BP 134/81; PULSE 76
--- NOTE | 2017-03-30 12:02 | CP.PCM.PN ---
<ElkinMellmicha - Last Filed: 03/30/17 11:59> Subjective - Date & Time of Evaluation Date of Evaluation: 03/30/17 Time of Evaluation: 11:59 - Subjective Subjective: 86 year old male patient seen at bedside this afternoon regarding right foot superficial ulceration with cellulitis. Reports that he is managing the pain well and today it has decreased significantly. Patient reports that he is going home today. Patient denies of any acute overnight events. Dressing clean dry and intact to R foot. Denies F/C/N/V/CP/SOB Objective - Vital Signs/Intake and Output Vital Signs (last 24 hours): Temp Pulse Resp BP Pulse Ox 98.9 F 76 20 134/81 98 03/29/17 17:35 03/30/17 10:59 03/29/17 17:35 03/30/17 11:00 03/29/17 10:00 Intake and Output: 03/30/17 03/30/17 06:59 18:59 Intake Total 240 Output Total 350 Balance -110 - Medications Medications: Current Medications Acetaminophen (Tylenol 325mg Tab) 650 mg PO Q4H PRN PRN Reason: relief of pain or fever Last Admin: 03/28/17 07:53 Dose: 650 mg Amlodipine Besylate (Norvasc) 10 mg PO DAILY [facility] PRN Reason: Protocol Last Admin: 03/30/17 11:00 Dose: 10 mg Amoxicillin/Clavulanate Potassium (Augmentin 500 Mg-125 Mg Tab) 1 tab PO 0600, 1800 [facility] PRN Reason: Protocol Stop: 03/31/17 18:01 Last Admin: 03/30/17 06:15 Dose: 1 tab Bismuth Subsalicylate (Pepto-Bismol) 524 mg PO Q6H PRN; Protocol PRN Reason: Diarrhea Last Admin: 03/24/17 16:23 Dose: 524 mg Carvedilol (Coreg) 12.5 mg PO 0800,1800 [facility] PRN Reason: Protocol Last Admin: 03/30/17 09:00 Dose: 12.5 mg Clonidine HCl (Catapres) 0.1 mg PO TID [facility] PRN Reason: Protocol Last Admin: 03/30/17 10:58 Dose: 0.1 mg Ergocalciferol (Drisdol 50,000 Intl Units Cap) 1 cap PO MON@1530 [facility] PRN Reason: Protocol Last Admin: 03/29/17 16:30 Dose: 1 cap Ferrous Gluconate (Fergon) 324 mg PO TID [facility] PRN Reason: Protocol Last Admin: 03/30/17 10:59 Dose: 324 mg Hydralazine HCl (Apresoline) 25 mg PO Q6 PRN; Protocol PRN Reason: Other Last Admin: 03/26/17 11:04 Dose: 25 mg Insulin Human Regular (Humulin R High) 0 units SC ACHS [facility] PRN Reason: Protocol Last Admin: 03/30/17 06:34 Dose: Not Given Lactobacillus Acidophilus (Bacid Acidophilus) 1 cap PO BID [facility] Last Admin: 03/30/17 10:58 Dose: 1 cap Mupirocin (Bactroban Ointment) 0 gm TOP BID [facility] PRN Reason: Protocol Last Admin: 03/30/17 10:58 Dose: 1 appl Pregabalin (Lyrica) 75 mg PO BID [facility] Last Admin: 03/30/17 11:02 Dose: 75 mg Simethicone (Mylicon Chew Tab) 80 mg PO [facility] PRN; Protocol PRN Reason: GI distress Last Admin: 03/25/17 05:54 Dose: 80 mg Sitagliptin Phosphate (Januvia) 25 mg PO DAILY [facility] PRN Reason: Protocol Last Admin: 03/30/17 11:00 Dose: 25 mg Sodium Bicarbonate (Sodium Bicarbonate Tab) 650 mg PO BID [facility] Last Admin: 03/30/17 11:00 Dose: 650 mg Vitamin B Complex/Vit C/Folic Acid (Nephro-J Luis) 1 tab PO 0800 [facility] PRN Reason: Protocol Last Admin: 03/30/17 09:00 Dose: 1 tab - Labs Labs: 03/30/17 06:40 03/30/17 06:40 - Constitutional Appears: Well, Non-toxic, No Acute Distress - Extremities Exam Additional comments: Right lower extremity focused examination: Vasc: DP and PT pulses palpable 1/4. Temperature runs warm to cool proximal to distal. Absent pedal hair growth Derm: Superficial ulceration with epithelializing base noted to anterior ankle and dorsum of foot, noted to be healing. Hamida wound erythema resolved. Hamida wound skin is hypopigmented. No active drainage noted to wound bed. Mild cellulitic skin changes are noted extending to mid level of leg. No malodor noted. Neuro Protective sensation grossly intact. Ortho: mild tenderness diffusely on palpation of the right foot - Neurological Exam Neurological Exam: Alert, Awake, Oriented x3 - Psychiatric Exam Psychiatric exam: Normal Affect, Normal Mood Assessment and Plan - Assessment and Plan (Free Text) Assessment: 86 year old male patient with right foot superficial ulceration with cellulitis , likely secondary to PVD Plan: Pt seen and evaluated Discussed plan with attending Dr. Saleh Chart, labs, and vitals reviewed - afebrile, WBC 8.7 Right foot wound cultures- Enterobacter cloacae; Enterococcus avium Arterial studies reviewed: Noted multi-level occlusive disease of the SFA and tibial arteries B/L MRA of LLE reveals diminished flow below knees, multiple short segment stenoses in SFA, R>L MRI results negative for OM and abscess Continue IV abx (Zosyn) per ID Aseptic debridement of the nails using sterile nippers Local wound care performed to ulcerative site, cleansed with sterile saline dressed with Optifoam Podiatry will continue to follow patient while in house Pt stable for discharge from podiatry standpoint Pt to follow up in the wound care center with Dr. Renteria/Therese upon discharge <René Saleh - Last Filed: 03/30/17 14:58> Objective - Vital Signs/Intake and Output Vital Signs (last 24 hours): Temp Pulse Resp BP Pulse Ox 98.9 F 76 20 134/81 98 03/29/17 17:35 03/30/17 10:59 03/29/17 17:35 03/30/17 11:00 03/29/17 10:00 Intake and Output: 03/30/17 03/30/17 06:59 18:59 Intake Total 240 Output Total 350 Balance -110 - Labs Labs: 03/30/17 06:40 03/30/17 06:40 Attending/Attestation - Attestation I have personally seen and examined this patient.: Yes I have fully participated in the care of the patient.: Yes I have reviewed all pertinent clinical information, including history, physical exam and plan: Yes
--- NOTE | 2017-03-30 12:50 | CP.PCM.PN ---
Subjective - Date & Time of Evaluation Date of Evaluation: 03/30/17 Time of Evaluation: 11:50 - Subjective Subjective: No fevers, not in distress. Objective - Vital Signs/Intake and Output Vital Signs (last 24 hours): Temp Pulse Resp BP Pulse Ox 98.9 F 69 20 123/61 98 03/29/17 17:35 03/29/17 18:04 03/29/17 17:35 03/29/17 18:04 03/29/17 10:00 Intake and Output: 03/30/17 03/30/17 06:59 18:59 Intake Total 240 Output Total 350 Balance -110 - Medications Medications: Current Medications Acetaminophen (Tylenol 325mg Tab) 650 mg PO Q4H PRN PRN Reason: relief of pain or fever Last Admin: 03/28/17 07:53 Dose: 650 mg Amlodipine Besylate (Norvasc) 10 mg PO DAILY [facility] PRN Reason: Protocol Last Admin: 03/29/17 11:00 Dose: 10 mg Amoxicillin/Clavulanate Potassium (Augmentin 500 Mg-125 Mg Tab) 1 tab PO 0600, 1800 [facility] PRN Reason: Protocol Stop: 03/31/17 18:01 Last Admin: 03/30/17 06:15 Dose: 1 tab Bismuth Subsalicylate (Pepto-Bismol) 524 mg PO Q6H PRN; Protocol PRN Reason: Diarrhea Last Admin: 03/24/17 16:23 Dose: 524 mg Carvedilol (Coreg) 12.5 mg PO 0800,1800 [facility] PRN Reason: Protocol Last Admin: 03/29/17 18:04 Dose: 12.5 mg Clonidine HCl (Catapres) 0.1 mg PO TID [facility] PRN Reason: Protocol Last Admin: 03/29/17 18:04 Dose: 0.1 mg Ergocalciferol (Drisdol 50,000 Intl Units Cap) 1 cap PO MON@1530 [facility] PRN Reason: Protocol Last Admin: 03/29/17 16:30 Dose: 1 cap Ferrous Gluconate (Fergon) 324 mg PO TID [facility] PRN Reason: Protocol Last Admin: 03/29/17 18:05 Dose: 324 mg Hydralazine HCl (Apresoline) 25 mg PO Q6 PRN; Protocol PRN Reason: Other Last Admin: 03/26/17 11:04 Dose: 25 mg Insulin Human Regular (Humulin R High) 0 units SC ACHS [facility] PRN Reason: Protocol Last Admin: 03/30/17 06:34 Dose: Not Given Lactobacillus Acidophilus (Bacid Acidophilus) 1 cap PO BID [facility] Last Admin: 03/29/17 18:03 Dose: 1 cap Losartan Potassium (Cozaar) 50 mg PO DAILY [facility] Last Admin: 03/29/17 14:08 Dose: Not Given Mupirocin (Bactroban Ointment) 0 gm TOP BID [facility] PRN Reason: Protocol Last Admin: 03/29/17 18:04 Dose: 1 appl Pregabalin (Lyrica) 75 mg PO BID [facility] Last Admin: 03/29/17 18:10 Dose: 75 mg Simethicone (Mylicon Chew Tab) 80 mg PO [facility] PRN; Protocol PRN Reason: GI distress Last Admin: 03/25/17 05:54 Dose: 80 mg Sitagliptin Phosphate (Januvia) 25 mg PO DAILY [facility] PRN Reason: Protocol Last Admin: 03/29/17 11:00 Dose: 25 mg Sodium Bicarbonate (Sodium Bicarbonate Tab) 650 mg PO BID [facility] Last Admin: 03/29/17 18:06 Dose: 650 mg Tramadol HCl (Ultram) 50 mg PO Q8 PRN; Protocol PRN Reason: Pain, Mild (1-3) Last Admin: 03/29/17 06:26 Dose: 50 mg Vitamin B Complex/Vit C/Folic Acid (Nephro-J Luis) 1 tab PO 0800 [facility] PRN Reason: Protocol Last Admin: 03/29/17 08:51 Dose: 1 tab - Labs Labs: 03/30/17 06:40 03/30/17 06:40 - Constitutional Appears: Non-toxic - Head Exam Head Exam: NORMAL INSPECTION - Respiratory Exam Respiratory Exam: Decreased Breath Sounds - Cardiovascular Exam Cardiovascular Exam: +S1, +S2 - GI/Abdominal Exam GI & Abdominal Exam: Soft. absent: Tenderness Assessment and Plan - Assessment and Plan (Free Text) Plan: Assessment right ankle, foot infected ulcer with skin and skin structure infection, growing Enterobacter and Enterococcus with no osteomyelitis on MRI DM HTN Plan continue Augmentin to complete total antibiotic course of 7-10 days (day 9 today )
--- NOTE | 2017-03-30 14:35 | CP.PCM.PN ---
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 acidosis Plan No acute need for renal replacement therapy at this time. i have stopped his losartan anemai: aranesp 60 today for discharge to [facility] recommend follow up in a week continue with MVI, iron and weekly vit D S: seen and examined has no complaints Physical Examination: General Appearance: Comfortable Head; Atraumatic, normocephalic ENT: no ulcers EYES: Eye muscles and extraocular movement intact. Sclera is anicteric. Neck; supple Lungs: Normal respiratory rate/effort. Breath sounds bilateral equal and clear Heart: Normal rate. s1s2 normal. Extremities: no edema. No varicose veins. Rt leg in dressing Neurological: Patient is alert, awake and oriented to person, place and time. No focal deficit. Strength bilateral appropriate and equal Skin: dressing on foot Abdomen: Abdomen is soft. Bowel sounds +. Psych: normal insight Objective - Vital Signs/Intake and Output Vital Signs (last 24 hours): Temp Pulse Resp BP Pulse Ox 98.9 F 76 20 134/81 98 03/29/17 17:35 03/30/17 10:59 03/29/17 17:35 03/30/17 11:00 03/29/17 10:00 Intake and Output: 03/30/17 03/30/17 06:59 18:59 Intake Total 240 Output Total 350 Balance -110 - Labs Labs: 03/30/17 06:40 03/30/17 06:40
--- NOTE | 2017-03-31 10:20 | DS ---
HISTORY OF PRESENT ILLNESS: He has been on the TCU for about 8 days now and he is having trouble with walking. Did not do much there; so, we are moving him to [facility] for further physical therapy before he goes home; hoping, he will do better there. He has some cellulitis of the right foot with a right foot ulcer. He has some diarrhea, diabetes, dementia, acute kidney injury. He is on hydralazine, Aranesp, Augmentin, Bactroban cream, Catapres, Coreg, Drisdol, iron, insulin coverage, Januvia, Lyrica, Mylicon, vitamins, Norvasc, Pepto-Bismol, sodium bicarbonate, Tylenol and tramadol. They stopped the losartan, the renal doctors; because his kidney function went up a little bit, they might stop the tramadol too. PHYSICAL EXAMINATION: VITAL SIGNS: He has 98.9 temperature, 69 pulse, 123/61 blood pressure, 20 respiratory rate. GENERAL: He is alert, mildly confused, comfortable. He tells me he is going to physical therapy and then does not do it. HEENT: Throat is moist. NECK: Supple. HEART: Regular rate. LUNGS: Decreased breath sounds, but clear to auscultation. ABDOMEN: Soft. EXTREMITIES: Right cellulitis and also really improved greatly with the treatment and antibiotics. LABORATORY DATA: He has 8.7 white count, 8.8 hemoglobin, 27.7 hematocrit, 276 platelets. He has 147 sodium, potassium is 4.1, BUN jumped from 23 to 29, and his creatinine went from 2.4 to 2.7, GFR is 23. Sugar is 138 - better, calcium is 8.9, total bilirubin is 0.5. AST is 33, ALT is 23, alkaline phosphatase is 60. I am going to discontinue the tramadol because that can bother the kidneys and he will be on medicine that will not bother the kidneys. He might need to be on IV fluids. I will discuss that at the [facility] when I see him there, I will talk to the nurses at [facility]. I will see him there shortly. We will check his labs there and he might need IV fluids for a short period of time. Grabiel Sun DO MTDD
== END 2017-03-30 13:01 | DRG 603 ==
LOC: TRCU 20:06
PROVIDERS: ADMIT Family Medicine; ATTEND Family Medicine
PROC: F07Z9FZ Gait Training/Functional Ambulation Treatment using Assistive, Adaptive, Supportive or Protective Equipment (ICD-10-PCS; principal; 2017-03-23)
PROC: F07M6ZZ Therapeutic Exercise Treatment of Musculoskeletal System - Whole Body (ICD-10-PCS; 2017-03-23)
PROC: F08Z2ZZ Grooming/Personal Hygiene Treatment (ICD-10-PCS; 2017-03-23)
PROC: F08Z1ZZ Dressing Techniques Treatment (ICD-10-PCS; 2017-03-23)
PROC: F08Z0ZZ Bathing/Showering Techniques Treatment (ICD-10-PCS; 2017-03-23)
PROC: F08Z4ZZ Home Management Treatment (ICD-10-PCS; 2017-03-23)
DX: L03.115 Cellulitis of right lower limb (principal); N17.9 Acute kidney failure, unspecified; E87.2 Acidosis; E11.22 Type 2 diabetes mellitus with diabetic chronic kidney disease; E11.51 Type 2 diabetes mellitus with diabetic peripheral angiopathy without gangrene; L97.319 Non-pressure chronic ulcer of right ankle with unspecified severity; N25.81 Secondary hyperparathyroidism of renal origin; D64.9 Anemia, unspecified; E11.621 Type 2 diabetes mellitus with foot ulcer; E55.9 Vitamin D deficiency, unspecified; E87.6 Hypokalemia; F03.90 Unspecified dementia, unspecified severity, without behavioral disturbance, psychotic disturbance, mood disturbance, and anxiety; I12.9 Hypertensive chronic kidney disease with stage 1 through stage 4 chronic kidney disease, or unspecified chronic kidney disease; L97.519 Non-pressure chronic ulcer of other part of right foot with unspecified severity; N18.3 Chronic kidney disease, stage 3 (moderate); N39.41 Urge incontinence; Z82.49 Family history of ischemic heart disease and other diseases of the circulatory system; Z83.3 Family history of diabetes mellitus; Z87.891 Personal history of nicotine dependence

== ENCOUNTER 2017-04-07 09:56 | Emergency (ER) | payer MEDICARE ==
[2017-04-07 09:56] VITALS: BMI 23.6
[2017-04-07 10:13] VITALS: TEMP 98
--- NOTE | 2017-04-07 10:49 | ED PDOC ---
Arrival/HPI - General Chief Complaint: Weakness/Neurological Deficit Time Seen by Provider: 04/07/17 10:32 Historian: Patient - History of Present Illness Narrative History of Present Illness (Text): 04/07/17 10:34 86 y/o male, pmh including htn/dm/demantia/chronic rt. foot ulcerated wound and under the care by pmd, max, send in from [facility], c/o agitated episode this morning. I spoke to the [facility] aid on 4th unit, stated that the patient was physically agitated for couple seconds after the nursing aid try to move him from the hallway to the bed room for the breakfast. Pt. stated that he feels fine here, not agitated, no homicidal or suicidal ideation, no auditory or visual hallucination, no palpitation, no chest pain or shortness of breath, no night sweat, no tremors, no abdominal pain, no rash, no other medical or psychological complaints. Past Medical History - Provider Review Nursing Documentation Reviewed: Yes - Tetanus Immunization Tetanus Immunization: Unknown - Cardiac Hx Cardiac Disorders: Yes Hx Hypertension: Yes - Pulmonary Hx Respiratory Disorders: No - Neurological Hx Neurological Disorder: Yes Hx Dementia: Yes - HEENT Hx HEENT Disorder: No - Renal Hx Renal Disorder: No - Endocrine/Metabolic Hx Diabetes Mellitus Type 2: Yes - Hematological/Oncological Hx Blood Disorders: No - Integumentary Hx Dermatological Disorder: Yes Hx Cellulitis: Yes - Musculoskeletal/Rheumatological Hx Musculoskeletal Disorders: Yes Hx Arthritis: Yes - Gastrointestinal Hx Gastrointestinal Disorders: No - Genitourinary/Gynecological Hx Genitourinary Disorders: No - Psychiatric Hx Psychophysiologic Disorder: No Hx Substance Use: No - Anesthesia Hx Anesthesia: No - Suicidal Assessment Feels Threatened In Home Enviroment: No Family/Social History - Physician Review Nursing Documentation Reviewed: Yes Family/Social History: Unknown Family HX Smoking Status: Former Smoker Hx Alcohol Use: No Hx Substance Use: No Allergies/Home Meds Allergies/Adverse Reactions: Allergies No Known Allergies Allergy (Verified 04/07/17 10:03) Home Medications: Home Meds Medication Instructions Recorded Confirmed Insulin Regular [HumuLIN R] SUBCUT QID 04/07/17 Pregabalin [Lyrica] 75 mg PO BID 04/07/17 04/07/17 Sodium Bicarbonate Tab [Sodium 650 mg PO BID 04/07/17 04/07/17 Bicarbonate Tab] Temazepam [Restoril] 15 mg PO HS 04/07/17 04/07/17 Temazepam [Restoril] 15 mg PO HS 04/07/17 04/07/17 Vitamin B Complex/Vit C/Folic 1 mg PO DAILY 04/07/17 04/07/17 [Nephro-J Luis] Review of Systems - Review of Systems Systems not reviewed;Unavailable: Dementia Constitutional: absent: Fatigue, Fevers Eyes: absent: Vision Changes ENT: absent: Hearing Changes Respiratory: absent: SOB, Cough Cardiovascular: absent: Chest Pain Gastrointestinal: absent: Abdominal Pain, Nausea, Vomiting Musculoskeletal: absent: Arthralgias, Back Pain Skin: absent: Rash Neurological: absent: Headache, Dizziness Psychiatric: absent: Anxiety, Depression, Suicidal Ideation Physical Exam - Physical Exam Physical Exam Limitations: Other (demantia) Vital Signs Reviewed: Yes Vital Signs Temp Pulse Resp BP Pulse Ox 04/07/17 10:03 98.0 F 71 16 117/64 95 04/07/17 09:56 98.6 F 67 18 124/57 L 97 Temperature: Afebrile Pulse: Regular Respiratory Rate: Normal Appearance: Positive for: Well-Appearing, Non-Toxic, Comfortable Pain Distress: None Finger Stick Blood Glucose: 142 - Systems Exam Head: Present: Atraumatic, Normocephalic Pupils: Present: PERRL Extroacular Muscles: Present: EOMI Conjunctiva: Present: Normal Mouth: Present: Moist Mucous Membranes Neck: Present: Normal Range of Motion Respiratory/Chest: Present: Clear to Auscultation, Good Air Exchange. No: Respiratory Distress, Accessory Muscle Use Cardiovascular: Present: Regular Rate and Rhythm, Normal S1, S2. No: Murmurs Abdomen: Present: Normal Bowel Sounds. No: Tenderness, Distention, Peritoneal Signs Back: Present: Normal Inspection Upper Extremity: Present: Normal Inspection. No: Cyanosis, Edema Lower Extremity: Present: Normal Inspection. No: Edema Neurological: Present: GCS=15, CN II-XII Intact, Speech Normal, Motor Func Grossly Intact, Memory Normal Skin: Present: Warm, Dry, Normal Color. No: Rashes Psychiatric: Present: Alert, Normal Insight, Normal Concentration Medical Decision Making ED Course and Treatment: 04/07/17 11:10 -labs/ua/uds -CT head -CXR -PES notified -Observe and reassess 04/07/17 11:50 -EKG: NSR @ 69 BPM, no acute ST or T wave changes compared with previous ekg. -CT head show no acute findings. -Chest xray show no active disease -Labs are non-significant compared with previous labs: hgb 10.0 from 8.8, BUN 39 from 29, Creatine 2.5 from 2.7, IVF @ 100cc/hr ordered. -alcohol level within normal limit. -UA is pending. 04/07/17 13:44 -UA show no UTI. -Pt. is awake, calm, at the bedside and stated that the patient is at his baseline. -Pt. is medically clear and stable for psychiatriac evaluation at this time. Pt. is eating and drinking, received IVF. -I spoke to the PES Anaelvia which she spoke to Dr. Kiana Ho, stated that the patient is psychiatrically clear and no need psychiatric admission. -I spoke to DR. Sun about the case/labs/radiology study and psychiatric evaluation, he agreed on outpatient follow up and no admission indicated. -Discharge home with education on follow up with your own pmd within 2 days, return to the ER for any new or worsening signs or symptoms. - Lab Interpretations Lab Results: 04/07/17 11:00 04/07/17 11:00 Lab Results 04/07/17 13:00: Urine Opiates Screen Negative, Urine Methadone Screen Negative, Ur Barbiturates Screen Negative, Ur Phencyclidine Scrn Negative, Ur Amphetamines Screen Negative, U Benzodiazepines Scrn Negative, U Oth Cocaine Metabols Negative, U Cannabinoids Screen Negative 04/07/17 13:00: Urine Color Yellow, Urine Appearance Clear, Urine pH 6.5, Ur Specific [place] 1.020, Urine Protein 100 H, Urine Glucose (UA) Negative, Urine Ketones Trace H, Urine Blood Negative, Urine Nitrate Negative, Urine Bilirubin Negative, Urine Urobilinogen 0.2, Ur Leukocyte Esterase Negative, Urine RBC 0 - 2, Urine WBC 1 - 3, Ur Epithelial Cells 0 - 2, Amorphous Sediment Few, Urine Bacteria Many, Urine Other Fiber 04/07/17 11:00: Salicylates < 1 L, Acetaminophen 10.0 04/07/17 11:00: Alcohol, Quantitative < 10 04/07/17 11:00: WBC 9.2, RBC 3.47 L, Hgb 10.0 L, Hct 32.2 L, MCV 92.8, MCH 28.8 , MCHC 31.1, RDW 13.3, Plt Count 250, MPV 10.6, Gran % 68.7 H, Lymph % (Auto) 18.4 L, [place] % (Auto) 8.5 H, Eos % (Auto) 4.3, Baso % (Auto) 0.1, Gran # 6.34, Lymph # (Auto) 1.7, [place] # (Auto) 0.8 H, Eos # (Auto) 0.4, Baso # (Auto) 0.01 04/07/17 11:00: Sodium 150 H, Potassium 4.7, Chloride 110 H, Carbon Dioxide 27, Anion Gap 18, BUN 39 H, Creatinine 2.5 H, Est GFR ( Amer) 30, Est GFR ( Non-Af Amer) 25, Random Glucose 141 H, Calcium 9.6, Total Bilirubin 0.6, AST 36 , ALT 26, Alkaline Phosphatase 83, Total Protein 7.7, Albumin 3.6, Globulin 4.1 , Albumin/Globulin Ratio 0.9 L - RAD Interpretation Radiology Orders: 04/07/17 10:50 HEAD W/O CONTRAST [CT] Stat CHEST PORTABLE [RAD] Stat CT Head: Chest xray: Live Source Operator: Radiologist - EKG Interpretation EKG Interpretation (Text): 04/07/17 11:20 -EKG: NSR @ 69 BPM, no acute ST or T wave changes compared with previous ekg. Interpreted by ED Physician: Yes Type: 12 lead EKG Comparison: Com.w/previous EKG - Medication Orders Current Medication Orders: Sodium Chloride (Sodium Chloride 0.9%) 1,000 mls @ 100 mls/hr IV .Q10H NEVIN Last Admin: 04/07/17 11:48 Dose: 100 mls/hr eMAR Start Stop Document 04/07/17 11:48 SRE (Rec: 04/07/17 11:48 SRE [id number]) Intravenous Solution Start Date 04/07/17 Start Time 11:48 End Date 04/07/17 - PA / PULP ROLLER / Resident Statement / has reviewed & agrees with the documentation as recorded. Disposition/Present on Arrival - Present on Arrival Any Indicators Present on Arrival: No History of DVT/PE: No History of Uncontrolled Diabetes: Yes Urinary Catheter: No History of Decub. Ulcer: Yes History Surgical Site Infection Following: None - Disposition Have Diagnosis and Disposition been Completed?: Yes Diagnosis: Evaluation by psychiatric service required Disposition: HOME/ ROUTINE Disposition Time: 11:51 Patient Plan: Discharge Patient Problems: Current Active Problems Problem Status Onset Evaluation by psychiatric service required Acute Condition: GOOD Additional Instructions: -Discharge home with education on follow up with your own pmd within 2 days, return to the ER for any new or worsening signs or symptoms. Referrals: Grabiel Sun DO [Primary Care Provider] - Follow up with primary Kiana Ruiz MD [Staff Provider] - Follow up with primary
[2017-04-07 11:15] LABS: BASO # 0.01 K/mm3 (0.0-2.0); BASO % 0.1 % (0.0-3.0); EOS # 0.4 (0.0-0.7); EOS % 4.3 % (1.5-5.0); GRAN # 6.34 (1.4-6.5); GRAN % 68.7 % (50.0-68.0); LYMPH # 1.7 (1.2-3.4); LYMPH % 18.4 % (22.0-35.0); MEAN CELL VOLUME 92.8 fl (80.0-105.0); MEAN CORPUSCULAR HEMOGLOBIN 28.8 pg (25.0-35.0); MEAN CORPUSCULAR HGB CONC 31.1 g/dl (31.0-37.0); MEAN PLATELET VOLUME 10.6 fl (7.0-11.0); MONO # 0.8 (0.1-0.6); MONO % 8.5 % (1.0-6.0); RBC 3.47 10^6/uL (3.5-6.1); RED CELL DISTRIBUTION WIDTH 13.3 % (11.5-14.5); WHITE BLOOD COUNT 9.2 10^3/ul (4.5-11.0)
[2017-04-07 11:27] LABS: SALICYLATE < 1 mg/dL (2.0-20.0)
[2017-04-07 11:28] LABS: ALB/GLOB RATIO 0.9 (1.1-1.8); ALBUMIN 3.6 g/dL (3.0-4.8); CALCIUM 9.6 mg/dL (8.4-10.5)
--- NOTE | 2017-04-07 11:42 | CT ---
PROCEDURE: CT HEAD WITHOUT CONTRAST. HISTORY: mental status change, r/o bleed COMPARISON: None available. TECHNIQUE: Axial computed tomography images were obtained through the head/brain without intravenous contrast. Coronal and sagittal reconstructed images. Radiation dose: Total exam DLP = 912.05 mGy-cm. This CT exam was performed using one or more of the following dose reduction techniques: Automated exposure control, adjustment of the mA and/or kV according to patient size, and/or use of iterative reconstruction technique. FINDINGS: HEMORRHAGE: No intracranial hemorrhage. BRAIN: No mass effect or edema. There is no radiographic evidence of air within the soft tissues. Atrophy VENTRICLES: Unremarkable. No hydrocephalus. CALVARIUM: Unremarkable. PARANASAL SINUSES: Unremarkable as visualized. No significant inflammatory changes. MASTOID AIR CELLS: Unremarkable as visualized. No inflammatory changes. OTHER FINDINGS: None. IMPRESSION: No acute intracranial abnormalities. No significant findings to account for the clinical presentation.
[2017-04-07] MEDS ORDERED: Sodium Chloride 0.9% 1,000 ML IV SCH (11:45)
--- NOTE | 2017-04-07 12:24 | RAD ---
HISTORY: Medical clearance COMPARISON: No prior. FINDINGS: LUNGS: No active pulmonary disease. PLEURA: No significant pleural effusion identified, no pneumothorax apparent. CARDIOVASCULAR: No radiographic findings to suggest acute or significant cardiovascular disease. OSSEOUS STRUCTURES: No significant abnormalities. VISUALIZED UPPER ABDOMEN: Normal. OTHER FINDINGS: None. IMPRESSION: No active disease. Concordant results with the preliminary interpretation rendered by the emergency department physician procedure.
[2017-04-07 13:05] LABS: PH,URINE 6.5 (4.7-8.0); URINE BILIRUBIN NEGATIVE (NEGATIVE); URINE BLOOD NEGATIVE (NEGATIVE); URINE GLUCOSE (UA) NEGATIVE (NEGATIVE); URINE LEUKOCYTE ESTERASE NEGATIVE Leu/uL (NEGATIVE); URINE NITRATE NEGATIVE (NEGATIVE); URINE PROTEIN 100 mg/dL (<30 mg/dL); URINE UROBILINOGEN 0.2 E.U./dL (<1 E.U./dL)
[2017-04-07 13:06] LABS: URINE APPEARANCE CLEAR (CLEAR); URINE COLOR YELLOW (YELLOW)
[2017-04-07 13:10] LABS: URINE AMORPHOUS SEDIMENT FEW; URINE BACTERIA MANY (NEG); URINE EPITHELIAL CELLS 0 - 2 /hpf (0-5); URINE RBC 0 - 2 /hpf (0-2)
[2017-04-07 13:36] LABS: BARBITURATES, UR NEGATIVE (NEGATIVE); BENZODIAZEPINES, UR NEGATIVE (NEGATIVE); OPIATES, UR NEGATIVE (NEGATIVE); PHENCYCLIDINE, UR NEGATIVE (NEGATIVE)
--- NOTE | 2017-04-07 15:28 | CARD ---
APPROVED REPORT EKG Measurement Heart [id number] CT 162P9 [id number] <Conclusion> Normal sinus rhythm Incomplete right bundle branch block Left anterior fascicular block STTW changes c/w ischemia
[2017-04-07 15:46] VITALS: BP 147/62; PULSE 68; RESP 18; O2SAT 97
== END 2017-04-07 17:09 | disposition home or self-care (01) ==
LOC: ED 09:56
DX: Z00.8 Encounter for other general examination (principal); I10 Essential (primary) hypertension; E11.9 Type 2 diabetes mellitus without complications; F03.90 Unspecified dementia, unspecified severity, without behavioral disturbance, psychotic disturbance, mood disturbance, and anxiety; Z87.891 Personal history of nicotine dependence
CPT/HCPCS: 70450; 71045; 80053; 81001; 85025; 90791; 93005; 99285; G0480; J7040

== ENCOUNTER 2017-04-14 20:15 | Inpatient (IN) | payer MEDICARE ==
[2017-04-14 20:15] VITALS: BMI 23.6
--- NOTE | 2017-04-14 21:10 | ED PDOC ---
Arrival/HPI - General Chief Complaint: Altered Mental Status Time Seen by Provider: 04/14/17 20:32 Historian: Patient, Family, Longterm - History of Present Illness Narrative History of Present Illness (Text): 04/14/17 21:09 Blas Gandhi is an 86 year old male, whose past medical history includes hypertension, diabetes, and dementia, who presents to the Emergency department transferred from residential for evaluation of altered mental status. According to family, patient has been a bit lethargic and acting sleepy. Patient did not offer any complaints. Patient appears very drowsy on exam, but is arousable. When questioned, patient states "what are you doing?" and refused to answer any other questions. Patient's fingerstick in ER was 86, patient received insulin prior to arrival at residential due to elevated blood sugar. Limited ROS due to patient's dementia/AMS. Symptom Onset: Gradual Symptom Course: Unchanged Activities at Onset: Light Context: Home Past Medical History - Provider Review Nursing Documentation Reviewed: Yes - Infectious Disease Hx of Infectious Diseases: None - Tetanus Immunization Tetanus Immunization: Unknown - Cardiac Hx Cardiac Disorders: Yes Hx Hypertension: Yes - Pulmonary Hx Respiratory Disorders: No - Neurological Hx Neurological Disorder: Yes Hx Dementia: Yes - HEENT Hx HEENT Disorder: No - Renal Hx Renal Disorder: No - Endocrine/Metabolic Hx Diabetes Mellitus Type 2: Yes - Hematological/Oncological Hx Blood Disorders: No - Integumentary Hx Dermatological Disorder: Yes Hx Cellulitis: Yes - Musculoskeletal/Rheumatological Hx Musculoskeletal Disorders: Yes Hx Arthritis: Yes - Gastrointestinal Hx Gastrointestinal Disorders: No - Genitourinary/Gynecological Hx Genitourinary Disorders: No - Psychiatric Hx Psychophysiologic Disorder: No Hx Substance Use: No - Anesthesia Hx Anesthesia: No - Suicidal Assessment Feels Threatened In Home Enviroment: No Family/Social History - Physician Review Nursing Documentation Reviewed: Yes Family/Social History: Unknown Family HX Smoking Status: Former Smoker Hx Alcohol Use: No Hx Substance Use: No Allergies/Home Meds Allergies/Adverse Reactions: Allergies No Known Allergies Allergy (Verified 04/07/17 10:03) Home Medications: Home Meds Medication Instructions Recorded Confirmed Pregabalin [Lyrica] 75 mg PO BID 04/07/17 04/14/17 Sodium Bicarbonate Tab [Sodium 650 mg PO BID 04/07/17 04/14/17 Bicarbonate Tab] Temazepam [Restoril] 15 mg PO HS 04/07/17 04/14/17 Temazepam [Restoril] 15 mg PO HS 04/07/17 04/14/17 Vitamin B Complex/Vit C/Folic 1 mg PO DAILY 04/07/17 04/14/17 [Nephro-J Luis] Review of Systems - Review of Systems Systems not reviewed;Unavailable: Dementia Constitutional: absent: Fevers Respiratory: absent: SOB, Cough Cardiovascular: absent: Chest Pain Gastrointestinal: absent: Abdominal Pain, Diarrhea, Nausea, Vomiting Genitourinary Male: absent: Dysuria, Frequency, Hematuria, Urinary Output Changes Musculoskeletal: absent: Back Pain, Neck Pain Skin: absent: Rash Neurological: absent: Headache, Dizziness Physical Exam Vital Signs Reviewed: Yes Vital Signs Temp Pulse Resp BP Pulse Ox 04/14/17 23:59 69 16 118/67 100 04/14/17 20:40 98.8 F 69 18 104/48 L 100 Temperature: Afebrile Blood Pressure: Normal Pulse: Regular Respiratory Rate: Normal Appearance: Positive for: Well-Appearing, Non-Toxic, Comfortable Pain Distress: None Mental Status: Positive for: other (Drowsy but arousable) Finger Stick Blood Glucose: 84 - Systems Exam Head: Present: Atraumatic, Normocephalic Pupils: Present: Other (Myotic but reactive bilaterally) Extroacular Muscles: Present: EOMI Conjunctiva: Present: Normal Mouth: Present: Moist Mucous Membranes Pharnyx: Present: Normal. No: ERYTHEMA, EXUDATE, TONSILS ENLARGED, Peritonsilar Swelling, Uvular Deviation, Muffled/Hoarse Voice, [place], Soft Palate/Uvular Edema Nose (External): Present: Atraumatic Nose (Internal): Present: Normal Inspection Neck: Present: Normal Range of Motion. No: Meningeal Signs, MIDLINE TENDERNESS , Paraspinal Tenderness Respiratory/Chest: Present: Clear to Auscultation, Good Air Exchange. No: Respiratory Distress, Accessory Muscle Use Cardiovascular: Present: Regular Rate and Rhythm, Normal S1, S2. No: Murmurs Abdomen: Present: Normal Bowel Sounds. No: Tenderness, Distention, Peritoneal Signs Back: Present: Normal Inspection. No: CVA Tenderness, Midline Tenderness, Paraspinal Tenderness Upper Extremity: Present: Normal Inspection, Normal ROM, NORMAL PULSES, Neurovascularly Intact, Capillary Refill < 2s. No: Cyanosis, Edema, Tenderness , Swelling, Erythema, Temperature Abnormalties, Deformity Lower Extremity: Present: Normal Inspection, NORMAL PULSES, Normal ROM, Neurovascularly Intact, Capillary Refill < 2 s. No: Edema, Cyanosis, Tenderness , Swelling, Erythema, Deformity, Temperature Abnormalties Neurological: Present: GCS=15, CN II-XII Intact, Speech Normal, Motor Func Grossly Intact, Normal Sensory Function, Normal Cerebellar Funct, Other (No neurological deficits noted) Skin: Present: Warm, Dry, Normal Color. No: Rashes Psychiatric: Present: Alert, Oriented x 3, Normal Insight, Normal Concentration Medical Decision Making ED Course and Treatment: 04/14/17 20:40 Impression: 86 year old male brought in for AMS/lethargy. Plan: -- CT Head w/o contrast -- EKG -- Chest X-ray -- Labs, Urinalysis, urine drug screen -- Reassess and disposition Prior Visits: Notes and results from previous visits were reviewed. Progress Notes: Reviewed EKG, NSR at [address]/T wave changes. 04/14/17 22:17 Chest X-ray reviewed, shows no acute processes. 04/14/17 22:57 CT Head shows: BRAIN: Areas of low density in the periventricular white matter bilaterally, most likely representing mild chronic small vessel ischemic changes. No significant acute abnormality identified. No acute hemorrhage seen within the brain. No acute extra-axial fluid collections visualized. No evidence of significant mass effect within the brain. VENTRICLES: No evidence of significant hydrocephalus. BONES/JOINTS: No acute fractures or other acute bony abnormality noted. SOFT TISSUES: No acute abnormality of the visualized soft tissues is seen. VASCULATURE: Atherosclerotic calcification. SINUSES: Visualized paranasal sinuses appear clear. MASTOID AIR CELLS: Mastoid air cells appear clear. IMPRESSION: - No acute findings seen within the brain. - See above for remaining findings. 04/15/17 00:[address] Sun, who is aware and agrees with plan. Accepts pt in to his service. Pt admitted to Telemetry for altered mental status, dehydration, hypernatremia. - Lab Interpretations Lab Results: 04/14/17 21:15 04/14/17 21:15 Lab Results 04/14/17 22:12: POC Glucose (mg/dL) 98 04/14/17 21:15: WBC 8.6, RBC 3.26 L, Hgb 9.7 L, Hct 31.0 L, MCV 95.1, MCH 29.8, MCHC 31.3, RDW 14.1, Plt Count 244, MPV 11.5 H 04/14/17 21:15: PT 14.0 H, INR 1.22 H, APTT 29.0 04/14/17 21:15: Sodium 157 H*, Potassium 5.0, Chloride 113 H, Carbon Dioxide 28 , Anion Gap 21 H, BUN 69 H, Creatinine 4.4 H, Est GFR ( Amer) 16, Est GFR (Non-Af Amer) 13, Random Glucose 91, Calcium 9.6, Total Bilirubin 0.8, AST 63 H D, ALT 21, Alkaline Phosphatase 92, Lactate Dehydrogenase 729 H, Total Creatine Kinase 828 H, CK-MB (CK-2) 3.1, CK-MB (CK-2) % Cancelled, Troponin I < 0.01, Total Protein 8.4 H, Albumin 3.8, Globulin 4.6, Albumin/Globulin Ratio 0.8 L 04/14/17 20:39: POC Glucose (mg/dL) 84 I have reviewed the lab results: Yes - RAD Interpretation Radiology Orders: 04/14/17 20:40 HEAD W/O CONTRAST [CT] Stat 04/14/17 20:41 CHEST PORTABLE [RAD] Stat Agricultural Lender: ED Physician, Radiologist - EKG Interpretation Interpreted by ED Physician: Yes Type: 12 lead EKG - Medication Orders Current Medication Orders: Dextrose (Dextrose 5% In Water 1000 Ml) 1,000 mls @ 100 mls/hr IV .Q10H NEVIN Last Admin: 04/14/17 22:29 Dose: 100 mls/hr eMAR Start Stop Document 04/14/17 22:29 RD (Rec: 04/14/17 22:29 RD [id number]) Intravenous Solution Start Date 04/14/17 Start Time 22:29 Insulin Human Regular (Humulin R Low) 0 units SC ACHS NEVIN PRN Reason: Protocol Discontinued Medications Ceftriaxone Sodium (Rocephin 1 Gram Ivpb) 1 gm in 100 mls @ 200 mls/hr IV ONCE STA PRN Reason: Protocol Stop: 04/15/17 02:09 Last Admin: 04/15/17 03:08 Dose: 200 mls/hr eMAR Start Stop Document 04/15/17 03:08 CDE (Rec: 04/15/17 03:08 CDE [id number]) Intravenous Solution Start Date 04/15/17 Start Time 03:08 End Date 04/15/17 End time 03:38 Total Infusion Time 30 - Scribe Statement The provider has reviewed the documentation as recorded by the Scribe Coty Disposition/Present on Arrival - Present on Arrival Any Indicators Present on Arrival: No History of DVT/PE: No History of Uncontrolled Diabetes: Yes Urinary Catheter: No History of Decub. Ulcer: No History Surgical Site Infection Following: None - Disposition Have Diagnosis and Disposition been Completed?: Yes Diagnosis: Altered mental status, Hypernatremia, Dehydration, UTI (urinary tract infection ) Disposition: HOSPITALIZED Disposition Time: 23:03 Patient Plan: Admission Patient Problems: Current Active Problems Problem Status Onset Altered mental status Acute Dehydration Acute Hypernatremia Acute Condition: STABLE
[2017-04-14 21:47] LABS: HEMOGLOBIN 9.7 g/dL (14.0-18.0); MEAN CELL VOLUME 95.1 fl (80.0-105.0); MEAN CORPUSCULAR HEMOGLOBIN 29.8 pg (25.0-35.0); MEAN CORPUSCULAR HGB CONC 31.3 g/dl (31.0-37.0); MEAN PLATELET VOLUME 11.5 fl (7.0-11.0); RBC 3.26 10^6/uL (3.5-6.1); RED CELL DISTRIBUTION WIDTH 14.1 % (11.5-14.5); WHITE BLOOD COUNT 8.6 10^3/ul (4.5-11.0)
[2017-04-14 21:55] LABS: TROPONIN I < 0.01 ng/mL
[2017-04-14 22:05] LABS: INR 1.22 (0.93-1.08)
[2017-04-14 22:07] LABS: ALB/GLOB RATIO 0.8 (1.1-1.8); ALBUMIN 3.8 g/dL (3.0-4.8); ALT/SGPT 21 U/L (7-56); AST/SGOT 63 U/L (17-59); BLOOD UREA NITROGEN 69 mg/dL (7-21); CALCIUM 9.6 mg/dL (8.4-10.5); GFR AFRICAN-AMERICAN 16; GFR NON-AFRICAN AMERICAN 13
[2017-04-14 22:17] LABS: CK-MB 3.1 ng/mL (0.0-3.6)
--- NOTE | 2017-04-14 22:53 | CT ---
EXAM: CT Head Without Intravenous Contrast EXAM DATE/TIME: 04/14/2017 8:40 PM CLINICAL HISTORY: 86 years old, male; Signs and symptoms; Altered mental status/memory loss; Additional info: AMS TECHNIQUE: Axial computed tomography images of the head/brain without intravenous contrast. All CT scans at this facility use one or more dose reduction techniques, viz.: automated exposure control; ma/kV adjustment per patient size (including targeted exams where dose is matched to indication; i.e. head); or iterative reconstruction technique. Coronal and sagittal reformatted images were created and reviewed. COMPARISON: Prior head CT of 2017-04-07 FINDINGS: BRAIN: Areas of low density in the periventricular white matter bilaterally, most likely representing mild chronic small vessel ischemic changes. No significant acute abnormality identified. No acute hemorrhage seen within the brain. No acute extra-axial fluid collections visualized. No evidence of significant mass effect within the brain. VENTRICLES: No evidence of significant hydrocephalus. BONES/JOINTS: No acute fractures or other acute bony abnormality noted. SOFT TISSUES: No acute abnormality of the visualized soft tissues is seen. VASCULATURE: Atherosclerotic calcification. SINUSES: Visualized paranasal sinuses appear clear. MASTOID AIR CELLS: Mastoid air cells appear clear. IMPRESSION: - No acute findings seen within the brain. - See above for remaining findings.
[2017-04-15 01:16] LABS: PH,URINE 5.5 (4.7-8.0); URINE BILIRUBIN MODERATE (NEGATIVE); URINE BLOOD LARGE (NEGATIVE); URINE GLUCOSE (UA) NEGATIVE (NEGATIVE); URINE LEUKOCYTE ESTERASE MODERATE Leu/uL (NEGATIVE); URINE NITRATE NEGATIVE (NEGATIVE); URINE PROTEIN 100 mg/dL (<30 mg/dL); URINE UROBILINOGEN 0.2 E.U./dL (<1 E.U./dL)
[2017-04-15 01:18] LABS: URINE APPEARANCE CLOUDY (CLEAR); URINE COLOR YELLOW (YELLOW)
[2017-04-15 01:32] LABS: BENZODIAZEPINES, UR NEGATIVE (NEGATIVE); PHENCYCLIDINE, UR NEGATIVE (NEGATIVE)
[2017-04-15 01:40] LABS: BARBITURATES, UR NEGATIVE (NEGATIVE); OPIATES, UR NEGATIVE (NEGATIVE)
[2017-04-15] MEDS ORDERED: cefTRIAXone 1 gm 1 GM/100 ML BAG IV STA (01:40)
[2017-04-15 02:08] LABS: URINE BACTERIA MANY (NEG); URINE EPITHELIAL CELLS 0 - 2 /hpf (0-5); URINE WBC TNTC /hpf (0-6)
[2017-04-15] MEDS ORDERED: Insulin Reg-LOW-Coverage SC SCH (07:30)
--- NOTE | 2017-04-15 08:26 | RAD ---
HISTORY: ams COMPARISON: 04/07/2017 FINDINGS: LUNGS: No active pulmonary disease. PLEURA: No significant pleural effusion identified, no pneumothorax apparent. CARDIOVASCULAR: Normal. OSSEOUS STRUCTURES: No significant abnormalities. VISUALIZED UPPER ABDOMEN: Normal. OTHER FINDINGS: None. IMPRESSION: No active disease.
[2017-04-15 09:41] LABS: ALB/GLOB RATIO 0.9 (1.1-1.8); ALBUMIN 3.9 g/dL (3.0-4.8); CALCIUM 9.6 mg/dL (8.4-10.5); MAGNESIUM 2.4 mg/dL (1.7-2.2)
[2017-04-15] MEDS ORDERED: Sodium Chloride 0.45% 1,000 ML IV SCH (10:45)
[2017-04-15] MEDS: cefTRIAXone 1 gm 1 GM/100 ML BAG IVPB SCH (10:58)
[2017-04-15] MEDS: Insulin Reg-MEDIUM-Coverage SC SCH ×3 (11:48→22:11)
[2017-04-15] MEDS ORDERED: Ergocalciferol 50,000 Intl Units Cap PO SCH (12:15)
[2017-04-15] MEDS: Sodium Chloride 0.45% 1,000 ML IV SCH ×2 (13:03→22:16)
--- NOTE | 2017-04-15 14:27 | CP.PCM.CON ---
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 Plan No acute need for renal replacement therapy at this time. Hypertension control with meds as ordered. hold ACEI/ARB due to ELIZABETH Monitor Input/Output, daily weights and renal function with basic metabolic panel continue with januvia 25 mg continue with MVI, iron and weekly vit D IVF as 0.45% saline @ 100 ml/hr d/c sodium bicarb for now as serum bicarb elevated Dose meds/antibiotics for reduced GFR. Avoid fleets enema/magnesium based laxatives. Avoid nephrotoxins/NSAIDs/ iodinated contrast (unless needed emergently) Glycemic control Further work up/management as per primary team Thanks for allowing me to participate in care of your patient. Will follow patient with you. Please call if any Qs. d/w and team Dr Víctor Echols Office: [phone] Chief Complaint; Unable to obtain Reason for consult: ELIZABETH, hypernatremia, CKD management HPI: Pt is a 86 M with hx of diabetes Mellitus ( many years), hypertension ( many years), CKD stage 3 (baseline cr 1.9 in 2015) was brought to hospital with Altered mental status and decreased oral intake. he was found to have ELIZABETH and Hypernatremia hence renal consulted Denies OTC/herbal meds or NSAIDs No known recent iodinated contrast exposure. No obvious episodes of low BP ROS: unable to obtain from pt Physical Examination: General Appearance: Comfortable, in no acute respiratory distress, co-operative . ill appearing, confused Vitals reviewed and noted as below Head; Atraumatic, normocephalic ENT: no ulcers no thrush. Tongue is midline. Oropharynx: no rash or ulcers. EYES: Pupils are equal, round and reactive to light accommodation. Eye muscles and extraocular movement intact. Sclera is anicteric. Neck; supple no lymphadenopathy, no thyromegaly or bruit Lungs: Normal respiratory rate/effort. Breath sounds bilateral equal and clear Heart: Normal rate. s1s2 normal. No rub or gallop. Extremities: no edema. No varicose veins. Rt leg in dressing, has known wound Neurological: Patient is awake but confused. disoriented Skin: Warm and dry. Normal turgor. No rash. Palpitation: Normal elasticity for age Abdomen: Abdomen is soft. Bowel sounds +. There is no abdominal tenderness, no guarding/rigidity no organomegaly Psych: unable MSK: no joint tenderness or swelling. Digits and nails normal, no deformity : kidney or bladder not palpable Labs/imaging reviewed. Past medical history, past surgical history, family history, social history, allergy reviewed and noted as below Family hx: no hx of CKD. Rest non-contributory work up: SPEP/SARAH neg TSAT 22% Ferritin 37 Vit D <12.8 PTH 40 renal sono; wnl UA SG >1.030 carito low and renin low Past Patient History - Infectious Disease Hx of Infectious Diseases: None - Tetanus Immunizations Tetanus Immunization: Unknown - Past Social History Smoking Status: Former Smoker - CARDIAC Hx Cardiac Disorders: Yes Hx Hypertension: Yes - PULMONARY Hx Respiratory Disorders: No - NEUROLOGICAL Hx Neurological Disorder: Yes Hx Dementia: Yes - HEENT Hx HEENT Problems: No - RENAL Hx Chronic Kidney Disease: No - ENDOCRINE/METABOLIC Hx Diabetes Mellitus Type 2: Yes - HEMATOLOGICAL/ONCOLOGICAL Hx Blood Disorders: No - INTEGUMENTARY Hx Dermatological Problems: Yes Hx Cellulitis: Yes - MUSCULOSKELETAL/RHEUMATOLOGICAL Hx Musculoskeletal Disorders: Yes Hx Arthritis: Yes - GASTROINTESTINAL Hx Gastrointestinal Disorders: No - GENITOURINARY/GYNECOLOGICAL Hx Genitourinary Disorders: No - PSYCHIATRIC Hx Psychophysiologic Disorder: No Hx Substance Use: No - SURGICAL HISTORY Hx Surgeries: No - ANESTHESIA Hx Anesthesia: No Meds Allergies/Adverse Reactions: Allergies Allergy/AdvReac Type Severity Reaction Status Date / Time No Known Allergies Allergy Verified 04/07/17 10:03 - Medications Medications: Current Medications Acetaminophen (Tylenol 325mg Tab) 650 mg PO Q6H PRN PRN Reason: Fever >100.4 F Last Admin: 04/15/17 11:48 Dose: 650 mg Carvedilol (Coreg) 12.5 mg PO BID NEVIN Ergocalciferol (Drisdol 50,000 Intl Units Cap) 1 cap PO Q7D [facility] Last Admin: 04/15/17 13:03 Dose: 1 cap Ferrous Gluconate (Fergon) 324 mg PO TID [facility] Last Admin: 04/15/17 13:03 Dose: 324 mg Ceftriaxone Sodium (Rocephin 1 Gram Ivpb) 1 gm in 100 mls @ 100 mls/hr IVPB DAILY [facility] PRN Reason: Protocol Last Admin: 04/15/17 10:58 Dose: 100 mls/hr Sodium Chloride (Sodium Chloride 0.45%) 1,000 mls @ 100 mls/hr IV .Q10H [facility] Last Admin: 04/15/17 13:03 Dose: 100 mls/hr Insulin Human Regular (Humulin R Med) 0 units SC ACHS [facility] PRN Reason: Protocol Last Admin: 04/15/17 11:48 Dose: 3 units Non-Formulary Medication (Temazepam [Restoril]) 15 mg PO HS [facility] Sitagliptin Phosphate (Januvia) 25 mg PO DAILY [facility] Vitamin B Complex/Vit C/Folic Acid (Nephro-J Luis) 1 tab PO 0800 [facility] Results - Vital Signs Recent Vital Signs: Last Vital Signs Temp 101.4 F H 04/15/17 12:48 Pulse 83 04/15/17 11:40 Resp 20 04/15/17 11:40 BP 165/62 H 04/15/17 11:40 Pulse Ox 96 04/15/17 06:00 - Labs Result Diagrams: 04/14/17 21:15 04/15/17 09:15 Labs: Laboratory Results - last 24 hr 04/15/17 04/15/17 04/15/17 01:01 01:08 07:10 Sodium Potassium Chloride Carbon Dioxide Anion Gap BUN Creatinine Est GFR ( Amer) Est GFR (Non-Af Amer) POC Glucose (mg/dL) 257 H Random Glucose Calcium Magnesium Total Bilirubin AST ALT Alkaline Phosphatase Total Protein Albumin Globulin Albumin/Globulin Ratio Urine Color Yellow Urine Appearance Cloudy Urine pH 5.5 Ur Specific Turon >= 1.030 Urine Protein 100 H Urine Glucose (UA) Negative Urine Ketones 15 H Urine Blood Large H Urine Nitrate Negative Urine Bilirubin Moderate H Urine Urobilinogen 0.2 Ur Leukocyte Esterase Moderate H Urine RBC 2 - 5 Urine WBC Tntc Ur Epithelial Cells 0 - 2 Urine Bacteria Many Urine Opiates Screen Negative Urine Methadone Screen Negative Ur Barbiturates Screen Negative Ur Phencyclidine Scrn Negative Ur Amphetamines Screen Negative U Benzodiazepines Scrn Negative U Oth Cocaine Metabols Negative U Cannabinoids Screen Negative 04/15/17 04/15/17 09:15 10:59 Sodium 153 H Potassium 4.3 Chloride 110 H Carbon Dioxide 26 Anion Gap 20 BUN 62 H Creatinine 3.8 H Est GFR ( Amer) 18 Est GFR (Non-Af Amer) 15 POC Glucose (mg/dL) 225 H Random Glucose 265 H Calcium 9.6 Magnesium 2.4 H Total Bilirubin 0.7 AST 50 ALT 23 Alkaline Phosphatase 108 Total Protein 8.4 H Albumin 3.9 Globulin 4.5 Albumin/Globulin Ratio 0.9 L Urine Color Urine Appearance Urine pH Ur Specific Turon Urine Protein Urine Glucose (UA) Urine Ketones Urine Blood Urine Nitrate Urine Bilirubin Urine Urobilinogen Ur Leukocyte Esterase Urine RBC Urine WBC Ur Epithelial Cells Urine Bacteria Urine Opiates Screen Urine Methadone Screen Ur Barbiturates Screen Ur Phencyclidine Scrn Ur Amphetamines Screen U Benzodiazepines Scrn U Oth Cocaine Metabols U Cannabinoids Screen
--- NOTE | 2017-04-15 16:24 | CP.PCM.PCO ---
Physician Communication Note - Physician Communication Note Physician Communication Note: ams sec to toxic/metabolic encephlopathy/low bp. c /w medical mx.
--- NOTE | 2017-04-15 18:52 | HP ---
HISTORY OF PRESENT ILLNESS: I got a call last night from the group home that Mr. Gandhi was not doing well. He was lethargic. Mentally, he was definitely obtunded and I sent him to the emergency room. He ended up in the telemetry floor. He is now awake in bed. He is an 86-year-old man with history of hypertension, diabetes, dementia, who comes from the group home with altered mental status, is very lethargic and sleepy, drowsy, could not respond, refused to answer any questions. He is now in bed, doing better with IV fluids. PAST MEDICAL HISTORY: He has a past medical history of hypertension, dementia, type 2 diabetes, arthritis. FAMILY HISTORY: Hypertension and diabetes in the family. SOCIAL HISTORY: He is a former smoker. No alcohol, no drugs. ALLERGIES: NO KNOWN DRUG ALLERGIES. MEDICATIONS: He is on Lyrica, sodium bicarbonate, Restoril, Nephro-J Luis. REVIEW OF SYSTEMS: He was in and out of it mentally. Now, he is a little bit more awake. He is demented, but is alert. No acute vision or hearing changes. No fevers. No shortness of breath or cough. No chest pain or palpitations. No abdominal pain, nausea, vomiting, or constipation. No problems urinating. No back pain. Actually, no leg pains either. No rashes appreciated. No headaches or dizziness. He was very much confused, now he feels better. PHYSICAL EXAMINATION: GNERAL: He is well appearing and nontoxic at this time, comfortable, not as drowsy as he was when he came in. VITAL SIGNS: He has 98.8 temperature, 69 pulse, 16 respiratory rate, 118/67 blood pressure, 100% O2 sat. HEENT: Head is atraumatic, normocephalic. His extraocular muscles are intact. Throat is moist. NECK: Supple. Normal range of motion. HEART: Regular rate. Normal S1, S2. LUNGS: Decreased breath sounds, but clear to auscultation. ABDOMEN: Soft and nontender. Positive bowel sounds. No guarding, no rebound, no CVA tenderness. EXTREMITIES: Have no edema, improved over the past 2 weeks. He used to have a cellulitis there; it is better. NEUROLOGIC: GCS is 15. Cranial nerves II through XII grossly intact. Speech is better right now. He is talking, responding, smiling. Alert and oriented, but confused. SKIN: Warm and dry. LABORATORY DATA: He had multiple tests. He has 8.6 white count, 9.7 hemoglobin, 31 hematocrit with 244 platelets. INR 1.22. He has 153 sodium, was as high as 157 when he came in, potassium was 4.3, BUN 169 and 4.4, coming down to 62 and 3.8 with IV fluids, GFR is up to 15. Sugars are 265; I will put him on insulin coverage. Calcium is 9.6, magnesium is 2.4. Total bilirubin is 0.7, AST is better at 50, ALT is 23, alk phos 108. Troponin is less than 0.01. Total protein is 8.4. Urine showed many bacteria, positive urinary tract infection, negative toxicology report. INR was 1.22. He had a CAT scan of the head and a chest x-ray. No acute findings seen in the brain. Chest x-ray showed no active disease. IMPRESSION AND PLAN: He is here for numerous things. He had change of mentation, acute kidney injury, possible renal failure, diabetes, high sodium, urinary tract infection, dehydration, he will be on IV fluids. Have consults with Neurology and Renal. I will change his dextrose to one-half normal saline since his blood sugars are very high. We will get physical therapy involved; with IV antibiotics; and we will watch him very closely. Grabiel Sun DO
--- NOTE | 2017-04-15 19:10 | CARD ---
APPROVED REPORT EKG Measurement Heart [id number] NM [id number] [id number] <Conclusion> Normal sinus rhythm Left anterior fascicular block ST & T wave abnormality, consider anterolateral ischemia Prolonged QT Abnormal ECG
--- NOTE | 2017-04-15 22:56 | CON ---
DATE: HISTORY OF PRESENT ILLNESS: This is an 86-year-old male with past medical history of hypertension, diabetes, dementia, and transferred here from care home. Patient was admitted with altered mental status. Patient is lethargic, not following any commands. Called to evaluate the patient. PAST MEDICAL HISTORY: Hypertension, diabetes, and dementia. ALLERGIES: NO KNOWN DRUG ALLERGIES. HOME MEDICATIONS: Lyrica and Restoril. REVIEW OF SYSTEMS: Ten-point review of systems was negative except dementia; not able to answer the questions. PHYSICAL EXAMINATION: VITAL SIGNS: Blood pressure 104/48. HEENT: Normocephalic, atraumatic. NECK: Supple. NEUROLOGIC: Unresponsive to verbal commands, not following simple commands. Eyes closed. Spontaneous movement of extremities noted. Deep tendon reflexes 1+. Sensory appears intact. Cerebellar, gait deferred. IMPRESSION AND PLAN: Encephalopathy, superimposed on dementia. A CAT scan of the head was done, did not show any acute lesion. Workup in progress. Continue present management. We will follow up. Lee Zepeda MD
[2017-04-16 07:01] VITALS: O2SAT 93
[2017-04-16 07:03] LABS: ALB/GLOB RATIO 0.8 (1.1-1.8); ALBUMIN 3.4 g/dL (3.0-4.8); CALCIUM 9.3 mg/dL (8.4-10.5)
[2017-04-16] MEDS ORDERED: Multivitamin Vitamin B Complex (Nephro-Vite) Tab PO SCH (08:00)
[2017-04-16] MEDS: Insulin Reg-MEDIUM-Coverage SC SCH (08:32)
[2017-04-16] MEDS: Sodium Chloride 0.45% 1,000 ML IV SCH (09:47)
[2017-04-16] MEDS: cefTRIAXone 1 gm 1 GM/100 ML BAG IVPB SCH (09:57)
--- NOTE | 2017-04-16 12:24 | CP.PCM.PN ---
Subjective - Date & Time of Evaluation Date of Evaluation: 04/16/17 Time of Evaluation: 10:00 - Subjective Subjective: Nephrology Consultation: Assessment: stable Altered mental status Acute Kidney Injury (N17.9) likely pre-renal due to dehydration with Hypernatremia: improving Diabetic chronic Kidney Disease (E11.22) Hypertensive Chronic Kidney Disease (I12.9) Chronic Kidney Disease (N18.3) Stage 3 with 1 gm albuminuria (R80.9) likely due to DM/HTN Anemia (D64.9), HTN (I12.9) Rt leg ulcer vit d def with secondary hyperparathyroidism of renal origin. Plan No acute need for renal replacement therapy at this time. Hypertension control with meds as ordered. hold ACEI/ARB due to ELIZABETH Monitor Input/Output, daily weights and renal function with basic metabolic panel continue with januvia 25 mg continue with MVI, iron and weekly vit D IVF as 0.45% saline @ 100 ml/hr; continu esame Dose meds/antibiotics for reduced GFR. Avoid fleets enema/magnesium based laxatives. Avoid nephrotoxins/NSAIDs/ iodinated contrast (unless needed emergently) Glycemic control Further work up/management as per primary team Thanks for allowing me to participate in care of your patient. Will follow patient with you. Please call if any Qs. Dr Víctor Echols Office: [phone] Reason for consult: ELIZABETH, hypernatremia, CKD management HPI: Pt is a 86 M with hx of diabetes Mellitus ( many years), hypertension ( many years), CKD stage 3 (baseline cr 1.9 in 2015) was brought to hospital with Altered mental status and decreased oral intake. he was found to have ELIZABETH and Hypernatremia hence renal consulted Denies OTC/herbal meds or NSAIDs No known recent iodinated contrast exposure. No obvious episodes of low BP ROS: unable to obtain reliably from pt due to AMS Physical Examination: General Appearance: Comfortable, in no acute respiratory distress, co-operative . Vitals reviewed and noted as below Head; Atraumatic, normocephalic ENT: no ulcers no thrush. Tongue is midline. Oropharynx: no rash or ulcers. EYES: Pupils are equal, round and reactive to light accommodation. Eye muscles and extraocular movement intact. Sclera is anicteric. Neck; supple no lymphadenopathy, no thyromegaly or bruit Lungs: Normal respiratory rate/effort. Breath sounds bilateral equal and clear Heart: Normal rate. s1s2 normal. No rub or gallop. Extremities: no edema. No varicose veins. Rt leg in dressing, has known wound Neurological: Patient is awake less confused today more interactive Skin: Warm and dry. Normal turgor. No rash. Palpitation: Normal elasticity for age Abdomen: Abdomen is soft. Bowel sounds +. There is no abdominal tenderness, no guarding/rigidity no organomegaly Psych: unable MSK: no joint tenderness or swelling. Digits and nails normal, no deformity : kidney or bladder not palpable Labs/imaging reviewed. Past medical history, past surgical history, family history, social history, allergy reviewed and noted as below Family hx: no hx of CKD. Rest non-contributory work up: SPEP/SARAH neg TSAT 22% Ferritin 37 Vit D <12.8 PTH 40 renal sono; wnl UA SG >1.030 carito low and renin low Objective - Vital Signs/Intake and Output Vital Signs (last 24 hours): Temp Pulse Resp BP Pulse Ox 99 F 81 20 186/91 H 93 L 04/16/17 06:00 04/16/17 09:55 04/16/17 06:00 04/16/17 09:55 04/16/17 06:00 Intake and Output: 04/16/17 04/16/17 06:59 18:59 Intake Total 120 1200 Output Total 1200 Balance -1080 1200 - Medications Medications: Current Medications Acetaminophen (Tylenol 325mg Tab) 650 mg PO Q6H PRN PRN Reason: Fever >100.4 F Last Admin: 04/15/17 18:10 Dose: 650 mg Carvedilol (Coreg) 12.5 mg PO BID [facility] Last Admin: 04/16/17 09:55 Dose: 12.5 mg Ergocalciferol (Drisdol 50,000 Intl Units Cap) 1 cap PO Q7D [facility] Last Admin: 04/15/17 13:03 Dose: 1 cap Ferrous Gluconate (Fergon) 324 mg PO TID [facility] Last Admin: 04/16/17 09:57 Dose: 324 mg Ceftriaxone Sodium (Rocephin 1 Gram Ivpb) 1 gm in 100 mls @ 100 mls/hr IVPB DAILY [facility] PRN Reason: Protocol Last Admin: 04/16/17 09:57 Dose: 100 mls/hr Sodium Chloride (Sodium Chloride 0.45%) 1,000 mls @ 100 mls/hr IV .Q10H [facility] Last Admin: 04/16/17 09:47 Dose: 100 mls/hr Insulin Human Regular (Humulin R Med) 0 units SC ACHS [facility] PRN Reason: Protocol Last Admin: 04/16/17 08:32 Dose: Not Given Non-Formulary Medication (Temazepam [Restoril]) 15 mg PO HS [facility] Last Admin: 04/15/17 22:16 Dose: Not Given Sitagliptin Phosphate (Januvia) 25 mg PO DAILY [facility] Last Admin: 04/16/17 09:55 Dose: 25 mg Vitamin B Complex/Vit C/Folic Acid (Nephro-J Luis) 1 tab PO 0800 [facility] Last Admin: 04/16/17 09:55 Dose: 1 tab - Labs Labs: 04/16/17 05:30 PT 14.0 SECONDS (9.4-12.5) H 04/14/17 21:15 INR 1.22 (0.93-1.08) H 04/14/17 21:15 APTT 29.0 Seconds (25.1-36.5) 04/14/17 21:15
[2017-04-16 12:27] VITALS: BP 178/80; PULSE 86; RESP 18; TEMP 98.2
--- NOTE | 2017-04-17 01:31 | DS ---
HISTORY OF PRESENT ILLNESS: I saw him resting comfortably in bed. He is alert, talking, in good spirits. He is back to his baseline. He is on IV fluids which I will continue, Coreg, Drisdol, Fergon, insulin coverage, Januvia, Nephro-J Luis, Rocephin, Restoril, and Tylenol. He needs probably five more days of Rocephin. PHYSICAL EXAMINATION: VITAL SIGNS: Temperature 99, 81 pulse, 149/79 blood pressure, 20 respiratory rate, 92% of O2 sat on room air. HEAD: Atraumatic, normocephalic. HEART: Regular rate. LUNGS: Clear to auscultation. ABDOMEN: Soft. EXTREMITIES: No edema. LABORATORY DATA: He has 151 sodium, potassium is 4.2. BUN 47 - getting better, creatinine 2.6 - getting better. GFR is up to 24, sugar is 133, calcium is 9.3, total bilirubin is 0.5. AST is 43, ALT is 31, alkaline phosphatase 106, total protein 7.7. He had a white count of 8.6 yesterday, hemoglobin 9.7. Labs are pending today. ASSESSMENT AND PLAN: He was here for change of mentation, lethargy, high sodium, UTI, dehydration, acute kidney injury. I am hoping to discharge him back to subacute rehab at [facility] today for further physical therapy, Rocephin, and IV fluids. We will check his labs there. Grabiel Sun DO
== END 2017-04-16 15:45 | DRG 682 ==
LOC: ED 20:15 → ERH 22:57 → 2RNO 04-15 01:12
PROVIDERS: ADMIT Family Medicine; ATTEND Family Medicine
DX: N17.9 Acute kidney failure, unspecified (principal); G92 Toxic encephalopathy; E87.0 Hyperosmolality and hypernatremia; N39.0 Urinary tract infection, site not specified; L97.919 Non-pressure chronic ulcer of unspecified part of right lower leg with unspecified severity; E11.622 Type 2 diabetes mellitus with other skin ulcer; E11.22 Type 2 diabetes mellitus with diabetic chronic kidney disease; E86.0 Dehydration; N18.3 Chronic kidney disease, stage 3 (moderate); I12.9 Hypertensive chronic kidney disease with stage 1 through stage 4 chronic kidney disease, or unspecified chronic kidney disease; F03.90 Unspecified dementia, unspecified severity, without behavioral disturbance, psychotic disturbance, mood disturbance, and anxiety; M19.90 Unspecified osteoarthritis, unspecified site; N25.81 Secondary hyperparathyroidism of renal origin; E55.9 Vitamin D deficiency, unspecified; D64.9 Anemia, unspecified; Z87.891 Personal history of nicotine dependence; Z79.84 Long term (current) use of oral hypoglycemic drugs

== ENCOUNTER 2017-04-23 13:09 | Inpatient (IN) | payer MEDICARE ==
[2017-04-23 13:09] VITALS: BMI 23.6
--- NOTE | 2017-04-23 13:52 | ED PDOC ---
Arrival/HPI - General Chief Complaint: Lower Extremity Problem/Injury Time Seen by Provider: 04/23/17 13:43 Historian: Patient - History of Present Illness Narrative History of Present Illness (Text): 04/23/17 13:49 Blas Gandhi is an 86 year old male, whose past medical history includes hypertension, diabetes, and dementia, who presents to the Emergency department transferred from care home for evaluation of Gangrene right great toe, and cellulitis. Information taken from care home chart and PMD. Patient had labs done on 04/19/2017 as follow: Na 154 K 4.4 CL 112 CO21 BUN 36 Creat 2.0 Time/Duration: Other (see hpi) Context: Home Past Medical History - Provider Review Nursing Documentation Reviewed: Yes - Infectious Disease Hx of Infectious Diseases: None - Tetanus Immunization Tetanus Immunization: Unknown - Cardiac Hx Cardiac Disorders: Yes Hx Hypertension: Yes - Pulmonary Hx Respiratory Disorders: No - Neurological Hx Neurological Disorder: Yes Hx Dementia: Yes - HEENT Hx HEENT Disorder: No - Renal Hx Renal Disorder: No - Endocrine/Metabolic Hx Diabetes Mellitus Type 2: Yes - Hematological/Oncological Hx Blood Disorders: No - Integumentary Hx Dermatological Disorder: Yes Hx Cellulitis: Yes - Musculoskeletal/Rheumatological Hx Arthritis: Yes - Gastrointestinal Hx Gastrointestinal Disorders: No - Genitourinary/Gynecological Hx Genitourinary Disorders: No - Psychiatric Hx Psychophysiologic Disorder: No Hx Substance Use: No - Anesthesia Hx Anesthesia: No Hx Anesthesia Reactions: No Hx Malignant Hyperthermia: No - Suicidal Assessment Feels Threatened In Home Enviroment: No Family/Social History - Physician Review Nursing Documentation Reviewed: Yes Family/Social History: Other (noncontributory) Smoking Status: Former Smoker Hx Alcohol Use: No Hx Substance Use: No Allergies/Home Meds Allergies/Adverse Reactions: Allergies No Known Allergies Allergy (Verified 04/07/17 10:03) Home Medications: Home Meds Medication Instructions Recorded Confirmed Pregabalin [Lyrica] 75 mg PO BID 04/07/17 04/23/17 Sodium Bicarbonate Tab [Sodium 650 mg PO BID 04/07/17 04/23/17 Bicarbonate Tab] Temazepam [Restoril] 15 mg PO HS 04/07/17 04/23/17 Temazepam [Restoril] 15 mg PO HS 04/07/17 04/23/17 Vitamin B Complex/Vit C/Folic 1 mg PO DAILY 04/07/17 04/23/17 [Nephro-J Luis] Review of Systems - Review of Systems Systems not reviewed;Unavailable: Other (information take from care home chart) Physical Exam Vital Signs Temp Pulse Resp BP Pulse Ox 04/23/17 19:49 92 H 18 162/90 H 97 04/23/17 19:32 99 H 18 184/93 H 98 04/23/17 18:40 94 H 190/109 H 04/23/17 18:05 88 20 145/94 H 95 04/23/17 13:37 98.1 F 85 22 119/68 96 Temperature: Afebrile Blood Pressure: Normal Pulse: Regular Respiratory Rate: Normal Appearance: Positive for: Well-Appearing, Non-Toxic Pain Distress: None - Systems Exam Head: Present: Atraumatic, Normocephalic Pupils: Present: PERRL Extroacular Muscles: Present: EOMI Conjunctiva: Present: Normal Mouth: Present: Moist Mucous Membranes Neck: Present: Normal Range of Motion Respiratory/Chest: Present: Clear to Auscultation, Good Air Exchange. No: Respiratory Distress, Accessory Muscle Use, Wheezes, Retracting, Rhonchi Cardiovascular: Present: Regular Rate and Rhythm, Normal S1, S2. No: Murmurs Abdomen: Present: Normal Bowel Sounds. No: Tenderness, Distention, Peritoneal Signs, Rebound, Guarding Back: Present: Normal Inspection Upper Extremity: Present: Normal Inspection, Normal ROM, NORMAL PULSES, Neurovascularly Intact, Capillary Refill < 2s. No: Cyanosis, Edema Lower Extremity: Present: Normal ROM, Other ((+) gangrene on right great toe . No cellulitis or abscess). No: Edema, CALF TENDERNESS Neurological: Present: GCS=15, CN II-XII Intact Skin: Present: Warm, Dry, Normal Color. No: Rashes Psychiatric: Present: Alert Medical Decision Making ED Course and Treatment: 04/23/17 18:00 Dr. Sun came to examine patient and he agrees with plan for admission. 04/23/17 18:33 Nurses have attempted multiple times to draw blood on patient without success 04/23/17 19:[address] Sun regarding Hypernatremia of . He recommended to increase half NS at a rate of 60 ml/hr, and to enter a consult for Dr. Echols Renal doctor. Re-evaluation Time: 18:26 Reassessment Condition: Re-examined, Improving,but remains with symptoms - Lab Interpretations I have reviewed the lab results: Yes Interpretation: Abnormal lab values - RAD Interpretation Narrative RAD Interpretations (Text): 04/23/17 14:34 HISTORY: admission COMPARISON: 04/14/2017 FINDINGS: LUNGS: The lungs are well inflated. There is linear scarring in the left lower lobe. PLEURA: No significant pleural effusion identified, no pneumothorax apparent. CARDIOVASCULAR: Normal. OSSEOUS STRUCTURES: No significant abnormalities. VISUALIZED UPPER ABDOMEN: Normal. OTHER FINDINGS: None. IMPRESSION: No acute findings. Radiology Orders: 04/23/17 13:54 CHEST PORTABLE [RAD] Stat - Medication Orders Current Medication Orders: Carvedilol (Coreg) 12.5 mg PO BID [facility] Last Admin: 04/23/17 18:40 Dose: 12.5 mg MAR Pulse and Blood Pressure Document 04/23/17 18:40 [employer] CONDITIONING [employer]IL [employer]SEMBLER (Rec: 04/23/17 18:44 [employer] CONDITIONING [employer]IL ASSEMBLER [id number]) Pulse Pulse Rate (60-90) 94 Blood Pressure Blood Pressure (100/60-150/90) 190/109 Sodium Chloride (Sodium Chloride 0.45%) 1,000 mls @ 60 mls/hr IV .[id number] [facility] Last Admin: 04/23/17 20:05 Dose: 60 mls/hr eMAR Start Stop Document 04/23/17 20:05 AD (Rec: 04/23/17 20:06 AD [id number]) Intravenous Solution Start Date 04/23/17 Start Time 20:05 Non-Formulary Medication (Temazepam [Restoril]) 15 mg PO HS [facility] Sitagliptin Phosphate (Januvia) 25 mg PO DAILY [facility] Sodium Bicarbonate (Sodium Bicarbonate Tab) 650 mg PO BID [facility] Last Admin: 04/23/17 18:44 Dose: 650 mg Discontinued Medications Sodium Chloride (Sodium Chloride 0.45%) 1,000 mls @ 30 mls/hr IV .Q24H [facility] Last Admin: 04/23/17 18:23 Dose: 30 mls/hr eMAR Start Stop Document 04/23/17 18:23 AIR CONDITIONING COIL ASSEMBLER (Rec: 04/23/17 18:24 AIR CONDITIONING COIL ASSEMBLER [id number]) Intravenous Solution Start Date 04/23/17 Start Time 18:24 Disposition/Present on Arrival - Present on Arrival Any Indicators Present on Arrival: No History of DVT/PE: No History of Uncontrolled Diabetes: Yes Urinary Catheter: No History of Decub. Ulcer: No History Surgical Site Infection Following: None - Disposition Have Diagnosis and Disposition been Completed?: Yes Diagnosis: Cellulitis in diabetic foot, Gangrene of toe, Hypernatremia Disposition: HOSPITALIZED Disposition Time: 18:34 Patient Plan: Admission Patient Problems: Current Active Problems Problem Status Onset Cellulitis in diabetic foot Acute Gangrene of toe Acute Hypernatremia Acute Condition: GOOD
--- NOTE | 2017-04-23 14:32 | RAD ---
HISTORY: admission COMPARISON: 04/14/2017 FINDINGS: LUNGS: The lungs are well inflated. There is linear scarring in the left lower lobe. PLEURA: No significant pleural effusion identified, no pneumothorax apparent. CARDIOVASCULAR: Normal. OSSEOUS STRUCTURES: No significant abnormalities. VISUALIZED UPPER ABDOMEN: Normal. OTHER FINDINGS: None. IMPRESSION: No acute findings.
[2017-04-23] MEDS ORDERED: Sodium Chloride 0.45% 1,000 ML IV SCH (17:45)
[2017-04-23 19:33] LABS: BASO # 0.01 K/mm3 (0.0-2.0); BASO % 0.1 % (0.0-3.0); EOS # 0.3 (0.0-0.7); EOS % 2.5 % (1.5-5.0); GRAN # 8.34 (1.4-6.5); GRAN % 76.8 % (50.0-68.0); HEMOGLOBIN 11.6 g/dL (14.0-18.0); LYMPH # 1.7 (1.2-3.4); LYMPH % 15.2 % (22.0-35.0); MEAN CELL VOLUME 94.5 fl (80.0-105.0); MEAN CORPUSCULAR HGB CONC 30.7 g/dl (31.0-37.0); MONO # 0.6 (0.1-0.6); MONO % 5.4 % (1.0-6.0); RED CELL DISTRIBUTION WIDTH 14.7 % (11.5-14.5); WHITE BLOOD COUNT 10.9 10^3/ul (4.5-11.0)
[2017-04-23 19:38] LABS: INR 1.28 (0.93-1.08); PARTIAL THROMBOPLASTIN TIME 20.3 Seconds (25.1-36.5); PROTHROMBIN TIME 14.7 SECONDS (9.4-12.5)
[2017-04-23 19:51] LABS: ALB/GLOB RATIO 0.9 (1.1-1.8); ALBUMIN 3.7 g/dL (3.0-4.8); CALCIUM 9.9 mg/dL (8.4-10.5)
[2017-04-23 19:58] LABS: URINE APPEARANCE CLEAR (CLEAR); URINE BILIRUBIN NEGATIVE (NEGATIVE); URINE BLOOD MODERATE (NEGATIVE); URINE COLOR YELLOW (YELLOW); URINE GLUCOSE (UA) NEGATIVE (NEGATIVE); URINE LEUKOCYTE ESTERASE NEGATIVE Leu/uL (NEGATIVE); URINE PROTEIN 100 mg/dL (<30 mg/dL); URINE UROBILINOGEN 0.2 E.U./dL (<1 E.U./dL)
[2017-04-23 20:03] LABS: URINE BACTERIA RARE (NEG); URINE EPITHELIAL CELLS 0 - 2 /hpf (0-5)
[2017-04-23] MEDS: Sodium Chloride 0.45% 1,000 ML IV SCH (20:05)
[2017-04-24] MEDS: Linezolid 600 mg in D5W 300 ml 600 MG/300 ML BAG IVPB SCH ×3 (00:48→21:30)
--- NOTE | 2017-04-24 05:10 | HP ---
HISTORY OF PRESENT ILLNESS: I sent Blas to the hospital with a right first toe gangrene. He was getting treated in the shelter, got bad. He lost the nail, and we called in Podiatry, and we sent him to the emergency room. He might have an amputation. PAST MEDICAL HISTORY: He has a past medical history of dementia, diabetes, hypertension, neuropathy, combative behavior at times, cellulitis, arthritis. FAMILY HISTORY: No real family history. SOCIAL HISTORY: Former smoker. No alcohol. No drugs. He is a 86-year-old man with a right first toe gangrene. ALLERGIES: HE HAS NO KNOWN DRUG ALLERGIES. MEDICATIONS: He is on Lyrica, sodium bicarbonate, Restoril, vitamins. PHYSICAL EXAMINATION: VITAL SIGNS: He has 98.1 temperature, 85 pulse, 22 respiratory rate, 119/60 blood pressure, 96% O2 sat. GENERAL: He is demented, does answer questions. No changes in vision or hearing. No chest pain or shortness of breath. No abdominal pain. No pain. He is well appearing, nontoxic. HEENT: Head is atraumatic, normocephalic. Extraocular muscles are intact. Pupils are equal and reactive to light and accommodation. Throat is moist. NECK: Supple. HEART: Regular rate. LUNGS: Decreased breath sounds, but clear to auscultation. ABDOMEN: Soft, nontender. Positive bowel sounds. SKIN: He has a right first toe gangrene, poor circulation. NEUROLOGIC: GCS is 15. Cranial nerves II through XII grossly intact. Besides the right first toe gangrene, he has multiple areas of poor turgor. He is alert, not oriented. LABORATORY DATA: He had a chest x-ray, which showed no acute findings. The labs are pending. He is to have consults with Infectious Disease and Podiatry. He may need Vascular. We will continue with aggressive treatment and care on Blas Gandhi. He will on his IV fluids, Coreg, Januvia, sodium bicarbonate, Restoril. We will feed him, and I will see what we can do to help his circulation of the right foot. He might need to have an amputation though of the toe. Grabiel Sun DO
--- NOTE | 2017-04-24 09:31 | CON ---
DATE: HISTORY OF PRESENT ILLNESS: An 86-year-old male seen at bedside for consultation, evaluation and management of a gangrenous right hallux. The patient was seen at [facility] where he bumped his right great toe approximately 3 weeks ago roaming the halls where he developed a blister, which has progressed on to natalee gangrene. He was sent to the hospital for vascular workup for right hallux amputation or possibly more proximal amputation pending vascular studies and evaluation. PAST MEDICAL HISTORY: Significant for dementia with aggressive displays of behavior, diabetes with peripheral arterial disease and peripheral neuropathy, essential hypertension and arthritis. FAMILY HISTORY: Unremarkable. SOCIAL HISTORY: The patient is a former heavy smoker, quit many years ago. No alcohol or illicit drugs mentioned in his history. ALLERGIES: THE PATIENT HAS NO KNOWN DRUG ALLERGIES. MEDICATIONS: All medications noted in MAR. PAST SURGICAL HISTORY: None reported. VITAL SIGNS: Revealed a temperature of 97.7, pulse rate of 70, blood pressure of 166/89, respiratory rate of 18. LABORATORY DATA: Laboratory findings reveal a white count of 10.9, hemoglobin of 11.6, hematocrit of 37.8, platelet count of 197. There is no microbiology report. There are no arterial studies and there are no x-rays or any other radiographs. OBJECTIVE: Nonpalpable pedal pulses noted bilaterally. Absent pedal hair growth noted bilaterally. Lower extremity skin presents thin, shining, discolored bilaterally. Sharp-dull sensation is absent using 5.07 g monofilament wire testing bilaterally. Capillary filling time is delayed x9 and absent on the right great toe secondary to gangrene. Right great toe presents with dry gangrene at the proximal interphalangeal joint that extends distally. The ulceration is appeared to have demarcated. There are no signs of purulence or abscess formation. There is no malodor. There is no probing to tendon or bone. 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 PLAN: The patient was examined. Wound was cleansed and an application of Betadine solution and a dry sterile dressing was applied. Arterial Dopplers were done in February of this year that reveals severe bilateral tibial disease. X-rays were ordered on the right foot. At this point, we will wait for vascular evalaution to determine if a hallux amputation is needed or a more proximal amputation is warranted. We would recommend immediate consult with Dr. Bill Awad and infectious disease consult with Dr. Rodriguez. The patient will be seen and followed daily and we will await vascular input for further definitive plans. René Saleh DPM [place]
--- NOTE | 2017-04-24 12:45 | RAD ---
PROCEDURE: Right Foot Radiographs. HISTORY: gangrene great toe COMPARISON: None. FINDINGS: BONES: Normal. No fracture. JOINTS: Normal. SOFT TISSUES: Normal. OTHER FINDINGS: None. IMPRESSION: No acute findings
[2017-04-24] MEDS: Sodium Chloride 0.45% 1,000 ML IV SCH ×3 (13:31→21:32)
[2017-04-24 14:31] LABS: BASO # 0.01 K/mm3 (0.0-2.0); BASO % 0.1 % (0.0-3.0); EOS # 0.4 (0.0-0.7); EOS % 4.1 % (1.5-5.0); GRAN # 6.39 (1.4-6.5); GRAN % 73.3 % (50.0-68.0); HEMOGLOBIN 10.8 g/dL (14.0-18.0); LYMPH # 1.5 (1.2-3.4); LYMPH % 17.2 % (22.0-35.0); MEAN CELL VOLUME 92.8 fl (80.0-105.0); MEAN CORPUSCULAR HEMOGLOBIN 27.8 pg (25.0-35.0); MEAN PLATELET VOLUME 11.7 fl (7.0-11.0); MONO # 0.5 (0.1-0.6); MONO % 5.3 % (1.0-6.0); RBC 3.88 10^6/uL (3.5-6.1); RED CELL DISTRIBUTION WIDTH 14.6 % (11.5-14.5); WHITE BLOOD COUNT 8.7 10^3/ul (4.5-11.0)
[2017-04-24 14:52] LABS: ALB/GLOB RATIO 0.9 (1.1-1.8); ALBUMIN 3.1 g/dL (3.0-4.8); CALCIUM 9.2 mg/dL (8.4-10.5)
--- NOTE | 2017-04-24 14:59 | PN ---
DATE: SUBJECTIVE: I saw him in bed. He was quite tired today. He is on IV fluids. He got a shot of Ativan IM for being a little bit unruly, Catapres, Coreg, Januvia, Norvasc, sodium bicarbonate and Restoril. PHYSICAL EXAMINATION: VITAL SIGNS: He has a 97.7 temp, 70 pulse, 18 respiratory rate, 97% O2 sat on room air. HEENT: His head is atraumatic, normocephalic. HEART: Regular rate. LUNGS: Decreased breath sounds, but clear. ABDOMEN: Soft. EXTREMITIES: No edema. ASSESSMENT AND PLAN: He has gangrene, right first toe; peripheral artery disease; dementia; diabetes; acute kidney injury; hypertension; high sodium. We are trying to get another blood test done today and nobody seemed to get his blood, so we do not know how the sodium is. It was as high as 165. He is on fluids. Hopefully, it came down. We are going to check these numbers. He will be seen by the nuisance wildlife trapper. He has consults with Infectious Disease, Vascular and Renal. We will continue aggressive treatment and care, try and get the labs done and this is a progress note on Blas Estrada who has multiple issues and probably needs an amputation. Grabiel Sun DO
--- NOTE | 2017-04-24 15:06 | CP.PCM.CON ---
History of Present Illness - History of Present Illness History of Present Illness: Consult for Hypernatremia/ELIZABETH HPI: 86 yo M w/ pmh of CKD, HTN, dementia presenting w/ gangrene. Pt has been at [facility] and was sent for further eval for worsening toe gangrene He is unable to give any further history. Based on review of available hospital records - he has some degree of CKD presumably from HTN that appears to be stable. He denies any complaints. He was found to have significant hypernatremia. ROS: a full detailed ros is negative except as in my hpi pmh: htn, dm, ckd, dementia famhx: unable to obtain due to dementia sochx: unable to obtain due to dementia pe: vs as below gen: nad sclera: anicteric op: poor dentition, dry neck: supple cv: +s1+s2 lungs: cta abd: soft ext: no edema neuro: a+ox0, demented psych: flat skin: dressing on R foot labs and imaging reviewed imp: ARF/ CKD 3/ Hypertension/ Hypernatremia/ Anemia/ Osteomyelitis of toe plan: Renal function is at about baseline will inc 1/2 ns to 100 cc/hr - slight improvement overnight - will continue to monitor and adjust as necessary Abx per primary team BP well controlled now f/u podiatry evaluation thank you for this interesting consult please call with questions [phone] Past Patient History - Infectious Disease Hx of Infectious Diseases: None - Tetanus Immunizations Tetanus Immunization: Unknown - Past Social History Smoking Status: Former Smoker - CARDIAC Hx Cardiac Disorders: Yes Hx Hypertension: Yes Hx Peripheral Vascular Disease: Yes - PULMONARY Hx Respiratory Disorders: Yes Hx Chronic Obstructive Pulmonary Disease (COPD): Yes - NEUROLOGICAL Hx Neurological Disorder: Yes Hx Dementia: Yes - HEENT Hx HEENT Problems: No - RENAL Hx Chronic Kidney Disease: No Other/Comment: hyponatremia - ENDOCRINE/METABOLIC Hx Diabetes Mellitus Type 2: Yes - HEMATOLOGICAL/ONCOLOGICAL Hx Blood Disorders: No - INTEGUMENTARY Hx Dermatological Problems: Yes (right great toe necrotic) - MUSCULOSKELETAL/RHEUMATOLOGICAL Hx Arthritis: Yes Hx Falls: Yes - GASTROINTESTINAL Hx Gastrointestinal Disorders: No - GENITOURINARY/GYNECOLOGICAL Hx Genitourinary Disorders: No - PSYCHIATRIC Hx Psychophysiologic Disorder: No - SURGICAL HISTORY Hx Surgeries: No - ANESTHESIA Hx Anesthesia: No Hx Anesthesia Reactions: No Hx Malignant Hyperthermia: No Meds Allergies/Adverse Reactions: Allergies Allergy/AdvReac Type Severity Reaction Status Date / Time No Known Allergies Allergy Verified 04/07/17 10:03 - Medications Medications: Current Medications Amlodipine Besylate (Norvasc) 10 mg PO DAILY [facility] Last Admin: 04/24/17 13:32 Dose: 10 mg Carvedilol (Coreg) 12.5 mg PO BID [facility] Last Admin: 04/24/17 11:14 Dose: 12.5 mg Sodium Chloride (Sodium Chloride 0.45%) 1,000 mls @ 60 mls/hr IV .[id number] [facility] Last Admin: 04/24/17 13:31 Dose: 60 mls/hr Linezolid (Zyvox 600mg/300ml D5w) 600 mg in 300 mls @ 200 mls/hr IVPB Q12 [facility] PRN Reason: Protocol Stop: 04/30/17 22:31 Last Admin: 04/24/17 11:16 Dose: 200 mls/hr Non-Formulary Medication (Temazepam [Restoril]) 15 mg PO HS [facility] Last Admin: 04/23/17 22:15 Dose: Not Given Sitagliptin Phosphate (Januvia) 25 mg PO DAILY [facility] Last Admin: 04/24/17 11:14 Dose: 25 mg Sodium Bicarbonate (Sodium Bicarbonate Tab) 650 mg PO BID [facility] Last Admin: 04/24/17 11:16 Dose: 650 mg Results - Vital Signs Recent Vital Signs: Last Vital Signs Temp 97.7 F 04/24/17 07:30 Pulse 70 04/24/17 11:14 Resp 18 04/24/17 07:30 BP 117/64 04/24/17 13:32 Pulse Ox 97 04/24/17 07:30 - Labs Result Diagrams: 04/24/17 14:15 04/24/17 14:15 Labs: Laboratory Results - last 24 hr 04/23/17 04/23/17 04/23/17 19:11 19:11 19:11 WBC 10.9 D RBC 4.00 Hgb 11.6 L Hct 37.8 L MCV 94.5 MCH 29.0 MCHC 30.7 L RDW 14.7 H Plt Count 197 MPV 12.0 H Gran % 76.8 H Lymph % (Auto) 15.2 L [place] % (Auto) 5.4 Eos % (Auto) 2.5 Baso % (Auto) 0.1 Gran # 8.34 H Lymph # (Auto) 1.7 [place] # (Auto) 0.6 Eos # (Auto) 0.3 Baso # (Auto) 0.01 PT 14.7 H INR 1.28 H APTT 20.3 L Sodium 165 H* Potassium 3.7 Chloride 124 H Carbon Dioxide 26 Anion Gap 18 BUN 42 H Creatinine 2.2 H Est GFR ( Amer) 35 Est GFR (Non-Af Amer) 29 POC Glucose (mg/dL) Random Glucose 163 H Lactic Acid Calcium 9.9 Total Bilirubin 0.7 AST 37 ALT 29 Alkaline Phosphatase 115 Total Protein 8.0 Albumin 3.7 Globulin 4.2 Albumin/Globulin Ratio 0.9 L Urine Color Urine Appearance Urine pH Ur Specific [place] Urine Protein Urine Glucose (UA) Urine Ketones Urine Blood Urine Nitrate Urine Bilirubin Urine Urobilinogen Ur Leukocyte Esterase Urine RBC Urine WBC Ur Epithelial Cells Urine Bacteria 04/23/17 04/23/17 04/23/17 19:11 19:42 21:21 WBC RBC Hgb Hct MCV MCH MCHC RDW Plt Count MPV Gran % Lymph % (Auto) [place] % (Auto) Eos % (Auto) Baso % (Auto) Gran # Lymph # (Auto) [place] # (Auto) Eos # (Auto) Baso # (Auto) PT INR APTT Sodium Potassium Chloride Carbon Dioxide Anion Gap BUN Creatinine Est GFR ( Amer) Est GFR (Non-Af Amer) POC Glucose (mg/dL) 126 H Random Glucose Lactic Acid 1.5 Calcium Total Bilirubin AST ALT Alkaline Phosphatase Total Protein Albumin Globulin Albumin/Globulin Ratio Urine Color Yellow Urine Appearance Clear Urine pH 6.0 Ur Specific [place] 1.025 Urine Protein 100 H Urine Glucose (UA) Negative Urine Ketones Trace H Urine Blood Moderate H Urine Nitrate Negative Urine Bilirubin Negative Urine Urobilinogen 0.2 Ur Leukocyte Esterase Negative Urine RBC 2 - 5 Urine WBC 1 - 3 Ur Epithelial Cells 0 - 2 Urine Bacteria Rare 04/24/17 04/24/17 14:15 14:15 WBC 8.7 D RBC 3.88 Hgb 10.8 L Hct 36.0 L MCV 92.8 MCH 27.8 MCHC 30.0 L RDW 14.6 H Plt Count 182 MPV 11.7 H Gran % 73.3 H Lymph % (Auto) 17.2 L [place] % (Auto) 5.3 Eos % (Auto) 4.1 Baso % (Auto) 0.1 Gran # 6.39 Lymph # (Auto) 1.5 [place] # (Auto) 0.5 Eos # (Auto) 0.4 Baso # (Auto) 0.01 PT INR APTT Sodium 161 H* Potassium 3.7 Chloride 124 H Carbon Dioxide 25 Anion Gap 16 BUN 36 H Creatinine 2.1 H Est GFR ( Amer) 36 Est GFR (Non-Af Amer) 30 POC Glucose (mg/dL) Random Glucose 208 H Lactic Acid Calcium 9.2 Total Bilirubin 0.7 AST 27 ALT 31 Alkaline Phosphatase 88 Total Protein 6.7 Albumin 3.1 Globulin 3.6 Albumin/Globulin Ratio 0.9 L Urine Color Urine Appearance Urine pH Ur Specific [place] Urine Protein Urine Glucose (UA) Urine Ketones Urine Blood Urine Nitrate Urine Bilirubin Urine Urobilinogen Ur Leukocyte Esterase Urine RBC Urine WBC Ur Epithelial Cells Urine Bacteria
--- NOTE | 2017-04-24 15:08 | CP.PCM.CON ---
History of Present Illness - History of Present Illness History of Present Illness: 86 year old male with PMH of DM, HTN, dementia was brought in from the retirement for gangrene and ulceration of the right hallux, associated with some surrounding swelling. There is no note of fever, no convulsions, no diarrhea, no loss of consciousness, no vomiting. Full review of systems is unobtainable because of the patient's dementia. Infectious Diseases consult is requested to further evaluate and manage. Review of Systems - Review of Systems Systems not reviewed;Unavailable: Dementia Past Patient History - Infectious Disease Hx of Infectious Diseases: None - Tetanus Immunizations Tetanus Immunization: Unknown - Past Social History Smoking Status: Former Smoker - CARDIAC Hx Cardiac Disorders: Yes Hx Hypertension: Yes - PULMONARY Hx Respiratory Disorders: No - NEUROLOGICAL Hx Neurological Disorder: Yes Hx Dementia: Yes - HEENT Hx HEENT Problems: No - RENAL Hx Chronic Kidney Disease: No - ENDOCRINE/METABOLIC Hx Diabetes Mellitus Type 2: Yes - HEMATOLOGICAL/ONCOLOGICAL Hx Blood Disorders: No - INTEGUMENTARY Hx Dermatological Problems: Yes Hx Cellulitis: Yes - MUSCULOSKELETAL/RHEUMATOLOGICAL Hx Arthritis: Yes - GASTROINTESTINAL Hx Gastrointestinal Disorders: No - GENITOURINARY/GYNECOLOGICAL Hx Genitourinary Disorders: No - PSYCHIATRIC Hx Psychophysiologic Disorder: No Hx Substance Use: No - SURGICAL HISTORY Hx Surgeries: No - ANESTHESIA Hx Anesthesia: No Hx Anesthesia Reactions: No Hx Malignant Hyperthermia: No Meds Allergies/Adverse Reactions: Allergies Allergy/AdvReac Type Severity Reaction Status Date / Time No Known Allergies Allergy Verified 04/07/17 10:03 - Medications Medications: Current Medications Carvedilol (Coreg) 12.5 mg PO BID [facility] Last Admin: 04/23/17 18:40 Dose: 12.5 mg Sodium Chloride (Sodium Chloride 0.45%) 1,000 mls @ 60 mls/hr IV .[id number] [facility] Last Admin: 04/23/17 20:05 Dose: 60 mls/hr Linezolid (Zyvox 600mg/300ml D5w) 600 mg in 300 mls @ 200 mls/hr IVPB Q12 [facility] PRN Reason: Protocol Stop: 04/30/17 22:31 Non-Formulary Medication (Temazepam [Restoril]) 15 mg PO HS [facility] Last Admin: 04/23/17 22:15 Dose: Not Given Sitagliptin Phosphate (Januvia) 25 mg PO DAILY [facility] Sodium Bicarbonate (Sodium Bicarbonate Tab) 650 mg PO BID [facility] Last Admin: 04/23/17 18:44 Dose: 650 mg Physical Exam - Constitutional Appears: Chronically Ill - Head Exam Head Exam: NORMAL INSPECTION - ENT Exam ENT Exam: Mucous Membranes Moist - Neck Exam Neck exam: Negative for: Meningismus - Respiratory Exam Respiratory Exam: Decreased Breath Sounds - Cardiovascular Exam Cardiovascular Exam: +S1, +S2 - GI/Abdominal Exam GI & Abdominal Exam: Soft. absent: Tenderness - Extremities Exam Additional comments: right foot with dressings in place Results - Vital Signs Recent Vital Signs: Last Vital Signs Temp 98.1 F 04/23/17 13:37 Pulse 92 H 04/23/17 20:44 Resp 18 04/23/17 20:44 BP 152/68 H 04/23/17 20:44 Pulse Ox 96 04/23/17 20:44 - Labs Result Diagrams: 04/24/17 14:15 04/24/17 14:15 Labs: Laboratory Results - last 24 hr 04/23/17 04/23/17 04/23/17 19:11 19:11 19:11 WBC 10.9 D RBC 4.00 Hgb 11.6 L Hct 37.8 L MCV 94.5 MCH 29.0 MCHC 30.7 L RDW 14.7 H Plt Count 197 MPV 12.0 H Gran % 76.8 H Lymph % (Auto) 15.2 L [place] % (Auto) 5.4 Eos % (Auto) 2.5 Baso % (Auto) 0.1 Gran # 8.34 H Lymph # (Auto) 1.7 [place] # (Auto) 0.6 Eos # (Auto) 0.3 Baso # (Auto) 0.01 PT 14.7 H INR 1.28 H APTT 20.3 L Sodium 165 H* Potassium 3.7 Chloride 124 H Carbon Dioxide 26 Anion Gap 18 BUN 42 H Creatinine 2.2 H Est GFR ( Amer) 35 Est GFR (Non-Af Amer) 29 POC Glucose (mg/dL) Random Glucose 163 H Lactic Acid Calcium 9.9 Total Bilirubin 0.7 AST 37 ALT 29 Alkaline Phosphatase 115 Total Protein 8.0 Albumin 3.7 Globulin 4.2 Albumin/Globulin Ratio 0.9 L Urine Color Urine Appearance Urine pH Ur Specific [place] Urine Protein Urine Glucose (UA) Urine Ketones Urine Blood Urine Nitrate Urine Bilirubin Urine Urobilinogen Ur Leukocyte Esterase Urine RBC Urine WBC Ur Epithelial Cells Urine Bacteria 04/23/17 04/23/17 04/23/17 19:11 19:42 21:21 WBC RBC Hgb Hct MCV MCH MCHC RDW Plt Count MPV Gran % Lymph % (Auto) [place] % (Auto) Eos % (Auto) Baso % (Auto) Gran # Lymph # (Auto) [place] # (Auto) Eos # (Auto) Baso # (Auto) PT INR APTT Sodium Potassium Chloride Carbon Dioxide Anion Gap BUN Creatinine Est GFR ( Amer) Est GFR (Non-Af Amer) POC Glucose (mg/dL) 126 H Random Glucose Lactic Acid 1.5 Calcium Total Bilirubin AST ALT Alkaline Phosphatase Total Protein Albumin Globulin Albumin/Globulin Ratio Urine Color Yellow Urine Appearance Clear Urine pH 6.0 Ur Specific [place] 1.025 Urine Protein 100 H Urine Glucose (UA) Negative Urine Ketones Trace H Urine Blood Moderate H Urine Nitrate Negative Urine Bilirubin Negative Urine Urobilinogen 0.2 Ur Leukocyte Esterase Negative Urine RBC 2 - 5 Urine WBC 1 - 3 Ur Epithelial Cells 0 - 2 Urine Bacteria Rare Assessment & Plan - Assessment and Plan (Free Text) Plan: Assessment Right hallux gangrene with cellulitis, R/O peripheral arterial disease history of right ankle, foot infected ulcer with skin and skin structure infection, growing Enterobacter and Enterococcus with no osteomyelitis on MRI DM HTN Plan started patient on Zyvox and Zosyn pending further Podiatry plans, which also hinges on vascular studies follow up blood and wound cx will monitor clinically
[2017-04-24] MEDS: Piperacillin/Tazobact 3.375 gm 100 ML IVPB SCH (23:10)
[2017-04-25] MEDS: Piperacillin/Tazobact 3.375 gm 100 ML IVPB SCH ×3 (06:42→21:09)
[2017-04-25] MEDS: Linezolid 600 mg in D5W 300 ml 600 MG/300 ML BAG IVPB SCH ×2 (10:39→21:09)
[2017-04-25 10:58] LABS: HEMOGLOBIN 11.5 g/dL (14.0-18.0); MEAN CELL VOLUME 95.7 fl (80.0-105.0); MEAN CORPUSCULAR HEMOGLOBIN 30.6 pg (25.0-35.0); MEAN CORPUSCULAR HGB CONC 31.9 g/dl (31.0-37.0); MEAN PLATELET VOLUME 12.4 fl (7.0-11.0); RBC 3.76 10^6/uL (3.5-6.1); RED CELL DISTRIBUTION WIDTH 14.8 % (11.5-14.5); WHITE BLOOD COUNT 8.9 10^3/ul (4.5-11.0)
--- NOTE | 2017-04-25 11:19 | CP.PCM.PN ---
Subjective - Date & Time of Evaluation Date of Evaluation: 04/25/17 Time of Evaluation: 11:18 - Subjective Subjective: RENAL FOLLOWUP Seen and examined feels good denies n/v pe: vs as below gen: nad sclera: anicteric op: poor dentition, dry neck: supple cv: +s1+s2 lungs: cta abd: soft ext: no edema neuro: alert and oriented follows commands psych: flat skin: ulcerations on R foot labs and imaging reviewed imp: ARF/ CKD 3/ Hypertension/ Hypernatremia/ Anemia/ Osteomyelitis of toe plan: Renal function is at about baseline awaiting repeat labs today will adjust fluids accordingly abx per primary BP well controlled now f/u podiatry evaluation Objective - Vital Signs/Intake and Output Vital Signs (last 24 hours): Temp Pulse Resp BP Pulse Ox 98.0 F 70 18 188/94 H 95 04/25/17 07:30 04/25/17 10:40 04/25/17 07:30 04/25/17 10:40 04/25/17 07:30 Intake and Output: 04/25/17 04/25/17 06:59 18:59 Intake Total 100 Balance 100 - Medications Medications: Current Medications Amlodipine Besylate (Norvasc) 10 mg PO DAILY [facility] Last Admin: 04/25/17 10:40 Dose: 10 mg Carvedilol (Coreg) 12.5 mg PO BID [facility] Last Admin: 04/25/17 10:40 Dose: 12.5 mg Haloperidol Lactate (Haldol) 0.125 mg IVP Q6 PRN; Protocol PRN Reason: Agitation Linezolid (Zyvox 600mg/300ml D5w) 600 mg in 300 mls @ 200 mls/hr IVPB Q12 [facility] PRN Reason: Protocol Stop: 04/30/17 22:31 Last Admin: 04/25/17 10:39 Dose: 200 mls/hr Piperacillin Sod/Tazobactam Sod (Zosyn 3.375 In Ns 100ml) 100 mls @ 200 mls/hr IVPB Q8 [facility] PRN Reason: Protocol Stop: 05/01/17 22:01 Last Admin: 04/25/17 06:42 Dose: 200 mls/hr Sodium Chloride (Sodium Chloride 0.45%) 1,000 mls @ 100 mls/hr IV .Q10H [facility] Last Admin: 04/24/17 21:32 Dose: 100 mls/hr Lorazepam (Ativan) 0.12 mg IVP Q6H PRN; Protocol PRN Reason: Anxiety Last Admin: 04/25/17 01:48 Dose: 0.12 mg Non-Formulary Medication (Temazepam [Restoril]) 15 mg PO HS [facility] Last Admin: 04/24/17 22:54 Dose: Not Given Sitagliptin Phosphate (Januvia) 25 mg PO DAILY [facility] Last Admin: 04/25/17 10:40 Dose: 25 mg Sodium Bicarbonate (Sodium Bicarbonate Tab) 650 mg PO BID [facility] Last Admin: 04/25/17 10:43 Dose: 650 mg - Labs Labs: 04/25/17 10:45 04/24/17 14:15 PT 14.7 SECONDS (9.4-12.5) H 04/23/17 19:11 INR 1.28 (0.93-1.08) H 04/23/17 19:11 APTT 20.3 Seconds (25.1-36.5) L 04/23/17 19:11
[2017-04-25 11:27] LABS: ALB/GLOB RATIO 0.9 (1.1-1.8); ALBUMIN 3.5 g/dL (3.0-4.8); CALCIUM 9.2 mg/dL (8.4-10.5)
[2017-04-25] MEDS ORDERED: Sodium Chloride 0.45% 1,000 ML IV SCH (11:42)
--- NOTE | 2017-04-25 12:55 | PN ---
DATE: SUBJECTIVE: He is confused and he has been climbing out of bed, so that we gave him Ativan IV to calm him down, who is down to 0.12 IV q.6 hours p.r.n., the 0.25 was too much. He is on IV fluids, Coreg, Januvia, Norvasc, sodium bicarbonate and Restoril. He is here for a right first toe gangrene. He has got dementia, diabetes, acute kidney injury, hypertension, high sodium. He has multiple consults, Infectious Disease, Renal, waiting for Psychiatry to come and help us. He is on multiple medications. He has right first toe gangrene cellulitis, peripheral arterial disease. He has growing Enterobacter and Enterococcus. PHYSICAL EXAMINATION VITAL SIGNS: He has a 98 temperature, 82 pulse, 141/70 blood pressure, 18 respiratory rate, and 95% O2 sat. HEENT: His head is atraumatic, normocephalic. HEART: Regular rate. LUNGS: Decreased breath sounds. ABDOMEN: Soft. EXTREMITIES: Right foot has gangrene toe. LABORATORY DATA: He has an 8.7 white count, 10.8 hemoglobin, 36 hematocrit with a 182 platelets. Sodium 161 readings this mornings, it came down from 165; BUN 36, creatinine 2.1, GFR is 30, sugar is 167, it was 208; calcium 9.2, total bilirubin is 0.7, AST is 27, ALT is 31, alkaline phosphatase 88. ASSESSMENT AND PLAN: We will hopefully get him scheduled for a transmetatarsal or a toe amputation hopefully tomorrow by Podiatry and we will continue aggressive treatment and care on Blas Gandhi. Grabiel Sun DO MTDJimena
--- NOTE | 2017-04-25 14:02 | CP.PCM.PN ---
Subjective - Date & Time of Evaluation Date of Evaluation: 04/25/17 Time of Evaluation: 11:15 - Subjective Subjective: No fevers, not in distress, afebrile. Objective - Vital Signs/Intake and Output Vital Signs (last 24 hours): Temp Pulse Resp BP Pulse Ox 97.7 F 70 18 117/64 97 04/24/17 07:30 04/24/17 11:14 04/24/17 07:30 04/24/17 13:32 04/24/17 07:30 Intake and Output: 04/24/17 04/24/17 06:59 18:59 Intake Total 120 Balance 120 - Medications Medications: Current Medications Amlodipine Besylate (Norvasc) 10 mg PO DAILY [facility] Last Admin: 04/24/17 13:32 Dose: 10 mg Carvedilol (Coreg) 12.5 mg PO BID [facility] Last Admin: 04/24/17 11:14 Dose: 12.5 mg Linezolid (Zyvox 600mg/300ml D5w) 600 mg in 300 mls @ 200 mls/hr IVPB Q12 [facility] PRN Reason: Protocol Stop: 04/30/17 22:31 Last Admin: 04/24/17 11:16 Dose: 200 mls/hr Piperacillin Sod/Tazobactam Sod (Zosyn 3.375 In Ns 100ml) 100 mls @ 200 mls/hr IVPB Q8 [facility] PRN Reason: Protocol Stop: 05/01/17 22:01 Sodium Chloride (Sodium Chloride 0.45%) 1,000 mls @ 100 mls/hr IV .Q10H [facility] Non-Formulary Medication (Temazepam [Restoril]) 15 mg PO HS [facility] Last Admin: 04/23/17 22:15 Dose: Not Given Sitagliptin Phosphate (Januvia) 25 mg PO DAILY [facility] Last Admin: 04/24/17 11:14 Dose: 25 mg Sodium Bicarbonate (Sodium Bicarbonate Tab) 650 mg PO BID [facility] Last Admin: 04/24/17 11:16 Dose: 650 mg - Labs Labs: 04/24/17 14:15 04/24/17 14:15 PT 14.7 SECONDS (9.4-12.5) H 04/23/17 19:11 INR 1.28 (0.93-1.08) H 04/23/17 19:11 APTT 20.3 Seconds (25.1-36.5) L 04/23/17 19:11 - Constitutional Appears: Chronically Ill - Head Exam Head Exam: NORMAL INSPECTION - Neck Exam Neck Exam: absent: Meningismus - Respiratory Exam Respiratory Exam: Decreased Breath Sounds - Cardiovascular Exam Cardiovascular Exam: +S1, +S2 - GI/Abdominal Exam GI & Abdominal Exam: Soft. absent: Tenderness - Extremities Exam Additional comments: right foot with dressings in place Assessment and Plan - Assessment and Plan (Free Text) Plan: Assessment Right hallux gangrene with cellulitis, R/O peripheral arterial disease history of right ankle, foot infected ulcer with skin and skin structure infection, growing Enterobacter and Enterococcus with no osteomyelitis on MRI DM HTN Plan continue Zyvox and Zosyn pending further Podiatry plans, which also hinges on vascular studies follow up final blood and wound cx results will continue to monitor clinically
--- NOTE | 2017-04-25 16:39 | CP.PCM.PN ---
<Maribell Dickey - Last Filed: 04/25/17 16:35> Subjective - Date & Time of Evaluation Date of Evaluation: 04/25/17 Time of Evaluation: 12:30 - Subjective Subjective: Podiatry Consult Note- Dr. Renteria 86 year old male seen at bedside concerning right great toe gangrene. Pt has no overnight complaints and is resting comfortably with family member present.Upon arrival prior right foot dressing noted to be absent, pt admits to removing it, though gives no reason. Pt denies any overnight f/c/cp/sob/n/v. Objective - Vital Signs/Intake and Output Vital Signs (last 24 hours): Temp Pulse Resp BP Pulse Ox 98.0 F 70 18 188/94 H 95 04/25/17 07:30 04/25/17 10:40 04/25/17 07:30 04/25/17 10:40 04/25/17 07:30 Intake and Output: 04/25/17 04/25/17 06:59 18:59 Intake Total 100 120 Balance 100 120 - Medications Medications: Current Medications Amlodipine Besylate (Norvasc) 10 mg PO DAILY [facility] Last Admin: 04/25/17 10:40 Dose: 10 mg Carvedilol (Coreg) 12.5 mg PO BID [facility] Last Admin: 04/25/17 10:40 Dose: 12.5 mg Haloperidol Lactate (Haldol) 0.125 mg IVP Q6 PRN; Protocol PRN Reason: Agitation Linezolid (Zyvox 600mg/300ml D5w) 600 mg in 300 mls @ 200 mls/hr IVPB Q12 [facility] PRN Reason: Protocol Stop: 04/30/17 22:31 Last Admin: 04/25/17 10:39 Dose: 200 mls/hr Piperacillin Sod/Tazobactam Sod (Zosyn 3.375 In Ns 100ml) 100 mls @ 200 mls/hr IVPB Q8 [facility] PRN Reason: Protocol Stop: 05/01/17 22:01 Last Admin: 04/25/17 13:20 Dose: 200 mls/hr Sodium Chloride (Sodium Chloride 0.45%) 1,000 mls @ 150 mls/hr IV .Q6H40M [facility] Lorazepam (Ativan) 0.12 mg IVP Q6H PRN; Protocol PRN Reason: Anxiety Last Admin: 04/25/17 01:48 Dose: 0.12 mg Non-Formulary Medication (Temazepam [Restoril]) 15 mg PO HS [facility] Last Admin: 04/24/17 22:54 Dose: Not Given Sitagliptin Phosphate (Januvia) 25 mg PO DAILY [facility] Last Admin: 04/25/17 10:40 Dose: 25 mg Sodium Bicarbonate (Sodium Bicarbonate Tab) 650 mg PO BID [facility] Last Admin: 04/25/17 10:43 Dose: 650 mg - Labs Labs: 04/25/17 10:45 04/25/17 10:45 PT 14.7 SECONDS (9.4-12.5) H 04/23/17 19:11 INR 1.28 (0.93-1.08) H 04/23/17 19:11 APTT 20.3 Seconds (25.1-36.5) L 04/23/17 19:11 - Constitutional Appears: Non-toxic, No Acute Distress - Extremities Exam Additional comments: Right lower extremity focused. DERM: Right hallux dry gangrene with mummification of digit distal to interphalangeal joint. Ischemic pre-ulcerative lesions noted to dorsum of foot. No active drainage noted. Mild erythema. No mal-odor noted. No inter-digital macerations noted. NEURO: Protective sensation grossly intact. VASC: DP and PT pulses graded 1/4. Temperature runs warm to cool proximal to distal. Absent pedal hair growth bilaterally. - Neurological Exam Neurological Exam: Alert, Awake - Psychiatric Exam Psychiatric exam: Normal Affect, Normal Mood Assessment and Plan - Assessment and Plan (Free Text) Assessment: Right hallux dry gangrene, likely secondary to PAD Plan: Pt seen and evaluated. Discussed with attending, Dr. Renteria, who endorsed the following plan. Chart, labs, and vitals reviewed. Afebrile, absent leukocytosis. Pt noted hypernatremic. Right foot radiographs evaluated: results unremarkable, negative for osteomyelitis. Arterial duplex-pending. Vascular assessment & recommendations-pending. Continue IV abx per ID recommendatios, currently Zyvox and Zosyn. Dressed right foot with betadine and DSD. Podiatry will continue to follow patient. Pending potential intervention after vascular studies resulted. <Almita Renteria - Last Filed: 04/30/17 15:20> Objective - Vital Signs/Intake and Output Vital Signs (last 24 hours): Temp Pulse Resp BP Pulse Ox 99.3 F 80 20 186/87 H 98 04/30/17 07:30 04/30/17 10:21 04/30/17 07:30 04/30/17 10:21 04/30/17 07:30 Intake and Output: 04/30/17 04/30/17 06:59 18:59 Intake Total 800 0 Output Total 700 450 Balance 100 -450 - Medications Medications: Current Medications Amlodipine Besylate (Norvasc) 10 mg PO DAILY [facility] Last Admin: 04/30/17 10:11 Dose: Not Given Carvedilol (Coreg) 25 mg PO BID [facility] Last Admin: 04/30/17 10:21 Dose: 25 mg Ergocalciferol (Drisdol 50,000 Intl Units Cap) 1 cap PO Q7D [facility] Last Admin: 04/26/17 10:08 Dose: 1 cap Ferrous Gluconate (Fergon) 324 mg PO TID [facility] Last Admin: 04/30/17 10:10 Dose: Not Given Haloperidol Lactate (Haldol) 1 mg IM Q8H PRN; Protocol PRN Reason: severe agitagtion Hydralazine HCl (Apresoline) 25 mg PO Q4 PRN PRN Reason: Other Linezolid (Zyvox 600mg/300ml D5w) 600 mg in 300 mls @ 200 mls/hr IVPB Q12 [facility] PRN Reason: Protocol Stop: 04/30/17 22:31 Last Admin: 04/30/17 10:13 Dose: 200 mls/hr Piperacillin Sod/Tazobactam Sod (Zosyn 3.375 In Ns 100ml) 100 mls @ 200 mls/hr IVPB Q8 [facility] PRN Reason: Protocol Stop: 05/01/17 22:01 Last Admin: 04/30/17 05:52 Dose: 200 mls/hr Lorazepam (Ativan) 0.5 mg IVP TID PRN; Protocol PRN Reason: restlessness/agitation Last Admin: 04/29/17 15:36 Dose: 0.5 mg Losartan Potassium (Cozaar) 50 mg PO DAILY [facility] Last Admin: 04/30/17 10:10 Dose: Not Given Magnesium Oxide (Mag-Ox) 400 mg PO BID [facility] Last Admin: 04/30/17 10:11 Dose: Not Given Non-Formulary Medication (Temazepam [Restoril]) 15 mg PO HS [facility] Last Admin: 04/28/17 21:42 Dose: Not Given Ondansetron HCl (Zofran Inj) 4 mg IVP ONCE PRN PRN Reason: Nausea/Vomiting Potassium Chloride (K-Dur 20 Meq Er Tab) 20 meq PO BRK [facility] Last Admin: 04/30/17 07:52 Dose: Not Given Quetiapine Fumarate (Seroquel) 12.5 mg PO HS [facility] PRN Reason: Protocol Last Admin: 04/29/17 21:37 Dose: 12.5 mg Sitagliptin Phosphate (Januvia) 25 mg PO DAILY [facility] Last Admin: 04/30/17 10:10 Dose: Not Given Vancomycin HCl (Vancocin 25 Mg/Ml (Oral Use)) 125 mg PO QID [facility] PRN Reason: Protocol Last Admin: 04/30/17 10:11 Dose: Not Given Vitamin B Complex/Vit C/Folic Acid (Nephro-J Luis) 1 tab PO 0800 [facility] Last Admin: 04/30/17 07:53 Dose: Not Given - Labs Labs: 04/30/17 06:57 04/30/17 06:57 PT 14.4 SECONDS (9.4-12.5) H 04/30/17 06:57 INR 1.25 (0.93-1.08) H 04/30/17 06:57 APTT 20.3 Seconds (25.1-36.5) L 04/23/17 19:11
[2017-04-25] MEDS: Sodium Chloride 0.45% 1,000 ML IV SCH (19:00)
--- NOTE | 2017-04-25 23:04 | CON ---
DATE: HISTORY OF PRESENT ILLNESS: Patient is an 86-year-old male with a history of dementia, who was brought in from the senior living for treatment of gangrene and ulceration of his toe. was consulted due to the patient's history of dementia and behavioral disturbance as well as anxiety. I met with the patient at bedside and I have reviewed the patient's notes, which indicated the patient has been restless, only oriented to self, and trying to get out of bed, and otherwise, he has been presently confused and has not demonstrated any indications of agitation or threatening behavior. He is pleasant during my visit with him today and often responds irrelevantly and repetitively and it can be illogical with his comments and responses. He denies he is depressed. He does not know if he is anxious. He does not know where he is except he does accurately say that he is in bed. He indicates he has no idea what year it is or month it is. His focus appears to be poor, though he readily smiles and is generally polite with this provider. He denies being in any pain, does not appear to be actively hallucinating, and he denies having hallucinations, although it is unclear whether he understood the question. I agree with staff. Patient is presently confused, though disorganized. His insight and judgment are poor. PSYCHIATRIC HISTORY: Largely unknown, although the patient does appear to be suffering from dementia and does have a history of anxiety. SOCIAL HISTORY: Patient's responses were a lot more logical and consistent when I reviewed his social history. Patient was quite clear that he was born in [place]. He is , he has two children. He used to work in sanitation and that he graduated from high school. He denies any history of alcohol or drug issues or any history of legal issues. Vital signs and medications were reviewed by this provider. RELEVANT PSYCHIATRIC MEDICATIONS: Include Ativan 0.12 IV q.6 p.r.n., agitation. IMPRESSION: Dementia with behavior disturbance. RECOMMENDATIONS: We will continue with Ativan 0.12 IV q.6 p.r.n. to be given with Haldol 0.125 mg IV q.6 p.r.n. for agitation. Psychiatry will continue to follow up with patient to ensure that he tolerates the medications and remains non-agitated as well as reassure and try to reorient him during discussions. Catracho Mauro MD [facility] # [id number]
[2017-04-26] MEDS: Piperacillin/Tazobact 3.375 gm 100 ML IVPB SCH ×3 (06:03→21:37)
[2017-04-26 07:29] LABS: MEAN CELL VOLUME 89.7 fl (80.0-105.0); MEAN CORPUSCULAR HEMOGLOBIN 27.8 pg (25.0-35.0); MEAN PLATELET VOLUME 11.3 fl (7.0-11.0); RBC 3.6 10^6/uL (3.5-6.1); RED CELL DISTRIBUTION WIDTH 14.3 % (11.5-14.5); WHITE BLOOD COUNT 9.1 10^3/ul (4.5-11.0)
[2017-04-26 07:46] LABS: ALB/GLOB RATIO 0.9 (1.1-1.8); ALBUMIN 2.9 g/dL (3.0-4.8); CALCIUM 8.4 mg/dL (8.4-10.5)
[2017-04-26] MEDS: Linezolid 600 mg in D5W 300 ml 600 MG/300 ML BAG IVPB SCH ×2 (09:48→21:38)
[2017-04-26] MEDS ORDERED: Ergocalciferol 50,000 Intl Units Cap PO SCH (10:00)
[2017-04-26] MEDS ORDERED: Sodium Chloride 0.45% 1,000 ML IV SCH (10:01)
--- NOTE | 2017-04-26 11:07 | CP.PCM.PN ---
<Davie Merrill - Last Filed: 04/26/17 12:11> Subjective - Date & Time of Evaluation Date of Evaluation: 04/26/17 Time of Evaluation: 10:45 - Subjective Subjective: Podiatry Progress Note- Dr. Renteria 86 year old male seen at bedside with attending for right gangrene hallux toe. Patient is seen laying comfortably in bed and in NAD. Pt denies any overnight f/ c/cp/sob/n/v. Objective - Vital Signs/Intake and Output Vital Signs (last 24 hours): Temp Pulse Resp BP Pulse Ox 98.3 F 81 20 168/86 H 100 04/26/17 07:30 04/26/17 09:46 04/26/17 07:30 04/26/17 09:47 04/26/17 07:30 Intake and Output: 04/26/17 04/26/17 06:59 18:59 Intake Total 0 Balance 0 - Medications Medications: Current Medications Amlodipine Besylate (Norvasc) 10 mg PO DAILY [facility] Last Admin: 04/26/17 09:47 Dose: 10 mg Carvedilol (Coreg) 12.5 mg PO BID [facility] Last Admin: 04/26/17 09:46 Dose: 12.5 mg Ergocalciferol (Drisdol 50,000 Intl Units Cap) 1 cap PO Q7D [facility] Last Admin: 04/26/17 10:08 Dose: 1 cap Ferrous Gluconate (Fergon) 324 mg PO TID [facility] Last Admin: 04/26/17 09:08 Dose: 324 mg Haloperidol Lactate (Haldol) 0.125 mg IVP Q6 PRN; Protocol PRN Reason: Agitation Linezolid (Zyvox 600mg/300ml D5w) 600 mg in 300 mls @ 200 mls/hr IVPB Q12 [facility] PRN Reason: Protocol Stop: 04/30/17 22:31 Last Admin: 04/26/17 09:48 Dose: 200 mls/hr Piperacillin Sod/Tazobactam Sod (Zosyn 3.375 In Ns 100ml) 100 mls @ 200 mls/hr IVPB Q8 [facility] PRN Reason: Protocol Stop: 05/01/17 22:01 Last Admin: 04/26/17 06:03 Dose: 200 mls/hr Potassium Chloride (Potassium Chloride 10 Meq/100 Ml) 10 meq in 100 mls @ 50 mls/hr IVPB Q2H [facility] Stop: 04/26/17 12:14 Last Admin: 04/26/17 10:37 Dose: 50 mls/hr Sodium Chloride (Sodium Chloride 0.45%) 1,000 mls @ 100 mls/hr IV .Q10H [facility] Lorazepam (Ativan) 0.12 mg IVP Q6H PRN; Protocol PRN Reason: Anxiety Last Admin: 04/26/17 02:51 Dose: 0.12 mg Non-Formulary Medication (Temazepam [Restoril]) 15 mg PO HS [facility] Last Admin: 04/24/17 22:54 Dose: Not Given Sitagliptin Phosphate (Januvia) 25 mg PO DAILY [facility] Last Admin: 04/26/17 09:47 Dose: 25 mg Sodium Bicarbonate (Sodium Bicarbonate Tab) 650 mg PO BID [facility] Last Admin: 04/26/17 09:50 Dose: 650 mg Vitamin B Complex/Vit C/Folic Acid (Nephro-J Luis) 1 tab PO 0800 [facility] - Labs Labs: 04/26/17 07:00 04/26/17 07:00 PT 14.7 SECONDS (9.4-12.5) H 04/23/17 19:11 INR 1.28 (0.93-1.08) H 04/23/17 19:11 APTT 20.3 Seconds (25.1-36.5) L 04/23/17 19:11 - Constitutional Appears: Well, Non-toxic, No Acute Distress - Extremities Exam Extremities Exam: absent: Calf Tenderness Additional comments: Right lower extremity focused. DERM: Right hallux dry gangrene with mummification of digit distal to interphalangeal joint with no opening, no clinical signs of infection. Ischemic pre-ulcerative lesions noted to dorsum of foot. No active drainage noted. Mild erythema. No mal-odor noted. No inter-digital macerations noted. Discoloration noted to digits 2, 3, and 4 with thin, shiny skin and spongy texture. No abscess or purulence, most consistent with early ischemic changes. Darken hyperpigmentation noted to the dorsum of the midfoot. NEURO: Protective sensation grossly intact. VASC: DP is nonpalpable, PT pulses graded 1/4. CFT delayed to the right digits compared to the left. Temperature runs warm to cool proximal to distal, more cool compared to the left. Absent pedal hair growth bilaterally. 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 Discussed with attending, Dr. Renteria, who endorsed the following plan. Chart, labs, and vitals reviewed. Afebrile, absent leukocytosis. Right foot radiographs evaluated: results unremarkable, negative for osteomyelitis. Arterial duplex-pending. Vascular assessment & recommendations-pending. Continue IV abx per ID recommendatios, currently Zyvox and Zosyn. Cleansed right hallux with betadine Ordered multipodus boots b/l LE. To be worn at all times while in bed. Podiatry will continue to follow patient. Pending potential intervention after vascular studies resulted. <Almita Renteria - Last Filed: 04/30/17 15:24> Objective - Vital Signs/Intake and Output Vital Signs (last 24 hours): Temp Pulse Resp BP Pulse Ox 99.3 F 80 20 186/87 H 98 04/30/17 07:30 04/30/17 10:21 04/30/17 07:30 04/30/17 10:21 04/30/17 07:30 Intake and Output: 04/30/17 04/30/17 06:59 18:59 Intake Total 800 0 Output Total 700 450 Balance 100 -450 - Medications Medications: Current Medications Amlodipine Besylate (Norvasc) 10 mg PO DAILY [facility] Last Admin: 04/30/17 10:11 Dose: Not Given Carvedilol (Coreg) 25 mg PO BID [facility] Last Admin: 04/30/17 10:21 Dose: 25 mg Ergocalciferol (Drisdol 50,000 Intl Units Cap) 1 cap PO Q7D [facility] Last Admin: 04/26/17 10:08 Dose: 1 cap Ferrous Gluconate (Fergon) 324 mg PO TID [facility] Last Admin: 04/30/17 10:10 Dose: Not Given Haloperidol Lactate (Haldol) 1 mg IM Q8H PRN; Protocol PRN Reason: severe agitagtion Hydralazine HCl (Apresoline) 25 mg PO Q4 PRN PRN Reason: Other Linezolid (Zyvox 600mg/300ml D5w) 600 mg in 300 mls @ 200 mls/hr IVPB Q12 [facility] PRN Reason: Protocol Stop: 04/30/17 22:31 Last Admin: 04/30/17 10:13 Dose: 200 mls/hr Piperacillin Sod/Tazobactam Sod (Zosyn 3.375 In Ns 100ml) 100 mls @ 200 mls/hr IVPB Q8 [facility] PRN Reason: Protocol Stop: 05/01/17 22:01 Last Admin: 04/30/17 05:52 Dose: 200 mls/hr Lorazepam (Ativan) 0.5 mg IVP TID PRN; Protocol PRN Reason: restlessness/agitation Last Admin: 04/29/17 15:36 Dose: 0.5 mg Losartan Potassium (Cozaar) 100 mg PO DAILY [facility] Magnesium Oxide (Mag-Ox) 400 mg PO BID [facility] Last Admin: 04/30/17 10:11 Dose: Not Given Non-Formulary Medication (Temazepam [Restoril]) 15 mg PO HS [facility] Last Admin: 04/28/17 21:42 Dose: Not Given Ondansetron HCl (Zofran Inj) 4 mg IVP ONCE PRN PRN Reason: Nausea/Vomiting Potassium Chloride (K-Dur 20 Meq Er Tab) 20 meq PO BRK [facility] Last Admin: 04/30/17 07:52 Dose: Not Given Quetiapine Fumarate (Seroquel) 12.5 mg PO HS [facility] PRN Reason: Protocol Last Admin: 04/29/17 21:37 Dose: 12.5 mg Sitagliptin Phosphate (Januvia) 25 mg PO DAILY [facility] Last Admin: 04/30/17 10:10 Dose: Not Given Vancomycin HCl (Vancocin 25 Mg/Ml (Oral Use)) 125 mg PO QID [facility] PRN Reason: Protocol Last Admin: 04/30/17 10:11 Dose: Not Given Vitamin B Complex/Vit C/Folic Acid (Nephro-J Luis) 1 tab PO 0800 [facility] Last Admin: 04/30/17 07:53 Dose: Not Given - Labs Labs: 04/30/17 06:57 04/30/17 06:57 PT 14.4 SECONDS (9.4-12.5) H 04/30/17 06:57 INR 1.25 (0.93-1.08) H 04/30/17 06:57 APTT 20.3 Seconds (25.1-36.5) L 04/23/17 19:11 Attending/Attestation - Attestation I have personally seen and examined this patient.: Yes I have fully participated in the care of the patient.: Yes I have reviewed all pertinent clinical information, including history, physical exam and plan: Yes
--- NOTE | 2017-04-26 11:25 | CP.PCM.PN ---
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 Plan No acute need for renal replacement therapy at this time. Hypertension control with meds as ordered. hold ACEI/ARB due to ELIZABETH Monitor Input/Output, daily weights and renal function with basic metabolic panel continue with MVI, iron and weekly vit D IVF as 0.45% saline @ 100 ml/hr supplement electrolytes as needed Dose meds/antibiotics for reduced GFR. Avoid fleets enema/magnesium based laxatives. Avoid nephrotoxins/NSAIDs/ iodinated contrast (unless needed emergently) Glycemic control Further work up/management as per primary team Thanks for allowing me to participate in care of your patient. Will follow patient with you. Please call if any Qs. Dr Víctor Echols Office: [phone] Reason for consult: ELIZABETH, hypernatremia, CKD management HPI: Pt is a 86 M with hx of diabetes Mellitus ( many years), hypertension ( many years), CKD stage 3 (baseline cr 1.9 in 2014) was brought to hospital with Rt great toe gangrne and cellulitis. he was found to have ELIZABETH and Hypernatremia hence renal consulted Denies OTC/herbal meds or NSAIDs No known recent iodinated contrast exposure. No obvious episodes of low BP ROS: denies CP/SOB/pain abdomen. pulled out picc line last night Physical Examination: General Appearance: Comfortable, in no acute respiratory distress, co-operative . Vitals reviewed and noted as below Head; Atraumatic, normocephalic ENT: no ulcers no thrush. Tongue is midline. Oropharynx: no rash or ulcers. EYES: Pupils are equal, round and reactive to light accommodation. Eye muscles and extraocular movement intact. Sclera is anicteric. Neck; supple no lymphadenopathy, no thyromegaly or bruit Lungs: Normal respiratory rate/effort. Breath sounds bilateral equal and clear Heart: Normal rate. s1s2 normal. No rub or gallop. Extremities: no edema. No varicose veins. Rt foot toe with dry gangrene Neurological: Patient is awake alert but disoriented Skin: Warm and dry. Normal turgor. No rash. Palpitation: Normal elasticity for age Abdomen: Abdomen is soft. Bowel sounds +. There is no abdominal tenderness, no guarding/rigidity no organomegaly Psych: unable MSK: no joint tenderness or swelling. Digits and nails normal, no deformity : kidney or bladder not palpable Labs/imaging reviewed. Past medical history, past surgical history, family history, social history, allergy reviewed and noted as below Family hx: no hx of CKD. Rest non-contributory work up: SPEP/SARAH neg TSAT 22% Ferritin 37 Vit D <12.8 PTH 40 renal sono; wnl UA SG >1.030 carito low and renin low Objective - Vital Signs/Intake and Output Vital Signs (last 24 hours): Temp Pulse Resp BP Pulse Ox 98.3 F 81 20 168/86 H 100 04/26/17 07:30 04/26/17 09:46 04/26/17 07:30 04/26/17 09:47 04/26/17 07:30 Intake and Output: 04/26/17 04/26/17 06:59 18:59 Intake Total 0 Balance 0 - Medications Medications: Current Medications Amlodipine Besylate (Norvasc) 10 mg PO DAILY [facility] Last Admin: 04/26/17 09:47 Dose: 10 mg Carvedilol (Coreg) 12.5 mg PO BID [facility] Last Admin: 04/26/17 09:46 Dose: 12.5 mg Ergocalciferol (Drisdol 50,000 Intl Units Cap) 1 cap PO Q7D [facility] Last Admin: 04/26/17 10:08 Dose: 1 cap Ferrous Gluconate (Fergon) 324 mg PO TID [facility] Last Admin: 04/26/17 09:08 Dose: 324 mg Haloperidol Lactate (Haldol) 0.125 mg IVP Q6 PRN; Protocol PRN Reason: Agitation Linezolid (Zyvox 600mg/300ml D5w) 600 mg in 300 mls @ 200 mls/hr IVPB Q12 [facility] PRN Reason: Protocol Stop: 04/30/17 22:31 Last Admin: 04/26/17 09:48 Dose: 200 mls/hr Piperacillin Sod/Tazobactam Sod (Zosyn 3.375 In Ns 100ml) 100 mls @ 200 mls/hr IVPB Q8 [facility] PRN Reason: Protocol Stop: 05/01/17 22:01 Last Admin: 04/26/17 06:03 Dose: 200 mls/hr Potassium Chloride (Potassium Chloride 10 Meq/100 Ml) 10 meq in 100 mls @ 50 mls/hr IVPB Q2H [facility] Stop: 04/26/17 12:14 Last Admin: 04/26/17 10:37 Dose: 50 mls/hr Sodium Chloride (Sodium Chloride 0.45%) 1,000 mls @ 100 mls/hr IV .Q10H [facility] Lorazepam (Ativan) 0.12 mg IVP Q6H PRN; Protocol PRN Reason: Anxiety Last Admin: 04/26/17 02:51 Dose: 0.12 mg Non-Formulary Medication (Temazepam [Restoril]) 15 mg PO HS [facility] Last Admin: 04/24/17 22:54 Dose: Not Given Sitagliptin Phosphate (Januvia) 25 mg PO DAILY [facility] Last Admin: 04/26/17 09:47 Dose: 25 mg Sodium Bicarbonate (Sodium Bicarbonate Tab) 650 mg PO BID [facility] Last Admin: 04/26/17 09:50 Dose: 650 mg Vitamin B Complex/Vit C/Folic Acid (Nephro-J Luis) 1 tab PO 0800 [facility] - Labs Labs: 04/26/17 07:00 04/26/17 07:00 PT 14.7 SECONDS (9.4-12.5) H 04/23/17 19:11 INR 1.28 (0.93-1.08) H 04/23/17 19:11 APTT 20.3 Seconds (25.1-36.5) L 04/23/17 19:11
--- NOTE | 2017-04-26 12:22 | PN ---
DATE: 04/26/2017 SUBJECTIVE: I saw him this morning in bed. He is alert. He slept well, presently confused. He is being seen by Podiatry, Infectious Disease, and Renal. PHYSICAL EXAMINATION VITAL SIGNS: He has a vital signs of 98.3 temperature, 81 pulse, 168/86 blood pressure, 20 respiratory rate, 100% O2 sat on room air. HEENT: His head is atraumatic, normocephalic. Throat is moist. NECK: Supple. HEART: Regular rate. LUNGS: Decreased breath sounds. ABDOMEN: Soft. EXTREMITIES: He has a right first toe gangrene. He needs surgery. LABORATORY DATA: He has a 149 sodium that is the best it has been, he is only 1 point above normal; 3.1 potassium, given two K-riders this morning; BUN 90; creatinine 1.8, better. GFR is up to 36. Blood sugar is 110, calcium is 8.4, total bilirubin is 0.8, AST is 30, ALT is 32, alkaline phosphatase is 8, total protein 6.2. White count is 9.1, hemoglobin 10, hematocrit 32.3, platelets of 164. Positive cocci in the urine. He is being seen by Infectious Disease, Renal, Podiatry. Trying to get a foot surgery planned for him, so we can get him back to the subacute rehab for physical therapy. Continue aggressive treatment and care. Replaced potassium. Check his labs tomorrow. We will discuss with Podiatry. Grabiel Sun DO
--- NOTE | 2017-04-26 16:34 | CP.PCM.PN ---
Subjective - Date & Time of Evaluation Date of Evaluation: 04/26/17 Time of Evaluation: 12:15 - Subjective Subjective: Comfortable, no fevers, not in distress. Objective - Vital Signs/Intake and Output Vital Signs (last 24 hours): Temp Pulse Resp BP Pulse Ox 98.0 F 70 18 188/94 H 95 04/25/17 07:30 04/25/17 10:40 04/25/17 07:30 04/25/17 10:40 04/25/17 07:30 Intake and Output: 04/25/17 04/25/17 06:59 18:59 Intake Total 100 120 Balance 100 120 - Medications Medications: Current Medications Amlodipine Besylate (Norvasc) 10 mg PO DAILY [facility] Last Admin: 04/25/17 10:40 Dose: 10 mg Carvedilol (Coreg) 12.5 mg PO BID [facility] Last Admin: 04/25/17 10:40 Dose: 12.5 mg Haloperidol Lactate (Haldol) 0.125 mg IVP Q6 PRN; Protocol PRN Reason: Agitation Linezolid (Zyvox 600mg/300ml D5w) 600 mg in 300 mls @ 200 mls/hr IVPB Q12 [facility] PRN Reason: Protocol Stop: 04/30/17 22:31 Last Admin: 04/25/17 10:39 Dose: 200 mls/hr Piperacillin Sod/Tazobactam Sod (Zosyn 3.375 In Ns 100ml) 100 mls @ 200 mls/hr IVPB Q8 [facility] PRN Reason: Protocol Stop: 05/01/17 22:01 Last Admin: 04/25/17 13:20 Dose: 200 mls/hr Sodium Chloride (Sodium Chloride 0.45%) 1,000 mls @ 150 mls/hr IV .Q6H40M [facility] Lorazepam (Ativan) 0.12 mg IVP Q6H PRN; Protocol PRN Reason: Anxiety Last Admin: 04/25/17 01:48 Dose: 0.12 mg Non-Formulary Medication (Temazepam [Restoril]) 15 mg PO HS [facility] Last Admin: 04/24/17 22:54 Dose: Not Given Sitagliptin Phosphate (Januvia) 25 mg PO DAILY [facility] Last Admin: 04/25/17 10:40 Dose: 25 mg Sodium Bicarbonate (Sodium Bicarbonate Tab) 650 mg PO BID [facility] Last Admin: 04/25/17 10:43 Dose: 650 mg - Labs Labs: 04/25/17 10:45 04/25/17 10:45 PT 14.7 SECONDS (9.4-12.5) H 04/23/17 19:11 INR 1.28 (0.93-1.08) H 04/23/17 19:11 APTT 20.3 Seconds (25.1-36.5) L 04/23/17 19:11 - Constitutional Appears: Chronically Ill - Head Exam Head Exam: NORMAL INSPECTION - ENT Exam ENT Exam: Mucous Membranes Moist - Neck Exam Neck Exam: absent: Meningismus - Respiratory Exam Respiratory Exam: Decreased Breath Sounds - Cardiovascular Exam Cardiovascular Exam: +S1, +S2 - GI/Abdominal Exam GI & Abdominal Exam: Soft. absent: Tenderness - Extremities Exam Additional comments: right foot with dressings in place Assessment and Plan - Assessment and Plan (Free Text) Plan: Assessment Right hallux gangrene with cellulitis, R/O peripheral arterial disease history of right ankle, foot infected ulcer with skin and skin structure infection, growing Enterobacter and Enterococcus with no osteomyelitis on MRI DM HTN Plan continue Zyvox and Zosyn pending further Podiatry plans, which also hinges on vascular studies (still pending) will continue to monitor clinically
--- NOTE | 2017-04-26 17:56 | PN ---
DATE: 04/26/2017 The patient has been seen today for a followup consultation. PRESENTATION: The patient is an 86-year-old male seen at bedside. He was admitted on 04/23/2017 from his care home, which is [facility] in [facility] for gangrene of his right toe and amputation of this with cellulitis. He additionally has a history of being combative and sometimes incontinent at the care home. The patient was seen by Dr. Mauro, medications were adjusted. He did have some confusion last night, but he was able to be redirected and he slept well. He did awake and was incontinent about 1 a.m., but he was not climbing out of bed. The patient when seen is pleasant, but confused. He is able to tell me certain things about his past life, but in terms of his orientation, knowing where he is and what currently is going on in his life, he really is unsure. He indicates that he is very worried about his apartment where he lives and has his son-in-law has filled out some papers and about the safety of various family members . He is very anxious about this. In review of his paper work, he does not have a POA; however, he does have a who still lives in the apartment, who is his next of kin. He does have two grown children according to the patient. There have been no episodes of combativeness. He seems to be tolerating the medication well at this time. His current vital signs include temperature of 98.3, pulse of 81, blood pressure of 168/86, respiratory rate of 20, and O2 sat of 100% on room air. His current medications for dementia include Haldol 0.125 mg IV push q.6 hours as needed for agitation. This has not been used. However, he does have a p.r.n. of lorazepam 0.12 mg IV push, which was used at 2:51 this morning and it appears to have been helpful as he slept through the night. MENTAL STATUS EXAMINATION: The patient is disoriented in all spheres except his name. He indicates his speech rate and volume are all within normal limits, but he is confused as to where he is. Even when asked again within 3 to 5 minutes, he has no idea what hospital he is in or even that he is in the hospital. Mood is anxious. Affect is constricted. His thoughts are tangential and random. He denies being suicidal or homicidal. There is nothing in his behavior which indicate that he is. He denies the presence of hallucination, delusions, or paranoia. Indicates he has no psychiatric history. 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 His appetite and his sleep are varied. DIAGNOSTIC IMPRESSION: Dementia with behavioral disturbance. PLAN: The patient denies being suicidal or homicidal; however, his behavior does not indicate that he maybe suicidal or homicidal at this time. He is confused. This appears to be his baseline. He is tolerating the medications well and there have been no behavioral disturbances recently. Psychiatry will continue to follow. Thank you for the consult. Christina Mcguire APN Kiana Ruiz MD [facility]
--- NOTE | 2017-04-27 00:52 | CP.PCM.PN ---
Subjective - Date & Time of Evaluation Date of Evaluation: 04/27/17 Time of Evaluation: 00:51 - Subjective Subjective: Nurse calls and tells that patient has been agitated. He was given 0.12 mg of ativan IV at 2254. I reviewed medical record and ordered another dose of 0.12 mg IV ativan. Went to see patient . He has not received Ativan 0.12 mg IV that I ordered. He is calm, asleep. This 86 year old male was admitted with right first toe gangrene. Has PMH of DM,HTN,neuropathy , dementia, cellulitis, arthritis, combative behaviour at times. Objective - Vital Signs/Intake and Output Vital Signs (last 24 hours): Temp Pulse Resp BP Pulse Ox 97.9 F 77 12 169/77 H 97 04/26/17 22:32 04/26/17 22:32 04/26/17 22:32 04/26/17 22:32 04/26/17 22:32 Intake and Output: 04/26/17 04/27/17 18:59 06:59 Intake Total 0 Balance 0 - Medications Medications: Current Medications Amlodipine Besylate (Norvasc) 10 mg PO DAILY [facility] Last Admin: 04/26/17 09:47 Dose: 10 mg Carvedilol (Coreg) 12.5 mg PO BID [facility] Last Admin: 04/26/17 17:47 Dose: 12.5 mg Ergocalciferol (Drisdol 50,000 Intl Units Cap) 1 cap PO Q7D [facility] Last Admin: 04/26/17 10:08 Dose: 1 cap Ferrous Gluconate (Fergon) 324 mg PO TID [facility] Last Admin: 04/26/17 17:47 Dose: 324 mg Haloperidol Lactate (Haldol) 0.125 mg IVP Q6 PRN; Protocol PRN Reason: Agitation Linezolid (Zyvox 600mg/300ml D5w) 600 mg in 300 mls @ 200 mls/hr IVPB Q12 [facility] PRN Reason: Protocol Stop: 04/30/17 22:31 Last Admin: 04/26/17 21:38 Dose: 200 mls/hr Piperacillin Sod/Tazobactam Sod (Zosyn 3.375 In Ns 100ml) 100 mls @ 200 mls/hr IVPB Q8 [facility] PRN Reason: Protocol Stop: 05/01/17 22:01 Last Admin: 04/26/17 21:37 Dose: 200 mls/hr Sodium Chloride (Sodium Chloride 0.45%) 1,000 mls @ 100 mls/hr IV .Q10H [facility] Last Admin: 04/26/17 18:42 Dose: Not Given Lorazepam (Ativan) 0.12 mg IVP Q6H PRN; Protocol PRN Reason: Anxiety Last Admin: 04/26/17 22:54 Dose: 0.12 mg Lorazepam (Ativan) 0.12 mg IVP ONCE ONE PRN Reason: Protocol Stop: 04/27/17 00:51 Non-Formulary Medication (Temazepam [Restoril]) 15 mg PO HS [facility] Last Admin: 04/26/17 22:36 Dose: Not Given Sitagliptin Phosphate (Januvia) 25 mg PO DAILY [facility] Last Admin: 04/26/17 09:47 Dose: 25 mg Sodium Bicarbonate (Sodium Bicarbonate Tab) 650 mg PO BID [facility] Last Admin: 04/26/17 17:47 Dose: 650 mg Vitamin B Complex/Vit C/Folic Acid (Nephro-J Luis) 1 tab PO 0800 [facility] - Labs Labs: 04/26/17 07:00 04/26/17 07:00 PT 14.7 SECONDS (9.4-12.5) H 04/23/17 19:11 INR 1.28 (0.93-1.08) H 04/23/17 19:11 APTT 20.3 Seconds (25.1-36.5) L 04/23/17 19:11 Micro Results 04/23/17 19:11 Blood Blood Culture - Preliminary NO GROWTH AFTER 3 DAYS 04/23/17 19:00 Blood Blood Culture - Preliminary NO GROWTH AFTER 3 DAYS 04/23/17 19:42 Urine Urine Culture - Final Gram Positive Cocci Most Recent Lab Values WBC 9.1 10^3/ul (4.5-11.0) 04/26/17 07:00 RBC 3.60 10^6/uL (3.5-6.1) 04/26/17 07:00 Hgb 10.0 g/dL (14.0-18.0) L 04/26/17 07:00 Hct 32.3 % (42.0-52.0) L 04/26/17 07:00 MCV 89.7 fl (80.0-105.0) D 04/26/17 07:00 MCH 27.8 pg (25.0-35.0) 04/26/17 07:00 MCHC 31.0 g/dl (31.0-37.0) 04/26/17 07:00 RDW 14.3 % (11.5-14.5) 04/26/17 07:00 Plt Count 164 10^3/uL (120.0-450.0) 04/26/17 07:00 MPV 11.3 fl (7.0-11.0) H 04/26/17 07:00 Gran % 73.3 % (50.0-68.0) H 04/24/17 14:15 Lymph % (Auto) 17.2 % (22.0-35.0) L 04/24/17 14:15 [place] % (Auto) 5.3 % (1.0-6.0) 04/24/17 14:15 Eos % (Auto) 4.1 % (1.5-5.0) 04/24/17 14:15 Baso % (Auto) 0.1 % (0.0-3.0) 04/24/17 14:15 Gran # 6.39 (1.4-6.5) 04/24/17 14:15 Lymph # (Auto) 1.5 (1.2-3.4) 04/24/17 14:15 [place] # (Auto) 0.5 (0.1-0.6) 04/24/17 14:15 Eos # (Auto) 0.4 (0.0-0.7) 04/24/17 14:15 Baso # (Auto) 0.01 K/mm3 (0.0-2.0) 04/24/17 14:15 PT 14.7 SECONDS (9.4-12.5) H 04/23/17 19:11 INR 1.28 (0.93-1.08) H 04/23/17 19:11 APTT 20.3 Seconds (25.1-36.5) L 04/23/17 19:11 Sodium 149 mmol/L (132-148) H 04/26/17 07:00 Potassium 3.1 mmol/L (3.6-5.0) L 04/26/17 07:00 Chloride 117 mmol/L (98-107) H 04/26/17 07:00 Carbon Dioxide 22 mmol/L (21-33) 04/26/17 07:00 Anion Gap 14 (10-20) 04/26/17 07:00 BUN 19 mg/dL (7-21) 04/26/17 07:00 Creatinine 1.8 mg/dl (0.8-1.5) H 04/26/17 07:00 Est GFR ( Amer) 44 04/26/17 07:00 Est GFR (Non-Af Amer) 36 04/26/17 07:00 POC Glucose (mg/dL) 130 mg/dL (65-110) H 04/26/17 23:06 Random Glucose 122 mg/dL (70-110) H 04/26/17 07:00 Lactic Acid 1.5 mmol/L (0.7-2.1) 04/23/17 19:11 Calcium 8.4 mg/dL (8.4-10.5) 04/26/17 07:00 Total Bilirubin 0.8 mg/dL (0.2-1.3) 04/26/17 07:00 AST 30 U/L (17-59) 04/26/17 07:00 ALT 32 U/L (7-56) 04/26/17 07:00 Alkaline Phosphatase 80 U/L (38-126) 04/26/17 07:00 Total Protein 6.2 g/dL (5.8-8.3) 04/26/17 07:00 Albumin 2.9 g/dL (3.0-4.8) L 04/26/17 07:00 Globulin 3.3 gm/dL 04/26/17 07:00 Albumin/Globulin Ratio 0.9 (1.1-1.8) L 04/26/17 07:00 Urine Color Yellow (YELLOW) 04/23/17 19:42 Urine Appearance Clear (CLEAR) 04/23/17 19:42 Urine pH 6.0 (4.7-8.0) 04/23/17 19:42 Ur Specific [place] 1.025 (1.005-1.035) 04/23/17 19:42 Urine Protein 100 mg/dL (<30 mg/dL) H 04/23/17 19:42 Urine Glucose (UA) Negative mg/dL (NEGATIVE) 04/23/17 19:42 Urine Ketones Trace mg/dL (NEGATIVE) H 04/23/17 19:42 Urine Blood Moderate (NEGATIVE) H 04/23/17 19:42 Urine Nitrate Negative (NEGATIVE) 04/23/17 19:42 Urine Bilirubin Negative (NEGATIVE) 04/23/17 19:42 Urine Urobilinogen 0.2 E.U./dL (<1 E.U./dL) 04/23/17 19:42 Ur Leukocyte Esterase Negative Phil/uL (NEGATIVE) 04/23/17 19:42 Urine RBC 2 - 5 /hpf (0-2) 04/23/17 19:42 Urine WBC 1 - 3 /hpf (0-6) 04/23/17 19:42 Ur Epithelial Cells 0 - 2 /hpf (0-5) 04/23/17 19:42 Urine Bacteria Rare (NEG) 04/23/17 19:42 - Constitutional Appears: Well, No Acute Distress - Head Exam Head Exam: ATRAUMATIC, NORMAL INSPECTION, NORMOCEPHALIC - Eye Exam Eye Exam: Normal appearance - ENT Exam ENT Exam: Normal External Ear Exam - Neck Exam Neck Exam: Normal Inspection - Respiratory Exam Respiratory Exam: NORMAL BREATHING PATTERN - Cardiovascular Exam Cardiovascular Exam: absent: JVD - GI/Abdominal Exam GI & Abdominal Exam: absent: Distended - Rectal Exam Rectal Exam: Deferred - Exam Additional comments: Deferred. - Extremities Exam Extremities Exam: Normal Inspection - Back Exam Back Exam: NORMAL INSPECTION - Neurological Exam Neurological Exam: Alert, Oriented x3 - Psychiatric Exam Psychiatric exam: Normal Affect, Normal Mood - Skin Skin Exam: Normal Color Assessment and Plan - Assessment and Plan (Free Text) Assessment: Agitation-Intermittent. Dementia. History of intermittent combative behaviour. NIDDM. HTN. Neuropathy. Arthritis. Plan: Will hold ativan 0.12 mg IV that I have ordered. Observation. We may give same , if he becomes agitated during the course of this shift.
[2017-04-27] MEDS: Piperacillin/Tazobact 3.375 gm 100 ML IVPB SCH ×3 (06:43→21:27)
[2017-04-27 07:23] LABS: HEMOGLOBIN 10.3 g/dL (14.0-18.0); MEAN CELL VOLUME 89.5 fl (80.0-105.0); MEAN CORPUSCULAR HEMOGLOBIN 28.4 pg (25.0-35.0); MEAN CORPUSCULAR HGB CONC 31.7 g/dl (31.0-37.0); MEAN PLATELET VOLUME 12.3 fl (7.0-11.0); RBC 3.63 10^6/uL (3.5-6.1); RED CELL DISTRIBUTION WIDTH 14.2 % (11.5-14.5); WHITE BLOOD COUNT 8.3 10^3/ul (4.5-11.0)
[2017-04-27 07:42] LABS: ALB/GLOB RATIO 0.9 (1.1-1.8); CALCIUM 8.6 mg/dL (8.4-10.5)
[2017-04-27] MEDS ORDERED: Potassium Chloride 20 mEq ER Tab PO ONE ×2 (09:14→12:00)
[2017-04-27] MEDS ORDERED: Sodium Chloride 0.45% 1,000 ML IV SCH (09:39)
[2017-04-27] MEDS: Multivitamin Vitamin B Complex (Nephro-Vite) Tab PO SCH (10:03)
[2017-04-27] MEDS: Magnesium Oxide 400 mg Tab UD PO SCH ×2 (10:03→17:34)
[2017-04-27] MEDS: Linezolid 600 mg in D5W 300 ml 600 MG/300 ML BAG IVPB SCH ×2 (10:05→21:27)
--- NOTE | 2017-04-27 10:28 | CP.PCM.PN ---
Subjective - Date & Time of Evaluation Date of Evaluation: 04/27/17 Time of Evaluation: 10:26 - Subjective Subjective: Nephrology Consultation: Assessment: stable Altered mental status with ? 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 Plan No acute need for renal replacement therapy at this time. Hypertension control with meds as ordered. started losartan 50 mg/day Monitor Input/Output, daily weights and renal function with basic metabolic panel continue with MVI, iron and weekly vit D IVF as 0.45% saline @ 50 ml/hr supplement electrolytes as needed podiatry following Dose meds/antibiotics for reduced GFR. Avoid fleets enema/magnesium based laxatives. Avoid nephrotoxins/NSAIDs Glycemic control Further work up/management as per primary team Thanks for allowing me to participate in care of your patient. Will follow patient with you. Please call if any Qs. Dr Víctor Echols Office: [phone] Reason for consult: ELIZABETH, hypernatremia, CKD management HPI: Pt is a 86 M with hx of diabetes Mellitus ( many years), hypertension ( many years), CKD stage 3 (baseline cr 1.9 in 2014) was brought to hospital with Rt great toe gangrne and cellulitis. he was found to have ELIZABETH and Hypernatremia hence renal consulted Denies OTC/herbal meds or NSAIDs No known recent iodinated contrast exposure. No obvious episodes of low BP ROS: denies CP/SOB/pain abdomen. pt had pulled out his picc line. intermittent episodes of agitation overnight Physical Examination: General Appearance: Comfortable, in no acute respiratory distress, co-operative . Vitals reviewed and noted as below Head; Atraumatic, normocephalic ENT: no ulcers no thrush. Tongue is midline. Oropharynx: no rash or ulcers. EYES: Pupils are equal, round and reactive to light accommodation. Eye muscles and extraocular movement intact. Sclera is anicteric. Neck; supple no lymphadenopathy, no thyromegaly or bruit Lungs: Normal respiratory rate/effort. Breath sounds bilateral equal and clear Heart: Normal rate. s1s2 normal. No rub or gallop. Extremities: no edema. No varicose veins. Rt foot great toe with dry gangrene Neurological: Patient is awake alert but disoriented x 3 Skin: Warm and dry. Normal turgor. No rash. Palpitation: Normal elasticity for age Abdomen: Abdomen is soft. Bowel sounds +. There is no abdominal tenderness, no guarding/rigidity no organomegaly Psych: unable. he lack insight MSK: no joint tenderness or swelling. Digits and nails normal, no deformity : kidney or bladder not palpable Labs/imaging reviewed. Past medical history, past surgical history, family history, social history, allergy reviewed and noted as below Family hx: no hx of CKD. Rest non-contributory work up: SPEP/SARAH neg TSAT 22% Ferritin 37 Vit D <12.8 PTH 40 renal sono; wnl UA SG >1.030 carito low and renin low Objective - Vital Signs/Intake and Output Vital Signs (last 24 hours): Temp Pulse Resp BP Pulse Ox 98.1 F 80 20 173/86 H 95 04/27/17 07:30 04/27/17 10:04 04/27/17 07:30 04/27/17 10:04 04/27/17 07:30 - Medications Medications: Current Medications Amlodipine Besylate (Norvasc) 10 mg PO DAILY [facility] Last Admin: 04/27/17 10:04 Dose: 10 mg Carvedilol (Coreg) 12.5 mg PO BID [facility] Last Admin: 04/27/17 10:04 Dose: 12.5 mg Ergocalciferol (Drisdol 50,000 Intl Units Cap) 1 cap PO Q7D [facility] Last Admin: 04/26/17 10:08 Dose: 1 cap Ferrous Gluconate (Fergon) 324 mg PO TID [facility] Last Admin: 04/27/17 10:04 Dose: 324 mg Haloperidol Lactate (Haldol) 1 mg IM Q8H PRN; Protocol PRN Reason: severe agitagtion Linezolid (Zyvox 600mg/300ml D5w) 600 mg in 300 mls @ 200 mls/hr IVPB Q12 [facility] PRN Reason: Protocol Stop: 04/30/17 22:31 Last Admin: 04/27/17 10:05 Dose: 200 mls/hr Piperacillin Sod/Tazobactam Sod (Zosyn 3.375 In Ns 100ml) 100 mls @ 200 mls/hr IVPB Q8 [facility] PRN Reason: Protocol Stop: 05/01/17 22:01 Last Admin: 04/27/17 06:43 Dose: 200 mls/hr Sodium Chloride (Sodium Chloride 0.45%) 1,000 mls @ 50 mls/hr IV .Q20H [facility] Last Admin: 04/27/17 10:13 Dose: 50 mls/hr Lorazepam (Ativan) 0.5 mg IVP TID PRN; Protocol PRN Reason: restlessness/agitation Losartan Potassium (Cozaar) 50 mg PO DAILY [facility] Last Admin: 04/27/17 10:04 Dose: 50 mg Magnesium Oxide (Mag-Ox) 400 mg PO BID [facility] Last Admin: 04/27/17 10:03 Dose: 400 mg Non-Formulary Medication (Temazepam [Restoril]) 15 mg PO HS [facility] Last Admin: 04/26/17 22:36 Dose: Not Given Potassium Chloride (K-Dur 20 Meq Er Tab) 20 meq PO ONCE ONE Stop: 04/27/17 12:01 Quetiapine Fumarate (Seroquel) 12.5 mg PO HS [facility] PRN Reason: Protocol Sitagliptin Phosphate (Januvia) 25 mg PO DAILY [facility] Last Admin: 04/27/17 10:03 Dose: 25 mg Vitamin B Complex/Vit C/Folic Acid (Nephro-J Luis) 1 tab PO 0800 [facility] Last Admin: 04/27/17 10:03 Dose: 1 tab - Labs Labs: 04/27/17 06:45 04/27/17 06:45 PT 14.7 SECONDS (9.4-12.5) H 04/23/17 19:11 INR 1.28 (0.93-1.08) H 04/23/17 19:11 APTT 20.3 Seconds (25.1-36.5) L 04/23/17 19:11
--- NOTE | 2017-04-27 12:06 | CP.PCM.PN ---
<Davie Merrill - Last Filed: 04/27/17 13:34> Subjective - Date & Time of Evaluation Date of Evaluation: 04/27/17 Time of Evaluation: 10:00 - Subjective Subjective: Podiatry Progress Note- Dr. Saleh 86 year old male seen at bedside for right gangrene hallux toe. Patient is seen laying comfortably in bed and in NAD. Denies acute overnight events Family member is seen at bedside during visitation. Pt denies any overnight f/c/cp/sob/ n/v. Patient reports no pain to his right hallux or calf. Denies calf tenderness. Objective - Vital Signs/Intake and Output Vital Signs (last 24 hours): Temp Pulse Resp BP Pulse Ox 98.1 F 80 20 173/86 H 95 04/27/17 07:30 04/27/17 10:04 04/27/17 07:30 04/27/17 10:04 04/27/17 07:30 - Medications Medications: Current Medications Amlodipine Besylate (Norvasc) 10 mg PO DAILY [facility] Last Admin: 04/27/17 10:04 Dose: 10 mg Carvedilol (Coreg) 12.5 mg PO BID [facility] Last Admin: 04/27/17 10:04 Dose: 12.5 mg Ergocalciferol (Drisdol 50,000 Intl Units Cap) 1 cap PO Q7D [facility] Last Admin: 04/26/17 10:08 Dose: 1 cap Ferrous Gluconate (Fergon) 324 mg PO TID [facility] Last Admin: 04/27/17 10:04 Dose: 324 mg Haloperidol Lactate (Haldol) 1 mg IM Q8H PRN; Protocol PRN Reason: severe agitagtion Linezolid (Zyvox 600mg/300ml D5w) 600 mg in 300 mls @ 200 mls/hr IVPB Q12 [facility] PRN Reason: Protocol Stop: 04/30/17 22:31 Last Admin: 04/27/17 10:05 Dose: 200 mls/hr Piperacillin Sod/Tazobactam Sod (Zosyn 3.375 In Ns 100ml) 100 mls @ 200 mls/hr IVPB Q8 [facility] PRN Reason: Protocol Stop: 05/01/17 22:01 Last Admin: 04/27/17 06:43 Dose: 200 mls/hr Sodium Chloride (Sodium Chloride 0.45%) 1,000 mls @ 50 mls/hr IV .Q20H [facility] Last Admin: 04/27/17 10:13 Dose: 50 mls/hr Lorazepam (Ativan) 0.5 mg IVP TID PRN; Protocol PRN Reason: restlessness/agitation Losartan Potassium (Cozaar) 50 mg PO DAILY [facility] Last Admin: 04/27/17 10:04 Dose: 50 mg Magnesium Oxide (Mag-Ox) 400 mg PO BID [facility] Last Admin: 04/27/17 10:03 Dose: 400 mg Non-Formulary Medication (Temazepam [Restoril]) 15 mg PO HS [facility] Last Admin: 04/26/17 22:36 Dose: Not Given Quetiapine Fumarate (Seroquel) 12.5 mg PO [facility] PRN Reason: Protocol Sitagliptin Phosphate (Januvia) 25 mg PO DAILY [facility] Last Admin: 04/27/17 10:03 Dose: 25 mg Vitamin B Complex/Vit C/Folic Acid (Nephro-J Luis) 1 tab PO 0800 [facility] Last Admin: 04/27/17 10:03 Dose: 1 tab - Labs Labs: 04/27/17 06:45 04/27/17 06:45 PT 14.7 SECONDS (9.4-12.5) H 04/23/17 19:11 INR 1.28 (0.93-1.08) H 04/23/17 19:11 APTT 20.3 Seconds (25.1-36.5) L 04/23/17 19:11 - Constitutional Appears: Well, Non-toxic, No Acute Distress - Extremities Exam Extremities Exam: absent: Calf Tenderness Additional comments: Right lower extremity focused. DERM: Right hallux dry gangrene with mummification of digit distal to interphalangeal joint with no opening, no clinical signs of infection. Ischemic pre-ulcerative lesions noted to dorsum of foot. No active drainage noted. Mild erythema. No mal-odor noted. No inter-digital macerations noted. Discoloration noted to digits 2, 3, and 4 with thin, shiny skin and spongy texture. No abscess or purulence, most consistent with early ischemic changes. Darken hyperpigmentation noted to the dorsum of the midfoot. NEURO: Protective sensation grossly intact. VASC: DP is nonpalpable, PT pulses graded 1/4. CFT delayed to the right digits compared to the left. Temperature runs warm to cool proximal to distal, more cool compared to the left. Absent pedal hair growth bilaterally. ORTHO: mild pain to palpation of right foot - Neurological Exam Neurological Exam: Alert, Awake, Oriented x3 - Psychiatric Exam Psychiatric exam: Normal Affect, Normal Mood Assessment and Plan - Assessment and Plan (Free Text) Assessment: Right hallux dry gangrene, likely secondary to PAD Plan: Pt seen and evaluated. Discussed with attending, Dr. Saleh, who endorsed the following plan. Chart, labs, and vitals reviewed. Afebrile, absent leukocytosis. Right foot radiographs evaluated: results unremarkable, negative for osteomyelitis. Arterial duplex-pending. Vascular assessment & recommendations-pending. Continue IV abx per ID recommendatios, currently Zyvox and Zosyn. Cleansed right hallux with betadine and dressed with dsd Ordered multipodus boots b/l LE. To be worn at all times while in bed. Podiatry will continue to follow patient. Pending potential intervention after vascular studies resulted. <René Saleh - Last Filed: 04/27/17 16:20> Objective - Vital Signs/Intake and Output Vital Signs (last 24 hours): Temp Pulse Resp BP Pulse Ox 98.1 F 80 20 173/86 H 95 04/27/17 07:30 04/27/17 10:04 04/27/17 07:30 04/27/17 10:04 04/27/17 07:30 - Medications Medications: Current Medications Acetylcysteine (Acetylcysteine 20%) 3 ml PO BID [facility] Stop: 04/29/17 18:00 Amlodipine Besylate (Norvasc) 10 mg PO DAILY [facility] Last Admin: 04/27/17 10:04 Dose: 10 mg Carvedilol (Coreg) 12.5 mg PO BID [facility] Last Admin: 04/27/17 10:04 Dose: 12.5 mg Ergocalciferol (Drisdol 50,000 Intl Units Cap) 1 cap PO Q7D [facility] Last Admin: 04/26/17 10:08 Dose: 1 cap Ferrous Gluconate (Fergon) 324 mg PO TID [facility] Last Admin: 04/27/17 13:46 Dose: 324 mg Haloperidol Lactate (Haldol) 1 mg IM Q8H PRN; Protocol PRN Reason: severe agitagtion Linezolid (Zyvox 600mg/300ml D5w) 600 mg in 300 mls @ 200 mls/hr IVPB Q12 [facility] PRN Reason: Protocol Stop: 04/30/17 22:31 Last Admin: 04/27/17 10:05 Dose: 200 mls/hr Piperacillin Sod/Tazobactam Sod (Zosyn 3.375 In Ns 100ml) 100 mls @ 200 mls/hr IVPB Q8 [facility] PRN Reason: Protocol Stop: 05/01/17 22:01 Last Admin: 04/27/17 13:47 Dose: 200 mls/hr Sodium Chloride (Sodium Chloride 0.45%) 1,000 mls @ 80 mls/hr IV .[id number] [facility] Lorazepam (Ativan) 0.5 mg IVP TID PRN; Protocol PRN Reason: restlessness/agitation Losartan Potassium (Cozaar) 50 mg PO DAILY [facility] Last Admin: 04/27/17 10:04 Dose: 50 mg Magnesium Oxide (Mag-Ox) 400 mg PO BID [facility] Last Admin: 04/27/17 10:03 Dose: 400 mg Non-Formulary Medication (Temazepam [Restoril]) 15 mg PO HS [facility] Last Admin: 04/26/17 22:36 Dose: Not Given Quetiapine Fumarate (Seroquel) 12.5 mg PO HS [facility] PRN Reason: Protocol Sitagliptin Phosphate (Januvia) 25 mg PO DAILY [facility] Last Admin: 04/27/17 10:03 Dose: 25 mg Vancomycin HCl (Vancocin 25 Mg/Ml (Oral Use)) 125 mg PO QID [facility] PRN Reason: Protocol Vitamin B Complex/Vit C/Folic Acid (Nephro-J Luis) 1 tab PO 0800 [facility] Last Admin: 04/27/17 10:03 Dose: 1 tab - Labs Labs: 04/27/17 06:45 04/27/17 06:45 PT 14.7 SECONDS (9.4-12.5) H 04/23/17 19:11 INR 1.28 (0.93-1.08) H 04/23/17 19:11 APTT 20.3 Seconds (25.1-36.5) L 04/23/17 19:11 Attending/Attestation - Attestation I have personally seen and examined this patient.: Yes I have fully participated in the care of the patient.: Yes I have reviewed all pertinent clinical information, including history, physical exam and plan: Yes
--- NOTE | 2017-04-27 15:16 | PN ---
DATE: SUBJECTIVE: I saw him resting comfortably in bed. He is alert and comfortable, confused, in no acute distress. The right first toe was still black and then gangrenous, sore, demarcating. He is on IV fluids, Ativan, Coreg, Cozaar, Fergon, Haldol, potassium replacement, magnesium, vitamins, Norvasc, Seroquel, Restoril, Zosyn and Zyvox. PHYSICAL EXAMINATION: VITAL SIGNS: He has a 98.1 temperature, 80 pulse, 173/86 blood pressure, 20 respiratory rate, 95% O2 sat on room air. HEENT: His head is atraumatic, normocephalic. GENERAL: He is alert and confused. He is pleasant. HEART: Regular rate. LUNGS: Decreased breath sounds, but clear. ABDOMEN: Soft. EXTREMITIES: No edema, the right foot gangrenous. LABORATORY DATA: He has a sodium 145, potassium 3.1, I have replaced with two K-Dur 20 mEq; BUN 14, creatinine 1.7 which is a bit better. He has a 136 sugar, calcium is 8.6, magnesium is 1.5, total bilirubin is 0.98, AST is 33, ALT is 31, alkaline phosphatase 84, total protein 6.4. He has a 8.3 white count, 10.3 hemoglobin, 32.5 hematocrit, with a 176 platelets. INR is 1.28. Micro is Gram-positive cocci in the urine. He is being seen by numerous doctors, Infectious Disease, Renal and soon today he will be seen by interventional radiologist for possible stent placement to save the left foot. He is going to need to have an amputation possibly, hopefully we will get that information today. Continue aggressive treatment and care on Blas Gandhi with gangrenous 3 invalid. Grabiel Sun DO
[2017-04-27] MEDS: Acetylcysteine 20% Inhal Soln (4ml) PO SCH (17:33)
[2017-04-27] MEDS: Vancomycin 25 MG/ML PO SCH ×2 (17:34→21:38)
--- NOTE | 2017-04-27 18:18 | PN ---
DATE: 04/27/2017 He is being seen today for a followup consultation. PRESENTATION: The patient is an 86-year-old -[place] male seen at bedside. He was originally admitted to [facility] on 04/23/2017, due to gangrene of his right big toe and cellulitis. He also has hypertension, diabetes, and dementia and he came from a long term, [facility]. Psychiatric consultation was called due to anxiety and dementia. In review of the nurses' notes, the patient had a very very difficult night last night. He was restless. He was trying to climb out of bed, pulling off his oxygen. He pulled out his PICC line. Ativan was given. Restless climbing out of bed repeatedly. Medication orders were reviewed to see if we can better help with this situation. He now has an for Haldol 1 mg IM q. 8 hours p.r.n. severe agitation, lorazepam 0.5 mg IV push t.i.d. p.r.n., Seroquel 12.5 mg one at bedtime was added also to help clear his sensorium. The patient's urine culture from 04/23/2017, had Gram-positive cocci in it. He has quite a bit of soft green stool last night, which was sent for culture. MENTAL STATUS EXAM: The patient is very disoriented except to his name. He appears to be very nervous and scared, repeatedly questions to me as how to to do with the safety of his family or are his finances okay has he lost anything this is the theme. However, he does not appear to be suicidal or homicidal according to his behavior. DIAGNOSTIC IMPRESSION: Dementia with behavioral disturbance, delirium secondary to urinary tract infection, and cellulitis. PLAN: The patient does not appear to be suicidal or homicidal at this time according to his behavior. He is unable to answer questions, however. The patient has been quite disoriented. His medications were revamped in order to assist in clearing his sensorium in the evening. Psychiatry will continue to follow and assess the efficacy of these medications. Thank you for the consult. Christina Mcguire APN [facility] # [id number] MTDD
[2017-04-27] MEDS: Sodium Chloride 0.45% 1,000 ML IV SCH (21:41)
--- NOTE | 2017-04-27 23:17 | PN ---
DATE: 04/27/2017 SUBJECTIVE: The patient is seen in room 567, bed 1. No fevers and no chills. The patient was seen early this morning. OBJECTIVE: VITAL SIGNS: On exam, temperature is 98, blood pressure is 130/70, respiratory rate of 18. HEENT: Unremarkable. NECK: Supple. LUNGS: Have decreased breath sounds. HEART: Normal S1, S2. ABDOMEN: Soft, nontender. LABORATORY DATA: Reveals a white count of 8.3, hemoglobin of 10, platelets of 176. BUN of 14, creatinine of 1.7. Urinalysis is noted. Microbiology reveals the blood cultures are no growth; urine cultures are gram-positive cocci. Stool for C. diff is positive antigen, negative toxin. ASSESSMENT AND PLAN: This is an 86-year-old male who was seen early this morning in room 567, bed 1, with right hallux gangrene and cellulitis, peripheral arterial disease with a history of right ankle and foot infected ulcer and skin structure infection, growing Enterobacter and Enterococcus, diabetic and hypertension, now with pseudomembranous colitis. We will add vancomycin. I have discussed with nurse practitioner Alexa. Dr. Saleh's note is reviewed. We will follow closely with you. Christiano Uribe MD
[2017-04-28] MEDS: Sodium Chloride 0.45% 1,000 ML IV SCH ×2 (02:55→18:55)
[2017-04-28] MEDS: Piperacillin/Tazobact 3.375 gm 100 ML IVPB SCH ×3 (06:33→21:43)
[2017-04-28 06:52] LABS: MEAN CORPUSCULAR HEMOGLOBIN 28.2 pg (25.0-35.0); MEAN CORPUSCULAR HGB CONC 32.5 g/dl (31.0-37.0); MEAN PLATELET VOLUME 11.5 fl (7.0-11.0); RBC 3.54 10^6/uL (3.5-6.1); RED CELL DISTRIBUTION WIDTH 14.5 % (11.5-14.5); WHITE BLOOD COUNT 7.1 10^3/ul (4.5-11.0)
[2017-04-28 07:35] LABS: ALB/GLOB RATIO 0.8 (1.1-1.8); ALBUMIN 2.7 g/dL (3.0-4.8)
--- NOTE | 2017-04-28 08:26 | CON ---
DATE: 04/27/2017 TIME: 6:30 p.m. CHIEF COMPLAINT/HISTORY OF PRESENT ILLNESS: I know Mr. Gandhi from [place] [facility] [place]. He has dry gangrene of his right great toe. Workup in February revealed severe multilevel occlusive disease. His MRA at that time was suboptimal, but revealed left iliac and multifocal bilateral SFA disease along with significant bilateral tibial disease. His baseline creatinine is elevated. Ideally, he would undergo a right great toe amputation, but his vascular evaluation so far demonstrates significant disease and he probably would not heal the toe amputation. PHYSICAL EXAMINATION: EXTREMITIES: He has palpable femoral pulses. His popliteal and pedal pulses are not palpable. Dry gangrene with moderate pain involving the right great toe. PAST MEDICAL HISTORY: Significant for dementia, diabetes, hypertension and peripheral neuropathy. ASSESSMENT AND PLAN: I had a long discussion with the patient's and daughter. We will attempt a limited right lower extremity arteriogram with intervention at the superficial femoral artery and trifurcation levels. Hopefully, revascularization will be adequate to support the great toe amputation. They understand the risks involved. Bill Awad MD MTDJimena
[2017-04-28] MEDS: Potassium Chloride 20 mEq ER Tab PO SCH (10:15)
[2017-04-28] MEDS: Acetylcysteine 20% Inhal Soln (4ml) PO SCH ×2 (10:15→19:27)
[2017-04-28] MEDS: Magnesium Oxide 400 mg Tab UD PO SCH ×2 (10:15→19:27)
[2017-04-28] MEDS: Linezolid 600 mg in D5W 300 ml 600 MG/300 ML BAG IVPB SCH ×2 (10:16→21:42)
[2017-04-28] MEDS: Vancomycin 25 MG/ML PO SCH ×3 (10:17→19:28)
[2017-04-28] MEDS: Multivitamin Vitamin B Complex (Nephro-Vite) Tab PO SCH (10:19)
--- NOTE | 2017-04-28 11:55 | CP.PCM.PN ---
<Davie Merrill - Last Filed: 04/28/17 14:58> Subjective - Date & Time of Evaluation Date of Evaluation: 04/28/17 Time of Evaluation: 10:15 - Subjective Subjective: Podiatry Progress Note- Dr. Renteria 86 year old male seen at bedside for right gangrene hallux toe. Patient is seen laying comfortably in bed and in NAD. Denies acute overnight events. Pt denies any overnight f/c/cp/sob/n/v. Patient reports no pain to his right hallux or calf. Denies calf tenderness. Objective - Vital Signs/Intake and Output Vital Signs (last 24 hours): Temp Pulse Resp BP Pulse Ox 98 F 80 20 163/81 H 97 04/28/17 07:52 04/28/17 10:16 04/28/17 07:52 04/28/17 10:16 04/28/17 07:52 Intake and Output: 04/28/17 04/28/17 06:59 18:59 Intake Total 2160 Output Total 300 Balance 1860 - Medications Medications: Current Medications Acetylcysteine (Acetylcysteine 20%) 3 ml PO BID [facility] Stop: 04/29/17 18:00 Last Admin: 04/28/17 10:15 Dose: 3 ml Amlodipine Besylate (Norvasc) 10 mg PO DAILY [facility] Last Admin: 04/28/17 10:16 Dose: 10 mg Carvedilol (Coreg) 25 mg PO BID [facility] Ergocalciferol (Drisdol 50,000 Intl Units Cap) 1 cap PO Q7D [facility] Last Admin: 04/26/17 10:08 Dose: 1 cap Ferrous Gluconate (Fergon) 324 mg PO TID [facility] Last Admin: 04/28/17 10:15 Dose: 324 mg Haloperidol Lactate (Haldol) 1 mg IM Q8H PRN; Protocol PRN Reason: severe agitagtion Linezolid (Zyvox 600mg/300ml D5w) 600 mg in 300 mls @ 200 mls/hr IVPB Q12 NEVIN PRN Reason: Protocol Stop: 04/30/17 22:31 Last Admin: 04/28/17 10:16 Dose: 200 mls/hr Piperacillin Sod/Tazobactam Sod (Zosyn 3.375 In Ns 100ml) 100 mls @ 200 mls/hr IVPB Q8 ENVIN PRN Reason: Protocol Stop: 05/01/17 22:01 Last Admin: 04/28/17 06:33 Dose: 200 mls/hr Sodium Chloride (Sodium Chloride 0.45%) 1,000 mls @ 80 mls/hr IV .[id number] [facility] Last Admin: 04/28/17 02:55 Dose: Not Given Lorazepam (Ativan) 0.5 mg IVP TID PRN; Protocol PRN Reason: restlessness/agitation Losartan Potassium (Cozaar) 50 mg PO DAILY [facility] Last Admin: 04/28/17 10:16 Dose: 50 mg Magnesium Oxide (Mag-Ox) 400 mg PO BID [facility] Last Admin: 04/28/17 10:15 Dose: 400 mg Non-Formulary Medication (Temazepam [Restoril]) 15 mg PO HS [facility] Last Admin: 04/28/17 02:56 Dose: Not Given Potassium Chloride (K-Dur 20 Meq Er Tab) 20 meq PO BRK [facility] Last Admin: 04/28/17 10:15 Dose: 20 meq Potassium Chloride (K-Dur 20 Meq Er Tab) 40 meq PO ONCE ONE Stop: 04/28/17 12:01 Quetiapine Fumarate (Seroquel) 12.5 mg PO [facility] PRN Reason: Protocol Last Admin: 04/27/17 21:26 Dose: 12.5 mg Sitagliptin Phosphate (Januvia) 25 mg PO DAILY [facility] Last Admin: 04/28/17 10:16 Dose: Not Given Vancomycin HCl (Vancocin 25 Mg/Ml (Oral Use)) 125 mg PO QID [facility] PRN Reason: Protocol Last Admin: 04/28/17 10:17 Dose: 125 mg Vitamin B Complex/Vit C/Folic Acid (Nephro-J Luis) 1 tab PO 0800 [facility] Last Admin: 04/28/17 10:19 Dose: 1 tab - Labs Labs: 04/28/17 06:41 04/28/17 06:41 PT 14.7 SECONDS (9.4-12.5) H 04/23/17 19:11 INR 1.28 (0.93-1.08) H 04/23/17 19:11 APTT 20.3 Seconds (25.1-36.5) L 04/23/17 19:11 - Constitutional Appears: Well, Non-toxic, No Acute Distress - Extremities Exam Extremities Exam: absent: Calf Tenderness Additional comments: Right lower extremity focused. DERM: Right hallux dry gangrene with mummification of digit distal to interphalangeal joint with no opening, no clinical signs of infection. Ischemic pre-ulcerative lesions noted to dorsum of foot. No active drainage noted. Mild erythema. No mal-odor noted. No inter-digital macerations noted. Discoloration noted to digits 2, 3, and 4 with thin, shiny skin and spongy texture. No abscess or purulence, most consistent with early ischemic changes. Darken hyperpigmentation noted to the dorsum of the midfoot. NEURO: Protective sensation grossly intact. VASC: DP is nonpalpable, PT pulses graded 1/4. CFT delayed to the right digits compared to the left. Temperature runs warm to cool proximal to distal, more cool compared to the left. Absent pedal hair growth bilaterally. ORTHO: mild pain to palpation of right foot - Neurological Exam Neurological Exam: Alert, Awake, Oriented x3 - Psychiatric Exam Psychiatric exam: Normal Affect, Normal Mood Assessment and Plan - Assessment and Plan (Free Text) Assessment: Right hallux dry gangrene, likely secondary to PAD Plan: Pt seen and evaluated. Discussed with attending, Dr. Renteria Chart, labs, and vitals reviewed. Afebrile, absent leukocytosis. Right foot radiographs evaluated: results unremarkable, negative for osteomyelitis. Arterial duplex on 03/22/17 limited study to patient motion. Diminished flow below the knees. Multiple short segment stenosis in the superficial femoral arteries right greater than left Vascular assessment & recommendations appreciated -Plan for possible revascularization Continue IV abx per ID recommendatios, currently Zyvox and Zosyn. Cleansed right hallux with betadine and dressed with dsd Ordered multipodus boots b/l LE. To be worn at all times while in bed. Podiatry will continue to follow patient. Pending potential intervention after vascular studies resulted. <Almita Renteria - Last Filed: 05/06/17 11:00> Objective - Vital Signs/Intake and Output Vital Signs (last 24 hours): Temp Pulse Resp BP Pulse Ox 98.4 F 85 18 161/65 H 97 05/01/17 06:00 05/01/17 09:44 05/01/17 06:00 05/01/17 09:45 05/01/17 06:00 - Labs Labs: 05/01/17 07:00 05/01/17 07:00 PT 14.4 SECONDS (9.4-12.5) H 04/30/17 06:57 INR 1.25 (0.93-1.08) H 04/30/17 06:57 APTT 20.3 Seconds (25.1-36.5) L 04/23/17 19:11 Attending/Attestation - Attestation I have personally seen and examined this patient.: Yes I have fully participated in the care of the patient.: Yes I have reviewed all pertinent clinical information, including history, physical exam and plan: Yes
--- NOTE | 2017-04-28 12:08 | CP.PCM.PN ---
Subjective - Date & Time of Evaluation Date of Evaluation: 04/28/17 Time of Evaluation: 12:06 - Subjective Subjective: Nephrology Consultation: Assessment: stable Altered mental status with ? 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 Plan No acute need for renal replacement therapy at this time. Hypertension control with meds as ordered. continue with losartan 50 mg/day. increased coreg Monitor Input/Output, daily weights and renal function with basic metabolic panel continue with MVI, iron and weekly vit D IVF as 0.45% saline @ 50 ml/hr, increased in anticipation of angiogram for PVD eval. supplement electrolytes as needed podiatry following Dose meds/antibiotics for reduced GFR. Avoid fleets enema/magnesium based laxatives. Avoid nephrotoxins/NSAIDs Glycemic control Further work up/management as per primary team Thanks for allowing me to participate in care of your patient. Will follow patient with you. Please call if any Qs. Dr Víctor Echols Office: [phone] Reason for consult: ELIZABETH, hypernatremia, CKD management HPI: Pt is a 86 M with hx of diabetes Mellitus ( many years), hypertension ( many years), CKD stage 3 (baseline cr 1.9 in 2015) was brought to hospital with Rt great toe gangrne and cellulitis. he was found to have ELIZABETH and Hypernatremia hence renal consulted Denies OTC/herbal meds or NSAIDs No known recent iodinated contrast exposure. No obvious episodes of low BP ROS: denies CP/SOB/pain abdomen. pt had pulled out his picc line. intermittent episodes of agitations Physical Examination: General Appearance: Comfortable, in no acute respiratory distress, co-operative . Vitals reviewed and noted as below Head; Atraumatic, normocephalic ENT: no ulcers no thrush. Tongue is midline. Oropharynx: no rash or ulcers. EYES: Pupils are equal, round and reactive to light accommodation. Eye muscles and extraocular movement intact. Sclera is anicteric. Neck; supple no lymphadenopathy, no thyromegaly or bruit Lungs: Normal respiratory rate/effort. Breath sounds bilateral equal and clear Heart: Normal rate. s1s2 normal. No rub or gallop. Extremities: no edema. No varicose veins. Rt foot great toe with dry gangrene Neurological: Patient is sleeping today Skin: Warm and dry. Normal turgor. No rash. Palpitation: Normal elasticity for age Abdomen: Abdomen is soft. Bowel sounds +. There is no abdominal tenderness, no guarding/rigidity no organomegaly Psych: unable. he lack insight MSK: no joint tenderness or swelling. Digits and nails normal, no deformity : kidney or bladder not palpable Labs/imaging reviewed. Past medical history, past surgical history, family history, social history, allergy reviewed and noted as below Family hx: no hx of CKD. Rest non-contributory work up: SPEP/SARAH neg TSAT 22% Ferritin 37 Vit D <12.8 PTH 40 renal sono; wnl UA SG >1.030 carito low and renin low Objective - Vital Signs/Intake and Output Vital Signs (last 24 hours): Temp Pulse Resp BP Pulse Ox 98 F 80 20 163/81 H 97 04/28/17 07:52 04/28/17 10:16 04/28/17 07:52 04/28/17 10:16 04/28/17 07:52 Intake and Output: 04/28/17 04/28/17 06:59 18:59 Intake Total 2160 Output Total 300 Balance 1860 - Medications Medications: Current Medications Acetylcysteine (Acetylcysteine 20%) 3 ml PO BID [facility] Stop: 04/29/17 18:00 Last Admin: 04/28/17 10:15 Dose: 3 ml Amlodipine Besylate (Norvasc) 10 mg PO DAILY [facility] Last Admin: 04/28/17 10:16 Dose: 10 mg Carvedilol (Coreg) 25 mg PO BID [facility] Ergocalciferol (Drisdol 50,000 Intl Units Cap) 1 cap PO Q7D [facility] Last Admin: 04/26/17 10:08 Dose: 1 cap Ferrous Gluconate (Fergon) 324 mg PO TID [facility] Last Admin: 04/28/17 10:15 Dose: 324 mg Haloperidol Lactate (Haldol) 1 mg IM Q8H PRN; Protocol PRN Reason: severe agitagtion Linezolid (Zyvox 600mg/300ml D5w) 600 mg in 300 mls @ 200 mls/hr IVPB Q12 NEVIN PRN Reason: Protocol Stop: 04/30/17 22:31 Last Admin: 04/28/17 10:16 Dose: 200 mls/hr Piperacillin Sod/Tazobactam Sod (Zosyn 3.375 In Ns 100ml) 100 mls @ 200 mls/hr IVPB Q8 NEVIN PRN Reason: Protocol Stop: 05/01/17 22:01 Last Admin: 04/28/17 06:33 Dose: 200 mls/hr Sodium Chloride (Sodium Chloride 0.45%) 1,000 mls @ 80 mls/hr IV .[id number] [facility] Last Admin: 04/28/17 02:55 Dose: Not Given Lorazepam (Ativan) 0.5 mg IVP TID PRN; Protocol PRN Reason: restlessness/agitation Losartan Potassium (Cozaar) 50 mg PO DAILY [facility] Last Admin: 04/28/17 10:16 Dose: 50 mg Magnesium Oxide (Mag-Ox) 400 mg PO BID [facility] Last Admin: 04/28/17 10:15 Dose: 400 mg Non-Formulary Medication (Temazepam [Restoril]) 15 mg PO HS [facility] Last Admin: 04/28/17 02:56 Dose: Not Given Potassium Chloride (K-Dur 20 Meq Er Tab) 20 meq PO BRK [facility] Last Admin: 04/28/17 10:15 Dose: 20 meq Quetiapine Fumarate (Seroquel) 12.5 mg PO HS [facility] PRN Reason: Protocol Last Admin: 04/27/17 21:26 Dose: 12.5 mg Sitagliptin Phosphate (Januvia) 25 mg PO DAILY [facility] Last Admin: 04/28/17 10:16 Dose: Not Given Vancomycin HCl (Vancocin 25 Mg/Ml (Oral Use)) 125 mg PO QID [facility] PRN Reason: Protocol Last Admin: 04/28/17 10:17 Dose: 125 mg Vitamin B Complex/Vit C/Folic Acid (Nephro-J Luis) 1 tab PO 0800 [facility] Last Admin: 04/28/17 10:19 Dose: 1 tab - Labs Labs: 03/07/18 06:41 04/28/17 06:41 PT 14.7 SECONDS (9.4-12.5) H 04/23/17 19:11 INR 1.28 (0.93-1.08) H 04/23/17 19:11 APTT 20.3 Seconds (25.1-36.5) L 04/23/17 19:11
--- NOTE | 2017-04-28 12:20 | PN ---
DATE: SUBJECTIVE: I saw Mr. Gandhi resting comfortably in bed. He is alert. He is , he is confused, back to his baseline. He has a bad right foot. I was hoping that Interventional Radiology would have put a note in the chart for guidance as to further plan to either angiogram or stent the leg. I also want to know if he was going to have an amputation, not sure yet. PHYSICAL EXAMINATION: VITAL SIGNS: He has a 98.3 temperature, 72 pulse, 182/87 blood pressure, 16 respiratory rate, 98% O2 saturation on 2 liters of nasal cannula. HEENT: His head is atraumatic, normocephalic. HEART: Regular rate. LUNGS: Decreased breath sounds. ABDOMEN: Soft. EXTREMITIES: In the right foot, there is gangrene and it is demarcated. LABORATORY DATA: He has a 143 sodium; potassium 3.1, gave potassium replacement. BUN is 12, creatinine 1.7, GFR is 38, sugar is 112, calcium is 8, total bili is 0.7, AST is 31, ALT is 32, alkaline phosphatase is 73. White count is 7.1, hemoglobin is 10, hematocrit 30.8, platelets of 160,000. He is on IV antibiotics. He is being seen by Infectious Disease, Psychiatry, Renal, Podiatry; I was hoping for Vascular to make a decision if I can do procedure on him today or not. I will to Vascular again this morning. osteomyelitis, and we need to talk to Podiatry do surgery. Grabiel Sun DO MTDD
[2017-04-28] MEDS ORDERED: Lidocaine 2% Inj (20ml) ONE (13:12)
[2017-04-28] MEDS ORDERED: Midazolam 2 MG/2 ML VIAL ONE (13:13)
[2017-04-28] MEDS ORDERED: Iodixanol 320 MG/ML 100 ML BOTTLE IV ONE ×2 (13:14→16:14)
[2017-04-28] MEDS ORDERED: HEPARIN SODIUM/NS 2,000 ML IV ONE (13:15)
[2017-04-28] MEDS ORDERED: Nitroglycerin 50mg in D5W 50 MG/250 ML BOTTLE IV ONE (13:15)
[2017-04-28] MEDS ORDERED: Iodixanol 320 MG/ML 200 ML BOTTLE IV ONE (13:15)
[2017-04-28] MEDS: Potassium Chloride 20 mEq ER Tab PO ONE ×2 (13:30→14:12)
[2017-04-28] MEDS ORDERED: Propofol 10 mg/ml Inj (20 ML) ONE (15:32)
[2017-04-28] MEDS ORDERED: Lactated Ringer's 1,000 ML IV SCH (15:50)
--- NOTE | 2017-04-28 17:06 | CARD ---
APPROVED REPORT EKG Measurement Heart [id number] TX [id number] <Conclusion> Normal sinus rhythm Left axis deviation Septal infarct, age undetermined T wave abnormality, consider lateral ischemia Abnormal ECG
--- NOTE | 2017-04-28 19:27 | VASCULAR ---
PROCEDURE: 1. Abdominal aortogram and selective right lower extremity runoff 2. Long segment right SFA and popliteal drug-eluting balloon angioplasty 3. Proximal right peroneal artery angioplasty and drug-eluting stent placement HISTORY: Severe peripheral vascular disease. Dry gangrene right great toe. Needs amputation. Renal insufficiency. PHYSICIAN(S): Bill Awad M.D. TECHNIQUE: The relative risks and indications of the procedure were explained to the patient's and daughter and consent obtained. The patient was hydrated prior to the procedure and the appropriate labs drawn. The patient was placed supine on the arteriogram table and the left groin prepped and draped in the usual sterile fashion. Conscious sedation and monitoring were provided throughout the procedure by a nurse. Via a left common femoral artery approach, a 5 Faroese sheath was placed in the left groin. Through the sheath and over a guidewire, a 5 Faroese flush catheter was placed in the abdominal aorta at the level of the aortic bifurcation and an RPO DSA abdominal pelvic arteriogram performed. Imaging was limited due to the patient's renal insufficiency. The catheter was advanced over the bifurcation placed in the right common femoral artery. Overlapping right lower extremity DSA arteriogram was performed. A 7 Faroese 45 cm sheath was placed in the right common femoral artery. Rather easily and unexpectedly, the severe diffuse disease in the right SFA and popliteal arteries was crossed with 5 Faroese catheter and 0.035 guidewire. Initial attempts at crossing the right anterior tibial artery occlusion were unsuccessful. Subsequently the occluded origin of the right tibioperoneal trunk was probed with a Glidewire. 5 Faroese catheter and glidewire were advanced into the dominant reconstituted proximal right peroneal artery. Heparin was given. 0.014 support wire was placed in the right peroneal artery. Proximal right peroneal artery and tibioperoneal trunk were dilated with a 3.5 mm balloon. A suboptimal result was obtained. Subsequently coaxial 3.5 and 3.0 drug-eluting stents were placed in the right tibioperoneal trunk and proximal right peroneal artery. An excellent angiographic result was obtained. The severe disease in the right popliteal artery was dilated with a 4 millimeter balloon. Next the right popliteal artery was dilated with a 5 mm drug-eluting balloon. The mid to distal right SFA was dilated with a 6 mm drug-eluting balloon. Findings the proximal right SFA was dilated with a 6 mm x 250 mm balloon. Completion angiograms were obtained on the right. The sheath was removed hemostasis obtained with a Perclose device. A palpable right popliteal pulse was present. A strong right dorsalis pedis Doppler signal was present. A Al catheter was placed to monitor urine output and the patient's fluids were continued. FINDINGS: The terminal aorta and bifurcation are diseased but patent. The right external iliac artery appears patent without radiographically significant stenosis. There appear to be 2 stenoses in the left common and external iliac arteries which are not well seen in the RPO projection. They are better appreciated on the MRA runoff. The internal iliac arteries are diseased but patent. Right lower extremity: The right common femoral artery is calcified but patent. The right profunda femoral artery is hypertrophied. There is moderate to severe diffuse calcified disease of the right SFA and popliteal arteries. Critical stenoses in the right popliteal artery are noted above the knee. There is severe right trifurcation and tibial occlusive disease. The right anterior tibial artery occludes proximally. There is reconstitution of the mid right peroneal artery. The right peroneal artery is a predominant supply to the foot. The right posterior tibial artery is occluded. Left lower extremity: The left common femoral artery is patent. Left profunda femoral artery is hypertrophied. There is a 70 percent focal stenosis of the proximal left SFA. The left SFA is not evaluated in its entirety. IMPRESSION: 1.Long segment right SFA and popliteal artery drug-eluting balloon angioplasty 2. Proximal right peroneal artery angioplasty and drug-eluting stent placement 3. Sequential left common and external iliac artery stenoses which are best seen on the previous MRA 4. Limited study due to patient's renal insufficiency.
[2017-04-29] MEDS: Vancomycin 25 MG/ML PO SCH ×5 (00:14→21:37)
[2017-04-29] MEDS: Piperacillin/Tazobact 3.375 gm 100 ML IVPB SCH ×3 (05:40→21:07)
[2017-04-29] MEDS: Sodium Chloride 0.45% 1,000 ML IV SCH (06:56)
[2017-04-29 07:25] LABS: HEMOGLOBIN 9.8 g/dL (14.0-18.0); MEAN CELL VOLUME 87.4 fl (80.0-105.0); MEAN CORPUSCULAR HEMOGLOBIN 28.1 pg (25.0-35.0); MEAN CORPUSCULAR HGB CONC 32.1 g/dl (31.0-37.0); MEAN PLATELET VOLUME 11.6 fl (7.0-11.0); RBC 3.49 10^6/uL (3.5-6.1); RED CELL DISTRIBUTION WIDTH 14.6 % (11.5-14.5); WHITE BLOOD COUNT 7.3 10^3/ul (4.5-11.0)
[2017-04-29 07:55] LABS: ALB/GLOB RATIO 0.8 (1.1-1.8); ALBUMIN 2.8 g/dL (3.0-4.8)
--- NOTE | 2017-04-29 08:17 | PN ---
DATE: 04/28/2017 PRESENTATION: Patient is an 86-year-old male, first admitted to [facility] on 04/23/2017. He came from the [facility] for treatment of his gangrenous right toe and cellulitis. He additionally has had some combativeness prior to leaving the assisted. Psychiatric consultation was ordered due to anxiety and dementia. PAST MEDICAL HISTORY: Includes hypertension, diabetes and dementia. He does not have a power of document review attorney. He does have a who still visits and lives on her own, but he has no one who is his power of document review attorney. Patient is really unable to give me any information today. He actually seems more disoriented than he normally is. He is trying to climb out of bed when I see him, but is easily redirected back in. According to the nursing staff, he has been pleasantly confused. Other than receiving his routine Seroquel 12.5 at bedtime, he has not needed any p.r.n. medications though he does have a p.r.n. Ativan 0.5 mg IV push 3 times a day as needed. According to the nurses, he is pleasantly confused, but cooperative. Patient has not had his toe amputated yet, which is what he came in for. I am unsure as to the reason for that; however, this may be having an effect on his sensorium. Christina Mcguire APN [facility]
[2017-04-29] MEDS ORDERED: Potassium Chloride 20 mEq ER Tab PO ONE ×2 (08:30→14:16)
[2017-04-29] MEDS: Potassium Chloride 20 mEq ER Tab PO SCH (09:06)
[2017-04-29] MEDS: Multivitamin Vitamin B Complex (Nephro-Vite) Tab PO SCH (09:06)
[2017-04-29] MEDS: Magnesium Oxide 400 mg Tab UD PO SCH ×2 (09:06→17:23)
--- NOTE | 2017-04-29 09:44 | CP.PCM.PN ---
Subjective - Date & Time of Evaluation Date of Evaluation: 04/29/17 Time of Evaluation: 09:00 - Subjective Subjective: Podiatry Progress Note- Dr. Renteria 86 year old male seen at bedside for right gangrene hallux toe. Patient is seen laying comfortably in bed, awake and in NAD. Patient denies acute overnight events. Pt denies any overnight f/c/cp/sob/n/v. Patient reports no pain to his right hallux or calf. Denies calf tenderness. Objective - Vital Signs/Intake and Output Vital Signs (last 24 hours): Temp Pulse Resp BP Pulse Ox 98.4 F 79 18 148/74 99 04/29/17 07:30 04/29/17 09:07 04/29/17 07:30 04/29/17 09:07 04/29/17 07:30 - Medications Medications: Current Medications Acetylcysteine (Acetylcysteine 20%) 3 ml PO BID [facility] Stop: 04/29/17 18:00 Last Admin: 04/28/17 19:27 Dose: 3 ml Amlodipine Besylate (Norvasc) 10 mg PO DAILY [facility] Last Admin: 04/29/17 09:07 Dose: 10 mg Carvedilol (Coreg) 25 mg PO BID [facility] Last Admin: 04/29/17 09:07 Dose: 25 mg Ergocalciferol (Drisdol 50,000 Intl Units Cap) 1 cap PO Q7D [facility] Last Admin: 04/26/17 10:08 Dose: 1 cap Ferrous Gluconate (Fergon) 324 mg PO TID [facility] Last Admin: 04/29/17 09:06 Dose: 324 mg Haloperidol Lactate (Haldol) 1 mg IM Q8H PRN; Protocol PRN Reason: severe agitagtion Linezolid (Zyvox 600mg/300ml D5w) 600 mg in 300 mls @ 200 mls/hr IVPB Q12 [facility]EVIN PRN Reason: Protocol Stop: 04/30/17 22:31 Last Admin: 04/28/17 21:42 Dose: 200 mls/hr Piperacillin Sod/Tazobactam Sod (Zosyn 3.375 In Ns 100ml) 100 mls @ 200 mls/hr IVPB Q8 [facility] PRN Reason: Protocol Stop: 05/01/17 22:01 Last Admin: 04/29/17 05:40 Dose: 200 mls/hr Sodium Chloride (Sodium Chloride 0.45%) 1,000 mls @ 100 mls/hr IV .Q10H [facility] Stop: 04/30/17 06:00 Last Admin: 04/29/17 06:56 Dose: Not Given Potassium Chloride (Potassium Chloride 20 Meq/100 Ml) 20 meq in 100 mls @ 50 mls/hr IVPB Q2H [facility] Stop: 04/29/17 11:59 Last Admin: 04/29/17 09:05 Dose: 50 mls/hr Lorazepam (Ativan) 0.5 mg IVP TID PRN; Protocol PRN Reason: restlessness/agitation Losartan Potassium (Cozaar) 50 mg PO DAILY [facility] Last Admin: 04/29/17 09:06 Dose: 50 mg Magnesium Oxide (Mag-Ox) 400 mg PO BID [facility] Last Admin: 04/29/17 09:06 Dose: 400 mg Non-Formulary Medication (Temazepam [Restoril]) 15 mg PO HS [facility] Last Admin: 04/28/17 21:42 Dose: Not Given Ondansetron HCl (Zofran Inj) 4 mg IVP ONCE PRN PRN Reason: Nausea/Vomiting Potassium Chloride (K-Dur 20 Meq Er Tab) 20 meq PO BRK [facility] Last Admin: 04/29/17 09:06 Dose: 20 meq Quetiapine Fumarate (Seroquel) 12.5 mg PO HS [facility] PRN Reason: Protocol Last Admin: 04/28/17 22:05 Dose: Not Given Sitagliptin Phosphate (Januvia) 25 mg PO DAILY [facility] Last Admin: 04/29/17 09:06 Dose: 25 mg Vancomycin HCl (Vancocin 25 Mg/Ml (Oral Use)) 125 mg PO QID [facility] PRN Reason: Protocol Last Admin: 04/29/17 00:14 Dose: 125 mg Vitamin B Complex/Vit C/Folic Acid (Nephro-J Luis) 1 tab PO 0800 [facility] Last Admin: 04/29/17 09:06 Dose: 1 tab - Labs Labs: 04/29/17 06:45 04/29/17 06:45 PT 14.7 SECONDS (9.4-12.5) H 04/23/17 19:11 INR 1.28 (0.93-1.08) H 04/23/17 19:11 APTT 20.3 Seconds (25.1-36.5) L 04/23/17 19:11 - Constitutional Appears: Well, Non-toxic, No Acute Distress - Exam Additional comments: Right lower extremity focused. DERM: Right hallux dry gangrene with mummification of digit distal to interphalangeal joint with no opening, no clinical signs of infection. Ischemic pre-ulcerative lesions noted to dorsum of foot. No active drainage noted. No erythema. No mal-odor noted. No inter-digital macerations noted. Discoloration noted to digits 2, 3, and 4 with thin, shiny skin and spongy texture. No abscess or purulence, most consistent with early ischemic changes. Darken hyperpigmentation noted to the dorsum of the midfoot. NEURO: Protective sensation grossly intact. VASC: DP is nonpalpable, PT pulses graded 1/4. CFT delayed to the right digits compared to the left. Temperature runs warm to cool proximal to distal, more cool compared to the left. Absent pedal hair growth bilaterally. ORTHO: mild pain to palpation of right foot - Extremities Exam Extremities Exam: absent: Calf Tenderness - Psychiatric Exam Psychiatric exam: Normal Affect, Normal Mood Assessment and Plan - Assessment and Plan (Free Text) Assessment: Right hallux dry gangrene, likely secondary to PAD Plan: -Pt seen and evaluated. Discussed with attending, Dr. Renteria -Chart, labs, and vitals reviewed. Afebrile, absent leukocytosis. -Right foot radiographs evaluated: results unremarkable, negative for osteomyelitis. -Arterial duplex on 03/22/17 limited study to patient motion. Diminished flow below the knees. Multiple short segment stenosis in the superficial femoral arteries right greater than left -Vascular assessment & recommendations appreciated -Patient 1 day s/p revascurization intervention [facility] Dr. Awad, has one vessel runoff and we are proceeding with surgery tomorrow for an right hallux amputation -Surgery for right hallux amputation to be scheduled for 3pm -Please provide 6am breakfast. NPO status after breakfast, nothing to eat or drink -Please provide medical clearance. Thank you -Continue IV abx per ID recommendatios, currently Zyvox and Zosyn. -Cleansed right hallux with betadine and kept open to air -Ordered multipodus boots b/l LE. To be worn at all times while in bed. Podiatry will continue to follow patient. Pending potential intervention after vascular studies resulted.
--- NOTE | 2017-04-29 10:08 | PN ---
DATE: 04/28/2017 SUBJECTIVE: The patient is in bed in room 265, bed 1. The patient was seen early this morning in room 567, bed 1, and then transferred to room 265, bed 1. No fevers reported. No chills. PHYSICAL EXAMINATION: VITAL SIGNS: On exam, the patient's temperature is 98, blood pressure is 147/92, heart rate of 77, respiratory rate of 18. HEENT: Examination of HEENT is unremarkable. NECK: Supple. LUNGS: Have decreased breath sounds. HEART: Normal S1 and S2. ABDOMEN: Soft, nontender. LABORATORY DATA: Reveals a white count of 7.1, hemoglobin of 10, platelets of 160. BUN of 12, creatinine of 1.7. Urinalysis is noted. Microbiology reveals the blood cultures no growth. Urine cultures have gram-positive cocci. Stool for C. diff is positive antigen, negative toxin. Review of orders reveals the patient to be on p.o. vancomycin, IV Zosyn, and Zyvox. ASSESSMENT AND PLAN: An 86-year-old male who was seen early this morning with right leg gangrene, cellulitis, peripheral artery disease, history of right ankle and foot infection and ulcer growing Enterobacter and Enterococcus, diabetic, hypertensive, now with pseudomembranous colitis, on p.o. vancomycin, Zyvox and Zosyn. We will follow closely with you. Christiano Uribe MD
[2017-04-29] MEDS ORDERED: Magnesium Sulfate 1 gm in D5W 1 GM/100 ML BAG IVPB ONE (11:08)
[2017-04-29] MEDS ORDERED: Sodium Chloride 0.45% 1,000 ML IV SCH (11:10)
[2017-04-29] MEDS ORDERED: Magnesium Sulfate 2 GM in Sodium Chloride 0.9% 100 ML IVPB ONE (14:05)
--- NOTE | 2017-04-29 14:07 | CP.PCM.PN ---
Subjective - Date & Time of Evaluation Date of Evaluation: 04/29/17 Time of Evaluation: 14:06 - Subjective Subjective: Nephrology Consultation: Assessment: stable Altered mental status with ? 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 Plan No acute need for renal replacement therapy at this time. Hypertension control with meds as ordered. continue with losartan 50 mg/day. increased coreg Monitor Input/Output, daily weights and renal function with basic metabolic panel continue with MVI, iron and weekly vit D IVF as 0.45% saline @ 50 ml/hr, pt s/p angiogram for PVD eval. supplement electrolytes as needed podiatry following Dose meds/antibiotics for reduced GFR. Avoid fleets enema/magnesium based laxatives. Avoid nephrotoxins/NSAIDs Glycemic control Further work up/management as per primary team Thanks for allowing me to participate in care of your patient. Will follow patient with you. Please call if any Qs. d/w family bedside Dr Víctor Echols Office: [phone] Reason for consult: ELIZABETH, hypernatremia, CKD management HPI: Pt is a 86 M with hx of diabetes Mellitus ( many years), hypertension ( many years), CKD stage 3 (baseline cr 1.9 in 2014) was brought to hospital with Rt great toe gangrne and cellulitis. he was found to have ELIZABETH and Hypernatremia hence renal consulted Denies OTC/herbal meds or NSAIDs No known recent iodinated contrast exposure. No obvious episodes of low BP ROS: denies CP/SOB/pain abdomen. pt had pulled out his picc line. intermittent episodes of agitations Physical Examination: family bedside General Appearance: Comfortable, in no acute respiratory distress, co-operative . Vitals reviewed and noted as below Head; Atraumatic, normocephalic ENT: no ulcers no thrush. Tongue is midline. Oropharynx: no rash or ulcers. EYES: Pupils are equal, round and reactive to light accommodation. Eye muscles and extraocular movement intact. Sclera is anicteric. Neck; supple no lymphadenopathy, no thyromegaly or bruit Lungs: Normal respiratory rate/effort. Breath sounds bilateral equal and clear Heart: Normal rate. s1s2 normal. No rub or gallop. Extremities: no edema. No varicose veins. Rt foot great toe with dry gangrene Neurological: Patient is sleeping today Skin: Warm and dry. Normal turgor. No rash. Palpitation: Normal elasticity for age Abdomen: Abdomen is soft. Bowel sounds +. There is no abdominal tenderness, no guarding/rigidity no organomegaly Psych: unable. he lack insight MSK: no joint tenderness or swelling. Digits and nails normal, no deformity : kidney or bladder not palpable Labs/imaging reviewed. Past medical history, past surgical history, family history, social history, allergy reviewed and noted as below Family hx: no hx of CKD. Rest non-contributory work up: SPEP/SARAH neg TSAT 22% Ferritin 37 Vit D <12.8 PTH 40 renal sono; wnl UA SG >1.030 carito low and renin low Objective - Vital Signs/Intake and Output Vital Signs (last 24 hours): Temp Pulse Resp BP Pulse Ox 98.4 F 79 18 148/74 99 04/29/17 07:30 18 09:07 18 07:30 04/29/17 09:07 04/29/17 07:30 - Medications Medications: Current Medications Acetylcysteine (Acetylcysteine 20%) 3 ml PO BID [facility] Stop: 04/29/17 18:00 Last Admin: 04/28/17 19:27 Dose: 3 ml Amlodipine Besylate (Norvasc) 10 mg PO DAILY [facility] Last Admin: 04/29/17 09:07 Dose: 10 mg Carvedilol (Coreg) 25 mg PO BID [facility] Last Admin: 04/29/17 09:07 Dose: 25 mg Ergocalciferol (Drisdol 50,000 Intl Units Cap) 1 cap PO Q7D [facility] Last Admin: 04/26/17 10:08 Dose: 1 cap Ferrous Gluconate (Fergon) 324 mg PO TID [facility] Last Admin: 04/29/17 09:06 Dose: 324 mg Haloperidol Lactate (Haldol) 1 mg IM Q8H PRN; Protocol PRN Reason: severe agitagtion Linezolid (Zyvox 600mg/300ml D5w) 600 mg in 300 mls @ 200 mls/hr IVPB Q12 [facility] PRN Reason: Protocol Stop: 04/30/17 22:31 Last Admin: 04/28/17 21:42 Dose: 200 mls/hr Piperacillin Sod/Tazobactam Sod (Zosyn 3.375 In Ns 100ml) 100 mls @ 200 mls/hr IVPB Q8 [facility] PRN Reason: Protocol Stop: 05/01/17 22:01 Last Admin: 04/29/17 05:40 Dose: 200 mls/hr Sodium Chloride (Sodium Chloride 0.45%) 1,000 mls @ 50 mls/hr IV .Q20H [facility] Stop: 04/30/17 06:00 Last Admin: 04/29/17 13:28 Dose: 50 mls/hr Magnesium Sulfate 2 gm/ Sodium (Chloride) 104 mls @ 102 mls/hr IVPB ONCE ONE Stop: 04/29/17 15:06 Lorazepam (Ativan) 0.5 mg IVP TID PRN; Protocol PRN Reason: restlessness/agitation Losartan Potassium (Cozaar) 50 mg PO DAILY [facility] Last Admin: 04/29/17 09:06 Dose: 50 mg Magnesium Oxide (Mag-Ox) 400 mg PO BID [facility] Last Admin: 04/29/17 09:06 Dose: 400 mg Non-Formulary Medication (Temazepam [Restoril]) 15 mg PO HS [facility] Last Admin: 04/28/17 21:42 Dose: Not Given Ondansetron HCl (Zofran Inj) 4 mg IVP ONCE PRN PRN Reason: Nausea/Vomiting Potassium Chloride (K-Dur 20 Meq Er Tab) 20 meq PO BRK [facility] Last Admin: 04/29/17 09:06 Dose: 20 meq Potassium Chloride (K-Dur 20 Meq Er Tab) 40 meq PO ONCE ONE Stop: 04/29/17 14:17 Quetiapine Fumarate (Seroquel) 12.5 mg PO HS [facility] PRN Reason: Protocol Last Admin: 04/28/17 22:05 Dose: Not Given Sitagliptin Phosphate (Januvia) 25 mg PO DAILY [facility] Last Admin: 04/29/17 09:06 Dose: 25 mg Vancomycin HCl (Vancocin 25 Mg/Ml (Oral Use)) 125 mg PO QID [facility] PRN Reason: Protocol Last Admin: 04/29/17 12:55 Dose: 125 mg Vitamin B Complex/Vit C/Folic Acid (Nephro-J Luis) 1 tab PO 0800 [facility] Last Admin: 04/29/17 09:06 Dose: 1 tab - Labs Labs: 04/29/17 06:45 04/29/17 06:45 PT 14.7 SECONDS (9.4-12.5) H 04/23/17 19:11 INR 1.28 (0.93-1.08) H 04/23/17 19:11 APTT 20.3 Seconds (25.1-36.5) L 04/23/17 19:11
--- NOTE | 2017-04-29 14:09 | PN ---
DATE: SUBJECTIVE: I saw him resting comfortably in bed. He is alert and talking and eating. He on acetylcysteine, Ativan, Coreg, Cozaar, Drisdol, Fergon, Haldol, Januvia, potassium, magnesium, Nephro-J Luis, Norvasc, Seroquel, IV fluids, temazepam, vancomycin, Zofran, Zosyn and Zyvox. He has a very bad right toe. He had a procedure with Vascular yesterday and I believe we are only going to do a toe amputation tomorrow, which is Wednesday and then I was told by Surgery, Podiatry we could discharge him back to [facility] on Wednesday. I spoke to case management to arrange that for Wednesday discharge. PHYSICAL EXAMINATION VITAL SIGNS: 98.4 temperature, 79 pulse, 148/74 blood pressure, 18 respiratory rate, and 99% O2 sat on room air. HEENT: His head is atraumatic, normocephalic. GENERAL: He is alert, confused, not eating that much. I am trying to convince him to eat, if he wants to go back. HEART: Regular rate. LUNGS: Clear to auscultation. ABDOMEN: Soft. EXTREMITIES: He has got a right first toe gangrene. LABORATORY DATA: He has a 7.3 white count, 9.8 hemoglobin, 30.5 hematocrit with 147 platelets. He has a 142 sodium, potassium is 2.1, I gave him a K-rider of 20 and p.o. of 20 potassium. BUN is 12, creatinine 1.7, GFR is 38, sugar is 110, calcium is 8, total bilirubin 0.7, AST is 33, ALT is 32, alkaline phosphatase 76, total protein 6.1. Last blood sugar was 92. I am going to repeat a potassium level at 3 o' clock today and then also do it tomorrow morning and if him up for surgery for tomorrow. He is here for gangrenous right first toe, low potassium, dementia, diabetes, and hypertension. Grabiel Sun DO [facility]
[2017-04-29] MEDS: Acetylcysteine 20% Inhal Soln (4ml) PO SCH ×2 (14:47→17:23)
[2017-04-29] MEDS: Linezolid 600 mg in D5W 300 ml 600 MG/300 ML BAG IVPB SCH ×2 (15:24→21:38)
[2017-04-29 15:42] LABS: ALB/GLOB RATIO 0.8 (1.1-1.8); ALBUMIN 2.7 g/dL (3.0-4.8); CALCIUM 8.2 mg/dL (8.4-10.5)
--- NOTE | 2017-04-29 15:45 | PN ---
DATE: SUBJECTIVE: The patient is an 86-year-old -[place] male with reported history of possible dementia. The patient had multiple medical issues. The patient was transferred from long-term for evaluation of gangrene, right great toe and cellulitis. Psychiatric consult was involved because the patient had episodes of combativeness as well as confusion. The patient was seen by nurse practitioner who is off today. The patient was followed up today. The patient presented alert. The patient knows that he is in the hospital, does not know where, what is the date. The patient reported that he feels just fine, reported not to be depressed. Denied any thoughts of harming himself or others. The patient did not have any POA or legal guardian. This internal communications writer asked the patient if he had any family member whom he would like to point to be as a power of business attorney. The patient said that his , Aurora Gandhi, provided this internal communications writer with a phone number [phone], gave permission to talk to her. Phone number was correct and the patient was able to memorize that phone number and provide it to this internal communications writer by himself. As per Aurora, the patient had history of forgetfulness. Aurora said that she is willing to be Mr. Blas Gandhi's power of business attorney. The patient's is coming in today, services educated about that. At present moment, the patient deemed to have capacity to make that decision. This internal communications writer reviewed, vital signs seems to be stable. Temperature 98.4, pulse is 79, blood pressure 148/74, respirations . Medications reviewed , Norvasc, Coreg, Drisdol, Seroquel, haloperidol 1 mg IM q. 8h. p.r.n., but the patient did not require any p.r.n. medication, Zyvox, Ativan 0.5 mg IV push three times a day as needed for restlessness and agitation. The patient did not get any of the Ativan, Cozaar, magnesium, Restoril which is nonformulary in the hospital, Zofran, Zosyn, K-Dur, potassium chloride, Seroquel 12.5 mg at the nighttime scheduled, but the patient got only one dose. The patient was sleeping by himself with no medications. The patient slept with no medications required; Januvia, sodium chloride, vancomycin as well as vitamin B complex. Labs reviewed, most recent from today. Potassium level 2.9. Urinalysis showed blood moderate. MENTAL STATUS EXAMINATION: The patient presented to be alert, pleasant, cooperative. The patient knows that he is in the hospital, but thought that he is in [place]; the patient does not know the date. Mood described, "I feel pretty good." Affect was reactive, mood congruent. Thought process seems to be goal directed. Thought content, the patient denied thoughts of harming himself or others. Denied intent or plan. The patient denied hearing voices or seeing things. Denied paranoid ideations. The patient does not present to be psychotic. Insight and judgment improving. Impulses are well controlled. IMPRESSION: Most likely, the patient has either normal ageing or early signs of dementia superimposed with delirium due to infection, gangrenous toes and cellulitis and electrolyte balance. PLAN: The patient wanted to point his , Aurora, to be his power of business attorney at this time, the patient had capacity to do so. The patient deemed doing better. Teacher Advisor involved nursing staff educated about that plan. Continue current management. Continue current medications. Try to avoid excessive sedation, Seroquel 12.5 mg orally as needed for sundowning syndrome. Nurse practitioner will follow up on this patient tomorrow. If the patient will continue improving, the psychiatric team will sign off. Should you have any questions, give me a call back. Kiana Ruiz MD
[2017-04-30] MEDS: Piperacillin/Tazobact 3.375 gm 100 ML IVPB SCH ×3 (05:52→22:46)
[2017-04-30 07:09] LABS: HEMOGLOBIN 9.6 g/dL (14.0-18.0); MEAN CELL VOLUME 87.8 fl (80.0-105.0); MEAN CORPUSCULAR HEMOGLOBIN 27.8 pg (25.0-35.0); MEAN CORPUSCULAR HGB CONC 31.7 g/dl (31.0-37.0); MEAN PLATELET VOLUME 11.3 fl (7.0-11.0); RBC 3.45 10^6/uL (3.5-6.1); RED CELL DISTRIBUTION WIDTH 14.8 % (11.5-14.5); WHITE BLOOD COUNT 8.2 10^3/ul (4.5-11.0)
[2017-04-30 07:28] LABS: ALB/GLOB RATIO 0.8 (1.1-1.8); ALBUMIN 2.9 g/dL (3.0-4.8); CALCIUM 8.3 mg/dL (8.4-10.5)
[2017-04-30] MEDS: Potassium Chloride 20 mEq ER Tab PO SCH (07:52)
[2017-04-30] MEDS: Multivitamin Vitamin B Complex (Nephro-Vite) Tab PO SCH (07:53)
[2017-04-30 08:19] LABS: INR 1.25 (0.93-1.08); PROTHROMBIN TIME 14.4 SECONDS (9.4-12.5)
--- NOTE | 2017-04-30 09:44 | PN ---
DATE: 04/29/2017 SUBJECTIVE: Patient is in bed, in no acute distress. Nontoxic. PHYSICAL EXAMINATION: VITAL SIGNS: Temperature is 98, blood pressure is 150/60, respiratory rate of 18. HEENT: Unremarkable. NECK: Supple. LUNGS: Have decreased breath sounds. HEART: Normal S1, S2. ABDOMEN: Soft, nontender. LABORATORY DATA: Reveals a white count of 7.3, hemoglobin 12, creatinine is 1.7. Urinalysis is noted. ASSESSMENT AND PLAN: This is an 86-year-old male who was seen earlier this morning for right leg gangrenous cellulitis, peripheral arterial disease, history of right ankle and foot infection and ulcer growing Enterobacter and Enterococcus, diabetic, hypertensive, pseudomembranous colitis, currently on p.o. vancomycin, IV linezolid, and Zosyn. We will follow closely with you. Christiano Uribe MD
[2017-04-30] MEDS: Vancomycin 25 MG/ML PO SCH ×3 (10:11→22:47)
[2017-04-30] MEDS: Magnesium Oxide 400 mg Tab UD PO SCH ×2 (10:11→18:08)
[2017-04-30] MEDS: Linezolid 600 mg in D5W 300 ml 600 MG/300 ML BAG IVPB SCH ×2 (10:13→22:04)
--- NOTE | 2017-04-30 11:51 | PN ---
DATE: SUBJECTIVE: I saw Blas resting comfortably in bed. He is in fairly good spirits. He is going to go for his toe amputation today. My plan is to discharge him tomorrow. MEDICATIONS: He is currently on Apresoline, Ativan, Coreg, Cozaar, Drisdol, Fergon, Haldol, Januvia, potassium, magnesium, Nephro-J Ulis, Norvasc, Seroquel, Restoril, vancomycin, Zofran, Zosyn and Zyvox. PHYSICAL EXAMINATION: VITAL SIGNS: He has a 99.3 temp; 78 pulse; 207/82 blood pressure, it was 125/56 yesterday, he got the medication for his blood pressure today; 20 respiratory rate; 98% O2 sat on room air. HEENT: His head is atraumatic, normocephalic. HEART: Regular rate. LUNGS: Decreased breath sounds, but clear. ABDOMEN: Soft. EXTREMITIES: No edema. LABORATORY DATA: He has an 8.2 white count, 9.6 hemoglobin, 30.3 hematocrit with a 135 platelets. He has a 141 sodium, potassium 3.7, BUN is 10, creatinine is 1.7, GFR is 38, sugar is 124, calcium is 8.3, total bili is 0.7, magnesium is 2.1, AST is 30, ALT is 33, alk phos 82, total protein 6.4. ASSESSMENT AND PLAN: He has been seen by multiple doctors, we got Infectious Disease, we got renal, we got Podiatry. He has a cellulitis and gangrene of the right first toe, peripheral arterial disease. He has got infection, on antibiotics; pseudomembranous colitis. We will check his labs tomorrow. I am hoping after the surgery today, he does well and tomorrow we can discharge him back to subacute rehab at [facility]. Discussed with the supervisor home economics this morning. I will continue with aggressive treatment and care on Blas Gandhi. He has got a gangrenous infected toe. Grabiel Sun DO
--- NOTE | 2017-04-30 14:25 | CP.PCM.PN ---
<Davie Merrill - Last Filed: 04/30/17 14:20> Subjective - Date & Time of Evaluation Date of Evaluation: 04/30/17 Time of Evaluation: 14:20 - Subjective Subjective: Podiatry Progress Note- Dr. Saleh 86 year old male seen at bedside for right infected gangrene hallux toe. Patient will go to the OR today for amputation of right hallux. Patient is seen laying comfortably in bed, awake and in NAD. Patient is seen at bedside with and daugther. Patient reports that he is feeling good. Reports nothing to eat or drink since breakfast this morning. Patient denies acute overnight events. Pt denies any overnight f/c/cp/sob/n/v. Patient reports no pain to his right hallux or calf. Denies calf tenderness. Objective - Vital Signs/Intake and Output Vital Signs (last 24 hours): Temp Pulse Resp BP Pulse Ox 99.3 F 80 20 186/87 H 98 04/30/17 07:30 04/30/17 10:21 04/30/17 07:30 04/30/17 10:21 04/30/17 07:30 Intake and Output: 04/30/17 04/30/17 06:59 18:59 Intake Total 800 Output Total 700 Balance 100 - Medications Medications: Current Medications Amlodipine Besylate (Norvasc) 10 mg PO DAILY [facility] Last Admin: 04/30/17 10:11 Dose: Not Given Carvedilol (Coreg) 25 mg PO BID [facility] Last Admin: 04/30/17 10:21 Dose: 25 mg Ergocalciferol (Drisdol 50,000 Intl Units Cap) 1 cap PO Q7D [facility] Last Admin: 04/26/17 10:08 Dose: 1 cap Ferrous Gluconate (Fergon) 324 mg PO TID [facility] Last Admin: 04/30/17 10:10 Dose: Not Given Haloperidol Lactate (Haldol) 1 mg IM Q8H PRN; Protocol PRN Reason: severe agitagtion Hydralazine HCl (Apresoline) 25 mg PO Q4 PRN PRN Reason: Other Linezolid (Zyvox 600mg/300ml D5w) 600 mg in 300 mls @ 200 mls/hr IVPB Q12 [facility]EVIN PRN Reason: Protocol Stop: 04/30/17 22:31 Last Admin: 04/30/17 10:13 Dose: 200 mls/hr Piperacillin Sod/Tazobactam Sod (Zosyn 3.375 In Ns 100ml) 100 mls @ 200 mls/hr IVPB Q8 NEVIN PRN Reason: Protocol Stop: 05/01/17 22:01 Last Admin: 04/30/17 05:52 Dose: 200 mls/hr Lorazepam (Ativan) 0.5 mg IVP TID PRN; Protocol PRN Reason: restlessness/agitation Last Admin: 04/29/17 15:36 Dose: 0.5 mg Losartan Potassium (Cozaar) 50 mg PO DAILY [facility] Last Admin: 04/30/17 10:10 Dose: Not Given Magnesium Oxide (Mag-Ox) 400 mg PO BID [facility] Last Admin: 04/30/17 10:11 Dose: Not Given Non-Formulary Medication (Temazepam [Restoril]) 15 mg PO HS [facility] Last Admin: 04/28/17 21:42 Dose: Not Given Ondansetron HCl (Zofran Inj) 4 mg IVP ONCE PRN PRN Reason: Nausea/Vomiting Potassium Chloride (K-Dur 20 Meq Er Tab) 20 meq PO BRK [facility] Last Admin: 04/30/17 07:52 Dose: Not Given Quetiapine Fumarate (Seroquel) 12.5 mg PO HS [facility] PRN Reason: Protocol Last Admin: 04/29/17 21:37 Dose: 12.5 mg Sitagliptin Phosphate (Januvia) 25 mg PO DAILY [facility] Last Admin: 04/30/17 10:10 Dose: Not Given Vancomycin HCl (Vancocin 25 Mg/Ml (Oral Use)) 125 mg PO QID [facility] PRN Reason: Protocol Last Admin: 04/30/17 10:11 Dose: Not Given Vitamin B Complex/Vit C/Folic Acid (Nephro-J Luis) 1 tab PO 0800 [facility] Last Admin: 04/30/17 07:53 Dose: Not Given - Labs Labs: 04/30/17 06:57 04/30/17 06:57 PT 14.4 SECONDS (9.4-12.5) H 04/30/17 06:57 INR 1.25 (0.93-1.08) H 04/30/17 06:57 APTT 20.3 Seconds (25.1-36.5) L 04/23/17 19:11 - Constitutional Appears: Well, Non-toxic, No Acute Distress - Extremities Exam Extremities Exam: absent: Calf Tenderness Additional comments: Right lower extremity focused. DERM: Right hallux dry gangrene with mummification of digit distal to interphalangeal joint with no opening, no clinical signs of infection. Ischemic pre-ulcerative lesions noted to dorsum of foot. No active drainage noted. No erythema. No mal-odor noted. No inter-digital macerations noted. Discoloration noted to digits 2, 3, and 4 with thin, shiny skin and spongy texture. No abscess or purulence, most consistent with early ischemic changes. Darken hyperpigmentation noted to the dorsum of the midfoot. NEURO: Protective sensation grossly intact. VASC: DP is nonpalpable, PT pulses graded 1/4. CFT delayed to the right digits compared to the left. Temperature runs warm to cool proximal to distal, more cool compared to the left. Absent pedal hair growth bilaterally. 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 -Chart, labs, and vitals reviewed. Afebrile, absent leukocytosis WBC=8.2 -Right foot radiographs evaluated: results unremarkable, negative for osteomyelitis. -Arterial duplex on 03/22/17 limited study to patient motion. Diminished flow below the knees. Multiple short segment stenosis in the superficial femoral arteries right greater than left -Patient 2 days s/p revascurization intervention [facility] Dr. Awad, has one vessel runoff and we are proceeding with surgery tomorrow for an right hallux amputation -Surgery for right hallux amputation scheduled for 3pm today -NPO status confirmed -Discussed with patient, and daughter -has exhausted all conservative treatment at this time and is opting for surgical intervention -explained procedure and post-operative course -all questions were answered to satisfaction -no guarantees were made -understands all risks, benefits and complications of procedure -consent signed in place in chart -upon discharge, patient will be followup by Dr. Saleh -Continue IV abx per ID recommendatios, currently Zyvox and Zosyn. -Cleansed right hallux with betadine and kept open to air -Ordered multipodus boots b/l LE. To be worn at all times while in bed. Podiatry will continue to follow patient. <René Saleh - Last Filed: 04/30/17 15:30> Objective - Vital Signs/Intake and Output Vital Signs (last 24 hours): Temp Pulse Resp BP Pulse Ox 99.3 F 80 20 186/87 H 98 04/30/17 07:30 04/30/17 10:21 04/30/17 07:30 04/30/17 10:21 04/30/17 07:30 Intake and Output: 04/30/17 04/30/17 06:59 18:59 Intake Total 800 0 Output Total 700 450 Balance 100 -450 - Medications Medications: Current Medications Amlodipine Besylate (Norvasc) 10 mg PO DAILY [facility] Last Admin: 04/30/17 10:11 Dose: Not Given Carvedilol (Coreg) 25 mg PO BID [facility] Last Admin: 04/30/17 10:21 Dose: 25 mg Ergocalciferol (Drisdol 50,000 Intl Units Cap) 1 cap PO Q7D [facility] Last Admin: 04/26/17 10:08 Dose: 1 cap Ferrous Gluconate (Fergon) 324 mg PO TID [facility] Last Admin: 04/30/17 10:10 Dose: Not Given Haloperidol Lactate (Haldol) 1 mg IM Q8H PRN; Protocol PRN Reason: severe agitagtion Hydralazine HCl (Apresoline) 25 mg PO Q4 PRN PRN Reason: Other Linezolid (Zyvox 600mg/300ml D5w) 600 mg in 300 mls @ 200 mls/hr IVPB Q12 NEVIN PRN Reason: Protocol Stop: 04/30/17 22:31 Last Admin: 04/30/17 10:13 Dose: 200 mls/hr Piperacillin Sod/Tazobactam Sod (Zosyn 3.375 In Ns 100ml) 100 mls @ 200 mls/hr IVPB Q8 NEVIN PRN Reason: Protocol Stop: 05/01/17 22:01 Last Admin: 04/30/17 05:52 Dose: 200 mls/hr Lorazepam (Ativan) 0.5 mg IVP TID PRN; Protocol PRN Reason: restlessness/agitation Last Admin: 04/29/17 15:36 Dose: 0.5 mg Losartan Potassium (Cozaar) 100 mg PO DAILY [facility] Losartan Potassium (Cozaar) 50 mg PO DAILY [facility] Stop: 04/30/17 15:31 Magnesium Oxide (Mag-Ox) 400 mg PO BID [facility] Last Admin: 04/30/17 10:11 Dose: Not Given Non-Formulary Medication (Temazepam [Restoril]) 15 mg PO HS [facility] Last Admin: 04/28/17 21:42 Dose: Not Given Ondansetron HCl (Zofran Inj) 4 mg IVP ONCE PRN PRN Reason: Nausea/Vomiting Potassium Chloride (K-Dur 20 Meq Er Tab) 20 meq PO BRK [facility] Last Admin: 04/30/17 07:52 Dose: Not Given Quetiapine Fumarate (Seroquel) 12.5 mg PO HS [facility] PRN Reason: Protocol Last Admin: 04/29/17 21:37 Dose: 12.5 mg Sitagliptin Phosphate (Januvia) 25 mg PO DAILY [facility] Last Admin: 04/30/17 10:10 Dose: Not Given Vancomycin HCl (Vancocin 25 Mg/Ml (Oral Use)) 125 mg PO QID [facility] PRN Reason: Protocol Last Admin: 04/30/17 10:11 Dose: Not Given Vitamin B Complex/Vit C/Folic Acid (Nephro-J Luis) 1 tab PO 0800 [facility] Last Admin: 04/30/17 07:53 Dose: Not Given - Labs Labs: 04/30/17 06:57 04/30/17 06:57 PT 14.4 SECONDS (9.4-12.5) H 04/30/17 06:57 INR 1.25 (0.93-1.08) H 04/30/17 06:57 APTT 20.3 Seconds (25.1-36.5) L 04/23/17 19:11 Attending/Attestation - Attestation I have personally seen and examined this patient.: Yes I have fully participated in the care of the patient.: Yes I have reviewed all pertinent clinical information, including history, physical exam and plan: Yes
--- NOTE | 2017-04-30 15:23 | CP.PCM.PN ---
Subjective - Date & Time of Evaluation Date of Evaluation: 04/30/17 Time of Evaluation: 15:23 - Subjective Subjective: Nephrology Consultation: Assessment: stable Altered mental status with ? 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 Plan No acute need for renal replacement therapy at this time. Hypertension control with meds as ordered. increased losartan 100 mg/day and coreg. added prn hydralazine Monitor Input/Output, daily weights and renal function with basic metabolic panel continue with MVI, iron and weekly vit D supplement electrolytes as needed podiatry following Dose meds/antibiotics for reduced GFR. Avoid fleets enema/magnesium based laxatives. Avoid nephrotoxins/NSAIDs Glycemic control Further work up/management as per primary team Thanks for allowing me to participate in care of your patient. Will follow patient with you. Please call if any Qs. d/w family bedside Dr Víctor Echols Office: [phone] Reason for consult: ELIZABETH, hypernatremia, CKD management HPI: Pt is a 86 M with hx of diabetes Mellitus ( many years), hypertension ( many years), CKD stage 3 (baseline cr 1.9 in 2014) was brought to hospital with Rt great toe gangrne and cellulitis. he was found to have ELIZABETH and Hypernatremia hence renal consulted Denies OTC/herbal meds or NSAIDs No known recent iodinated contrast exposure. No obvious episodes of low BP ROS: denies CP/SOB/pain abdomen. pt had pulled out his picc line. intermittent episodes of agitations Physical Examination: family bedside General Appearance: Comfortable, in no acute respiratory distress, co-operative . Vitals reviewed and noted as below Head; Atraumatic, normocephalic ENT: no ulcers no thrush. Tongue is midline. Oropharynx: no rash or ulcers. EYES: Pupils are equal, round and reactive to light accommodation. Eye muscles and extraocular movement intact. Sclera is anicteric. Neck; supple no lymphadenopathy, no thyromegaly or bruit Lungs: Normal respiratory rate/effort. Breath sounds bilateral equal and clear Heart: Normal rate. s1s2 normal. No rub or gallop. Extremities: no edema. No varicose veins. Rt foot great toe with dry gangrene Neurological: Patient is sleeping today Skin: Warm and dry. Normal turgor. No rash. Palpitation: Normal elasticity for age Abdomen: Abdomen is soft. Bowel sounds +. There is no abdominal tenderness, no guarding/rigidity no organomegaly Psych: unable. he lack insight MSK: no joint tenderness or swelling. Digits and nails normal, no deformity : kidney or bladder not palpable Labs/imaging reviewed. Past medical history, past surgical history, family history, social history, allergy reviewed and noted as below Family hx: no hx of CKD. Rest non-contributory work up: SPEP/SARAH neg TSAT 22% Ferritin 37 Vit D <12.8 PTH 40 renal sono; wnl UA SG >1.030 carito low and renin low Objective - Vital Signs/Intake and Output Vital Signs (last 24 hours): Temp Pulse Resp BP Pulse Ox 99.3 F 80 20 186/87 H 98 04/30/17 07:30 04/30/17 10:21 04/30/17 07:30 04/30/17 10:21 04/30/17 07:30 Intake and Output: 04/30/17 04/30/17 06:59 18:59 Intake Total 800 0 Output Total 700 450 Balance 100 -450 - Medications Medications: Current Medications Amlodipine Besylate (Norvasc) 10 mg PO DAILY [facility] Last Admin: 04/30/17 10:11 Dose: Not Given Carvedilol (Coreg) 25 mg PO BID [facility] Last Admin: 04/30/17 10:21 Dose: 25 mg Ergocalciferol (Drisdol 50,000 Intl Units Cap) 1 cap PO Q7D [facility] Last Admin: 04/26/17 10:08 Dose: 1 cap Ferrous Gluconate (Fergon) 324 mg PO TID [facility] Last Admin: 04/30/17 10:10 Dose: Not Given Haloperidol Lactate (Haldol) 1 mg IM Q8H PRN; Protocol PRN Reason: severe agitagtion Hydralazine HCl (Apresoline) 25 mg PO Q4 PRN PRN Reason: Other Linezolid (Zyvox 600mg/300ml D5w) 600 mg in 300 mls @ 200 mls/hr IVPB Q12 NEVIN PRN Reason: Protocol Stop: 04/30/17 22:31 Last Admin: 04/30/17 10:13 Dose: 200 mls/hr Piperacillin Sod/Tazobactam Sod (Zosyn 3.375 In Ns 100ml) 100 mls @ 200 mls/hr IVPB Q8 NEVIN PRN Reason: Protocol Stop: 05/01/17 22:01 Last Admin: 04/30/17 05:52 Dose: 200 mls/hr Lorazepam (Ativan) 0.5 mg IVP TID PRN; Protocol PRN Reason: restlessness/agitation Last Admin: 04/29/17 15:36 Dose: 0.5 mg Losartan Potassium (Cozaar) 100 mg PO DAILY [facility] Magnesium Oxide (Mag-Ox) 400 mg PO BID [facility] Last Admin: 04/30/17 10:11 Dose: Not Given Non-Formulary Medication (Temazepam [Restoril]) 15 mg PO HS [facility] Last Admin: 04/28/17 21:42 Dose: Not Given Ondansetron HCl (Zofran Inj) 4 mg IVP ONCE PRN PRN Reason: Nausea/Vomiting Potassium Chloride (K-Dur 20 Meq Er Tab) 20 meq PO BRK [facility] Last Admin: 04/30/17 07:52 Dose: Not Given Quetiapine Fumarate (Seroquel) 12.5 mg PO HS [facility] PRN Reason: Protocol Last Admin: 04/29/17 21:37 Dose: 12.5 mg Sitagliptin Phosphate (Januvia) 25 mg PO DAILY [facility] Last Admin: 04/30/17 10:10 Dose: Not Given Vancomycin HCl (Vancocin 25 Mg/Ml (Oral Use)) 125 mg PO QID [facility] PRN Reason: Protocol Last Admin: 04/30/17 10:11 Dose: Not Given Vitamin B Complex/Vit C/Folic Acid (Nephro-J Luis) 1 tab PO 0800 [facility] Last Admin: 04/30/17 07:53 Dose: Not Given - Labs Labs: 04/30/17 06:57 04/30/17 06:57 PT 14.4 SECONDS (9.4-12.5) H 04/30/17 06:57 INR 1.25 (0.93-1.08) H 04/30/17 06:57 APTT 20.3 Seconds (25.1-36.5) L 04/23/17 19:11
[2017-04-30] MEDS ORDERED: Lidocaine 2% Inj (20ml) ONE (17:03)
[2017-04-30] MEDS ORDERED: Bupivacaine 0.5% Inj(30mL) ONE (18:04)
[2017-04-30] MEDS ORDERED: Propofol 10 mg/ml Inj (20 ML) ONE ×2 (18:11→18:47)
[2017-04-30] MEDS ORDERED: Midazolam 2 MG/2 ML VIAL ONE (18:11)
--- NOTE | 2017-04-30 19:07 | PCM.SURG1 ---
Surgeon's Initial Post Op Note - Surgeon's Notes Surgeon: Dr. Saleh Central Office Frame Wirer: Dr. Merrill DPM PGY-1 Type of Anesthesia: IV Sedation, Local Anesthesia Administered By: Dr. Hartman Pre-Operative Diagnosis: right hallux gangrene Operative Findings: see dictation. injectables. 15 cc of 1:1 1% lidocaine plain and .25% marcaine plain; materials: 3-0 nylon, 3-0vicryl Post-Operative Diagnosis: same Operation Performed: right hallux proximal phalanx amputation Specimen/Specimens Removed: 1st proximal and distal phalanx of right hallux Estimated Blood Loss: EBL {In ML}: 1 Blood Products Given: N/A Drains Used: No Drains Post-Op Condition: Good Date of Surgery/Procedure: 04/30/17 Time of Surgery/Procedure: 17:30
[2017-04-30] MEDS ORDERED: Oxycodone/Acetaminophen 5/325 mg Tab PO PRN ×2 (19:10)
[2017-04-30] MEDS ORDERED: Sodium Chloride 0.9% 1,000 ML IV SCH (19:15)
--- NOTE | 2017-04-30 19:58 | CP.PCM.PN ---
Subjective - Date & Time of Evaluation Date of Evaluation: 04/30/17 Time of Evaluation: 12:15 - Subjective Subjective: Comfortable in bed, for surgery today, no fevers. Objective - Vital Signs/Intake and Output Vital Signs (last 24 hours): Temp Pulse Resp BP Pulse Ox 99.3 F 80 20 186/87 H 98 04/30/17 07:30 04/30/17 10:21 04/30/17 07:30 04/30/17 10:21 04/30/17 07:30 Intake and Output: 04/30/17 04/30/17 06:59 18:59 Intake Total 800 Output Total 700 Balance 100 - Medications Medications: Current Medications Amlodipine Besylate (Norvasc) 10 mg PO DAILY [facility] Last Admin: 04/30/17 10:11 Dose: Not Given Carvedilol (Coreg) 25 mg PO BID [facility] Last Admin: 04/30/17 10:21 Dose: 25 mg Ergocalciferol (Drisdol 50,000 Intl Units Cap) 1 cap PO Q7D [facility] Last Admin: 04/26/17 10:08 Dose: 1 cap Ferrous Gluconate (Fergon) 324 mg PO TID [facility] Last Admin: 04/30/17 10:10 Dose: Not Given Haloperidol Lactate (Haldol) 1 mg IM Q8H PRN; Protocol PRN Reason: severe agitagtion Hydralazine HCl (Apresoline) 25 mg PO Q4 PRN PRN Reason: Other Linezolid (Zyvox 600mg/300ml D5w) 600 mg in 300 mls @ 200 mls/hr IVPB Q12 [facility] PRN Reason: Protocol Stop: 04/30/17 22:31 Last Admin: 04/30/17 10:13 Dose: 200 mls/hr Piperacillin Sod/Tazobactam Sod (Zosyn 3.375 In Ns 100ml) 100 mls @ 200 mls/hr IVPB Q8 [facility] PRN Reason: Protocol Stop: 05/01/17 22:01 Last Admin: 04/30/17 05:52 Dose: 200 mls/hr Lorazepam (Ativan) 0.5 mg IVP TID PRN; Protocol PRN Reason: restlessness/agitation Last Admin: 04/29/17 15:36 Dose: 0.5 mg Losartan Potassium (Cozaar) 50 mg PO DAILY [facility] Last Admin: 04/30/17 10:10 Dose: Not Given Magnesium Oxide (Mag-Ox) 400 mg PO BID [facility] Last Admin: 04/30/17 10:11 Dose: Not Given Non-Formulary Medication (Temazepam [Restoril]) 15 mg PO HS [facility] Last Admin: 04/28/17 21:42 Dose: Not Given Ondansetron HCl (Zofran Inj) 4 mg IVP ONCE PRN PRN Reason: Nausea/Vomiting Potassium Chloride (K-Dur 20 Meq Er Tab) 20 meq PO BRK [facility] Last Admin: 04/30/17 07:52 Dose: Not Given Quetiapine Fumarate (Seroquel) 12.5 mg PO HS [facility] PRN Reason: Protocol Last Admin: 04/29/17 21:37 Dose: 12.5 mg Sitagliptin Phosphate (Januvia) 25 mg PO DAILY [facility] Last Admin: 04/30/17 10:10 Dose: Not Given Vancomycin HCl (Vancocin 25 Mg/Ml (Oral Use)) 125 mg PO QID [facility] PRN Reason: Protocol Last Admin: 04/30/17 10:11 Dose: Not Given Vitamin B Complex/Vit C/Folic Acid (Nephro-J Luis) 1 tab PO 0800 [facility] Last Admin: 04/30/17 07:53 Dose: Not Given - Labs Labs: 04/30/17 06:57 04/30/17 06:57 PT 14.4 SECONDS (9.4-12.5) H 04/30/17 06:57 INR 1.25 (0.93-1.08) H 04/30/17 06:57 APTT 20.3 Seconds (25.1-36.5) L 04/23/17 19:11 - Constitutional Appears: Chronically Ill - Head Exam Head Exam: NORMAL INSPECTION - ENT Exam ENT Exam: Mucous Membranes Moist - Neck Exam Neck Exam: absent: Meningismus - Respiratory Exam Respiratory Exam: Decreased Breath Sounds - Cardiovascular Exam Cardiovascular Exam: +S1, +S2 - GI/Abdominal Exam GI & Abdominal Exam: Soft. absent: Tenderness - Extremities Exam Additional comments: right foot with dressings in place Assessment and Plan - Assessment and Plan (Free Text) Plan: Assessment Right hallux gangrene with cellulitis, with peripheral arterial disease S/P revascularization POD #2 history of right ankle, foot infected ulcer with skin and skin structure infection, growing Enterobacter and Enterococcus with no osteomyelitis on MRI DM HTN Plan continue Zyvox and Zosyn - for right hallux amputation today - follow up OR cultures and pathology
[2017-04-30 22:52] VITALS: RESP 18
--- NOTE | 2017-05-01 00:03 | CON ---
DATE: 04/30/2017 He is being seen today for a follow up consultation. PRESENTATION: The patient is an 86-year-old -[place] male seen at bedside. The patient was originally admitted to hospital from [facility] for evaluation of gangrene of right great toe and cellulitis. Psychiatric consultation was ordered due to anxiety and dementia. The patient has been seen and followed several times by Psychiatry. Seroquel 12.5 mg was added at bedtime as the patient was having difficulties with sundowning and getting confused at night. He also has Ativan 0.5 mg IV push t.i.d. p.r.n. for restlessness and agitation. The last time he received this was yesterday at around 05:30. According to nurse's notes and speaking with the nurses, the patient is fairly easily directed. He is pleasant and pleasantly confused. There are times when he is very clear and is able to give good information like his address or his phone number, and other times he cannot remember much of anything. He does seem to have a lot of concerns and worries when he is confused to the well being of his family and his business, and also the things in his past, but he is easily directed and appears to be doing fairly well. He is sleeping fairly deeply when I see him this morning. So collateral was obtained from the nursing staff and I reviewed the chart. Additionally, according to the notes, the patient will be discharged tomorrow at 2:30 to return to [facility]. is seeking power of classics professor for her , so that she can make medical decisions for him. PAST MEDICAL HISTORY: Includes hypertension, diabetes as well as dementia. VITAL SIGNS: Today include temperature of 99.3, pulse rate of 78, blood pressure of 207/82 at 7:30 in the morning and went down to 186/87 at 10:21 this morning, respiratory rate of 20, O2 sat of 98%. MENTAL STATUS EXAM: Was unable to be obtained today; however, the patient has only been oriented as to his name in this admission. He is generally pleasantly confused. There is nothing in his behavior that would indicate that he is suicidal or homicidal. He has been easily directed according to the nursing staff. DIAGNOSTIC IMPRESSION: Dementia without behavioral disturbance, delirium. Urinary tract infection seems to have resolved. PLAN: The patient does not appear to be suicidal or homicidal and appears in no imminent danger of hurting himself or others. I would recommend that he continue on the Seroquel 12.5 mg at bedtime with Ativan on 0.5 mg t.i.d. p.r.n. for restlessness or agitation when [facility]. I additionally would recommend that when [facility] that he sees a psychiatrist there within 48 to 72 hours to just to ascertain how he is doing on these medications over time. He is clear to return to the [facility] psychiatrically. Psychiatry will sign off on this patient today. Thank you for the consult. Christina Mcguire APN [facility]
[2017-05-01] MEDS: Piperacillin/Tazobact 3.375 gm 100 ML IVPB SCH ×2 (06:01→13:13)
[2017-05-01 07:17] LABS: HEMOGLOBIN 8.7 g/dL (14.0-18.0); MEAN CELL VOLUME 88.1 fl (80.0-105.0); MEAN CORPUSCULAR HEMOGLOBIN 28.8 pg (25.0-35.0); MEAN CORPUSCULAR HGB CONC 32.7 g/dl (31.0-37.0); MEAN PLATELET VOLUME 11.5 fl (7.0-11.0); RBC 3.02 10^6/uL (3.5-6.1); RED CELL DISTRIBUTION WIDTH 14.7 % (11.5-14.5); WHITE BLOOD COUNT 7.4 10^3/ul (4.5-11.0)
[2017-05-01 07:55] LABS: ALB/GLOB RATIO 0.8 (1.1-1.8); ALBUMIN 2.7 g/dL (3.0-4.8); CALCIUM 8.3 mg/dL (8.4-10.5)
[2017-05-01 08:12] VITALS: BP 161/65; PULSE 85; TEMP 98.4; O2SAT 97
[2017-05-01] MEDS: Multivitamin Vitamin B Complex (Nephro-Vite) Tab PO SCH (08:24)
[2017-05-01] MEDS: Potassium Chloride 20 mEq ER Tab PO SCH (08:25)
[2017-05-01] MEDS ORDERED: Darbepoetin Alfa 40 mcg/ml Inj SC ONE (09:26)
[2017-05-01] MEDS: Magnesium Oxide 400 mg Tab UD PO SCH (09:44)
[2017-05-01] MEDS: Vancomycin 25 MG/ML PO SCH ×2 (09:45→13:19)
--- NOTE | 2017-05-01 09:47 | RAD ---
PROCEDURE: Right Foot Radiographs. HISTORY: s/p right hallux amputation COMPARISON: Preoperative study 04/24/2017 FINDINGS: BONES: Status post resection 1st digit. JOINTS: Normal. SOFT TISSUES: Normal. OTHER FINDINGS: None. IMPRESSION: Satisfactory postoperative status.
--- NOTE | 2017-05-01 10:20 | CP.PCM.PN ---
Subjective - Date & Time of Evaluation Date of Evaluation: 05/01/17 Time of Evaluation: 10:18 - Subjective Subjective: Nephrology Consultation: Assessment: stable Altered mental status with ? 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 Plan No acute need for renal replacement therapy at this time. Hypertension control with meds as ordered. on losartan 100 mg/day, norvasc and coreg. added prn hydralazine Monitor Input/Output, daily weights and renal function with basic metabolic panel continue with MVI, iron and weekly vit D. dose of aransep 40 mcg on 05/01/17 supplement electrolytes as needed podiatry following Dose meds/antibiotics for reduced GFR. Avoid fleets enema/magnesium based laxatives. Avoid nephrotoxins/NSAIDs Glycemic control Further work up/management as per primary team pt stable for d/c from renal perspective when planned. pt was encouraged to drink plenty of water. Thanks for allowing me to participate in care of your patient. Will follow patient with you. Please call if any Qs. d/w family bedside Dr Víctor Echols Office: [phone] Reason for consult: ELIZABETH, hypernatremia, CKD management HPI: Pt is a 86 M with hx of diabetes Mellitus ( many years), hypertension ( many years), CKD stage 3 (baseline cr 1.9 in 2015) was brought to hospital with Rt great toe gangrne and cellulitis. he was found to have ELIZABETH and Hypernatremia hence renal consulted Denies OTC/herbal meds or NSAIDs No known recent iodinated contrast exposure. No obvious episodes of low BP ROS: denies CP/SOB/pain abdomen. pt had pulled out his picc line. intermittent episodes of agitations Physical Examination: family bedside General Appearance: Comfortable, in no acute respiratory distress, co-operative . Vitals reviewed and noted as below Head; Atraumatic, normocephalic ENT: no ulcers no thrush. Tongue is midline. Oropharynx: no rash or ulcers. EYES: Pupils are equal, round and reactive to light accommodation. Eye muscles and extraocular movement intact. Sclera is anicteric. Neck; supple no lymphadenopathy, no thyromegaly or bruit Lungs: Normal respiratory rate/effort. Breath sounds bilateral equal and clear Heart: Normal rate. s1s2 normal. No rub or gallop. Extremities: no edema. No varicose veins. Rt foot great toe with dry gangrene Neurological: Patient is awake today and not oriented Skin: Warm and dry. Normal turgor. No rash. Palpitation: Normal elasticity for age Abdomen: Abdomen is soft. Bowel sounds +. There is no abdominal tenderness, no guarding/rigidity no organomegaly Psych: unable. he lack insight MSK: no joint tenderness or swelling. Digits and nails normal, no deformity : kidney or bladder not palpable Labs/imaging reviewed. Past medical history, past surgical history, family history, social history, allergy reviewed and noted as below Family hx: no hx of CKD. Rest non-contributory work up: SPEP/SARAH neg TSAT 22% Ferritin 37 Vit D <12.8 PTH 40 renal sono; wnl UA SG >1.030 carito low and renin low Objective - Vital Signs/Intake and Output Vital Signs (last 24 hours): Temp Pulse Resp BP Pulse Ox 98.4 F 85 18 161/65 H 97 05/01/17 06:00 05/01/17 09:44 05/01/17 06:00 05/01/17 09:45 05/01/17 06:00 Intake and Output: 05/01/17 05/01/17 06:59 18:59 Intake Total 900 Output Total 700 Balance 200 - Medications Medications: Current Medications Acetaminophen (Tylenol 325mg Tab) 325 mg PO Q4H PRN PRN Reason: Pain, Mild (1-3) Amlodipine Besylate (Norvasc) 10 mg PO DAILY [facility] Last Admin: 05/01/17 09:45 Dose: 10 mg Carvedilol (Coreg) 25 mg PO BID [facility] Last Admin: 05/01/17 09:44 Dose: 25 mg Ergocalciferol (Drisdol 50,000 Intl Units Cap) 1 cap PO Q7D [facility] Last Admin: 04/26/17 10:08 Dose: 1 cap Ferrous Gluconate (Fergon) 324 mg PO TID [facility] Last Admin: 05/01/17 09:44 Dose: 324 mg Haloperidol Lactate (Haldol) 1 mg IM Q8H PRN; Protocol PRN Reason: severe agitagtion Hydralazine HCl (Apresoline) 25 mg PO Q4 PRN PRN Reason: Other Piperacillin Sod/Tazobactam Sod (Zosyn 3.375 In Ns 100ml) 100 mls @ 200 mls/hr IVPB Q8 NEVIN PRN Reason: Protocol Stop: 05/01/17 22:01 Last Admin: 05/01/17 06:01 Dose: 200 mls/hr Lorazepam (Ativan) 0.5 mg IVP TID PRN; Protocol PRN Reason: restlessness/agitation Last Admin: 04/29/17 15:36 Dose: 0.5 mg Losartan Potassium (Cozaar) 100 mg PO DAILY [facility] Last Admin: 05/01/17 09:44 Dose: 100 mg Magnesium Oxide (Mag-Ox) 400 mg PO BID [facility] Last Admin: 05/01/17 09:44 Dose: 400 mg Non-Formulary Medication (Temazepam [Restoril]) 15 mg PO HS [facility] Last Admin: 04/30/17 22:50 Dose: Not Given Ondansetron HCl (Zofran Inj) 4 mg IVP ONCE PRN PRN Reason: Nausea/Vomiting Oxycodone/Acetaminophen (Percocet 5/325 Mg Tab) 1 tab PO Q4H PRN PRN Reason: Pain, moderate (4-7) Stop: 05/03/17 19:11 Last Admin: 05/01/17 06:08 Dose: 1 tab Oxycodone/Acetaminophen (Percocet 5/325 Mg Tab) 2 tab PO Q4H PRN PRN Reason: Pain, severe (8-10) Stop: 05/03/17 19:11 Potassium Chloride (K-Dur 20 Meq Er Tab) 20 meq PO BRK [facility] Last Admin: 05/01/17 08:25 Dose: 20 meq Potassium Chloride (K-Dur 20 Meq Er Tab) 40 meq PO BRK [facility] Stop: 05/01/17 10:31 Last Admin: 03/10/18 09:45 Dose: 40 meq Quetiapine Fumarate (Seroquel) 12.5 mg PO HS NEVIN PRN Reason: Protocol Last Admin: 04/30/17 22:45 Dose: 12.5 mg Sitagliptin Phosphate (Januvia) 25 mg PO DAILY [facility] Last Admin: 05/01/17 09:44 Dose: 25 mg Vancomycin HCl (Vancocin 25 Mg/Ml (Oral Use)) 125 mg PO QID NEVIN PRN Reason: Protocol Last Admin: 05/01/17 09:45 Dose: 125 mg Vitamin B Complex/Vit C/Folic Acid (Nephro-J Luis) 1 tab PO 0800 [facility] Last Admin: 05/01/17 08:24 Dose: 1 tab - Labs Labs: 05/01/17 07:00 05/01/17 07:00 PT 14.4 SECONDS (9.4-12.5) H 04/30/17 06:57 INR 1.25 (0.93-1.08) H 04/30/17 06:57 APTT 20.3 Seconds (25.1-36.5) L 04/23/17 19:11
--- NOTE | 2017-05-01 10:25 | PN ---
DATE: SUBJECTIVE: An 86-year-old male seen at bedside postop day 1 right hallux amputation secondary to gangrene. The patient is laying in bed comfortably and offers no new complaints. The patient has been afebrile and has not had any fever, chills, nausea, vomiting or shortness of breath. Denies any calf tenderness at this time upon palpation. However, the patient still is not completely coherent when asked questions. The patient's vital signs revealed temperature of 98.4, pulse rate of 85, blood pressure of 161/65, respiratory rate of 18. Laboratory findings reveal white count of 7.4, hemoglobin of 8.7, hematocrit of 26.6, platelet count of 110. Postoperative x-rays reveal ablation of the distal and partial right first proximal phalanx. OBJECTIVE: Nonpalpable pedal pulses noted bilaterally. Incisional site presents with sutures well coapted. There is noted to be no dehiscence. No drainage. There is minimal edema and erythema. No signs of hematoma. No signs of necrosis at the incision site. ASSESSMENT: Status post day 1 right hallux amputation. PLAN: The patient's wound was cleansed with normal sterile saline and application of Xeroform and a dry sterile dressing was applied. The patient has arterial ulceration on the dorsal aspect of his right foot as well and an application of Xeroform and a dry sterile dressing was applied. We will keep the patient off weightbearing until further notice to prevent surgical dehiscence. The patient's dressing will be changed daily. René Saleh DPM
[2017-05-01] MEDS ORDERED: Potassium Chloride 20 mEq ER Tab PO SCH (10:30)
[2017-05-01] MEDS: Potassium Chloride 20 mEq ER Tab PO ONE ×2 (13:14→13:17)
--- NOTE | 2017-05-01 15:46 | PN ---
DATE: 05/01/2017 SUBJECTIVE: The patient is seen early this morning in 567, bed 1. No fevers and chill. Overall, he is in poor condition. PHYSICAL EXAMINATION: VITAL SIGNS: Temperature is 99, blood pressure is 160/60, respiratory rate of 16. HEENT: Examination of HEENT is unremarkable. NECK: Supple. LUNGS: Have decreased breath sounds. HEART: Normal S1 and S2. ABDOMEN: Soft. LABORATORY DATA: Laboratory examination reveals a white count of 7.4, hemoglobin of 8, platelets of 110. Chemistries reveals a BUN of 8, creatinine of 1.4. Urinalysis is noted. Microbiology reveals the urine culture has gram-positive cocci and blood cultures are negative. ASSESSMENT AND PLAN: An 86-year-old male seen early this morning in 567, bed 1 with a right hallux gangrene with cellulitis and peripheral artery disease, status post revascularization and postprocedure day #3, history right ankle and foot infected ulcer with the skin and skin structure infection growing Enterobacter and Enterococcus. No osteomyelitis on the MRI, on Zyvox and Zosyn, on p.o. vancomycin. Zyvox has been discontinued. We will follow with you. Christiano Uribe MD
--- NOTE | 2017-05-02 08:19 | DS ---
He will be discharged to [facility]. He will be followed there by Dr. Sun. He will continue with his hydralazine, Aranesp as needed, Ativan, Coreg, Cozaar, Drisdol once a week, Fergon, Haldol, Januvia, potassium, magnesium, Nephro-J Luis, Norvasc, Percocet as needed, Seroquel, Restoril, Tylenol, vancomycin for another 10 days, Zofran and Zosyn for another 10 days. PHYSICAL EXAMINATION VITAL SIGNS: He has a 98.4 temperature, 85 pulse, 161/65 blood pressure, 18 respiratory rate and 97% O2 saturation on nasal cannula, room air. HEENT: His head is atraumatic, normocephalic. HEART: Regular rate. LUNGS: Decreased breath sounds, but clear. ABDOMEN: Soft. EXTREMITIES: The right foot is bandaged. He had a transmetatarsal amputation. LABORATORY DATA: He has a 7.4 white count, 8.7 hemoglobin, 26.6 hematocrit with 110,000 platelets. He has a 137 sodium; potassium is 3.2, we will give him some potassium before he goes. BUN is 8, creatinine 1.4, GFR is 48, sugar is 122. Calcium is 8.3, total bili is 0.78, AST is 23, ALT is 24, alkaline phosphatase is 84, total protein is 5.9. He will be transferred to subacute rehab today. I will be seeing him there in a few days. He should do very well, I am hoping. He had a right first toe gangrene and amputation. Grabiel Sun DO
--- NOTE | 2017-05-04 19:44 | OP ---
PROCEDURE DATE: 04/30/2017 SURGEON: René Saleh DPM AUTO ELECTRICIAN: Davie Merrill DPM, PGY-1 ANESTHESIOLOGIST: Kevon Hartman M.D. TYPE OF ANESTHESIA: IV sedation with local. PREOPERATIVE DIAGNOSIS: Right hallux gangrene. POSTOPERATIVE DIAGNOSIS: Right hallux gangrene. NAME OF PROCEDURE: Right hallux partial proximal phalanx amputation. INDICATIONS: The patient is an 86-year-old male with the above diagnosis. The patient has exhausted all conservative treatment at this time and now required surgical intervention. The patient and patient's signed the consent after careful explanation of risks, benefits, complications and alternatives for surgical procedure. No guarantees were given nor implied. N.p.o. status was confirmed prior to taking the patient to the OR. PREPARATION: The patient was brought into the operating room and remained in the stretcher. A timeout was performed for correct identification of the correct patient and procedure. After induction of IV sedation, the patient received a total of 15 mL of 1:1 mixture of 0.5% Marcaine plain and 2% lidocaine plain in a local block fashion to the first right hallux. The foot was then prepped and draped in a normal sterile manner and the procedure began. No tourniquet was used during the entire procedure. DESCRIPTION OF PROCEDURE: Attention was drawn to the right hallux. However, there is a dry gangrene with mummification of the right digit that extends proximally to the level of the first IPJ. Attention was then directed to the dorsal aspect of the right first digit where an incision was made circumferentially around the entire digit at the level of the IPJ. Incision was made just proximally towards the gangrene, demarcation is noted to ensure healthy closure. The incision was then extended down to the subcutaneous layers, down to the level of the bone. Using a pickup and towel clamp to stabilize the distal hallux. The distal hallux was then disarticulated from the foot at the level of the first IPJ using a #15 blade and crown and collar scissor. The distal hallux was then resected and passed off the operating field and sent to the pathology lab. Next, utilizing a #15 blade and a pickup with distal soft tissue attachment in the periosteum tissue. All the proximal phalanx was then resected and freed off the bone where the distal proximal phalanx bone was exposed. Next, using a sagittal saw, one-third of the proximal phalanx was resected and sent off the field, to be sent to the pathology lab. Next, utilizing a pickup and a #15, all necrotic and non viable tissue was then excisionally divided from the surgical site until more healthy tissue is noted. The wound was copiously flushed with sterile saline. Next, utilizing a 2-0 Vicryl the subcutaneous tissue was reapproximated. Next, the skin layers were then reapproximated and coapted using a 3-0 nylon in a horizontal mattress in simple suture technique. The skin layers were then reinforced using taylor along the surgical incision. The right foot was then dressed with Betadine-soaks, Xeroform, DSD gauze and Kerlix. POSTOPERATIVE CONDITION: The patient tolerated the anesthesia and procedure well and was escorted to the recovery room with vital signs stable and neurovascular status intact to the right foot. The patient will follow up with Dr. Saleh upon discharge. Davie Merrill DPM René Saleh DPM [facility] SYSTEMJimena
--- NOTE | 2017-05-04 20:34 | CON ---
DATE: 04/28/2017 He is being seen today for a followup consultation. PRESENTATION: The patient is an 86-year-old -[place] male first admitted to [facility] on 04/23/2017. He came from the [facility] for treatment of his gangrenous right toe and cellulitis. He additionally had some combativeness prior to [facility] the [facility]. Psychiatric consultation was ordered due to anxiety and dementia. PAST MEDICAL HISTORY: Includes hypertension, diabetes and dementia. He does not have a power of assistant county attorney. He does have a who still lives with him, lives on her own, but he has no one with signed power of assistant county attorney. The patient is unable to give me any information today. He is more disoriented than he normally is. He is trying to climb out of bed when I see him, but is easily redirected back in. According to the nursing staff, he has been consistently pleasantly confused. Other than receiving his routine Seroquel 12.5 mg at bedtime, he has not needed any p.r.n. medications, so he does have a p.r.n. of Ativan 0.5 mg IV push three times a day as needed. According to the nurses, he is pleasantly confused, but cooperative. The patient has not had his toe amputated yet, which is what he came to the hospital for. I am unsure as to why this has not happened yet; however, this may be having an effect on his sensorium. VITAL SIGNS: Patient's current vital signs include temperature of 98, pulse rate of 80, blood pressure of 165/81, respiratory rate of 20, and O2 saturation of 97% at room air. MENTAL STATUS EXAM: The patient is unable to participate in a full mental status exam. He is confused. He is disoriented. He does answer to his name. He is able to converse normally today, he is too confused and disoriented. However, he is pleasant and is easily directed by the nursing staff. DIAGNOSTIC IMPRESSION: Dementia with behavioral disturbance, delirium secondary to medical condition, which are cellulitis and gangrene of the right toe. PLAN: The patient has no psychiatric history. In terms of suicide attempts, his behavior does not indicate that he is of danger to himself or others; however, he is unable to verbalize this today. He is taking his medications as prescribed and is cooperative though, mostly disoriented. Psychiatry will continue to follow. Thank you for the consult. Christina Mcguire APN Kiana Ruiz MD [facility]
== END 2017-05-01 15:52 | DRG 253 ==
LOC: ED 13:09 → ERH 18:27 → 5RNO 20:52 → 2RNO 04-28 18:05 → 5RNO 04-29 00:49
PROVIDERS: ADMIT Family Medicine; ATTEND Family Medicine
PROC: 047K3Z1 Dilation of Right Femoral Artery using Drug-Coated Balloon, Percutaneous Approach (ICD-10-PCS; 2017-04-28)
PROC: 047M3Z1 Dilation of Right Popliteal Artery using Drug-Coated Balloon, Percutaneous Approach (ICD-10-PCS; 2017-04-28)
PROC: 047T34Z Dilation of Right Peroneal Artery with Drug-eluting Intraluminal Device, Percutaneous Approach (ICD-10-PCS; 2017-04-28)
PROC: 0Y6P0Z0 Detachment at Right 1st Toe, Complete, Open Approach (ICD-10-PCS; principal; 2017-04-30 15:00)
DX: E11.52 Type 2 diabetes mellitus with diabetic peripheral angiopathy with gangrene (principal); N17.9 Acute kidney failure, unspecified; A04.72 Enterocolitis due to Clostridium difficile, not specified as recurrent; E87.0 Hyperosmolality and hypernatremia; M86.171 Other acute osteomyelitis, right ankle and foot; F03.91 Unspecified dementia, unspecified severity, with behavioral disturbance; F05 Delirium due to known physiological condition; N25.81 Secondary hyperparathyroidism of renal origin; N39.0 Urinary tract infection, site not specified; E11.22 Type 2 diabetes mellitus with diabetic chronic kidney disease; E11.42 Type 2 diabetes mellitus with diabetic polyneuropathy; E83.42 Hypomagnesemia; I15.1 Hypertension secondary to other renal disorders; L03.031 Cellulitis of right toe; D64.9 Anemia, unspecified; E11.621 Type 2 diabetes mellitus with foot ulcer; E11.69 Type 2 diabetes mellitus with other specified complication; E55.9 Vitamin D deficiency, unspecified; E86.0 Dehydration; E87.6 Hypokalemia; F41.9 Anxiety disorder, unspecified; I12.9 Hypertensive chronic kidney disease with stage 1 through stage 4 chronic kidney disease, or unspecified chronic kidney disease; J44.9 Chronic obstructive pulmonary disease, unspecified; L97.519 Non-pressure chronic ulcer of other part of right foot with unspecified severity; M19.90 Unspecified osteoarthritis, unspecified site; N18.3 Chronic kidney disease, stage 3 (moderate); Z79.84 Long term (current) use of oral hypoglycemic drugs; Z79.899 Other long term (current) drug therapy; Z87.891 Personal history of nicotine dependence